=== PATIENT | female | born 1935 | race Caucasian/White ===

== ENCOUNTER 2020-09-04 09:23 | Outpatient (CLI) | payer OTHER, SELFPAY ==
--- NOTE | ~2020-09-04 | XR_ITS ---
XR abdomen/kub 1V DATE: 09/04/2020 09:43 INDICATION: Gross hematuria TECHNIQUE: AP projection, 2 views COMPARISON: 09/04/[address] abdomen pelvis FINDINGS: There are 2 contiguous approximately 1.5 cm calcified right renal pelvic calculi. Approximately 6 mm upper pole left renal obstructing calculus. Approximately 6 mm lower pole left renal nonobstructing calcified calculus. Surgical clips, right upper quadrant, consistent with cholecystectomy. No evidence of bowel obstruction. Ilana overlie the abdomen, consistent with prior abdominal wall mesh repair There is prominent rotatory levoscoliosis and degenerative change of the lumbar spine. Abdominal aort ic calcification without evidence of aneurysm. IMPRESSION: 2 contiguous approximately 1.5 cm right renal pelvic calcified stones Left nephrolithiasis Reviewed, dictated and finalized at [facility]. Reviewed, dictated and finalized at location [facility]. IMPRESSION: 2 contiguous approximately 1.5 cm right renal pelvic calcified ston es Left nephrolithiasis
--- NOTE | ~2020-09-04 | CT_ITS ---
EXAMINATION: CT abdomen pelvis wo/w con DATE: 09/04/2020 10:20 INDICATION: Gross hematuria TECHNIQUE: Computed tomography (CT) of the abdomen and pelvis was performed without and subsequently with 130 cc Omnipaque 350 intravenous contrast. Automated exposure control and iterative reconstructi on technique were employed. Exam dose: 2578.13 mGy-cm total exam DLP. COMPARISON: 09/04/2020 KUB 09/12/[address] abdomen FINDINGS: Cardiomegaly. No pericardial or pleural effusion. A hiatal hernia is noted. Within the hernia sac is the gastric fundus, pancreatic tail and a portion of the body of the pancreas addition to splenic artery. Status post cholecystectomy. No bile duct or pancreatic duct dilatation. No hepatic, splenic, pancreatic, adrenal space-occupying mass lesion. 3.6 cm exophytic upper pole right renal cyst. Additional approximately 5.5 mm right renal cyst. 3.7 cm exophytic mid left renal cyst. Smaller left parapelvic and cortical renal cysts. There are 2 approximately 1.5 cm right renal pelvic calcified calculi with attenuation of approximate ly 1350 Hounsfield units. 5.8 mm upper pole nonobstructing left renal calculus. 5.8 mm lower pole nonobstructing left renal shawnee culus. No ureteral calculi or hydronephrosis is noted on either side. The urinary bladder is evacuated and u nremarkable. There are innumerable diverticula of the sigmoid and descending colon and multiple diverticula of the transverse and ascending colon. No CT evidence of diverticulitis. No bowel obstruction, bowel wall t hickening, pneumatosis or intraperitoneal free air is evident. No appendix is evident. Mesh repair of anterior abdominal wall. There is atherosclerotic calcification of the abdominal aorta, iliac arteries but no evidence of aneu rysm. No intraperitoneal or retroperitoneal or pelvic mass lesion or adenopathy or ascites is detecte d. Bilateral L5 pars inter-articularis defects with grade 2 anterolisthesis and severe degenerative dise ase at L5-S1. There is scoliosis and multilevel degenerative disc disease of the lumbar spine, particularly severe at L2-3, with minimal retrolisthesis at this level. IMPRESSION: There are 2 approximately 1.5 cm right renal pelvic calcified calculi Bilateral renal cysts Extensive diverticulosis of the colon; no CT evidence of diverticulitis Status post cholecystectomy Hiatal hernia containing gastric fundus, pancreatic tail and body Bilateral L5 pars intra-articular is defects with grade 2 anterolisthesis at L5-S1 Multilevel degenerative disc disease, greater laterally severe at L2-3 Reviewed, dictated and finalized at [facility]. Reviewed, dictated and finalized at [facility]. IMPRESSION: There are 2 approximately 1.5 cm right renal pelvic calcified calc leela Bilateral renal cysts Extensive diverticulosis of the colon; no CT evidence of diverticulitis Status post cholecystectomy Hiatal hernia containing gastric fundus, pancreatic tail and body Bilateral L5 pars intra-articular is defects with grade 2 anterolisthesis at L5 -S1 Multilevel degenerative disc disease, greater laterally severe at L2-3
[2020-09-04 09:56] LABS: Estimated Glomerular Filt Rate 60
== END 2020-09-04 09:24 | disposition home or self-care (01) ==
LOC: ANHIMG 09:32
PROVIDERS: Visit Provider Nurse Practitioner Family
DX: R31.0 Gross hematuria (principal); N20.0 Calculus of kidney; N28.1 Cyst of kidney, acquired; K57.90 Diverticulosis of intestine, part unspecified, without perforation or abscess without bleeding; Z90.49 Acquired absence of other specified parts of digestive tract; K44.9 Diaphragmatic hernia without obstruction or gangrene; M43.17 Spondylolisthesis, lumbosacral region; M51.36 Other intervertebral disc degeneration, lumbar region
CPT/HCPCS: 74018; 74178; Q9967

== ENCOUNTER 2020-09-14 11:12 | Outpatient (CLI) | payer OTHER, SELFPAY ==
--- NOTE | 2020-09-14 11:28 | ECG_ITS ---
Measurements Intervals [place] Rate: 58 P: 24 IN: 226 QRS: -24 QRSD: 150 T: -13 QT: 418 QTc: 414 Interpretive Statements SINUS BRADYCARDIA WITH FIRST DEGREE AV BLOCK RIGHT BUNDLE BRANCH BLOCK BASELINE ARTIFACT- I, II, III, AVR, AVL, AVF ABNORMAL ECG Electronically Signed On 09-14-2020 11:43:45 CDT by Hamilton Ramon D.O.
[2020-09-14 11:57] LABS: Prothrombin Time 13.3 Seconds (11.1-14.7)
[2020-09-14 11:58] LABS: Partial Thromboplastin Time 29.7 SECONDS (22.3-36.8)
== END 2020-09-14 11:13 | disposition home or self-care (01) ==
LOC: ANHSURGERY 11:17
PROVIDERS: PCP Specialist; Visit Provider Urology
DX: N20.0 Calculus of kidney (principal); I10 Essential (primary) hypertension; Z01.818 Encounter for other preprocedural examination; I44.0 Atrioventricular block, first degree; I45.10 Unspecified right bundle-branch block
CPT/HCPCS: 36415; 85610; 85730; 87086; 93005

== ENCOUNTER → 2020-09-19 02:50 | Outpatient (CLI) | payer OTHER, SELFPAY ==
[2020-09-19 18:14] LABS: SARS-CoV-2 RNA PCR Negative
== END ==
PROVIDERS: Visit Provider Urology
DX: Z01.812 Encounter for preprocedural laboratory examination (principal); Z20.822 Contact with and (suspected) exposure to COVID-19
CPT/HCPCS: C9803; U0003; U0005

== ENCOUNTER 2020-09-22 00:44 | Day surgery (SDC) | payer OTHER, SELFPAY ==
[2020-09-12 13:23] VITALS: BMI 35.8
[2020-09-22] VITALS (7 sets, daily range): BP systolic 120–144; BP diastolic 59–74; PULSE 54–80; RESP 12–20; TEMP 36.1–36.5; O2SAT 96–100
--- NOTE | ~2020-09-22 | XR_ITS ---
EXAMINATION: XR abdomen/kub 1V DATE: 09/22/2020 06:27 INDICATION: Nephrolithiasis for planned lithotripsy TECHNIQUE: A supine view of the abdomen was obtained. COMPARISON: CT dated 09/04/2020 FINDINGS: Unchanged bilateral nephrolithiasis with 1.3 cm and 1.5 cm densely calcified stones projecting over t he right renal pelvis and 5 mm stone at the lower pole of the left kidney. Surgical clips project ove r both the left and right abdomen corresponding to a prior ventral hernia mesh repair. No dilated loo ps of gas-filled bowel to suggest obstruction. Sigmoid diverticulosis. A few phleboliths in the pelvi s. Lumbar levorotoscoliosis with moderate spondylosis. IMPRESSION: 1. Unchanged bilateral nephrolithiasis including a 1.3 and 1.5 cm stones at the right renal pelvis. Reviewed, dictated and finalized at location [facility].
--- NOTE | 2020-09-22 07:21 | WPDHPUPDATE1 ---
History and Physical Update Update Date/Time: 09/22/20 07:21 History and Physical has been reviewed, including an updated exam of the patient. There are NO changes in the patient's condition. Risks, benefits, and alternatives have been discussed and questions answered. Patient agrees to proceed with procedure.
--- NOTE | 2020-09-22 07:32 | WPDANESEPPF ---
Anes - Initial Pre Proc Eval Procedure: Operation Date: 09/22/20 08:30 Proposed Procedures p Right Extracorporeal Shock Wave Lithotripsy, - Ameya Mccracken MD s Right Ureteral Stent Placement, Possible Right Ureteroscopy - Ameya Mccracken MD Date/Time: 09/22/20 07:32 Surgeon: Ameya Mccracken MD Pre Op Diagnosis: bilat renal stones Patient Data Age: 85 Gender: F Height: 5 ft 5 in Weight: 97.72 kg Allergies Allergy/AdvReac Type Severity Reaction Status Date / Time codeine Allergy Unknown Hives Verified 09/22/20 07:31 atorvastatin AdvReac Muscle Pain Verified 09/22/20 07:31 Home Medications Medication Instructions Recorded Confirmed Type amlodipine 5 mg PO DAILY 03/25/19 09/12/20 History gabapentin 300 mg HS 03/25/19 09/12/20 History metoprolol tartrate 25 mg PO BID 03/25/19 09/12/20 History Patient hx anesthesia problems: none Family hx anesthesia problems: none PMFSH Past Medical History Medical History Bronchitis CAD (coronary artery disease) Cataract, right eye Hiatal hernia Neuropathy Sleep apnea Surgical History Surgical History Stented coronary artery Social History Social History Smoking status: Former smoker Tobacco type: cigarettes Second hand tobacco smoke exposure: No Additional smoking assessment comments: 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 Alcohol intake: never Substance use: never Substance use type: does not use Living arrangements: alone Spiritual care concerns: No Anes - Eval Final PreProcedure Day of Procedure 09/22/20 07:32 Patient weight: obese Heart: regular rate and rhythm Lungs: clear to auscultation Airway: Mallampati scale class II Neurological: alert and oriented Last oral intake: >/= 8 hours ASA classification: III Emergent: no Anesthetic plan: proceed Anesthesia type and monitoring: general LMA and standard monitoring Informed Consent: The patient's anesthetic plan and its attendant risks and benefits were discussed with the patient/family/POA. Questions were solicited and answers provided to the satisfaction of the patient/family/POA.
[2020-09-22] MEDS: LACTATED RINGERS 1,000 ML 30 ML IV CONT (07:39)
[2020-09-22] MEDS: ceFAZolin 2 GM/D5W 50 ML 2 GM/50 ML BAG IVPB (07:45)
--- NOTE | 2020-09-22 08:09 | PM.PROC ---
Procedure Note - Detailed Date of procedure: 09/22/20 Pre-op diagnosis: Right renal stones Post-op diagnosis: same Procedure performed: The patient was brought to the operative suite where she was placed in the frog-legged position on the Dornier lithotripter table. Flexible cystoscopy was undertaken with a 16F flexible cystoscopy. Her urethra and bladder neck were endoscopically normal. The bladder mucosa was normal and there was a single, orthotopic ureteral orifice bilaterally. A 0.035 glidewire was advanced into the right renal pelvis under fluoroscopy. A 4.8F J-J ureteral stent was positioned with the proximal coil in the renal pelvis and the distal coil in the bladder. The patient was then repositioned in the supine position and the focal point of the lithotriptor was placed the inferior-most of two right renal pelvic calculi - each measuring approx. 1cm. A total of 2500 shocks were delivered at a power setting of 4. The patient tolerated the procedure well and was taken to the recovery room in good condition. Anesthesia: GLMA Surgeon: Ameya Mccracken MD Estimated blood loss (mL): 0 Drains: Yes (4.8F right ureteral stent) Packing: No Pathology: none sent Complications: No immediate complications Condition: stable Disposition: PACU
== END 2020-09-22 10:13 | disposition home or self-care (01) ==
PROVIDERS: Visit Provider Urology
PROC: (CPT 50590; principal; 2020-09-22 08:30)
PROC: (CPT 52352; 2020-09-22 08:30)
DX: N20.0 Calculus of kidney (principal); I25.10 Atherosclerotic heart disease of native coronary artery without angina pectoris; K44.9 Diaphragmatic hernia without obstruction or gangrene; G47.30 Sleep apnea, unspecified; G62.9 Polyneuropathy, unspecified; Z87.891 Personal history of nicotine dependence; E66.9 Obesity, unspecified; Z68.36 Body mass index [BMI] 36.0-36.9, adult
CPT/HCPCS: 52332; 50590; 36415; 74018; 85610; 85730; 87086; 93005; A9270; C1769; C2617; C9803; J0690; J1100; J2405; J2704; J3010; J7030; J7120; U0003; U0005

== ENCOUNTER 2020-10-13 11:02 | Outpatient (CLI) | payer OTHER, SELFPAY ==
--- NOTE | ~2020-10-13 | XR_ITS ---
EXAMINATION: XR abdomen/kub 1V INDICATION: Gross hematuria TECHNIQUE: Supine views of the abdomen were obtained on 2 radiographs. COMPARISON: 09/22/2020 FINDINGS: A right internal ureteral stent has been placed in expected position. There is a 2.1 cm sto ne in the right renal pelvis. A 1.8 cm stone is present in the lower pole of the right kidney. There is a 6 mm stone in the left kidney lower pole. The bowel gas pattern is normal. Cholecystectomy clips are present in the right upper quadrant. Lumbar levoscoliosis is noted. There is calcified atheroscl erosis. IMPRESSION: 1. Right internal ureteral stent in expected position with stones in the right renal pelvis and right kidney lower pole. Reviewed, dictated and finalized at location [facility].
== END 2020-10-13 11:03 | disposition home or self-care (01) ==
LOC: ANHIMG 11:07
PROVIDERS: Visit Provider Nurse Practitioner Family
DX: R31.0 Gross hematuria (principal)
CPT/HCPCS: 74018

== ENCOUNTER 2020-10-17 10:51 | Outpatient (CLI) | payer OTHER, SELFPAY ==
[2020-10-17 11:30] LABS: Prothrombin Time 13.8 Seconds (11.1-14.7)
[2020-10-17 11:33] LABS: Partial Thromboplastin Time 28.2 SECONDS (22.3-36.8)
== END 2020-10-17 10:52 | disposition home or self-care (01) ==
LOC: ANHSURGERY 10:55
PROVIDERS: Visit Provider Urology
DX: N20.0 Calculus of kidney (principal); Z01.818 Encounter for other preprocedural examination
CPT/HCPCS: 36415; 85610; 85730; 87086; 87088

== ENCOUNTER 2020-10-20 00:40 | Day surgery (SDC) | payer OTHER, SELFPAY ==
[2020-10-16 13:43] VITALS: BMI 34.7
[2020-10-20] VITALS (7 sets, daily range): BP systolic 145–172; BP diastolic 59–80; PULSE 52–75; RESP 14–18; TEMP 36.3–37.1; O2SAT 97–100
--- NOTE | ~2020-10-20 | XR_ITS ---
EXAMINATION: XR abdomen/kub 1V DATE: 10/20/2020 10:29 INDICATION: Right-sided nephrolithiasis for planned shock wave lithotripsy TECHNIQUE: A supine view of the abdomen on 2 radiographs was obtained. COMPARISON: KUB dated 10/13/[address] and KUB dated 09/04/2020 FINDINGS: Again seen is a right internal ureteral stent which remains in expected position with loops formed ov er the expected location of the right renal pelvis and the bladder. Again seen is a cluster of stones in the region of the right renal pelvis, the 2 largest measuring 1.9 cm and 2.0 cm with at least 4 s maller stones measuring from 6 mm to 10 mm in maximal diameters. 6 mm stones at the upper and lower p oles of the left kidney. No change in a few small phleboliths in the pelvis. Lumbar levorotoscoliosis with severe spondylosis. Cholecystectomy clips in the right upper quadrant. Multiple surgical clips at the margins of a ventral hernia mesh repair. IMPRESSION: 1. Bilateral nephrolithiasis with left internal ureteral stent in expected position. Reviewed, dictated and finalized at location [facility]. IMPRESSION: 1. Bilateral nephrolithiasis with left internal ureteral stent in expected posi tion.
--- NOTE | 2020-10-20 07:00 | WPDHPUPDATE1 ---
History and Physical Update Update Date/Time: 10/20/20 07:00 History and Physical has been reviewed, including an updated exam of the patient. There are NO changes in the patient's condition. Risks, benefits, and alternatives have been discussed and questions answered. Patient agrees to proceed with procedure.
[2020-10-20] MEDS: LACTATED RINGERS 1,000 ML 30 ML IV CONT (10:50)
--- NOTE | 2020-10-20 11:37 | P.PNAN_ITS ---
Anes - Initial Pre Proc Eval Procedure: Operation Date: 10/20/20 12:30 Proposed Procedures p Right Extracorporeal Shock Wave Lithotripsy - Ameya Mccracken MD Date/Time: 10/20/20 11:37 Surgeon: Ameya Mccracken MD Pre Op Diagnosis: right renal bilateral kidney stones Patient Data Age: 85 Gender: F Height: 1.68 m Weight: 98.8 kg Last Vital Signs Temp 37.1 C 10/20/20 10:36 Pulse 52 L 10/20/20 10:36 Resp 18 10/20/20 10:36 BP 145/59 H 10/20/20 10:36 Pulse Ox 99 10/20/20 10:36 Allergies Allergy/AdvReac Type Severity Reaction Status Date / Time codeine Allergy Unknown Hives Verified 10/16/20 13:16 atorvastatin AdvReac Muscle Pain Verified 10/16/20 13:16 Home Medications Medication Instructions Recorded Confirmed Type amlodipine 5 mg PO DAILY 03/25/19 10/20/20 History gabapentin 300 mg PO HS 03/25/19 10/20/20 History metoprolol tartrate 25 mg PO BID 03/25/19 10/20/20 History hydrocodone-acetaminophen 1 - 2 tablet PO Q6H PRN #20 tablet 09/22/20 10/20/20 Rx cephalexin 500 mg PO DAILY 10/20/20 10/20/20 History Patient hx anesthesia problems: none Family hx anesthesia problems: none PMFSH Past Medical History Medical History Bronchitis CAD (coronary artery disease) Cataract, right eye Hiatal hernia Hypertension Neuropathy Sleep apnea Surgical History Surgical History Stented coronary artery Social History Social History 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 Alcohol intake: never Substance use: never Substance use type: does not use Living arrangements: alone Spiritual care concerns: No Anes - Eval Final PreProcedure Day of Procedure 10/20/20 11:37 Patient weight: obese Heart: regular rate and rhythm Lungs: clear to auscultation Airway: Mallampati scale class II Neurological: alert and oriented Last oral intake: >/= 8 hours ASA classification: III Emergent: no Anesthetic plan: proceed Anesthesia type and monitoring: general LMA and standard monitoring Informed Consent: The patient's anesthetic plan and its attendant risks and eliezer efits were discussed with the patient/family/POA. Questions were solicited and answers provided to the satisfaction of the patient/family/POA.
[2020-10-20] MEDS: ceFAZolin 2 GM/D5W 50 ML 2 GM/50 ML BAG IVPB (12:09)
--- NOTE | 2020-10-20 12:24 | W.PM.PROC2 ---
Procedure Note - Detailed Date of Procedure 10/20/20 Pre-op Diagnosis Right renal kidney stones Post-op Diagnosis same Procedure Performed Right ESWL Surgeon Ameya Mccracken MD Communication Center Operator None Anesthesia general Indications Right renal stone Findings 2 stones in right renal pelvis Description of Procedure The patient was brought to the operative suite where she was placed in the supine position on the Dornier lithotripsy table. The focal point of the lithotripter was placed at one of two 11mm right renal pelvic calculi. A total of 2500 shocks were delivered at a power setting of 4. There appeared to be good fragmentation of the stone. The patient tolerated the procedure well and was taken to the recovery room in good condition. Estimated Blood Loss 0 Drains No Packing No Pathology none sent Complications No immediate complications Condition stable Disposition PACU
--- NOTE | 2020-10-20 13:28 | SUR.PHASEI ---
1315- pt right flank without problems. mild redness.
--- NOTE | 2020-10-20 14:07 | SUR.PHASEII ---
WOUND ASSESSMENT OF NOSE CHARTED IN ERROR.PLEASE DISREGARD.
== END 2020-10-20 14:30 | disposition home or self-care (01) ==
PROVIDERS: Visit Provider Urology
PROC: (CPT 50590; principal; 2020-10-20 12:30)
DX: N20.0 Calculus of kidney (principal); N39.41 Urge incontinence; I25.10 Atherosclerotic heart disease of native coronary artery without angina pectoris; K44.9 Diaphragmatic hernia without obstruction or gangrene; G62.9 Polyneuropathy, unspecified; I10 Essential (primary) hypertension; G47.30 Sleep apnea, unspecified; Z95.5 Presence of coronary angioplasty implant and graft; E66.9 Obesity, unspecified; Z68.35 Body mass index [BMI] 35.0-35.9, adult
CPT/HCPCS: 50590; 36415; 74018; 85610; 85730; 87086; 87088; J0690; J1100; J2405; J2704; J3010; J7120

== ENCOUNTER 2020-11-14 13:19 | Outpatient (CLI) | payer OTHER, SELFPAY ==
--- NOTE | ~2020-11-14 | XR_ITS ---
EXAMINATION: XR abdomen/kub 1V INDICATION: Bilateral renal stones two weeks post lithotripsy TECHNIQUE: Supine views of the abdomen were obtained on 2 radiographs. COMPARISON: 10/20/2020 FINDINGS: A right-sided internal ureteral stent remains in expected position. There is interval fragm entation of the previously seen stones in the right renal pelvis. Multiple smaller stones now persist s in the right renal pelvis. No definite stones are identified along the course of the internal urete ral stent. Phleboliths are noted in the right pelvis. Unchanged stones measuring 6 mm and 5 mm are pr esent in the left kidney upper and lower poles, respectively. There is levoscoliosis of the lumbar sp ine. A large volume of right-sided colonic stool is present. Cholecystectomy clips are noted. IMPRESSION: 1. Interval fragmentation of the previously described stones of the right renal pelvis now with multi ple smaller stone fragments in the renal pelvis. Right internal ureteral stent in expected position. 2. Left nephrolithiasis. Reviewed, dictated and finalized at location A. IMPRESSION: 1. Interval fragmentation of the previously described stones of the right renal pelvis now with multiple smaller stone fragments in the renal pelvis. Right in ternal ureteral stent in expected position. 2. Left nephrolithiasis.
== END 2020-11-14 13:20 | disposition home or self-care (01) ==
LOC: ANHIMG 13:23
PROVIDERS: Visit Provider Nurse Practitioner Family
DX: N20.0 Calculus of kidney (principal)
CPT/HCPCS: 74018

== ENCOUNTER 2020-11-28 10:45 | Outpatient (CLI) | payer OTHER, SELFPAY ==
[2020-11-28 11:25] LABS: INR 0.9; Prothrombin Time 12.4 Seconds (11.1-14.7)
[2020-11-28 12:29] LABS: Phenytoin Dilantin < 3 ug/mL (10-20)
== END 2020-11-28 10:46 | disposition home or self-care (01) ==
PROVIDERS: Visit Provider Urology
DX: N20.0 Calculus of kidney (principal); Z01.818 Encounter for other preprocedural examination
CPT/HCPCS: 36415; 80185; 85610; 87077; 87086; 87088; 87186

== ENCOUNTER 2020-12-14 09:10 | Outpatient (CLI) | payer OTHER, SELFPAY ==
[2020-12-14 09:54] LABS: Partial Thromboplastin Time 30.6 SECONDS (22.3-36.8); Prothrombin Time 13.3 Seconds (11.1-14.7)
[2020-12-14 10:04] LABS: Appearance Urine Clear (Clear); Bilirubin Urine Negative (Negative); Blood Urine 3+ (Negative); Color Urine Yellow (Yellow); Glucose Urine UA Negative (Negative); Ketones Urine Negative (Negative); Leukocyte Esterase Ur 3+ LEU/UL (Negative); Nitrate Urine Negative (Negative); Protein Urine 2+ mg/dL (Negative); Specific Grav Ur >= 1.030 (1.001-1.035); Urobilinogen Urine 0.2 mg/dL (<2.0); pH Urine 5.5 (5.0-9.0)
[2020-12-14 12:15] LABS: Add Urine Microscopic? YES
[2020-12-14 12:16] LABS: RBC Urine 0-2 /hpf (0-2); Squamous Epithelial Cell Urine Occasional /hpf (Few)
== END 2020-12-14 09:11 | disposition home or self-care (01) ==
LOC: ANHSURGERY 09:15
PROVIDERS: Visit Provider Urology
DX: N20.0 Calculus of kidney (principal); Z01.818 Encounter for other preprocedural examination
CPT/HCPCS: 36415; 81001; 85610; 85730; 87086

== ENCOUNTER 2020-12-15 01:08 | Day surgery (SDC) | payer OTHER, SELFPAY ==
[2020-11-27 12:26] VITALS: BMI 34.4
--- NOTE | 2020-12-10 10:34 | P.HP_ITS ---
History of Present Illness History of Present Illness Consent: Risks, benefits, and alternatives have been discussed and questions answered. Patient agrees to proceed with procedure. Chief complaint: right renal stones Narrative: Rita Flood is a 85 year old female well known to our practice with recently identified 2 large right renal calculi. She has undergone 1 prior ESWL which showed good, but incomplete, fragmentation. After discussion of options she has elected to proceed with a 2nd ESWL. As previously scheduled once but had to be deferred because of a urinary tract infection. She is aware the risk including, but not limited to, adverse cardiopulmonary events, renal hematoma, incomplete treatment of the stone. Review of Systems Cardiovascular: Cardiovascular: Denies chest pain, Denies lightheadedness, Denies palpitations and Denies dyspnea Respiratory: Respiratory: Denies dyspnea Gastrointestinal: Gastrointestinal: Denies diarrhea, Denies nausea and Denies vomiting Genitourinary: Genitourinary: Denies hematuria and Denies dysuria Endocrine: Endocrine: Denies palpitations PMFSH Past Medical History Medical History Bronchitis CAD (coronary artery disease) Cataract, right eye Hiatal hernia Hypertension Neuropathy Sleep apnea Surgical History Surgical History Stented coronary artery Social History Social History 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 Alcohol intake: never Substance use: never Spiritual care concerns: No Meds Home Medications and Allergies Home Medications Medication Instructions Recorded Confirmed Type amlodipine 5 mg PO DAILY 03/25/19 11/27/20 History gabapentin 300 mg PO HS 03/25/19 11/27/20 History metoprolol tartrate 25 mg PO BID 03/25/19 11/27/20 History hydrocodone-acetaminophen 1 - 2 tablet PO Q6H PRN #20 tablet 10/20/20 11/27/20 Rx Allergies Allergy/AdvReac Type Severity Reaction Status Date / Time codeine Allergy Unknown Hives Verified 11/27/20 12:02 atorvastatin AdvReac Muscle Pain Verified 11/27/20 12:02 Exam Const: General: no acute distress Resp: Effort & Inspection: normal respiratory effort GI: Inspection: non-distended GI Palp: No abdominal tenderness and No Guarding due to palpation present (GI) Auscultation: normal bowel sounds Assessment and Plan Assessment and plan (1) Renal calculus, right: Code(s): N20.0 - Calculus of kidney Status: Acute Assessment and Plan: * Right ESWL
--- NOTE | 2020-12-14 12:11 | WPDANESEPPF ---
Anes - Initial Pre Proc Eval Procedure: Operation Date: 12/15/20 08:30 Proposed Procedures p Right Renal Extracorporeal Shock Wave Lithotripsy - Ameya Mccracken MD Date/Time: 12/14/20 12:11 Surgeon: Ameya Mccracken MD Pre Op Diagnosis: right renal stones Patient Data Age: 85 Gender: F Height: 1.68 m Weight: 96.65 kg Allergies Allergy/AdvReac Type Severity Reaction Status Date / Time codeine Allergy Unknown Hives Verified 12/15/20 07:35 atorvastatin AdvReac Muscle Pain Verified 12/15/20 07:35 Home Medications Medication Instructions Recorded Confirmed Type amlodipine 5 mg PO DAILY 03/25/19 12/15/20 History gabapentin 300 mg PO HS 03/25/19 12/15/20 History metoprolol tartrate 25 mg PO BID 03/25/19 12/15/20 History hydrocodone-acetaminophen 1 - 2 tablet PO Q6H PRN #20 tablet 10/20/20 12/15/20 Rx sulfamethoxazole-trimethoprim 1 tablet PO BID 12/14/20 12/15/20 History Patient hx anesthesia problems: none Family hx anesthesia problems: none [facility] Past Medical History Medical History (Updated 12/14/20 @ 12:12 by Kyler Damian DO) Bronchitis CAD (coronary artery disease) Cataract, right eye Hiatal hernia Hypertension Neuropathy MOE (obstructive sleep apnea) non compliance with CPAP Sleep apnea Surgical History Surgical History (Updated 12/14/20 @ 12:12 by Kyler Damian DO) History of hysterectomy History of tonsillectomy Stented coronary artery x2 Social History Social History 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 Alcohol intake: never Substance use: never Living arrangements: alone Spiritual care concerns: No Anes - Eval Final PreProcedure Day of Procedure 12/14/20 12:11 Patient weight: obese Heart: regular rate and rhythm Lungs: clear to auscultation and normal air movement Airway: Mallampati scale class II Neurological: alert and oriented Last oral intake: >/= 8 hours ASA classification: III Emergent: no Anesthetic plan: proceed Anesthesia type and monitoring: general LMA and standard monitoring Informed Consent: The patient's anesthetic plan and its attendant risks and benefits were discussed with the patient/family/POA. Questions were solicited and answers provided to the satisfaction of the patient/family/POA.
[2020-12-15] VITALS (8 sets, daily range): BP systolic 118–163; BP diastolic 60–70; PULSE 57–64; RESP 12–18; TEMP 36.8–36.9; O2SAT 98–100
--- NOTE | ~2020-12-15 | XR_ITS ---
EXAMINATION: XR abdomen/kub 1V EXAM DATE: 12/15/2020 06:44 INDICATION: Right-sided stone. TECHNIQUE: Frontal projection of the upper abdomen, frontal projection lower abdomen/pelvis for inter pretation. Comparison is made to prior examination from 11/14/2020. FINDINGS: There is a right double-J ureteral stent in position. There are multiple large right calyce al stones. Several small densities projecting over the distal aspect of the ureter, could be ureteral stones. Smaller amount of left nephrolithiasis suspected. Nonobstructive bowel gas pattern. Abdomina l surgical clips. Moderate lumbar levoscoliosis. There is no organomegaly. IMPRESSION: Nephrolithiasis, possible right ureteral stone. Stent in position. Reviewed, dictated and finalized at location A.
--- NOTE | 2020-12-15 06:32 | WPDHPUPDATE1 ---
History and Physical Update Update Date/Time: 12/15/20 06:32 History and Physical has been reviewed, including an updated exam of the patient. There are NO changes in the patient's condition. Risks, benefits, and alternatives have been discussed and questions answered. Patient agrees to proceed with procedure.
[2020-12-15] MEDS: LACTATED RINGERS 1,000 ML 30 ML IV CONT (07:25)
[2020-12-15] MEDS: ceFAZolin 2 GM/D5W 50 ML 2 GM/50 ML BAG IVPB (08:20)
--- NOTE | 2020-12-15 08:36 | W.PM.PROC2 ---
Procedure Note - Detailed Date of Procedure 12/15/20 Pre-op Diagnosis Right renal stones Post-op Diagnosis same Procedure Performed Right ESWL Surgeon Ameya Mccracken MD Anesthesia general Description of Procedure The patient was brought to the operative suite where she was placed in the supine position on the Dornier lithotripsy table. The focal point of the lithotripter was placed at a collection of stone fragments in right renal pelvis calculus. A total of 2500 shocks were delivered at a power setting of 4. There appeared to be good fragmentation of the stone. The patient tolerated the procedure well and was taken to the recovery room in good condition. Estimated Blood Loss 0 Drains No Packing No Pathology none sent Complications No immediate complications Condition stable Disposition PACU
== END 2020-12-15 10:21 | disposition home or self-care (01) ==
PROVIDERS: Visit Provider Urology
PROC: (CPT 50590; principal; 2020-12-15 08:30)
DX: N20.0 Calculus of kidney (principal); I25.10 Atherosclerotic heart disease of native coronary artery without angina pectoris; K44.9 Diaphragmatic hernia without obstruction or gangrene; I10 Essential (primary) hypertension; G47.33 Obstructive sleep apnea (adult) (pediatric); G62.9 Polyneuropathy, unspecified; E66.9 Obesity, unspecified; Z68.34 Body mass index [BMI] 34.0-34.9, adult; Z95.5 Presence of coronary angioplasty implant and graft
CPT/HCPCS: 50590; 36415; 74018; 80185; 81001; 85610; 85730; 87077; 87086; 87088; 87186; J0690; J1100; J2405; J2704; J3010; J7120

== ENCOUNTER 2020-12-26 11:43 | Outpatient (CLI) | payer OTHER, SELFPAY ==
--- NOTE | ~2020-12-26 | XR_ITS ---
EXAMINATION: XR abdomen/kub 1V EXAM DATE: 12/26/2020 12:01 INDICATION: BI renal stones. TECHNIQUE: Frontal projection(s) of the abdomen for interpretation. Comparison is made to prior exami nation from 12/15/2020. FINDINGS: There is a right-sided double-J ureteral stent in position. Suspected to be some small ston e fragments along the course of the right ureter distally. Multiple layering densities overlying righ t calyces and over the renal pelvis, probably stone fragments. Suspect also smaller left nephrolithia sis. There is moderate lumbar levoscoliosis. Nonobstructive bowel gas pattern. IMPRESSION: 1. Bilateral kidney stones. 2. Right distal ureteral stone fragments. Stent in position. Reviewed, dictated and finalized at location A.
== END 2020-12-26 11:44 | disposition home or self-care (01) ==
LOC: ANHIMG 11:50
PROVIDERS: Visit Provider Nurse Practitioner Family
DX: N20.2 Calculus of kidney with calculus of ureter (principal)
CPT/HCPCS: 74018

== ENCOUNTER 2021-01-10 08:27 | Outpatient (CLI) | payer OTHER, SELFPAY ==
--- NOTE | ~2021-01-10 | XR_ITS ---
EXAMINATION: XR abdomen/kub 1V EXAM DATE: 01/10/2021 08:40 INDICATION: Bilateral kidney stones. Stent. TECHNIQUE: Frontal projection of the upper abdomen, frontal projection lower abdomen/pelvis for inter pretation. Comparison is made to prior examination from 12/26/2020. FINDINGS: There is a right-sided double-J ureteral stent overlying expected position. Innumerable rig ht renal pelvic, calyceal stones or stone fragments if there has been recent lithotripsy. There is a single left renal stones suspected. There is moderate lumbar levoscoliosis. Nonobstructive bowel gas pattern. There are cholecystectomy clips. IMPRESSION: 1. Bilateral nephrolithiasis. 2. Right ureteral stent in position. Reviewed, dictated and finalized at location B.
== END 2021-01-10 08:28 | disposition home or self-care (01) ==
LOC: ANHIMG 08:31
PROVIDERS: Visit Provider Urology
DX: N20.0 Calculus of kidney (principal)
CPT/HCPCS: 74018

== ENCOUNTER 2021-02-23 10:27 | Outpatient (CLI) | payer OTHER, SELFPAY ==
--- NOTE | ~2021-02-23 | XR_ITS ---
EXAMINATION: XR abdomen/kub 1V INDICATION: Bilateral renal stones TECHNIQUE: Supine views of the abdomen were obtained on 2 radiographs. COMPARISON: 01/10/2021 FINDINGS: A right internal ureteral stent has been removed. There there are greater than 30 stones ar e clustered stones of the right kidney, the largest of which measures 1.5 cm. There is a 6 mm stone o f the left kidney. No definite stones are identified along the expected courses of the ureters or wit hin the urinary bladder. There is mild osteoarthritis of the hips. Lumbar levoscoliosis is noted. Kian gical clips in the right upper quadrant are likely from prior cholecystectomy. IMPRESSION: 1. Bilateral nephrolithiasis, right greater than left. Reviewed, dictated and finalized at location B.
== END 2021-02-23 10:28 | disposition home or self-care (01) ==
LOC: ANHIMG 10:33
PROVIDERS: Visit Provider Urology
DX: N20.0 Calculus of kidney (principal)
CPT/HCPCS: 74018

== ENCOUNTER 2021-05-24 22:07 | Inpatient (IN) | payer OTHER, SELFPAY ==
--- NOTE | ~2021-05-24 | XR_ITS ---
EXAMINATION: XR abdomen/kub 1V DATE: 05/25/2021 08:54 INDICATION: Adynamic ileus. TECHNIQUE: A supine view of the abdomen on 2 radiographs was obtained. COMPARISON: Abdomen radiograph 05/25/2021 at 3:00 AM FINDINGS: There are dilated loops of small bowel. The colon is decompressed. The stomach is distended and filled with ingested material. The nasogastric tube tip is in the stomach. Surgical clips in the right upper quadrant are likely from cholecystectomy. There is mild right hydronephrosis with retain ed contrast from the recent CT. IMPRESSION: 1. Persistently dilated small bowel, most likely adynamic ileus. 2. Persistently distended stomach filled with ingested material, which could be a bezoar. 3. Mild right hydronephrosis. Reviewed, dictated and finalized at location E. WAINER
--- NOTE | ~2021-05-24 | CT_ITS ---
EXAMINATION: CT abdomen pelvis w con DATE: 05/25/2021 00:43 INDICATION: Abdominal pain. Nausea and vomiting. TECHNIQUE: Computed tomography (CT) of the abdomen and pelvis was performed with 100 mL Omnipaque 350 intravenous contrast. Automated exposure control and iterative reconstruction technique were employe d. The dose-length product was 1193.16 mGy-cm. COMPARISON: CT abdomen and pelvis 09/04/2020 FINDINGS: The visualized portions of the lung bases demonstrate mild atelectasis. No pleural effusion . The heart size is normal. No pericardial effusion. There is a moderate-sized sliding hiatal hernia that contains the tail of the pancreas. The stomach is distended and filled with ingested material. T he proximal small bowel is dilated without focal transition point. There is diverticulosis of the col on without evidence of diverticulitis. The appendix is not visualized. The liver, spleen, and adrenal glands are normal. There are changes of cholecystectomy. There is mild atrophy of the kidneys. There are cysts in the kidneys measuring up to 3.7 cm on the right. There are greater than 10 stones in th e right kidney and right renal pelvis measuring up to 8 mm. There are 2 stones in left kidney with th e larger measuring 8 mm. There are no pathologically enlarged lymph nodes. There is no free intraperi toneal fluid. Pelvic floor relaxation is noted. There are chronic bilateral L5 pars defects. There is 9 mm anterolisthesis of L5 on S1. There is lumbar levoscoliosis and severe spondylosis. IMPRESSION: 1. Dilated proximal small bowel without focal transition point, likely adynamic ileus. 2. Distended stomach filled with ingested material, which could be a bezoar if it persists. 3. Moderate-sized sliding hiatal hernia that contains the tail of the pancreas. 4. Bilateral nonobstructing kidney stones. Reviewed, dictated and finalized at location E. ING ELEMENT BUILDER
--- NOTE | ~2021-05-24 | XR_ITS ---
EXAMINATION: XR abdomen NG/feed tube insert DATE: 05/25/2021 03:05 INDICATION: Nasogastric tube placement. TECHNIQUE: An upright view of the abdomen was obtained. COMPARISON: Abdomen radiographs 02/23/2021, CT abdomen and pelvis 05/25/2021 FINDINGS: The lower abdomen is excluded. There are mildly dilated loops of small bowel. The stomach i s distended and filled with desiccated material. The nasogastric tube tip is in the stomach. There is a moderate-sized hiatal hernia. Surgical clips in the right upper quadrant are likely from cholecyst ectomy. There is mild atelectasis at left lung base. IMPRESSION: 1. Nasogastric tube tip in the stomach. 2. Mildly dilated small bowel without focal transition point on the recent CT, likely adynamic ileus. 3. Distended stomach filled with desiccated material suspicious for a bezoar. 4. Moderate-sized hiatal hernia. Reviewed, dictated and finalized at location E. ER
--- NOTE | ~2021-05-24 | XR_ITS ---
XR abdomen obstructive series 05/26/2021 08:10 Indication: Bowel obstruction Procedure: Supine and upright views of the abdomen Comparison: Comparison to multiple prior studies sequentially, with oldest reviewed study dated 01/10. Findings: Bowel gas pattern is nonobstructive. Moderate colonic fecal loading. There are bilateral re nal stones. There is moderate lumbar spondylosis with levoscoliosis. Lung bases unremarkable. Cardiom egaly. NG tube in the stomach. There are surgical changes in the right upper abdomen. Impression: 1: Nonobstructive bowel gas pattern. 2: Bilateral nephrolithiasis. Reviewed, dictated and finalized at location A. IES AND CRAFTS SALES REPRESENTATIVE Impression: 1: Nonobstructive bowel gas pattern. 2: Bilateral nephrolithiasis.
--- NOTE | ~2021-05-24 | XR_ITS ---
EXAMINATION: XR abdomen obstructive series DATE: 05/27/2021 08:14 INDICATION: Follow-up ileus versus small bowel obstruction. TECHNIQUE: Supine and upright views of the abdomen. FINDINGS: Comparison to multiple prior studies sequentially, with oldest reviewed study dated 2020. The visualized lung parenchyma is normal.. There is a nonobstructive bowel gas pattern. Gas and stool are seen throughout the colon to the level of the rectum. There is no free air. There is an NG tube in the stomach. There are bilateral renal stones. IMPRESSION: 1. No acute abdominal abnormality. 2: Bilateral nephrolithiasis. Reviewed, dictated and finalized at location A. RINTENDENT TRACK
[2021-05-24 22:07] VITALS: BP 97/61; PULSE 67; RESP 18; TEMP 36.8; O2SAT 99
--- NOTE | 2021-05-24 22:13 | ECG_ITS ---
Measurements Intervals [place] Rate: 68 P: 28 [place]: 211 QRS: 249 QRSD: 152 T: -7 QT: 420 QTc: 449 Interpretive Statements SINUS RHYTHM WITH FIRST DEGREE AV BLOCK RIGHT AXIS DEVIATION RIGHT BUNDLE BRANCH BLOCK AND POSSIBLE RIGHT VENTRICULAR HYPERTROPHY INFERIOR INFARCT, AGE INDETERMINATE BASELINE ARTIFACT- I, II, III, AVR, AVL, AVF, V1, V3-V6 ABNORMAL ECG Electronically Signed On 05-25-2021 6:47:03 PRODUCT SUPPORT ANALYST by Hamilton Ramon D.O.
--- NOTE | 2021-05-24 22:13 | ED.GENADULT ---
HPI - General Adult General Chief complaint: Nausea/Vomiting/Diarrhea Stated complaint: n/v Source: patient and EMS Mode of arrival: EMS History of Present Illness HPI narrative: 85-year-old female presenting to the emergency department for evaluation of nausea vomiting and epigastric pain. Patient states that the symptoms started approximately 5 PM today. Patient also does report some midepigastric pain. Patient does have history of pulmonary medicine. 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 Related Data Home Medications Medication Instructions Recorded Confirmed amlodipine 5 mg PO DAILY 03/25/19 12/15/20 gabapentin 300 mg PO HS 03/25/19 12/15/20 metoprolol tartrate 25 mg PO BID 03/25/19 12/15/20 sulfamethoxazole-trimethoprim 1 tablet PO BID 12/14/20 12/15/20 Allergies Allergy/AdvReac Type Severity Reaction Status Date / Time codeine Allergy Unknown Hives Verified 12/15/20 07:35 atorvastatin AdvReac Muscle Pain Verified 12/15/20 07:35 Review of Systems Review of Systems: CONSTITUTIONAL: Denies fever, chills, or sweats. EYES: Denies visual changes, redness, or discharge. ENT: Denies rhinorrhea, congestion, sore throat, or otalgia. CARDIOVASCULAR: Denies chest pain, palpitations, or edema. RESPIRATORY: Denies cough or dyspnea. GASTROINTESTINAL: Nausea vomiting and mid abdominal pain GENITOURINARY: Denies dysuria or hematuria. SKIN: Denies rash or itching. MUSCULOSKELETAL: Denies back pain, joint pain, or myalgia. NEUROLOGIC: Denies headache, numbness, or weakness. [facility] Past Medical History Medical History (Updated 05/25/21 @ 01:17 by Rudy Delgadillo MD) Bronchitis CAD (coronary artery disease) Cataract, right eye Hiatal hernia Hypertension Neuropathy MOE (obstructive sleep apnea) non compliance with CPAP Sleep apnea Surgical History Surgical History (Updated 12/14/20 @ 12:12 by Kyler Damian DO) History of hysterectomy History of tonsillectomy Stented coronary artery x2 Social History Social History 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 Alcohol intake: never Substance use: never Spiritual care concerns: No Exam Narrative: APPEARANCE: Patient uncomfortable from her nausea. HEAD: normocephalic, atraumatic. EYES: PERRLA/EOMI, conjunctivae clear. NOSE: Normal no drainage NECK: Supple. No adenopathy, no masses. RESPIRATORY: Airway patent, respirations nonlabored. Clear to auscultation bilaterally, no rales, rhonchi, wheezing. CARDIOVASCULAR: Regular rate and rhythm without murmurs rubs or gallops. ABDOMINAL: Soft, nontender, nondistended, decreased bowel sounds MUSCULOSKELETAL: Moves all extremities. Strength/ROM intact, No edema, No calf tenderness. NEURO: Alert. Cranial nerves II through XII intact. SKIN: Warm, dry. Normal Color PSYCHIATRIC: Normal affect/mood. Course Reevaluation(s) Reevaluation #1: Patient felt that her nausea was improved but still does have some nausea. Patient denies any abdominal pain at this time. Time: 22:56 Reevaluation #2: Patient was updated on the results of her CT scan showing a small bowel obstruction versus severe ileus. Patient was updated on the plan for placement of NG tube and for observation. Patient was also informed on her urinary tract infection. Case was discussed with surgery and surgery will be consulted. Case was also discussed with the hospitalist and patient will be admitted. Consultations Consultation #1: Surgery was consulted for the small bowel obstruction versus ileus. Time: 01:33 Vital Signs Vital signs: Vital Signs Temperature 98.2 F 05/24/21 22:07 Pulse Rate 67 05/24/21 22:07 Respiratory Rate 18 05/24/21 22:07 Blood Pressure 97/61 L 05/24/21 22:07 Pulse Oximetry 99 0
[2021-05-24] MEDS: ONDANSETRON INJ 4 MG/2 ML VIAL IV PUSH (22:19)
[2021-05-24] MEDS: METOCLOPRAMIDE HCL INJ 10 MG/2 ML VIAL IV PUSH (23:06)
[2021-05-24 23:07] VITALS: BP 113/70; PULSE 68; RESP 14; O2SAT 95
[2021-05-25] VITALS (12 sets, daily range): BP systolic 117–142; BP diastolic 60–83; PULSE 66–77; RESP 16–23; TEMP 36.4–37; O2SAT 95–100; BMI 33.4
[2021-05-25] LABS: Basophils Percent Auto 0.2 % (0.2-1.2); Eosinophils Percent Auto 0.1 % (0-4.4); Hematocrit 51.4 % (37.0-47.0); Hemoglobin 17.1 g/dL (12.0-15.0); Immature Granulocyte Absolute 0.04 K/mm3 (0.00-0.031); Immature Granulocyte Percent A 0.3 % (0-0.5); Lymphocytes Absolute Auto 1.09 K/mm3 (0.9-3.2); Mean Corpuscular HGB Conc 33.3 g/dl (32-36); Mean Corpuscular Hemoglobin 34.1 pg (26-34); Mean Corpuscular Volume 102.6 fl (80-100); Mean Platelet Volume 9.8 fl (7.4-10.4); Monocytes Absolute Auto 0.4 K/mm3 (0.1-0.6); Monocytes Percent Auto 3.4 % (2.6-8.5); Neutrophils Absolute Auto 10.6 K/mm3 (1.3-6.7); Platelet Count Result 173 k/mm3 (150-375); Red Blood Count 5.01 M/mm3 (4.2-5.4); Red Cell Distribution Width 13.3 % (11.5-14.5); White Blood Count 12.1 K/mm3 (4.5-10.0)
[2021-05-25 00:11] LABS: Lipase 234 U/L (23-300)
[2021-05-25 00:13] LABS: Alanine Aminotransferase 16 U/L (4-35); Albumin Level 4.5 g/dL (3.5-5.1); Alkaline Phosphatase 111 U/L (38-126); Anion Gap 8 mmol/L (8-16); Aspartate Amino Transferase 28 U/L (14-36); Bilirubin,Total 0.6 mg/dL (0.2-1.3); Blood Urea Nitrogen 18 mg/dL (7-17); Calcium 9.6 mg/dL (8.4-10.2); Carbon Dioxide 22 mmol/L (22-30); Chloride 106 mmol/L (98-107); Estimated CRCL calculation 37 ml/min; Estimated Glomerular Filt Rate 43; Glucose 183 mg/dL (65-110); Potassium 4.2 mmol/L (3.4-5.0); Sodium 136 mmol/L (137-145)
[2021-05-25 00:15] LABS: Add Urine Microscopic? YES; Appearance Urine Cloudy (Clear); Bacteria Urine 1+ /hpf; Bilirubin Urine Negative (Negative); Blood Urine 1+ (Negative); Color Urine Amber (Yellow); Glucose Urine UA Negative (Negative); Ketones Urine Negative (Negative); Leukocyte Esterase Ur 3+ LEU/UL (Negative); Mucus Urine Few /lpf; Nitrate Urine Negative (Negative); Protein Urine 2+ mg/dL (Negative); RBC Urine >75 /hpf (0-2); Specific Grav Ur 1.016 (1.001-1.035); Squamous Epithelial Cell Urine Few /hpf (Few); Urobilinogen Urine Negative mg/dL (<2.0); WBC Urine >75 /hpf
[2021-05-25 00:28] LABS: Troponin I 0.021 ng/mL (0.000-0.034)
[2021-05-25] MEDS: SODIUM CHLORIDE 0.9% IV 500 ML 999 ML IV CONT (01:00)
[2021-05-25] MEDS: SODIUM CHLORIDE 0.9% IV 1,000 ML 100 ML IV CONT ×2 (01:00→11:06)
--- NOTE | 2021-05-25 01:22 | PM.IMHP ---
H&P: HPI History of Present Illness Date/Time: 05/25/21 01:22 Chief Complaint: Nausea and vomiting Narrative: This is an 85-year-old female with past medical history significant for bronchitis, coronary artery disease, hiatal hernia, hypertension, neuropathy, obstructive sleep apnea. Patient presented to the emergency room due to nausea and vomiting 1 day duration according to patient she has been in her usual state of health prior to today's episode, denies any fevers, any rigors, any chills, any cough, sputum production, shortness of breath, abdominal pain, pain or burning with urination, no diarrhea no constipation. Patient had abdominal distension as well. Preliminary workup was significant for CT of abdomen and pelvis that shows distended stomach. A urinalysis showed numerous wbc's present, creatinine of 1.2, hemoglobin 17 hematocrit 51. Patient is been admitted for further evaluation management and treatment. Review of Systems Review of Systems: Nausea, vomiting, abdominal distension. Constitutional: Constitutional: Denies chills, Denies fatigue, Denies fever(s), Denies malaise, Denies night sweats and Denies weakness Eyes: Eyes: Denies change in vision ENT: Denies dysphagia, Denies nasal congestion, Denies nasal discharge, Denies nasal obstruction and Denies odynophagia Cardiovascular: Cardiovascular: Denies pedal edema, Denies edema, Denies claudication, Denies leg edema, Denies lightheadedness, Denies radiating jaw, neck or arm pain, Denies palpitations, Denies dyspnea on exertion and Denies orthopnea Respiratory: Respiratory: Denies cough and Denies dyspnea Gastrointestinal: Gastrointestinal: Denies melena, Reports bloating, Denies hematochezia, Denies coffee ground emesis, Denies dyspepsia, Denies heartburn, Denies diarrhea, Reports nausea and Reports vomiting Genitourinary: Genitourinary: Denies dysuria and Denies flank pain Musculoskeletal: Musculoskeletal: Denies arthralgias and Denies joint swelling Integumentary/Breasts: Skin/Breast: Denies rash Neurologic: Denies focal weakness and Denies Sensory deficit (Neuro) Psychiatric: Psychiatric: Reports no additional psychiatric complaints and Reports as per HPI Endocrine: Endocrine: Denies cold intolerance, Denies heat intolerance, Denies polyphagia, Denies polydipsia and Denies palpitations Hematologic/Lymphatic: Hematologic/Lymphatic: Reports no additional hematologic/lymphatic complaints and Reports as per HPI Allergic/Immunologic: Allergic/Immunologic: Reports no additional allergic/immunologic complaints and Reports as per HPI [facility] Past Medical History Medical History (Updated 05/25/21 @ 03:39 by Connie Parada MD) Bronchitis CAD (coronary artery disease) Cataract, right eye Hiatal hernia Hypertension Neuropathy MOE (obstructive sleep apnea) non compliance with CPAP Sleep apnea Surgical History Surgical History (Updated 12/14/20 @ 12:12 by Kyler Damian DO) History of hysterectomy History of tonsillectomy Stented coronary artery x2 Social History Social History 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 Alcohol intake: never Substance use: never Spiritual care concerns: No Meds Home Medications and Allergies Home Medications Medication Instructions Recorded Confirmed Type amlodipine 5 mg PO DAILY 03/25/19 12/15/20 History gabapentin 300 mg PO HS 03/25/19 12/15/20 History metoprolol tartrate 25 mg PO BID 03/25/19 12/15/20 History hydrocodone-acetaminophen 1 - 2 tablet PO Q6H PRN #20 tablet 10/20/20 12/15/20 Rx sulfamethoxazole-trimethoprim 1 tablet PO BID 12/14/20 12/15/20 History cephalexin 500 mg PO Q8H #9 cap 12/15/20 Rx hydrocodone-acetaminophen 1 - 2 tablet PO Q6H PRN #20 tablet 12/15/20 Rx Allergies Allergy/AdvReac Type
[2021-05-25 02:37] LABS: SARS-CoV-2 RNA PCR Negative
--- NOTE | 2021-05-25 03:05 | PC.NURSE ---
12 F. NG tube placed on left nare, pt tolerated procedure poorly.
--- NOTE | 2021-05-25 04:26 | PC.NURSE ---
This patient, Rita Flood, was admitted to 3 [facility] Surg Room 300-01. Patient/family oriented to hospital policies and general routines including ID bracelet, bed and alarms, visiting hours, pain management, procedures, bathroom and other care routines, personal items, smoking policy, room service/diet, and visiting hours. Information on how to activate the Rapid Response Team has been discussed. Patient/Family are encouraged to report perceived risks to care and to ask questions if they do not understand what they are told or what they should do.
[2021-05-25 07:27] LABS: Basophils Percent Auto 0.1 % (0.2-1.2); Eosinophils Percent Auto 0.2 % (0-4.4); Hemoglobin 15.6 g/dL (12.0-15.0); Immature Granulocyte Absolute 0.04 K/mm3 (0.00-0.031); Immature Granulocyte Percent A 0.4 % (0-0.5); Lymphocytes Percent Auto 12.7 % (18.3-44.2); Mean Corpuscular HGB Conc 33.2 g/dl (32-36); Mean Corpuscular Hemoglobin 33.1 pg (26-34); Mean Corpuscular Volume 99.6 fl (80-100); Monocytes Absolute Auto 0.5 K/mm3 (0.1-0.6); Neutrophils Absolute Auto 7.7 K/mm3 (1.3-6.7); Neutrophils Percent Auto 81.6 % (45.5-73.1); Platelet Count Result 182 k/mm3 (150-375); Red Blood Count 4.72 M/mm3 (4.2-5.4); Red Cell Distribution Width 13.2 % (11.5-14.5); White Blood Count 9.5 K/mm3 (4.5-10.0)
[2021-05-25 07:36] LABS: Anion Gap 5 mmol/L (8-16); Blood Urea Nitrogen 17 mg/dL (7-17); Calcium 9.1 mg/dL (8.4-10.2); Carbon Dioxide 23 mmol/L (22-30); Chloride 109 mmol/L (98-107); Estimated CRCL calculation 39 ml/min; Estimated Glomerular Filt Rate 47; Glucose 124 mg/dL (65-110); Sodium 137 mmol/L (137-145)
--- NOTE | 2021-05-25 09:40 | PM.CNGS ---
Assessment and Plan Assessment and plan (1) SBO (small bowel obstruction): Code(s): K56.609 - Unspecified intestinal obstruction, unspecified as to partial versus complete obstruction Status: Acute Assessment and Plan: I have reviewed the imaging and discussed the findings with the patient. She has evidence of a possible small-bowel obstruction or ileus and also evidence of a gastric bezoar. Agree with GI consultation for possible EGD. If unable to remove bezoar by endoscopic methods or chemical dissolution, then may eventually need surgical removal. Ruling out gastric outlet obstruction would be beneficial as well with the EGD. Could benefit from Gastrografin small-bowel follow-through to rule out distal obstruction eventually. Will continue to follow along with serial abdominal exams at this time. (2) Gastric bezoar: Qualifiers: Encounter type: initial encounter Qualified Code(s): T18.2XXA - Foreign body in stomach, initial encounter Code(s): T18.2XXA - Foreign body in stomach, initial encounter Status: Acute History of Present Illness Consult details Consult date: 05/25/21 Reason for consult: other (Bowel obstruction) Requesting physician: Rudy Delgadillo MD Narrative: This is an 85-year-old woman who presented to the emergency department overnight with abdominal pain with nausea and vomiting. She states that her pain started yesterday and she began vomiting mostly phlegm. She was having diarrhea about 3 days ago but has not had a bowel movement since. She was passing a little bit of flatus yesterday. She has never had any symptoms like this before. She does state that over the past couple months she has felt full very easily. She states she can only eat a few bites before feeling completely full. She denies prior history of peptic ulcer disease. She denies any history of diabetes. Review of Systems Review of Systems: All systems reviewed & are unremarkable except as noted in HPI and below Constitutional: Constitutional: Denies chills and Denies fever(s) Eyes: Eyes: Denies change in vision ENT: Denies hearing loss, Denies neck pain and Denies sore throat Cardiovascular: Cardiovascular: Denies chest pain and Denies dyspnea Respiratory: Respiratory: Denies cough, Denies dyspnea and Denies wheezing Gastrointestinal: Gastrointestinal: Reports as per HPI Genitourinary: Genitourinary: Denies hematuria and Denies dysuria Musculoskeletal: Musculoskeletal: Denies arthralgias, Denies joint swelling and Denies neck pain Allergic/Immunologic: Allergic/Immunologic: Denies wheezing [facility] Past Medical History Medical History (Updated 05/25/21 @ 09:44 by Margarito Mejias DO) Bronchitis CAD (coronary artery disease) Cataract, right eye Hiatal hernia Hypertension Neuropathy MOE (obstructive sleep apnea) non compliance with CPAP Sleep apnea Surgical History Surgical History (Updated 05/25/21 @ 09:42 by Margarito Mejias DO) History of hysterectomy History of incisional hernia repair History of repair of hiatal hernia History of tonsillectomy Stented coronary artery x2 Social History Social History 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 Alcohol intake: never Substance use: never Spiritual care concerns: No Meds Home Medications and Allergies Home Medications Medication Instructions Recorded Confirmed Type amlodipine 5 mg PO DAILY 03/25/19 05/25/21 History gabapentin 300 mg PO HS 03/25/19 05/25/21 History metoprolol tartrate 25 mg PO BID 03/25/19 05/25/21 History Allergies Allergy/AdvReac Type Severity Reaction Status Date / Time codeine Allergy Unknown Hives Verified 12/15/20 07:35 atorvastatin AdvReac Muscle Pain Verified 12/15/20 07:35 Vital Si
--- NOTE | 2021-05-25 09:42 | WPDGICN ---
Assessment and Plan Assessment and plan (1) N&V (nausea and vomiting): Code(s): R11.2 - Nausea with vomiting, unspecified Status: Acute Assessment and Plan: she began vomiting yesterday but only brought up mucoid material or saliva. She had not been vomiting prior to that (2) Gastric bezoar: Qualifiers: Encounter type: initial encounter Qualified Code(s): T18.2XXA - Foreign body in stomach, initial encounter Code(s): T18.2XXA - Foreign body in stomach, initial encounter Status: Acute Assessment and Plan: CT scan shows what appears to be foreign matter in the stomach, possibly food, possibly a bezoar. She is not diabetic and denies prior problems with gastric emptying, foul burping, or other symptoms that would suggest gastric motility disorder. I will schedule her for EGD to be done today. The procedure was discussed, including the possible complications such as bleeding or perforation or aspiration. I told her that we will likely need to reinsert the nasogastric tube after the procedure. (3) Hiatal hernia: Code(s): K44.9 - Diaphragmatic hernia without obstruction or gangrene Status: Acute Assessment and Plan: She had repair of a complicated hernia in 1998 when living in [place]. She describes it as an 'upside down hernia caught under her liver'. 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 Now CT scan shows a hiatal hernia which also involves, oddly, the tail of her pancreas. She denies dysphagia, or pain after meals that would suggest a paraesophageal hernia (4) Leukocytosis: Code(s): D72.829 - Elevated white blood cell count, unspecified Status: Acute Assessment and Plan: white blood count [id number], but no indication of infection, no fever GI Consult Note Consult date/time: 05/25/21 09:42 HPI: Rita Flood is a 85 year old female was admitted through the emergency room with nausea and vomiting. She states that yesterday she was talking to her [id number] when she developed diaphoresis felt little lightheaded and then began vomiting. Her emesis consisted only of phlegm. This happened a couple of times. She subsequently came to the emergency room. She was a bit uncomfortable in the upper abdomen but had no actual pain. CT scan here shows a distended stomach with contents that appear to be food such as a bezoar also shows some moderate distention of the proximal small bowel suggestive of possible partial small-bowel obstruction versus ileus. On CT she has a hiatal hernia and apparently the tail of the pancreas is involved in that. The patient states that she had surgery in 1998 for large upside down hiatal hernia that was underneath her liver. That was repaired via a long midline incision which subsequently developed hernia. She then had repair that hernia with mesh. She states her appetite has been okay until the last few days. She has not had significant bowel problems her last bowel movement was 2 days ago but a little loose. She had no blood in her emesis or in her stool. She has had no fever. Her weight is stable. An NG tube has been placed and is draining brown liquid Review of Systems Review of Systems: All systems reviewed & are unremarkable except as noted in HPI and below PMFSH Past Medical History Medical History Bronchitis CAD (coronary artery disease) Cataract, right eye Hiatal hernia Hypertension Neuropathy MOE (obstructive sleep apnea) non compliance with CPAP Sleep apnea Surgical History Surgical History History of hysterectomy History of incisional hernia repair History of repair of hiatal hernia History of tonsillectomy Stented coronary artery x2 Social History Social History Smoking status: Never smoker Tobacco type: cigaret
--- NOTE | 2021-05-25 10:51 | PM.IMPN ---
Progress Note: A&P Assessment and Plan (1) SBO (small bowel obstruction): Code(s): K56.609 - Unspecified intestinal obstruction, unspecified as to partial versus complete obstruction Status: Acute Assessment and Plan: Patient came in with nausea, vomiting, abdominal pain since 6:00 p.m. last night. Presented to the emergency room and CT scan showed Dilated proximal small bowel without focal transition point, likely adynamic ileus. Distended stomach filled with ingested material, which could be a bezoar if it persists. Moderate-sized sliding hiatal hernia that contains the tail of the pancreas. Bilateral nonobstructing kidney stones. NG tube was placed patient is feeling better Continue IV fluids, p.r.n. antiemetics and pain meds In general surgery was consulted Continue monitoring. (2) Gastric bezoar: Qualifiers: Encounter type: initial encounter Qualified Code(s): T18.2XXA - Foreign body in stomach, initial encounter Code(s): T18.2XXA - Foreign body in stomach, initial encounter Status: Acute Assessment and Plan: Found on CT scan. Will get GI on board for gastric distension and possible bezoar. Appreciate GIs input (3) Acute UTI: Code(s): N39.0 - Urinary tract infection, site not specified Status: Acute Assessment and Plan: Abnormal urinalysis which could be causing her ileus. Started on Rocephin Await cultures (4) OREN (acute kidney injury): Code(s): N17.9 - Acute kidney failure, unspecified Status: Acute Assessment and Plan: Creatinine was slightly up from her baseline. Likely to be pre renal azotemia IV fluids running since she has NG tube and NPO Creatinine improved today. Daily BMP. Avoid nephrotoxins (5) CAD (coronary artery disease): Code(s): I25.10 - Atherosclerotic heart disease of [place] coronary artery without angina pectoris Status: Inactive Assessment and Plan: Chest pain-free Continue to monitor (6) MOE (obstructive sleep apnea): Code(s): G47.33 - Obstructive sleep apnea (adult) (pediatric) Status: Inactive Assessment and Plan: Does not use CPAP Continue to monitor Time Spent With Patient Time with patient: 25 - 35 minutes Subjective Date/time seen: 05/25/21 10:51 Interval history: Date of service 05/25/2021: Patient still having some abdominal discomfort and distention. Denies any more nausea or vomiting. She reports passing minimal amounts of gas. Denies any fevers, chills, chest pain, shortness of breath, cough, leg swelling, calf pain, lightheadedness, dizziness, or any other symptoms at this time. Review of Systems Review of Systems: All systems reviewed & are unremarkable except as noted in HPI and below Exam Narrative: General: 85-year-old woman laying flat in bed with NG tube in place. Appears comfortable. In no acute distress. Skin: No jaundice or cyanosis. Good skin turgor. Neck: Full range of motion. Supple. Respiratory: Lungs are clear to auscultation bilaterally. No bony chest wall tenderness. Cardiovascular: The heart has a regular rate and rhythm without murmur. Lower extremities: No lower extremity edema. Distal pulses are easily palpated. No calf tenderness to palpation. Gastrointestinal: Distended abdomen, tenderness to palpation diffusely. Psychiatric: Lucid and oriented. Memory intact. Neurologic: No focal deficits. Speech is clear. No facial drooping. Objective Data Vital Signs Vital Signs: Vital Signs - 24 hr 05/24/21 22:07 05/24/21 23:07 05/25/21 02:00 Temperature 98.2 F 97.9 F Pulse Rate 67 68 71 Respiratory Rate 18 14 18 Blood Pre
[2021-05-25] MEDS: LACTATED RINGERS 1,000 ML 150 ML IV CONT (12:16)
--- NOTE | 2021-05-25 12:26 | WPDANESEPPF ---
Anes - Initial Pre Proc Eval Procedure: Operation Date: 05/25/21 13:00 Proposed Procedures p Esophagogastroduodenoscopy - Dennis Muro MD Date/Time: 05/25/21 12:26 Surgeon: Siomara Scott PA-C Pre Op Diagnosis: SBO, UTI Patient Data Age: 85 Gender: F Height: 1.68 m Weight: 94 kg Last Vital Signs Temp 36.4 C L 05/25/21 12:05 Pulse 75 05/25/21 12:05 Resp 16 05/25/21 12:05 BP 128/60 05/25/21 12:05 Pulse Ox 95 05/25/21 12:05 Allergies Allergy/AdvReac Type Severity Reaction Status Date / Time codeine Allergy Unknown Hives Verified 12/15/20 07:35 atorvastatin AdvReac Muscle Pain Verified 12/15/20 07:35 Home Medications Medication Instructions Recorded Confirmed Type amlodipine 5 mg PO DAILY 03/25/19 05/25/21 History gabapentin 300 mg PO HS 03/25/19 05/25/21 History metoprolol tartrate 25 mg PO BID 03/25/19 05/25/21 History Laboratory Tests 05/24/21 05/24/21 05/24/21 23:53 23:53 23:53 WBC 12.1 K/mm3 H K/mm3 (4.5-10.0) RBC 5.01 M/mm3 M/mm3 (4.2-5.4) Hgb 17.1 g/dL H g/dL (12.0-15.0) Hct 51.4 % H % (37.0-47.0) MCV 102.6 fl H fl (80-100) MCH 34.1 pg H pg (26-34) MCHC 33.3 g/dl g/dl (32-36) RDW 13.3 % % (11.5-14.5) Plt Count 173 k/mm3 k/mm3 (150-375) MPV 9.8 fl fl (7.4-10.4) Immature Gran % (Auto) 0.3 % % (0-0.5) Neut % (Auto) 87.0 % H % (45.5-73.1) Lymph % (Auto) 9.0 % L % (18.3-44.2) [place] % (Auto) 3.4 % % (2.6-8.5) Eos % (Auto) 0.1 % % (0-4.4) Baso % (Auto) 0.2 % % (0.2-1.2) Lymph # (Auto) 1.09 K/mm3 K/mm3 (0.9-3.2) [place] # (Auto) 0.4 K/mm3 K/mm3 (0.1-0.6) Eos # (Auto) 0.0 K/mm3 K/mm3 (0-0.3) Baso # (Auto) 0.0 K/mm3 K/mm3 (0.0-0.1) Abs Immat Gran (auto) 0.04 K/mm3 H K/mm3 (0.00-0.031) Absolute Neuts (auto) 10.6 K/mm3 H K/mm3 (1.3-6.7) Absolute Nucleated RBC 0.0 K/mm3 K/mm3 (0.0-0.012) Nucleated RBC % 0.0 % % (0.0-0.2) Sodium 136 mmol/L L mmol/L (137-145) Potassium 4.2 mmol/L mmol/L (3.4-5.0) Chloride 106 mmol/L mmol/L (98-107) Carbon Dioxide 22 mmol/L mmol/L (22-30) Anion Gap 8 mmol/L mmol/L (8-16) BUN 18 mg/dL H mg/dL (7-17) Creatinine 1.20 mg/dL H mg/dL (0.7-1.0) Estim Creat Clear Calc 37 ml/min ml/min Estimated GFR 43 L (59 - ) Glucose 183 mg/dL H mg/dL (65-110) Lactic Acid Calcium 9.6 mg/dL mg/dL (8.4-10.2) Total Bilirubin 0.6 mg/dL mg/dL (0.2-1.3) AST 28 U/L U/L (14-36) ALT 16 U/L U/L (4-35) Alkaline Phosphatase 111 U/L U/L (38-126) Troponin I Total Protein 8.0 g/dL g/dL (6.3-8.2) Albumin 4.5 g/dL g/dL (3.5-5.1) Lipase 234 U/L U/L (23-300) Urine Color Urine Appearance Urine pH Ur Specific [place] Urine Protein Urine Glucose (UA) Urine Ketones Ur Blood (Man) Urine Nitrate Urine Bilirubin Urine Urobilinogen Leukocyte Esterase Rfl Urine RBC Urine WBC Ur Squamous Epith Cells Urine Bacteria Hyaline Casts Urine Mucus SARS-CoV-2 RNA (RT-PCR) 05/24/21 05/24/21 05/25/21 23:53 23:53 00:00 WBC RBC Hgb Hct MCV MCH MCHC RDW Plt Count MPV Immature Gran % (Auto) Neut % (Auto) Lymph % (Auto) [place] % (Auto) Eos % (Auto) Baso % (Auto) Lymph #
--- NOTE | 2021-05-25 13:24 | SUR.PHASEII ---
Pt to post-op with NG tube in place. Per Dr. Muro, NG placement was verified with EGD scope. NG placed on low-intermittent suction.
[2021-05-25] MEDS: METOPROLOL TARTRATE 25 MG TABLET PO (16:07)
[2021-05-25] MEDS: METOCLOPRAMIDE HCL INJ 10 MG/2 ML VIAL IV PUSH ×2 (17:08→23:14)
[2021-05-25] MEDS: GABAPENTIN 300 MG CAPSULE PO (20:38)
--- NOTE | 2021-05-26 05:00 | PCRCNOTE ---
RT asked pt about wearing a hospital CPAP unit. The pt declined to wear one during this stay.
[2021-05-26 05:50] VITALS: BP 135/65; PULSE 73; RESP 18; TEMP 36.4; O2SAT 92
[2021-05-26] MEDS: SODIUM CHLORIDE 0.9% IV 1,000 ML 100 ML IV CONT ×2 (06:23→22:05)
[2021-05-26] MEDS: METOCLOPRAMIDE HCL INJ 10 MG/2 ML VIAL IV PUSH ×4 (06:24→23:27)
[2021-05-26 06:26] LABS: Hematocrit 44.6 % (37.0-47.0); Hemoglobin 14.3 g/dL (12.0-15.0); Mean Corpuscular HGB Conc 32.1 g/dl (32-36); Mean Corpuscular Hemoglobin 33.2 pg (26-34); Mean Corpuscular Volume 103.5 fl (80-100); Mean Platelet Volume 9.8 fl (7.4-10.4); Platelet Count Result 151 k/mm3 (150-375); Red Blood Count 4.31 M/mm3 (4.2-5.4); Red Cell Distribution Width 13.6 % (11.5-14.5); White Blood Count 7.6 K/mm3 (4.5-10.0)
[2021-05-26 06:41] LABS: Anion Gap 4 mmol/L (8-16); Blood Urea Nitrogen 13 mg/dL (7-17); Calcium 8.4 mg/dL (8.4-10.2); Carbon Dioxide 20 mmol/L (22-30); Chloride 114 mmol/L (98-107); Estimated CRCL calculation 53 ml/min; Estimated Glomerular Filt Rate > 60; Glucose 89 mg/dL (65-110); Potassium 4.2 mmol/L (3.4-5.0); Sodium 138 mmol/L (137-145)
--- NOTE | 2021-05-26 07:10 | P.PNAN_ITS ---
Anes - Prog Note Post-Op Date/Time: 05/26/21 07:10 Cardiovascular status: normal Respiratory status: normal Airway patency: baseline Mental status: baseline Post-Op hydration status: normal Vital Signs: Last Vital Signs Temp 97.5 F L 05/26/21 05:50 Pulse 73 05/26/21 05:50 Resp 18 05/26/21 05:50 BP 135/65 05/26/21 05:50 Pulse Ox 92 05/26/21 05:50 Pain Score (VAS): 04/30 I/O: Intake & Output 05/25/21 05/25/21 05/26/21 15:59 23:59 07:59 Intake Total 1050 1000 Output Total 150 Balance 1050 1000 -150 Laboratory Tests 05/26/21 05:28 05/26/21 05:28 05/25/21 05/25/21 05/26/21 06:38 06:38 05:28 WBC 9.5 7.6 RBC 4.72 4.31 Hgb 15.6 H 14.3 Hct 47.0 44.6 MCV 99.6 103.5 H MCH 33.1 33.2 MCHC 33.2 32.1 RDW 13.2 13.6 Plt Count 182 151 MPV 10.0 9.8 Immature Gran % (Auto) 0.4 Neut % (Auto) 81.6 H Lymph % (Auto) 12.7 L [place] % (Auto) 5.0 Eos % (Auto) 0.2 Baso % (Auto) 0.1 L Lymph # (Auto) 1.20 [place] # (Auto) 0.5 Eos # (Auto) 0.0 Baso # (Auto) 0.0 Abs Immat Gran (auto) 0.04 H Absolute Neuts (auto) 7.7 H Absolute Nucleated RBC 0.0 Nucleated RBC % 0.0 Sodium 137 Potassium 4.0 Chloride 109 H Carbon Dioxide 23 Anion Gap 5 L BUN 17 Creatinine 1.10 H Estim Creat Clear Calc 39 Estimated GFR 47 L Glucose 124 H Calcium 9.1 05/26/21 05:28 WBC RBC Hgb Hct MCV MCH MCHC RDW Plt Count MPV Immature Gran % (Auto) Neut % (Auto) Lymph % (Auto) [place] % (Auto) Eos % (Auto) Baso % (Auto) Lymph # (Auto) [place] # (Auto) Eos # (Auto) Baso # (Auto) Abs Immat Gran (auto) Absolute Neuts (auto) Absolute Nucleated RBC Nucleated RBC % Sodium 138 Potassium 4.2 Chloride 114 H Carbon Dioxide 20 L Anion Gap 4 L BUN 13 Creatinine 0.80 Estim Creat Clear Calc 53 Estimated GFR > 60 Glucose 89 Calcium 8.4 Microbiology 05/24/21 23:53 Blood Blood Culture - Preliminary 05/24/21 23:41 Blood Blood Culture - Preliminary Post-procedural complaints: none Patient Feedback: Patient satisfied with anesthetic care.
[2021-05-26 08:04] VITALS: PULSE 68
[2021-05-26] MEDS: METOPROLOL TARTRATE 25 MG TABLET PO ×2 (08:04→17:09)
--- NOTE | 2021-05-26 09:22 | PM.IMPN ---
Progress Note: A&P Assessment and Plan (1) SBO (small bowel obstruction): Onset Date: ~05/2021 Code(s): K56.609 - Unspecified intestinal obstruction, unspecified as to partial versus complete obstruction Status: Acute Assessment and Plan: Patient came in with nausea, vomiting, abdominal pain since 6:00 p.m. last night. Presented to the emergency room and CT scan showed Dilated proximal small bowel without focal transition point, likely adynamic ileus. Distended stomach filled with ingested material, which could be a bezoar if it persists. Moderate-sized sliding hiatal hernia that contains the tail of the pancreas. Bilateral nonobstructing kidney stones. NG tube still in place and suctioning X-ray this morning showed no signs of an obstructive pattern. Could be an ileus related to gastroparesis or gastroenteritis. Surgery will order milk of magnesia down the NG tube and is suppository due to signs of large amount of stool in the colon. Continue IV fluids, p.r.n. antiemetics and pain meds Continue monitoring. Appreciate General surgery input. (2) Gastric bezoar: Onset Date: ~05/2021 Qualifiers: Encounter type: initial encounter Qualified Code(s): T18.2XXA - Foreign body in stomach, initial encounter Code(s): T18.2XXA - Foreign body in stomach, initial encounter Status: Acute Assessment and Plan: Found on CT scan. Dr. Muro did an EGD on the patient yesterday which showed hiatal hernia and gastric retention. There was a large amount of amorphous thick liquid retained food and secretions seen in the body of the stomach. GI started Reglan 10 mg every 6 hours Continue monitoring symptoms. Appreciate GIs input (3) Acute UTI: Code(s): N39.0 - Urinary tract infection, site not specified Status: Acute Assessment and Plan: Abnormal urinalysis which could be causing her ileus. Started on Rocephin Pending urine culture results Continue monitoring (4) OREN (acute kidney injury): Code(s): N17.9 - Acute kidney failure, unspecified Status: Acute Assessment and Plan: Creatinine was slightly up from her baseline. Likely to be pre renal azotemia IV fluids running since she has NG tube and NPO Creatinine normal today Daily BMP. Avoid nephrotoxins (5) CAD (coronary artery disease): Code(s): I25.10 - Atherosclerotic heart disease of [place] coronary artery without angina pectoris Status: Inactive Assessment and Plan: Chest pain-free Continue to monitor (6) MOE (obstructive sleep apnea): Code(s): G47.33 - Obstructive sleep apnea (adult) (pediatric) Status: Inactive Assessment and Plan: Does not use CPAP Continue to monitor Time Spent With Patient Time with patient: 25 - 35 minutes Subjective Date/time seen: 05/26/21 09:22 Interval history: Date of Service 05/26/21: The patient is feeling better today. She reports having a bowel movement last night and passing some gas today. Feels less distended today without any pain or nausea. Denies any fevers, chills, chest pain, shortness of breath, cough, leg swelling, calf pain, lightheadedness, dizziness, or any other symptoms at this time. Review of Systems Review of Systems: All systems reviewed & are unremarkable except as noted in HPI and below Exam Narrative: General: 85-year-old woman laying flat in bed, with NG tube in place. Appears comfortable. In no acute distress. Skin: No jaundice or cyanosis. Good skin turgor. Neck: Full range of motion. Supple. Respiratory: Lungs are clear to auscultation bilaterally. No bony chest wall tenderness. Cardiovascular: The
--- NOTE | 2021-05-26 10:49 | PM.PNGS ---
Progress Note: A&P Assessment and Plan (1) SBO (small bowel obstruction): Onset Date: ~05/2021 Code(s): K56.609 - Unspecified intestinal obstruction, unspecified as to partial versus complete obstruction Status: Acute Assessment and Plan: The plain film today shows no signs of an obstructive pattern. This may have been ileus related to her gastroparesis or a gastroenteritis. (findings of EGD from yesterday by Dr. Muro noted). For now will continue low intermittent suction but will clamp the NG and give her milk of magnesia down the tube today. X-ray suggest stool packed: So will begin trying to clear this with the suppository and if not may results of fleets. because there is no sign of continuing obstruction will hold off on any small-bowel follow-through for today. (2) Gastric bezoar: Onset Date: ~05/2021 Qualifiers: Encounter type: initial encounter Qualified Code(s): T18.2XXA - Foreign body in stomach, initial encounter Code(s): T18.2XXA - Foreign body in stomach, initial encounter Status: Acute Assessment and Plan: Apparently this was rather gastroparesis with lots of food stuffs and liquid in the stomach no true bezoar. (See EGD note). (3) Renal calculus, right: Onset Date: Unknown Code(s): N20.0 - Calculus of kidney Status: Acute Assessment and Plan: Patient has multiple stones in the right renal - ureteral system. Also noted on recent x-ray is mild hydronephrosis on the right. We may need to involve Urology is specially if patient begins complaining of right flank pain. (4) Hiatal hernia: Onset Date: Unknown Code(s): K44.9 - Diaphragmatic hernia without obstruction or gangrene Status: Acute Assessment and Plan: See note on EGD report Also patient has a history of 1990s repair of a hiatal hernia which now parent has recurred. She also has mesh in her upper mid abdominal incision because she developed a hernia after that surgery. Additional Plan I added IV Pepcid until she is able to take something orally in view of her known hiatal hernia and possible gastroparesis leading to the suspicion of a bezoar. Check electrolytes and magnesium in a.m. to be sure these will be normal and therefore patient less likely to continue to have difficulties with ileus. Time Spent With Patient Time with patient: 15 - 25 minutes Subjective Subjective Date/Time Seen: 05/26/21 09:49 patient just getting in back in bed after working with PT when I entered the room. She denies much abdominal pain today. NG has not put much out overnight. Patient denies bowel movement overnight. States she is passing some flatus. Review of Systems Review of Systems: All systems reviewed & are unremarkable except as noted in HPI and below Constitutional: Constitutional: Reports as per HPI, Denies chills and Denies fever(s) Cardiovascular: Cardiovascular: Denies chest pain and Denies dyspnea Respiratory: Respiratory: Reports no additional respiratory complaints and Denies dyspnea Gastrointestinal: Gastrointestinal: Reports as per HPI and Denies bloating Musculoskeletal: Musculoskeletal: Reports no additional musculoskeletal complaints Neurologic: Denies memory loss Psychiatric: Psychiatric: Denies anxiety and Denies memory loss Exam Const: General: cooperative, comfortable, alert and awake Orientation/consciousness: patient oriented x3 HENMT: Head: normal to inspection Mouth: Yes moist mucous membranes Eyes: Sclera: sclerae normal Pupils: Equal, round and reactive pupils present Neck: Neck: normal visual inspection and no JVD Chest: Chest palpation & inspection: normal inspection of the chest Resp: Effort & Inspection: normal respiratory effort Auscultation: clear to auscultation bilaterally GI: Inspection: normal to inspection, scar ( Wide upper midline scar from previous surgery) and other ( no palpable herni
[2021-05-26] MEDS: BISACODYL 10 MG SUPPOSITORY RECTAL (11:15)
[2021-05-26] MEDS: MAGNESIUM HYDROXIDE SUSP 30 ML UDC FEED TUBE (11:15)
[2021-05-26 14:00] VITALS: BP 129/62; PULSE 68; RESP 14; TEMP 36.8; O2SAT 97
[2021-05-26 17:09] VITALS: PULSE 72
[2021-05-26] MEDS: FAMOTIDINE 20 MG/2 ML VIAL IV PUSH (20:11)
[2021-05-26] MEDS: GABAPENTIN 300 MG CAPSULE PO (20:11)
[2021-05-26 21:47] VITALS: BP 150/70; PULSE 68; RESP 18; TEMP 36.3; O2SAT 96
[2021-05-27] VITALS (7 sets, daily range): BP systolic 144–146; BP diastolic 60–73; PULSE 61–79; RESP 18; TEMP 36–36.4; O2SAT 95–97
[2021-05-27] MEDS: METOCLOPRAMIDE HCL INJ 10 MG/2 ML VIAL IV PUSH ×3 (05:38→17:20)
[2021-05-27 06:48] LABS: Basophils Percent Auto 0.4 % (0.2-1.2); Eosinophils Absolute Auto 0.1 K/mm3 (0-0.3); Eosinophils Percent Auto 1.8 % (0-4.4); Hematocrit 47.1 % (37.0-47.0); Hemoglobin 14.7 g/dL (12.0-15.0); Immature Granulocyte Absolute 0.01 K/mm3 (0.00-0.031); Immature Granulocyte Percent A 0.1 % (0-0.5); Lymphocytes Absolute Auto 1.42 K/mm3 (0.9-3.2); Lymphocytes Percent Auto 20.1 % (18.3-44.2); Mean Corpuscular HGB Conc 31.2 g/dl (32-36); Mean Corpuscular Hemoglobin 33.8 pg (26-34); Mean Corpuscular Volume 108.3 fl (80-100); Mean Platelet Volume 10.1 fl (7.4-10.4); Monocytes Absolute Auto 0.4 K/mm3 (0.1-0.6); Neutrophils Absolute Auto 5.1 K/mm3 (1.3-6.7); Neutrophils Percent Auto 72.6 % (45.5-73.1); Platelet Count Result 125 k/mm3 (150-375); Red Blood Count 4.35 M/mm3 (4.2-5.4); Red Cell Distribution Width 13.2 % (11.5-14.5); White Blood Count 7.1 K/mm3 (4.5-10.0)
[2021-05-27 07:24] LABS: Anion Gap 4 mmol/L (8-16); Blood Urea Nitrogen 12 mg/dL (7-17); Calcium 8.7 mg/dL (8.4-10.2); Carbon Dioxide 24 mmol/L (22-30); Chloride 112 mmol/L (98-107); Estimated CRCL calculation 60 ml/min; Estimated Glomerular Filt Rate > 60; Glucose 84 mg/dL (65-110); Magnesium 2.2 mg/dL (1.6-2.3); Potassium 3.9 mmol/L (3.4-5.0); Sodium 140 mmol/L (137-145)
[2021-05-27] MEDS: BENZOCAINE/MENTHOL (*BKC) 18 EA LOZENGE 1 LOZENGE PO (08:08)
[2021-05-27] MEDS: FAMOTIDINE 20 MG/2 ML VIAL IV PUSH ×2 (08:09→21:17)
[2021-05-27] MEDS: ENOXAPARIN 40 MG/0.4 ML SYRINGE SUB-Q (08:09)
[2021-05-27] MEDS: METOPROLOL TARTRATE 25 MG TABLET PO ×2 (08:09→17:20)
--- NOTE | 2021-05-27 09:11 | PC.NURSE ---
This nurse clarified per hospitalist, LOULOU Grace. that Dr. Estrada gave a verbal order to initiate a clear liquid diet. Provider made aware increased amount noted in canister. Provider initiated clears to start today. Hold NG suction. Continue to monitor.
[2021-05-27] MEDS: AMPICILLIN 1 GM/NS 50 ML 1 GM/50 ML BAG IVPB ×3 (09:15→21:17)
--- NOTE | 2021-05-27 09:49 | PM.IMPN ---
Progress Note: A&P Assessment and Plan (1) SBO (small bowel obstruction): Onset Date: ~05/2021 Code(s): K56.609 - Unspecified intestinal obstruction, unspecified as to partial versus complete obstruction Status: Acute Assessment and Plan: Patient came in with nausea, vomiting, abdominal pain since 6:00 p.m. last night. Presented to the emergency room and CT scan showed Dilated proximal small bowel without focal transition point, likely adynamic ileus. Distended stomach filled with ingested material, which could be a bezoar if it persists. Moderate-sized sliding hiatal hernia that contains the tail of the pancreas. Bilateral nonobstructing kidney stones. NG tube still in place but clamped to try Clear Liquid diet. X-ray this morning showed no signs of an obstructive pattern. Could be an ileus related to gastroparesis or gastroenteritis. Patient denies anymore bowel movements yesterday despite milk of magnesia and suppository. Continue IV fluids, p.r.n. antiemetics and pain meds Continue monitoring. Appreciate General surgery input. (2) Gastric bezoar: Onset Date: ~05/2021 Qualifiers: Encounter type: initial encounter Qualified Code(s): T18.2XXA - Foreign body in stomach, initial encounter Code(s): T18.2XXA - Foreign body in stomach, initial encounter Status: Acute Assessment and Plan: Found on CT scan. Dr. Muro did an EGD 05/25/21 which showed hiatal hernia and gastric retention. There was a large amount of amorphous thick liquid retained food and secretions seen in the body of the stomach. GI started Reglan 10 mg every 6 hours Continue monitoring symptoms. Appreciate GIs input (3) Acute UTI: Code(s): N39.0 - Urinary tract infection, site not specified Status: Acute Assessment and Plan: Abnormal urinalysis which could be causing her ileus. Urine growing Enterococcus- Switch Abx to IV Ampicillin which it is sensitive. Continue monitoring (4) OREN (acute kidney injury): Code(s): N17.9 - Acute kidney failure, unspecified Status: Acute Assessment and Plan: Creatinine was slightly up from her baseline. Likely to be pre renal azotemia IV fluids running since she has NG tube and NPO Creatinine normal today Daily BMP. Avoid nephrotoxins (5) CAD (coronary artery disease): Code(s): I25.10 - Atherosclerotic heart disease of [place] coronary artery without angina pectoris Status: Inactive Assessment and Plan: Chest pain-free Continue to monitor (6) MOE (obstructive sleep apnea): Code(s): G47.33 - Obstructive sleep apnea (adult) (pediatric) Status: Inactive Assessment and Plan: Does not use CPAP Continue to monitor Subjective Date/time seen: 05/27/21 09:49 Interval history: Date of Service 05/27/21: The patient is feeling better today. She is passing some gas intermittently. No more bowel movements reported since Friday. She is not very hungry but is willing to try clears. Denies any fevers, chills, chest pain, shortness of breath, cough, leg swelling, calf pain, lightheadedness, dizziness, or any other symptoms at this time. Review of Systems Review of Systems: All systems reviewed & are unremarkable except as noted in HPI and below Exam Narrative: General: 85-year-old woman sitting up in the chair finishing with OT, with NG tube in place, clamped. Appears comfortable. In no acute distress. Skin: No jaundice or cyanosis. Good skin turgor. Neck: Full range of motion. Supple. Respiratory: Lungs are clear to auscultation bilaterally. No bony chest wall tenderness. Cardiovascular: The heart has a regul
[2021-05-27] MEDS: SODIUM CHLORIDE 0.9% IV 1,000 ML 100 ML IV CONT (14:23)
--- NOTE | 2021-05-27 19:58 | PM.PNGS ---
Progress Note: A&P Assessment and Plan (1) SBO (small bowel obstruction): Onset Date: ~05/2021 Code(s): K56.609 - Unspecified intestinal obstruction, unspecified as to partial versus complete obstruction Status: Acute Assessment and Plan: The plain film today shows no signs of an obstructive pattern. This may have been ileus related to her gastroparesis or a gastroenteritis or the UTI.. (findings of EGD from Friday by Dr. Muro noted). X-ray suggest stool packed colon, so will begin trying to clear this with the suppository and if not may good results, try a fleets enema. Because there is no sign of continuing obstruction on last two days of plain films, will hold off on any small-bowel follow-through. (2) Gastric bezoar: Onset Date: ~05/2021 Qualifiers: Encounter type: initial encounter Qualified Code(s): T18.2XXA - Foreign body in stomach, initial encounter Code(s): T18.2XXA - Foreign body in stomach, initial encounter Status: Acute Assessment and Plan: Apparently this was rather gastroparesis with lots of food stuffs and liquid in the stomach no true bezoar. (See EGD note). (3) Renal calculus, right: Onset Date: Unknown Code(s): N20.0 - Calculus of kidney Status: Acute Assessment and Plan: Patient has multiple stones in the right renal - ureteral system. Also noted on recent x-ray is mild hydronephrosis on the right. We may need to involve Urology especially if patient begins complaining of right flank pain. (4) Hiatal hernia: Onset Date: Unknown Code(s): K44.9 - Diaphragmatic hernia without obstruction or gangrene Status: Acute Assessment and Plan: See note on EGD report Also patient has a history of 1990s repair of a hiatal hernia which now apparently has recurred. She also has mesh in her upper mid abdominal incision because she developed a hernia after that surgery. Additional Plan I added IV Pepcid until she is able to take something orally in view of her known hiatal hernia and possible gastroparesis leading to the suspicion of a bezoar. We may be able to change some of these meds to p.o. tomorrow. Consider repeat dose of milk of magnesia as a laxative if no further bowel movements overnight. Check electrolytes and magnesium in a.m. to be sure these will be normal and therefore patient less likely to continue to have difficulties with ileus. Subjective Subjective Date/Time Seen: 05/27/21 15:58 Patient also seen briefly once earlier in the day. States she is feeling gradually better. She has had her NG tube clamped since early this morning and tolerating clear liquids. She had not had a bowel movement. Believes she had passed a small amount of flatus. On the nurse just reported to me that she had a fairly large bowel movement. Therefore, we will have the nurse remove the NG tube and start clear liquids. Review of Systems Review of Systems: All systems reviewed & are unremarkable except as noted in HPI and below Constitutional: Constitutional: Reports as per HPI, Denies chills and Denies fever(s) Eyes: Eyes: Denies change in vision ENT: Denies hearing loss, Denies neck pain and Denies sore throat Cardiovascular: Cardiovascular: Denies chest pain and Denies dyspnea Respiratory: Respiratory: Reports no additional respiratory complaints, Denies cough, Denies dyspnea and Denies wheezing Gastrointestinal: Gastrointestinal: Reports as per HPI and Denies bloating Genitourinary: Genitourinary: Denies hematuria and Denies dysuria Comments: Hospitalist reports to me pt has a pos urine culture therefore, antibiotics were started. (This may contribute to an ileus). Musculoskeletal: Musculoskeletal: Reports no additional musculoskeletal complaints, Denies arthralgias, Denies joint swelling and Denies neck pain Neurologic: Denies memory loss Psychiatric: Psychiatric: Denies anxiety and
[2021-05-27] MEDS: GABAPENTIN 300 MG CAPSULE PO (21:18)
[2021-05-28] MEDS: METOCLOPRAMIDE HCL INJ 10 MG/2 ML VIAL IV PUSH ×2 (01:20→05:59)
[2021-05-28] MEDS: AMPICILLIN 1 GM/NS 50 ML 1 GM/50 ML BAG IVPB ×3 (02:47→12:28)
[2021-05-28 06:00] VITALS: BP 154/65; PULSE 65; RESP 16; TEMP 36.2; O2SAT 98
[2021-05-28 08:12] LABS: Anion Gap 2 mmol/L (8-16); Blood Urea Nitrogen 8 mg/dL (7-17); Calcium 8.7 mg/dL (8.4-10.2); Carbon Dioxide 24 mmol/L (22-30); Chloride 110 mmol/L (98-107); Estimated CRCL calculation 60 ml/min; Estimated Glomerular Filt Rate > 60; Glucose 106 mg/dL (65-110); Potassium 3.5 mmol/L (3.4-5.0); Sodium 136 mmol/L (137-145)
[2021-05-28] MEDS: BENZOCAINE/MENTHOL (*BKC) 18 EA LOZENGE 1 LOZENGE PO (08:38)
[2021-05-28] MEDS: ENOXAPARIN 40 MG/0.4 ML SYRINGE SUB-Q (08:39)
[2021-05-28 08:40] VITALS: PULSE 65
[2021-05-28] MEDS: FAMOTIDINE 20 MG/2 ML VIAL IV PUSH (08:40)
[2021-05-28] MEDS: METOPROLOL TARTRATE 25 MG TABLET PO (08:40)
--- NOTE | 2021-05-28 11:50 | PM.PNGS ---
Progress Note: A&P Assessment and Plan (1) SBO (small bowel obstruction): Onset Date: ~05/2021 Code(s): K56.609 - Unspecified intestinal obstruction, unspecified as to partial versus complete obstruction Status: Acute Assessment and Plan: Tolerating diet. Was most likely ileus or reactive to retained gastric contents. No further surgical needs. Will sign off. (2) Gastric bezoar: Onset Date: ~05/2021 Qualifiers: Encounter type: initial encounter Qualified Code(s): T18.2XXA - Foreign body in stomach, initial encounter Code(s): T18.2XXA - Foreign body in stomach, initial encounter Status: Acute Subjective Subjective Date/Time Seen: 05/28/21 11:50 Interval history: Tolerating diet, moving bowels. No abdominal pain. Exam GI: Inspection: non-distended GI Palp: Yes Soft to palpation and No Tenderness to palpation present (GI) Auscultation: normal bowel sounds Objective Data Vital Signs Vital Signs: Vital Signs - 24 hr 05/27/21 14:00 05/27/21 17:20 05/27/21 19:51 Temperature 36.3 C L Pulse Rate 79 78 78 Respiratory Rate 18 18 Blood Pressure 146/62 H Pulse Oximetry 96 96 05/27/21 20:20 05/27/21 22:00 05/28/21 06:00 Temperature 36.0 C L 36.2 C L Pulse Rate 61 61 65 Respiratory Rate 18 16 Blood Pressure 144/73 H 154/65 H Pulse Oximetry 95 97 98 05/28/21 08:40 Temperature Pulse Rate 65 Respiratory Rate Blood Pressure Pulse Oximetry Intake/Output Intake/Output: Intake & Output 05/25/21 05/26/21 05/27/21 05/28/21 23:59 23:59 23:59 23:59 Intake Total 2600 1000 2360 786 Output Total 150 600 Balance 2600 850 2360 186 Meds/Results Medications: Active Medications Generic Name Dose Route Start Last Admin Trade Name Freq PRN Reason Stop Dose Admin Ampicillin 500 mg 05/28/21 18:00 Ampicillin Trihydrate 500 Mg Capsule PO Q6HR LORETO Benzocaine 1 lozenge 05/26/21 10:44 05/28/21 08:38 Benzocaine/Menthol (*Bkc) 18 Ea Lozenge PO 1 lozenge PRN PRN Administration Sore Throat Enoxaparin Sodium 40 mg 05/27/21 09:00 05/28/21 08:39 Enoxaparin 40 Mg/0.4 Ml Syringe SUB-Q 40 mg DAILY LORETO Administration Famotidine 20 mg 05/26/21 21:00 05/28/21 08:40 Famotidine 20 Mg/2 Ml Vial IV PUSH 20 mg Q12HR LORETO Administration Gabapentin 300 mg 05/25/21 21:00 05/27/21 21:18 Gabapentin 300 Mg Capsule PO 300 mg HS LORETO Administration Ampicillin Sodium 1 gm in 50 mls @ 100 mls/hr 05/28/21 12:00 Ampicillin 1 Gm/Ns 50 Ml IVPB 05/28/21 12:29 ONCE ONE Metoprolol Tartrate 25 mg 05/25/21 09:00 05/28/21 08:40 Metoprolol Tartrate 25 Mg Tablet PO 25 mg BID LORETO Administration Ondansetron HCl 4 mg 05/25/21 01:26 Ondansetron Inj 4 Mg/2 Ml Vial IV PUSH Q4H PRN Nausea Radiology Results: ITS Impressions Abdomen/Pelvis CT 05/25/21 06:37 IMPRESSION: 1. Dilated proximal small bowel without focal transition point, likely adynamic ileus. 2. Distended stomach filled with ingested material, which could be a bezoar if it persists. 3. Moderate-sized sliding hiatal hernia that contains the tail of the pancreas. 4. Bilateral nonobstructing kidney stones. Abdomen X-Ray 05/27/21 08:27 IMPRESSION: 1. No acute abdominal abnormality. 2: Bilateral nephrolithiasis. Labs Labs: Laboratory Results - last 24 hr 05/28/21 07:56 Sodium 136 L Potassium 3.5 Chloride 110 H Carbon Dioxide 24 Anion Gap 2 L BUN 8 Creatinine 0.70 Estim Creat Clear Calc 60 Estimated GFR > 60 Glucose 106 Calcium 8.7 Quality VTE Prophylaxis VTE prophylaxis: mechanical ordered
--- NOTE | 2021-05-28 12:09 | WPDGIPROGNO ---
Progress Note: A&P Assessment and Plan (1) N&V (nausea and vomiting): Code(s): R11.2 - Nausea with vomiting, unspecified Status: Resolved Assessment and Plan: she began vomiting yesterday but only brought up mucoid material or saliva. She had not been vomiting prior to that (2) Gastric bezoar: Onset Date: ~05/2021 Qualifiers: Encounter type: initial encounter Qualified Code(s): T18.2XXA - Foreign body in stomach, initial encounter Code(s): T18.2XXA - Foreign body in stomach, initial encounter Status: Acute Assessment and Plan: 05/25 CT scan shows what appears to be foreign matter in the stomach, possibly food, possibly a bezoar. She is not diabetic and denies prior problems with gastric emptying, foul burping, or other symptoms that would suggest gastric motility disorder. I will schedule her for EGD to be done today. The procedure was discussed, including the possible complications such as bleeding or perforation or aspiration. I told her that we will likely need to reinsert the nasogastric tube after the procedure. 05/28 Her NG tube was removed she tolerated clear and full liquid diet. She is about to try regular food. I told her that we do not know why she had what appears to be an ileus with temporary gastroparesis. She does not have symptoms that would suggest chronic motility problem. I told her that I will have her follow-up with me in the office in a month and if she is having any symptoms to suggest persistent issues, then we would consider a gastric emptying scan (3) Hiatal hernia: Onset Date: Unknown Code(s): K44.9 - Diaphragmatic hernia without obstruction or gangrene Status: Acute Assessment and Plan: She had repair of a complicated hernia in 1998 when living in [place]. She describes it as an 'upside down hernia caught under her liver'. 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 Now CT scan shows a hiatal hernia which also involves, oddly, the tail of her pancreas. She denies dysphagia, or pain after meals that would suggest a paraesophageal hernia 05/28 only a small sliding hiatal hernia was seen on her EGD, no paraesophageal hernia or other process that would suggest obstruction (4) Leukocytosis: Code(s): D72.829 - Elevated white blood cell count, unspecified Status: Acute Assessment and Plan: white blood count [id number] on admission, now 7000. but no indication of infection, no fever Antibiotics had bed started and are discontinued Subjective Date/time seen: 05/28/21 12:09 she is feeling good today. She has tolerated full liquids and has her 1st meal of regular food in front of her, turkey with potatoes and green beans. She has not yet started to eat but denies nausea or abdominal pain. She denies excessive burping. She did finally have a bowel movement, large bowel movement after the Dulcolax suppository. Review of Systems Review of Systems: All systems reviewed & are unremarkable except as noted in HPI and below Exam Const: General: comfortable and alert Nutritional Appearance: overweight Orientation/consciousness: patient oriented x3 Resp: Auscultation: clear to auscultation bilaterally Cardio: Rhythm: regular rhythm GI: Inspection: incision ( long vertical midline incision) and no visible herniation GI Palp: Yes No hepatosplenomegaly present Auscultation: normal bowel sounds Neuro: General: patient oriented x3 Objective Data Vital Signs Vital Signs: Vital Signs - 24 hr 05/27/21 14:00 05/27/21 17:20 05/27/21 19:51 Temperature 36.3 C L Pulse Rate 79 78 78 Respiratory Rate 18 18 Blood Pressure 146/62 H Pulse Oximetry 96 96 05/27/21 20:20 05/27/21 22:00 05/28/21 06:00 Temperature 36.0 C L 36.2 C L Pulse Rate 61 61 65 Respiratory Rate 18 16 Blood Pressure 144/73 H 154/65 H Pulse Oximetry 95 97 98 05/28/21 08:40 Temperature Pulse Rate 65 Respiratory Rate B
[2021-05-28 13:12] VITALS: O2SAT 95
--- NOTE | 2021-05-28 13:40 | PM.DS ---
DS: Admitting Diagnosis Discharge Date 05/28/21 Admitting Diagnosis Abd pain DS: Discharge Diagnosis Discharge Diagnosis (1) SBO (small bowel obstruction): Onset Date: ~05/2021 Code(s): K56.609 - Unspecified intestinal obstruction, unspecified as to partial versus complete obstruction Status: Acute Assessment and Plan: The patient is an 85 year old woman with history of CAD, HTN, MOE, who presented to the ER with symptoms of nausea, vomiting, abdominal pain since 6:00 p.m. [employer]. Initial vitals showed low normal blood pressure 97/61, normal heart rate, afebrile, normal oxygenation on room air. Initial labs showed leukocytosis at 12,000, elevated neutrophil count 87%, elevated H&H consistent with dehydration hemoglobin 17, hematocrit 51%. Elevated creatinine 1.1, BUN 17. Urinalysis was cloudy, 3+ leukocyte esterase, greater than 75 WBCs and 1+ bacteria which is consistent with a urinary tract infection. Negative COVID PCR. CT abdomen pelvis scan showed Dilated proximal small bowel without focal transition point, likely adynamic ileus. Distended stomach filled with ingested material, which could be a bezoar if it persists. Moderate-sized sliding hiatal hernia that contains the tail of the pancreas. Bilateral nonobstructing kidney stones. She was admitted to the hospital for a partial small-bowel obstruction versus ileus and urinary tract infection. NG tube was placed on IV fluids were given. Consult to General surgery and GI specialist given CT scan findings. Patient was started on IV Rocephin for possible UTI. Urine cultures came back growing Enterococcus so antibiotics needed to be changed to IV ampicillin. She will continue on oral ampicillin for a few more days for total of 7 days of treatment for UTI. FREDDY evaluated the patient and Dr. Muro did an EGD 05/25/21 which showed hiatal hernia and gastric retention. There was a large amount of amorphous thick liquid retained food and secretions seen in the body of the stomach. GI started Reglan 10 mg every 6 hours. Patient is doing better at this time and Dr. Muro recommends to stop Reglan. He recommends to follow-up in the office in 3 to 4 weeks for further evaluation monitoring after discharge. She has no chronic medical conditions that would predispose her to have issues with gastroparesis. Hopefully this was just associated with possible urinary tract infection she does not have recurrence. If she has symptoms that are concerning for current issue after discharge she can call Dr. Muro for further evaluation monitoring. General surgery was consulted and treated conservatively. She was given medications to help to have bowel movements. She is having normal bowel movements at this time. NG tube was removed. She is tolerating a low-fiber diet at this time. She is stable to be discharged to continue low-fiber diet for 2 weeks and slowly advance from there. Patient is instructed to follow-up PCP in [address] Muro in 3 weeks. Return to ER warnings given. The patient understands agrees the plan all questions answered. (2) Gastric bezoar: Onset Date: ~05/2021 Qualifiers: Encounter type: initial encounter Qualified Code(s): T18.2XXA - Foreign body in stomach, initial encounter Code(s): T18.2XXA - Foreign body in stomach, initial encounter Status: Acute Assessment and Plan: (3) Acute UTI: Code(s): N39.0 - Urinary tract infection, site not specified Status: Acute Assessment and Plan: (4) OREN (acute kidney injury): Code(s): N17.9 - Acute kidney failure, unspecified Status: Acute Assessment and Plan: (5) CAD (coronary artery disease): Code(s): I25.10 - Atherosclerotic heart disease of [place]
[2021-05-28 14:00] VITALS: BP 132/83; PULSE 66; RESP 16; TEMP 36.6; O2SAT 100
== END 2021-05-28 16:50 | disposition home or self-care (01) | DRG 389 ==
LOC: ANHED 05-25 01:17 → ANH3MEDSUR 05-25 04:10
PROVIDERS: Internal Medicine Gastroenterology; Physician Assistant; Surgery; Admitting Provider Internal Medicine; Emergency Provider Emergency Medicine; Visit Provider Family Medicine
PROC: 0DJ08ZZ Inspection of Upper Intestinal Tract, Via Natural or Artificial Opening Endoscopic (ICD-10-PCS; CPT 43235; principal; 2021-05-25 13:00)
DX: K56.0 Paralytic ileus (principal); N17.9 Acute kidney failure, unspecified; N39.0 Urinary tract infection, site not specified; N13.2 Hydronephrosis with renal and ureteral calculous obstruction; K56.600 Partial intestinal obstruction, unspecified as to cause; K31.84 Gastroparesis; T18.2XXA Foreign body in stomach, initial encounter; Z20.822 Contact with and (suspected) exposure to COVID-19; D72.829 Elevated white blood cell count, unspecified; B95.2 Enterococcus as the cause of diseases classified elsewhere; K44.9 Diaphragmatic hernia without obstruction or gangrene; I25.10 Atherosclerotic heart disease of native coronary artery without angina pectoris; G47.33 Obstructive sleep apnea (adult) (pediatric); G62.9 Polyneuropathy, unspecified; E66.9 Obesity, unspecified; Z68.33 Body mass index [BMI] 33.0-33.9, adult; Z90.710 Acquired absence of both cervix and uterus; Z95.5 Presence of coronary angioplasty implant and graft; Z91.19 Patient's noncompliance with other medical treatment and regimen
CPT/HCPCS: 36415; 74018; 74019; 74177; 80048; 80053; 81001; 83605; 83690; 83735; 84484; 85025; 85027; 87040; 87077; 87086; 87088; 87186; 93005; 96361; 96365; 96375; 97110; 97116; 97161; 97165; 97530; 99285; A9270; C9803; G0378; J0290; J0696; J1650; J2405; J2704; J2765; J7030; J7040; J7120; Q9967; U0003; U0005

== ENCOUNTER 2021-07-02 10:01 | Outpatient (CLI) | payer OTHER, SELFPAY ==
--- NOTE | ~2021-07-02 | XR_ITS ---
XR abdomen/kub 1V DATE: 07/02/2021 10:19 INDICATION: Bilateral renal stones TECHNIQUE: AP projection, 2 views COMPARISON: May 27, 2021 KUB May 25, 2021 CT abdomen pelvis FINDINGS: There is an approximately 6 x 5 mm calcified upper pole left renal calculus and approximate ly 4.7 mm lower pole left renal calcified calculus. There are innumerable calcified calculi of the upper, mid and lower right kidney and right renal pelv is. There is abdominal aortic and iliac arterial calcification. Status post cholecystectomy. There is no evidence of bowel obstruction. There is rotatory levoscoliosis and degenerative change of the lumbar spine. There is osteopenia. IMPRESSION: Bilateral nephrolithiasis, right greater than left Reviewed, dictated and finalized at [facility] Reviewed, dictated and finalized at [facility].
== END 2021-07-02 10:02 | disposition home or self-care (01) ==
LOC: ANHIMG 10:08
PROVIDERS: Visit Provider Urology
DX: N20.0 Calculus of kidney (principal)
CPT/HCPCS: 74018

== ENCOUNTER 2021-12-19 01:03 | Inpatient (IN) | payer OTHER, SELFPAY ==
[2021-12-19] VITALS (11 sets, daily range): BP systolic 102–144; BP diastolic 41–87; PULSE 60–90; RESP 14–26; TEMP 36.1–37.6; O2SAT 91–100; BMI 33.7
--- NOTE | ~2021-12-19 | XR_ITS ---
EXAMINATION: XR chest 1V portable DATE: 12/20/2021 14:09 INDICATION: Bacteremia TECHNIQUE: frontal view of the chest was obtained. COMPARISON: Chest radiograph dated 01/17/[address] abdomen and pelvis dated 12/19/2021 FINDINGS: Cardiomegaly. Tortuous thoracic aorta. Moderate-sized hiatal hernia. Mild left basilar opacities and favor persistent lingular atelectasis over pneumonia. No pleural effusion or pneumothorax. Mild lower thoracic dextrocurvature, compensatory for a nonvisualized moderate lumbar levoscoliosis seen on CT dated 12/19/2021. Suture anchors at the right humeral head consistent with prior rotator cuff repair w ith persistent narrowing of the subacromial space suggesting likely recurrent tear. IMPRESSION: 1. Mild lingular atelectasis. 2. Cardiomegaly. 3. Moderate-sized hiatal hernia. Reviewed, dictated and finalized at location A.
--- NOTE | ~2021-12-19 | XR_ITS ---
EXAMINATION: XR retrograde pyelo w/stent LT DATE: 12/19/2021 10:18 INDICATION: Left ureteral stent placement TECHNIQUE: 6 fluoroscopic images of the abdomen and pelvis were obtained during procedure performed jethro Mccracken. Radiologist was not present for the imaging or procedure. The amount of fluoroscopy rebel e used during this procedure was 0.5 minutes. COMPARISON: CT dated 12/19/2021 FINDINGS: Email Production Specialist images demonstrate residual excreted contrast in the bladder and in the left renal collecting s ystem and ureter with mild left hydronephrosis and . The previously noted obstructing stone at the di stal left ureter is unable to be visualized which may be due to the presence of surrounding excreted contrast. Subsequently images demonstrate cannulation of the left ureter and placement of a left inte rnal ureteral stent with loops formed in the left renal pelvis and in the bladder. IMPRESSION: 1. Mild left hydroureteronephrosis with placement of a left internal ureteral stent in expected posit ion. See procedure note for further detail. Reviewed, dictated and finalized at location A. IMPRESSION: 1. Mild left hydroureteronephrosis with placement of a left internal ureteral s tent in expected position. See procedure note for further detail.
--- NOTE | ~2021-12-19 | CT_ITS ---
EXAMINATION: CT abdomen pelvis w con DATE: 12/19/2021 02:56 INDICATION: Left lower quadrant abdominal pain. TECHNIQUE: Computed tomography (CT) of the abdomen and pelvis was performed with 100 mL Omnipaque 350 intravenous contrast. Automated exposure control and iterative reconstruction technique were employe d. The dose-length product was 867.99 mGy-cm. COMPARISON: CT abdomen and pelvis 05/25/2021 FINDINGS: The visualized portions of the lung bases demonstrate mild atelectasis. No pleural effusion . Cardiomegaly is noted. No pericardial effusion. There is a moderate-sized sliding hiatal hernia con taining the tail the pancreas and the splenic artery and vein. The liver is normal. There are changes of cholecystectomy. The spleen and adrenal glands are normal. There are cysts in the kidneys measuri ng up to 4.0 cm on the left. There is cortical thinning of the kidneys. There are greater than 10 sto yanelis in right kidney and right renal pelvis measuring up to 8 mm. There are 2 stones in left kidney wi th the larger measuring 7 mm. There is mild left hydronephrosis and hydroureter. There is a 4 mm ston e in distal left ureter. There is diverticulosis of the colon without evidence of diverticulitis. The re are no dilated loops of bowel. The appendix is not visualized. There are no pathologically enlarge d lymph nodes. There is no free intraperitoneal fluid. There is lumbar levoscoliosis and severe spond ylosis. There are chronic bilateral L5 pars defects. There is 10 mm anterolisthesis of L5 on S1. Ther e are bridging endplate osteophytes at L5-S1. IMPRESSION: 1. 4 mm stone in distal left ureter with mild left hydronephrosis and hydroureter. 2. Bilateral nonobstructing kidney stones. 3. Moderate-sized sliding hiatal hernia. Reviewed, dictated and finalized at location A. IMPRESSION: 1. 4 mm stone in distal left ureter with mild left hydronephrosis and hydrouret er. 2. Bilateral nonobstructing kidney stones. 3. Moderate-sized sliding hiatal hernia.
--- NOTE | 2021-12-19 01:40 | ECG_ITS ---
Measurements Intervals [place] Rate: 66 P: 21 SD: 227 QRS: -73 QRSD: 150 T: -1 QT: 428 QTc: 449 Interpretive Statements SINUS RHYTHM WITH FIRST DEGREE AV BLOCK INDETERMINATE AXIS RIGHT BUNDLE BRANCH BLOCK [120+ ms QRS DURATION, UPRIGHT V1, 40+ ms S IN I/aVL/V4/V5/V6] COMPARED TO ECG 05/24/2021 23:06:17 NO SIGNIFICANT CHANGES Electronically Signed On 12-19-2021 19:54:29 CDT by Maddy Blanchard M.D.
--- NOTE | 2021-12-19 01:45 | ED.ABDPAIN ---
HPI - Abdominal Pain General Chief Complaint: Abdominal Pain Stated Complaint: FLANK PAIN Time Seen by Provider: 12/19/21 01:12 Source: patient Mode of arrival: EMS Limitations: no limitations History of Present Illness HPI narrative: Patient is an 86-year-old female who presents the ED via EMS with report of left flank pain/left sided abdominal pain. Patient reports she was woken up from her sleep around 10 PM tonight with the pain. Has persisted since and patient developed N/V, so she called EMS. Has not taken anything for pain prior to arrival. Patient reports a history of kidney stones, but states she did not have pain with them. Did not even know she had kidney stones. She does report she had a urinary tract infection a few weeks ago. No report of dysuria or hematuria prior to pain. No issues with diarrhea or constipation. No fever. No chest pain or shortness of breath. Related Data Home Medications Medication Instructions Recorded Confirmed amlodipine 5 mg tablet 5 mg PO DAILY 03/25/19 07/03/21 gabapentin 300 mg capsule 300 mg PO HS 03/25/19 07/03/21 metoprolol tartrate 25 mg tablet 25 mg PO BID 03/25/19 07/03/21 Allergies Allergy/AdvReac Type Severity Reaction Status Date / Time codeine Allergy Unknown Hives Verified 12/19/21 01:12 atorvastatin AdvReac Muscle Pain Verified 12/19/21 01:12 Review of Systems Review of Systems: CONSTITUTIONAL: Denies fever, chills, or sweats. CARDIOVASCULAR: Denies chest pain. RESPIRATORY: Denies dyspnea. GASTROINTESTINAL: Reports LLQ pain, N/V. Denies constipation or diarrhea. GENITOURINARY: Denies dysuria or hematuria. MUSCULOSKELETAL: Reports L flank pain. All systems reviewed & are unremarkable except as noted in HPI and below PMFSH Past Medical History Medical History Bronchitis CAD (coronary artery disease) Cataract, right eye Hiatal hernia Hypertension Neuropathy MOE (obstructive sleep apnea) non compliance with CPAP Sleep apnea Surgical History Surgical History History of hysterectomy History of incisional hernia repair History of repair of hiatal hernia History of tonsillectomy Stented coronary artery x2 Social History Social History 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 HEAD: Normocephalic, atraumatic. NECK: Supple. No adenopathy, no masses. RESPIRATORY: Airway patent, respirations nonlabored. Clear to auscultation bilaterally, no rales, rhonchi, wheezing. CARDIOVASCULAR: Regular rate and rhythm without murmurs, rubs, or gallops. Peripheral pulses 2+ and equal bilaterally. ABDOMINAL: Soft, tenderness to palpation in LLQ, suprapubic region, L lateral abdomen, nondistended, no hepatosplenomegaly. Normoactive BS. No CVA tenderness to percussion. MUSCULOSKELETAL: Moves all extremities. Strength/ROM intact without gross deformities. TTP in L lower lumbar region, no midline spinal tenderness. SKIN: Warm, dry, normal color. No rashes. NEURO: A&O X3. Speech clear. Cranial nerves II-XII grossly intact. Steady gait. No ataxic movements. PSYCHIATRIC: Appropriate mood and affect. Normal interaction. Course Consultations Consultation #1: Discussed case with Dr. Parada, hospitalist, accepted patient for admission. Date: 12/19/21 Time: 04:10 Consultation #2: Discussed case with Dr. Liu, urology, accepted consult. NPO. Will likely need stent. Date: 12/19/21 Time: 04:10 Vital Signs Vital signs: Vital Signs Temperature 97.6 F 12/19/21 01:03 Pulse Rate 65 12/19/21 01:0
[2021-12-19 01:58] LABS: Basophils Absolute Auto 0.1 K/mm3 (0.0-0.1); Basophils Percent Auto 0.5 % (0.2-1.2); Eosinophils Absolute Auto 0.1 K/mm3 (0-0.3); Eosinophils Percent Auto 0.8 % (0-4.4); Hematocrit 43.7 % (37.0-47.0); Hemoglobin 15.2 g/dL (12.0-15.0); Immature Granulocyte Absolute 0.02 K/mm3 (0.00-0.031); Immature Granulocyte Percent A 0.2 % (0-0.5); Lymphocytes Absolute Auto 1.36 K/mm3 (0.9-3.2); Lymphocytes Percent Auto 13.7 % (18.3-44.2); Mean Corpuscular HGB Conc 34.8 g/dl (32-36); Mean Corpuscular Hemoglobin 33.8 pg (26-34); Mean Corpuscular Volume 97.1 fl (80-100); Mean Platelet Volume 9.5 fl (7.4-10.4); Monocytes Absolute Auto 0.5 K/mm3 (0.1-0.6); Monocytes Percent Auto 5.2 % (2.6-8.5); Neutrophils Absolute Auto 7.9 K/mm3 (1.3-6.7); Neutrophils Percent Auto 79.6 % (45.5-73.1); Platelet Count Result 184 k/mm3 (150-375); Red Cell Distribution Width 13.2 % (11.5-14.5); White Blood Count 9.9 K/mm3 (4.5-10.0)
[2021-12-19 02:22] LABS: Alanine Aminotransferase 15 U/L (6-35); Alkaline Phosphatase 93 U/L (38-126); Anion Gap 11 mmol/L (8-16); Aspartate Amino Transferase 24 U/L (14-36); Bilirubin,Total 0.6 mg/dL (0.2-1.3); Blood Urea Nitrogen 23 mg/dL (7-17); Calcium 9.6 mg/dL (8.4-10.2); Carbon Dioxide 21 mmol/L (22-30); Chloride 107 mmol/L (98-107); Estimated CRCL calculation 36 ml/min; Estimated Glomerular Filt Rate 47; Glucose 119 mg/dL (65-110); Lipase 71 U/L (23-300); Potassium 4.2 mmol/L (3.4-5.0); Sodium 139 mmol/L (137-145)
[2021-12-19 02:33] LABS: Troponin I < 0.012 ng/mL (0.000-0.034)
[2021-12-19] MEDS: ONDANSETRON INJ 4 MG/2 ML VIAL IV PUSH ×3 (03:02→18:38)
[2021-12-19] MEDS: SODIUM CHLORIDE 0.9% IV 1,000 ML 999 ML IV CONT (03:03)
[2021-12-19 03:13] LABS: Appearance Urine Cloudy (Clear); Bilirubin Urine Negative (Negative); Blood Urine 2+ (Negative); Color Urine Yellow (Yellow); Glucose Urine UA Negative (Negative); Ketones Urine Negative (Negative); Leukocyte Esterase Ur 2+ LEU/UL (Negative); Nitrate Urine Negative (Negative); Protein Urine Negative (Negative); Specific Grav Ur 1.015 (1.001-1.035); Urobilinogen Urine 0.2 mg/dL (<2.0); pH Urine 5.5 (5.0-9.0)
[2021-12-19 03:23] LABS: Mucus Urine Rare /lpf; RBC Urine 21-50 /hpf (0-2); Squamous Epithelial Cell Urine Rare /hpf (Few); WBC Urine >75 /hpf
[2021-12-19 03:24] LABS: Add Urine Microscopic? YES
[2021-12-19 04:52] LABS: Lactic Acid Reflex 1.4 mmol/L (0.7-2.0)
--- NOTE | 2021-12-19 05:31 | ADMGEN ---
This patient, Rita Flood, was admitted to 3 Med Surg Room 303-01. Patient/family oriented to hospital policies and general routines including ID bracelet, bed and alarms, visiting hours, pain management, procedures, bathroom and other care routines, personal items, smoking policy, room service/diet, and visiting hours. Information on how to activate the Rapid Response Team has been discussed. Patient/Family are encouraged to report perceived risks to care and to ask questions if they do not understand what they are told or what they should do.
--- NOTE | 2021-12-19 08:52 | WPDANESEPPF ---
Anes - Initial Pre Proc Eval Procedure: Operation Date: 12/19/21 10:00 Proposed Procedures p Cystoscopy, Left Stent Placement, Possible Stone Extraction - Ameya Mccracken MD Date/Time: 12/19/21 08:52 Surgeon: Connie Parada MD Pre Op Diagnosis: L Ureteral Stone, UTI Patient Data Age: 86 Gender: F Height: 1.65 m Weight: 91.9 kg Last Vital Signs Temp 36.1 C L 12/19/21 06:00 Pulse 60 12/19/21 06:00 Resp 14 12/19/21 06:00 BP 121/54 L 12/19/21 06:00 Pulse Ox 97 12/19/21 06:00 O2 Del Method Room Air 12/19/21 01:03 Allergies Allergy/AdvReac Type Severity Reaction Status Date / Time codeine Allergy Unknown Hives Verified 12/19/21 01:12 atorvastatin AdvReac Muscle Pain Verified 12/19/21 01:12 Home Medications Medication Instructions Recorded Confirmed Type amlodipine 5 mg tablet 5 mg PO DAILY 03/25/19 12/19/21 History gabapentin 300 mg capsule 300 mg PO HS 03/25/19 12/19/21 History metoprolol tartrate 25 mg tablet 25 mg PO BID 03/25/19 12/19/21 History Laboratory Tests 12/19/21 12/19/21 12/19/21 01:46 01:47 01:47 WBC 9.9 K/mm3 K/mm3 (4.5-10.0) RBC 4.50 M/mm3 M/mm3 (4.2-5.4) Hgb 15.2 g/dL H g/dL (12.0-15.0) Hct 43.7 % % (37.0-47.0) MCV 97.1 fl fl (80-100) MCH 33.8 pg pg (26-34) MCHC 34.8 g/dl g/dl (32-36) RDW 13.2 % % (11.5-14.5) Plt Count 184 k/mm3 k/mm3 (150-375) MPV 9.5 fl fl (7.4-10.4) Immature Gran % (Auto) 0.2 % % (0-0.5) Neut % (Auto) 79.6 % H % (45.5-73.1) Lymph % (Auto) 13.7 % L % (18.3-44.2) [place] % (Auto) 5.2 % % (2.6-8.5) Eos % (Auto) 0.8 % % (0-4.4) Baso % (Auto) 0.5 % % (0.2-1.2) Lymph # (Auto) 1.36 K/mm3 K/mm3 (0.9-3.2) [place] # (Auto) 0.5 K/mm3 K/mm3 (0.1-0.6) Eos # (Auto) 0.1 K/mm3 K/mm3 (0-0.3) Baso # (Auto) 0.1 K/mm3 K/mm3 (0.0-0.1) Abs Immat Gran (auto) 0.02 K/mm3 K/mm3 (0.00-0.031) Absolute Neuts (auto) 7.9 K/mm3 H K/mm3 (1.3-6.7) Absolute Nucleated RBC 0.0 K/mm3 K/mm3 (0.0-0.012) Nucleated RBC % 0.0 % % (0.0-0.2) Sodium 139 mmol/L mmol/L (137-145) Potassium 4.2 mmol/L mmol/L (3.4-5.0) Chloride 107 mmol/L mmol/L (98-107) Carbon Dioxide 21 mmol/L L mmol/L (22-30) Anion Gap 11 mmol/L mmol/L (8-16) BUN 23 mg/dL H D mg/dL (7-17) Creatinine 1.10 mg/dL H mg/dL (0.7-1.0) Estim Creat Clear Calc 36 ml/min ml/min Estimated GFR 47 L (59 - ) Glucose 119 mg/dL H mg/dL (65-110) Lactic Acid Calcium 9.6 mg/dL mg/dL (8.4-10.2) Total Bilirubin 0.6 mg/dL mg/dL (0.2-1.3) AST 24 U/L U/L (14-36) ALT 15 U/L U/L (6-35) Alkaline Phosphatase 93 U/L U/L (38-126) Troponin I < 0.012 ng/mL ng/mL (0.000-0.034) Total Protein 7.0 g/dL g/dL (6.3-8.2) Albumin 4.0 g/dL g/dL (3.5-5.1) Lipase 71 U/L U/L (23-300) Urine Color Urine Appearance Urine pH Ur Specific [place] Urine Protein Urine Glucose (UA) Urine Ketones Ur Blood (Man) Urine Nitrate Urine Bilirubin Urine Urobilinogen Leukocyte Esterase Rfl Urine RBC Urine WBC Ur Squamous Epith Cells Hyaline Casts Urine Mucus 12/19/21 12/19/21 03:07 04:36 WBC RBC Hgb Hct MCV MCH MCHC RDW Plt Count MPV Immature Gran % (Auto) Neut % (Auto) Lymph % (Auto) [place] % (Auto) Eos % (Auto)
--- NOTE | 2021-12-19 09:18 | WPDURCON ---
Assessment and Plan Assessment and plan (1) Calculus of distal left ureter: Code(s): N20.1 - Calculus of ureter Status: Acute Assessment and Plan: Obtain Consent: Cystoscopy, left ureteroscopy with stone extraction, left stent placement, left retrograde pyelogram, possible holmium laser. Keep NPO Plan to go to the OR today with Dr. Mccracken. (2) Urinary tract infection: Qualifiers: Hematuria presence: with hematuria Urinary tract infection type: acute cystitis Qualified Code(s): N30.01 - Acute cystitis with hematuria Code(s): N39.0 - Urinary tract infection, site not specified Status: Acute Assessment and Plan: Cultures are pending, continue IV antibiotics, tailor to culture results. Urology Consult Note HPI Date Seen: 12/19/21 Time Seen: 09:19 Requesting Physician: Connie Parada MD Primary Care Provider: Tru Flood Consult Narrative Reason for consult: Left Ureteral Stone Narrative: Rita Flood is a 86 year old female who presented to the ER via EMS early this morning for acute onset of left flank pain, nausea and vomiting. She has a history of kidney stones. Her WBC is 9.9, creatinine is 1.10, UA is suspicious of UTI, she has received a dose of Ceftriaxone in the ER, but is afebrile. She has urine and blood cultures pending. Her CT scan this morning shows a 4mm distal left ureteral stone with bilateral non obstructive stones measuring up to 8mm in the right and 7mm in the left. She has 10 stones in the right kidney and 2 stones in the left kidney. She is currently vomiting at the bedside and is unable to answer any medical questions in depth and can just answer yes and no questions. All information was obtained from her chart. Review of Systems Cardiovascular: Cardiovascular: Denies chest pain Respiratory: Respiratory: Reports no additional respiratory complaints Gastrointestinal: Gastrointestinal: Reports abdominal pain, Reports nausea and Reports vomiting Genitourinary: Genitourinary: Denies hematuria, Denies dysuria and Reports flank pain PMFSH Past Medical History Medical History Bronchitis CAD (coronary artery disease) Cataract, right eye Hiatal hernia Hypertension Neuropathy MOE (obstructive sleep apnea) non compliance with CPAP Sleep apnea Surgical History Surgical History History of hysterectomy History of incisional hernia repair History of repair of hiatal hernia History of tonsillectomy Stented coronary artery x2 Social History Social History 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 Alcohol intake: never Substance use: never Spiritual care concerns: No Meds Home Medications and Allergies Home Medications Medication Instructions Recorded Confirmed Type amlodipine 5 mg tablet 5 mg PO DAILY 03/25/19 12/19/21 History gabapentin 300 mg capsule 300 mg PO HS 03/25/19 12/19/21 History metoprolol tartrate 25 mg tablet 25 mg PO BID 03/25/19 12/19/21 History Allergies Allergy/AdvReac Type Severity Reaction Status Date / Time codeine Allergy Unknown Hives Verified 12/19/21 01:12 atorvastatin AdvReac Muscle Pain Verified 12/19/21 01:12 Vital Signs Vital Signs - 24 hr 12/19/21 01:03 12/19/21 06:00 Temperature 97.6 F 96.9 F L Pulse Rate 65 60 Respiratory Rate 18 14 Blood Pressure 138/87 121/54 L Pulse Oximetry 98 97 Oxygen Delivery Room Air Exam Const: General: uncomfortable Resp: Effort & Inspection: normal respiratory effort Cardio: Rate: regular rate GI: GI Palp: Yes Soft to palpation and Yes Tenderness to palpation present (GI) (LLQ) : Other: Left flank pain Extrem: General: no e
[2021-12-19] MEDS: LACTATED RINGERS 1,000 ML 30 ML IV CONT (09:30)
--- NOTE | 2021-12-19 09:31 | WPDHPUPDATE1 ---
History and Physical Update Update Date/Time: 12/19/21 09:31 History and Physical has been reviewed, including an updated exam of the patient. There are NO changes in the patient's condition. Risks, benefits, and alternatives have been discussed and questions answered. Patient agrees to proceed with procedure.
--- NOTE | 2021-12-19 09:34 | P.PNAN_ITS ---
Anes - Initial Pre Proc Eval Procedure: Operation Date: 12/19/21 10:00 Proposed Procedures p Cystoscopy, Left Stent Placement, Possible Stone Extraction - Ameya Mccracken MD Date/Time: 12/19/21 09:34 Surgeon: Connie Paraad MD Pre Op Diagnosis: L Ureteral Stone, UTI Patient Data Age: 86 Gender: F Height: 1.65 m Weight: 91.9 kg Last Vital Signs Temp 36.1 C L 12/19/21 06:00 Pulse 60 12/19/21 06:00 Resp 14 12/19/21 06:00 BP 121/54 L 12/19/21 06:00 Pulse Ox 97 12/19/21 06:00 O2 Del Method Room Air 12/19/21 01:03 Allergies Allergy/AdvReac Type Severity Reaction Status Date / Time codeine Allergy Unknown Hives Verified 12/19/21 01:12 atorvastatin AdvReac Muscle Pain Verified 12/19/21 01:12 Home Medications Medication Instructions Recorded Confirmed Type amlodipine 5 mg tablet 5 mg PO DAILY 03/25/19 12/19/21 History gabapentin 300 mg capsule 300 mg PO HS 03/25/19 12/19/21 History metoprolol tartrate 25 mg tablet 25 mg PO BID 03/25/19 12/19/21 History Laboratory Tests 12/19/21 12/19/21 12/19/21 01:46 01:47 01:47 WBC 9.9 K/mm3 K/mm3 (4.5-10.0) RBC 4.50 M/mm3 M/mm3 (4.2-5.4) Hgb 15.2 g/dL H g/dL (12.0-15.0) Hct 43.7 % % (37.0-47.0) MCV 97.1 fl fl (80-100) MCH 33.8 pg pg (26-34) MCHC 34.8 g/dl g/dl (32-36) RDW 13.2 % % (11.5-14.5) Plt Count 184 k/mm3 k/mm3 (150-375) MPV 9.5 fl fl (7.4-10.4) Immature Gran % (Auto) 0.2 % % (0-0.5) Neut % (Auto) 79.6 % H % (45.5-73.1) Lymph % (Auto) 13.7 % L % (18.3-44.2) [place] % (Auto) 5.2 % % (2.6-8.5) Eos % (Auto) 0.8 % % (0-4.4) Baso % (Auto) 0.5 % % (0.2-1.2) Lymph # (Auto) 1.36 K/mm3 K/mm3 (0.9-3.2) [place] # (Auto) 0.5 K/mm3 K/mm3 (0.1-0.6) Eos # (Auto) 0.1 K/mm3 K/mm3 (0-0.3) Baso # (Auto) 0.1 K/mm3 K/mm3 (0.0-0.1) Abs Immat Gran (auto) 0.02 K/mm3 K/mm3 (0.00-0.031) Absolute Neuts (auto) 7.9 K/mm3 H K/mm3 (1.3-6.7) Absolute Nucleated RBC 0.0 K/mm3 K/mm3 (0.0-0.012) Nucleated RBC % 0.0 % % (0.0-0.2) Sodium 139 mmol/L mmol/L (137-145) Potassium 4.2 mmol/L mmol/L (3.4-5.0) Chloride 107 mmol/L mmol/L (98-107) Carbon Dioxide 21 mmol/L L mmol/L (22-30) Anion Gap 11 mmol/L mmol/L (8-16) BUN 23 mg/dL H D mg/dL (7-17) Creatinine 1.10 mg/dL H mg/dL (0.7-1.0) Estim Creat Clear Calc 36 ml/min ml/min Estimated GFR 47 L (59 - ) Glucose 119 mg/dL H mg/dL (65-110) Lactic Acid
[2021-12-19] MEDS: LIDOCAINE HCL 2% GEL UROJET 10 ML PKG 20 ML MUCOUS MEM (09:59)
--- NOTE | 2021-12-19 10:16 | P.OP_ITS ---
Procedure Note - Detailed Date of Procedure 12/19/21 Pre-op Diagnosis L Ureteral Stone, UTI Post-op Diagnosis Same Procedure Performed Cystoscopy, left ureteroscopy with stone extraction, left retrograde pyelogram and left ureteral stent placement Surgeon Ameya Mccrackne MD Description of Procedure The patient was brought to the operative suite where she is prepped and draped in a routine sterile fashion while in the dorsal lithotomy position after the uneventful administration of systemic sedation by the Anesthesia Department. A 19F rigid cystoscope was placed in the bladder. The patient had no evidence of urethral stricture or bladder neck contracture. The bladder mucosa was endoscopically normal without hyperemia or neoplasm. There was a single, orthotopic ureteral orifice bilaterally. A 0.035 glidewire was advanced into the left renal pelvis under fluoroscopy. The distal ureter was dilated with an 8F/10F ureteral dilator. Ureteroscopy was undertaken with a short tapered semi- rigid ureteroscope. A small left distal ureteral calculus is identified and removed with a 1.9F disposable escape basket. There was moderate edema of the ureteral mucosa at that site and, given that and the presence of a probable urinary tract infection, I opted to place a left ureteral stent. A 4.9 F variable length ureteral stents disposition with the proximal coil in renal pelvis and distal coil the bladder. The scope was removed and a 16 F Hough catheter was placed to drainage. The patient's bladder was emptied and she was taken to the recovery room having tolerated this procedure well. Drains Yes Packing No Pathology Yes Complications No immediate complications Condition Stable Disposition PACU
--- NOTE | 2021-12-19 13:00 | PM.IMHP ---
H&P: HPI History of Present Illness Date/Time: 12/19/21 13:00 Chief Complaint: Flank pain Narrative: Patient is an 86-year-old female with a prior past medical history of hypertension, neuropathy, stable angina, kidney stones who presented to them ED with flank pain. Patient stated that she went to lay in bed at 6:00 p.m. to watch TV. She stated that she was asleep by 7 and then woke up with severe back pain. Patient thought that she might be needed of have a bowel movement however when she was sat in the bathroom and just got worse. She states the pain would go away and called EMS a little before midnight to bring her in. Patient stated that it was mainly on the left side and spread around. She was also experiencing some nausea, vomiting, dry heaves and is slight abdominal pain. She denies any shortness of breath or chest pain, diarrhea, constipation, visual changes, sweats, fevers, chills, hearing changes, syncope, headache, weakness or fatigue. Patient stated that she has had kidney stones extracted in the past however she does not know how come the keep recurring. Patient stated that she does have a little bit of swelling in her bilateral lower extremities when she is standing or moving around all day. CT showed a 5 mm urinary stone with left-sided hydronephrosis and nephrolithiasis bilaterally. Urology was consulted patient went for stone extraction and ureteral stent placement. Patient stated that she is doing well right now and she has no pain currently. She stated that she is just very sleepy. Patient is being admitted to the hospitalist service as an observation Review of Systems Review of Systems: All systems reviewed & are unremarkable except as noted in HPI and below [facility] Past Medical History Medical History Bronchitis CAD (coronary artery disease) Cataract, right eye Gastric bezoar (~05/2021) Hiatal hernia (Unknown) Hypertension Nephrolithiasis Neuropathy MOE (obstructive sleep apnea) non compliance with CPAP SBO (small bowel obstruction) (~05/2021) Sleep apnea Urinary tract infection Surgical History Surgical History History of extraction of renal calculus History of hysterectomy History of incisional hernia repair History of repair of hiatal hernia History of tonsillectomy Stented coronary artery x2 Family History Family History Mother Heart disease Hypertension Social History Social History Social History: She lives by herself and is independent. She does not have any pets, and she wants her son Balta to be her surrogate. She wishes to be a full code. 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 Alcohol intake: never Substance use: never Living arrangements: alone Occupation/Education: retired Gender identity (if verbalized by the patient): Female Sexual Orientation (if Verbalized by the Patient): Straight or Heterosexual Spiritual care concerns: No Agree to blood products: Yes Meds Home Medications and Allergies Home Medications Medication Instructions Recorded Confirmed Type amlodipine 5 mg tablet 5 mg PO DAILY 03/25/19 12/19/21 History gabapentin 300 mg capsule 300 mg PO HS 03/25/19 12/19/21 History metoprolol tartrate 25 mg tablet 25 mg PO BID 03/25/19 12/19/21 History Allergies Allergy/AdvReac Type Severity Reaction Status Date / Time codeine Allergy Unknown Hives Verified 12/19/21 09:40 atorvastatin AdvReac Muscle Pain Verified 12/19/21 09:40 Vital Signs Vital Signs - 24 hr 12/19/21 01:03 12/19/21 06:00 Temperature 97.6 F 96.9 F L Pulse Rate 65 60 Respiratory Rate 18 14 Blood Pressure 138/87 12
[2021-12-19] MEDS: SODIUM CHLORIDE 0.9% IV 1,000 ML 100 ML IV CONT ×2 (13:55→23:25)
[2021-12-19] MEDS: GABAPENTIN 300 MG CAPSULE PO (20:13)
--- NOTE | 2021-12-20 01:53 | PC.NURSE ---
lab called and reported bc preliminary resulted, but unable to see results at this time.
--- NOTE | 2021-12-20 02:37 | PC.NURSE ---
reported fax from [facility] to MD Cook, anaerobic bottle only, gram + cocci in chains.
--- NOTE | 2021-12-20 05:01 | PC.NURSE ---
call from lab report to MD Cook, aerobic bottle too, gram + cocci in chains.
[2021-12-20 05:44] VITALS: BP 108/54; PULSE 72; RESP 20; TEMP 36.9; O2SAT 94
[2021-12-20 05:45] LABS: Basophils Percent Auto 0.3 % (0.2-1.2); Hematocrit 41.2 % (37.0-47.0); Hemoglobin 13.7 g/dL (12.0-15.0); Immature Granulocyte Absolute 0.05 K/mm3 (0.00-0.031); Immature Granulocyte Percent A 0.5 % (0-0.5); Lymphocytes Absolute Auto 0.35 K/mm3 (0.9-3.2); Lymphocytes Percent Auto 3.5 % (18.3-44.2); Mean Corpuscular HGB Conc 33.3 g/dl (32-36); Mean Corpuscular Hemoglobin 33.3 pg (26-34); Mean Corpuscular Volume 100.2 fl (80-100); Mean Platelet Volume 9.4 fl (7.4-10.4); Monocytes Absolute Auto 0.4 K/mm3 (0.1-0.6); Monocytes Percent Auto 4.1 % (2.6-8.5); Neutrophils Percent Auto 91.6 % (45.5-73.1); Platelet Count Result 109 k/mm3 (150-375); Red Blood Count 4.11 M/mm3 (4.2-5.4); Red Cell Distribution Width 13.4 % (11.5-14.5); White Blood Count 9.9 K/mm3 (4.5-10.0)
[2021-12-20 06:03] LABS: Alanine Aminotransferase 25 U/L (6-35); Albumin Level 2.7 g/dL (3.5-5.1); Alkaline Phosphatase 68 U/L (38-126); Anion Gap 7 mmol/L (8-16); Aspartate Amino Transferase 35 U/L (14-36); Bilirubin,Total 0.6 mg/dL (0.2-1.3); Blood Urea Nitrogen 17 mg/dL (7-17); Calcium 8.1 mg/dL (8.4-10.2); Carbon Dioxide 24 mmol/L (22-30); Chloride 107 mmol/L (98-107); Estimated CRCL calculation 41 ml/min; Estimated Glomerular Filt Rate 53; Glucose 101 mg/dL (65-110); Magnesium 1.8 mg/dL (1.6-2.3); Potassium 3.9 mmol/L (3.4-5.0); Sodium 138 mmol/L (137-145)
--- NOTE | 2021-12-20 07:08 | WPDUROPN2 ---
Progress Note: A&P Assessment and Plan (1) Calculus of distal left ureter: Code(s): N20.1 - Calculus of ureter Status: Acute Plan Patient feeling well following stone extraction and stent placement yesterday Comfortable with discharge once her urine culture is completed. She should follow-up in 1-2 weeks for stent removal and consideration for treatment for additional upper tract stones Subjective Subjective Date/Time Seen: 12/20/21 07:08 patient feeling much better today, no complaints of abdominal pain or nausea/ vomiting. She slept well last Exam Const: General: no acute distress Resp: Effort & Inspection: normal respiratory effort GI: Inspection: non-distended GI Palp: No abdominal tenderness and No Guarding due to palpation present (GI) Auscultation: normal bowel sounds Objective Data Vital Signs Vital Signs: Vital Signs - 24 hr 12/19/21 09:32 12/19/21 10:30 12/19/21 10:45 Temperature 97.3 F L 99.7 F H Pulse Rate 77 75 71 Respiratory Rate 14 22 H 20 Blood Pressure 144/67 H 118/55 L 112/48 L Pulse Oximetry 100 98 100 Oxygen Delivery Room Air Simple Face Mask Simple Face Mask Oxygen Flow Rate 8 8 12/19/21 11:00 12/19/21 11:15 12/19/21 11:30 Temperature Pulse Rate 80 79 77 Respiratory Rate 20 16 15 Blood Pressure 116/49 L 104/41 L 105/47 L Pulse Oximetry 97 95 95 Oxygen Delivery Simple Face Mask Room Air Room Air Oxygen Flow Rate 8 12/19/21 14:00 12/19/21 22:00 12/19/21 20:00 Temperature 97.6 F 98.8 F Pulse Rate 90 85 85 Respiratory Rate 18 26 H 26 H Blood Pressure 102/68 108/56 L Pulse Oximetry 93 91 91 Oxygen Delivery Room Air Oxygen Flow Rate 12/20/21 05:44 Temperature 98.5 F Pulse Rate 72 Respiratory Rate 20 Blood Pressure 108/54 L Pulse Oximetry 94 Oxygen Delivery Oxygen Flow Rate Intake/Output Intake/Output: Intake & Output 12/17/21 12/18/21 12/19/21 12/20/21 23:59 23:59 23:59 23:59 Intake Total 4537 200 Output Total 80 800 Balance 4457 -600 Meds/Results Medications: Active Medications Generic Name Dose Route Start Last Admin Trade Name Freq PRN Reason Stop Dose Admin Amlodipine Besylate 5 mg 12/19/21 09:00 12/19/21 13:55 Amlodipine Besylate 5 Mg Tablet PO Not Given DAILY [facility] Enoxaparin Sodium 40 mg 12/20/21 09:00 Enoxaparin 40 Mg/0.4 Ml Syringe SUB-Q DAILY LORETO Gabapentin 300 mg 12/19/21 21:00 12/19/21 20:13 Gabapentin 300 Mg Capsule PO 300 mg HS LORETO Administration Ceftriaxone Sodium/Dextrose 1 gm in 50 mls @ 100 mls/hr 12/19/21 22:00 12/19/21 21:38 Rocephin 1 Gm/D5w 50 Ml IVPB Infused Q24H LORETO Infusion Sodium Chloride 1,000 mls @ 100 mls/hr 12/19/21 07:25 12/19/21 23:25 Normal Saline Iv IV CONT 100 mls/hr .Q10H LORETO Administration Metoprolol Tartrate 25 mg 12/19/21 09:00 12/19/21 17:14 Metoprolol Tartrate 25 Mg Tablet PO Not Given BID [facility] Ondansetron HCl 4 mg 12/19/21 04:11 12/19/21 18:38 Ondansetron Inj 4 Mg/2 Ml Vial IV PUSH 4 mg Q4H PRN Administration Nausea Radiology Results: ITS Impressions Abdomen/Pelvis CT 12/19/21 07:21 IMPRESSION: 1. 4 mm stone in distal left ureter with mild left hydronephrosis and hydroureter. 2. Bilateral nonobstructing kidney stones. 3. Moderate-sized sliding hiatal hernia. Retrograde Pyelogram 12/19/21 11:50 IMPRESSION: 1. Mild left hydroureteronephrosis with placement of a left internal ureteral stent in expected position. See procedure note for further detail. Labs Labs: Laboratory Results - last 24 hr 12/20/21 12/20/21 05:34 05:34 WBC 9.9 RBC 4.11 L Hgb 13.7 Hct 41.2 MCV 100.2 H MCH 33.3 MCHC 33.3 RDW 13.4 Plt Count 109 L MPV 9.4 Immature Gran % (Auto) 0.5 Neut % (Auto) 91.6 H Lymph % (Auto) 3.5 L [place] % (Auto) 4.1 Eos % (Auto) 0.0 Baso % (Auto) 0.3 Lymph # (Auto) 0.35 L [place] # (Auto) 0.4 Eos # (Auto) 0.0
--- NOTE | 2021-12-20 08:11 | P.PNAN_ITS ---
Anes - Prog Note Post-Op Date/Time: 12/20/21 08:11 Cardiovascular status: normal Respiratory status: normal Airway patency: baseline Mental status: baseline Post-Op hydration status: normal Vital Signs: Last Vital Signs Temp 36.9 C 12/20/21 05:44 Pulse 72 12/20/21 05:44 Resp 20 12/20/21 05:44 BP 108/54 L 12/20/21 05:44 Pulse Ox 94 12/20/21 05:44 O2 Del Method Room Air 12/19/21 20:00 O2 Flow Rate 8 12/19/21 11:00 Pain Score (VAS): 2, occasional pain, but well controlled with medication. I/O: Intake & Output 12/19/21 12/20/21 12/20/21 23:59 07:59 15:59 Intake Total 2287 200 Output Total 800 Balance 2287 -600 Laboratory Tests 12/20/21 05:34 12/20/21 05:34 12/20/21 12/20/21 05:34 05:34 WBC 9.9 RBC 4.11 L Hgb 13.7 Hct 41.2 MCV 100.2 H MCH 33.3 MCHC 33.3 RDW 13.4 Plt Count 109 L MPV 9.4 Immature Gran % (Auto) 0.5 Neut % (Auto) 91.6 H Lymph % (Auto) 3.5 L [place] % (Auto) 4.1 Eos % (Auto) 0.0 Baso % (Auto) 0.3 Lymph # (Auto) 0.35 L [place] # (Auto) 0.4 Eos # (Auto) 0.0 Baso # (Auto) 0.0 Abs Immat Gran (auto) 0.05 H Absolute Neuts (auto) 9.0 H Absolute Nucleated RBC 0.0 Nucleated RBC % 0.0 Sodium 138 Potassium 3.9 Chloride 107 Carbon Dioxide 24 Anion Gap 7 L BUN 17 Creatinine 1.00 Estim Creat Clear Calc 41 Estimated GFR 53 L Glucose 101 Calcium 8.1 L Magnesium 1.8 Total Bilirubin 0.6 AST 35 ALT 25 Alkaline Phosphatase 68 Total Protein 5.0 L Albumin 2.7 L Microbiology 12/19/21 04:36 Blood Blood Culture - Preliminary 12/19/21 04:36 Blood Blood Culture - Preliminary Post-procedural complaints: none Patient Feedback: Patient satisfied with anesthetic care.
[2021-12-20] MEDS: ENOXAPARIN 40 MG/0.4 ML SYRINGE SUB-Q (08:42)
[2021-12-20] MEDS: traMADol HCL (*CRX) 50 MG TABLET PO (13:30)
--- NOTE | 2021-12-20 13:39 | PM.IMPN ---
Progress Note: A&P Assessment and Plan (1) Calculus of distal left ureter: Code(s): N20.1 - Calculus of ureter Status: Acute Assessment and Plan: - POD#1 s/p stent placement,. - Leave pederson for now. - Tramadol for pain as patient has codeine allergy - Trend urine output. - Pt. now bacteremic. (2) OREN (acute kidney injury): Code(s): N17.9 - Acute kidney failure, unspecified Status: Resolved Assessment and Plan: - Resolved with Creatinine 1.0 and BUN of 17. (3) Hydronephrosis: Code(s): N13.30 - Unspecified hydronephrosis Status: Acute Assessment and Plan: - Continue to follow with Urology after discharge. (4) Nephrolithiasis: Code(s): N20.0 - Calculus of kidney Status: Inactive Assessment and Plan: - See plan #1 (5) MOE (obstructive sleep apnea): Code(s): G47.33 - Obstructive sleep apnea (adult) (pediatric) Status: Chronic Assessment and Plan: - CPAP with home settings. (6) Hypertension: Code(s): I10 - Essential (primary) hypertension Status: Chronic Assessment and Plan: - BP is stable - Continue Home meds of Amlodipine and Metoprolol. (7) Abnormal urinalysis: Code(s): R82.90 - Unspecified abnormal findings in urine Status: Acute Assessment and Plan: - Urine culture demonstrated mixed genital nancie, but pt has 3/4 blood cultures positive for gram positive cocci in chains. - Will continue Rocephin for now. (8) Bacteremia: Code(s): R78.81 - Bacteremia Status: Acute Assessment and Plan: - Continue Rocephin pending ID and sensitivity of the blood cultures. - 3 of 4 bottles growing gram positive cocci in chains. - Urine culture negative as normal genital nancie grew. - CXR ordered, results pending. Time Spent With Patient Time with patient: 15 - 25 minutes Subjective Date/time seen: 12/20/21 1040 This pt. was examined at the bedside today in interval assessment. She reports that she feels very weak. In the one day interim time since her last assessment, she has had preliminary blood cultures become positive with G+ Cocci in chains in 3 of 4 bottles. Her urine culture is still pending and she remains on Rocephin at this time pending ID and sensitivity. PT and OT are ordered for the patient as she does appear weak in transferring from the bed to the chair. She denies any CP, dyspnea, N/V/D/headache, lightheadedness, vertigo, or any urinary complaints at this time. Review of Systems Review of Systems: All systems reviewed & are unremarkable except as noted in HPI and below Exam Const: General: comfortable and no acute distress HENMT: Ears: TM's normal bilaterally General nose exam: Normal nares present Mouth: Yes moist mucous membranes Eyes: General: appearance normal, both eyes and all related structures Sclera: sclerae normal Pupils: Equal, round and reactive pupils present EOM: EOMs intact bilaterally Neck: Neck: supple and no JVD Resp: Effort & Inspection: normal respiratory effort Auscultation: clear to auscultation bilaterally Cardio: Rate: regular rate Rhythm: regular rhythm Heart sounds: no gallops, no murmurs and no rubs GI: Inspection: non-distended GI Palp: Yes Soft to palpation and No Tenderness to palpation present (GI) Auscultation: normal bowel sounds Urinary Catheter: Urinary Catheter: patent and draining and urine clear Neuro: General: gait normal (Slow due to weakness) Speech: normal speech Motor exam (neuro): 5/5 motor strength present throughout and Normal motor muscle tone present throughout Other: Generalized weakness displayed. No focal deficits. Extrem: General: normal to inspection, no edema and no pedal edema Psych: Mental Status: mental status grossly normal Affect: normal affect Objective Data Vital Signs Vital Signs: Vital Signs - 24 hr 12/19/21 14:00 12/19/21 22:00 12/19/21 20:00 Temperature
[2021-12-20 14:00] VITALS: BP 135/70; PULSE 78; RESP 18; TEMP 38; O2SAT 94
[2021-12-20] MEDS: SODIUM CHLORIDE 0.9% IV 1,000 ML 100 ML IV CONT (16:09)
[2021-12-20 17:16] VITALS: PULSE 70
[2021-12-20] MEDS: METOPROLOL TARTRATE 25 MG TABLET PO (17:16)
[2021-12-20 19:27] VITALS: PULSE 70; RESP 18; O2SAT 94
[2021-12-20 20:30] VITALS: BP 121/51; PULSE 63; RESP 16; TEMP 36.4; O2SAT 96
[2021-12-20] MEDS: GABAPENTIN 300 MG CAPSULE PO (20:30)
--- NOTE | 2021-12-21 03:28 | PC.NURSE ---
No bm this shift, stool sample still needs to be collected
[2021-12-21] MEDS: SODIUM CHLORIDE 0.9% IV 1,000 ML 100 ML IV CONT ×2 (03:36→13:44)
[2021-12-21 04:34] VITALS: BP 121/69; PULSE 65; RESP 14; TEMP 37; O2SAT 95
[2021-12-21 06:56] LABS: Basophils Percent Auto 0.3 % (0.2-1.2); Eosinophils Percent Auto 0.7 % (0-4.4); Hematocrit 41.4 % (37.0-47.0); Hemoglobin 13.9 g/dL (12.0-15.0); Immature Granulocyte Absolute 0.02 K/mm3 (0.00-0.031); Immature Granulocyte Percent A 0.3 % (0-0.5); Immature Platelet Fraction Pct 2.5 % (0.9-11.2); Lymphocytes Absolute Auto 0.98 K/mm3 (0.9-3.2); Lymphocytes Percent Auto 16.8 % (18.3-44.2); Mean Corpuscular HGB Conc 33.6 g/dl (32-36); Mean Corpuscular Hemoglobin 33.1 pg (26-34); Mean Corpuscular Volume 98.6 fl (80-100); Mean Platelet Volume 9.5 fl (7.4-10.4); Monocytes Absolute Auto 0.3 K/mm3 (0.1-0.6); Monocytes Percent Auto 5.3 % (2.6-8.5); Neutrophils Absolute Auto 4.5 K/mm3 (1.3-6.7); Neutrophils Percent Auto 76.6 % (45.5-73.1); Platelet Count Result 115 k/mm3 (150-375); Red Cell Distribution Width 13.3 % (11.5-14.5); White Blood Count 5.9 K/mm3 (4.5-10.0)
[2021-12-21 07:08] LABS: Lactic Acid Reflex 0.9 mmol/L (0.7-2.0)
[2021-12-21 07:11] LABS: Alanine Aminotransferase 24 U/L (6-35); Albumin Level 2.8 g/dL (3.5-5.1); Alkaline Phosphatase 81 U/L (38-126); Anion Gap 4 mmol/L (8-16); Aspartate Amino Transferase 33 U/L (14-36); Bilirubin,Total 0.5 mg/dL (0.2-1.3); Blood Urea Nitrogen 17 mg/dL (7-17); Calcium 8.1 mg/dL (8.4-10.2); Carbon Dioxide 23 mmol/L (22-30); Chloride 107 mmol/L (98-107); Estimated CRCL calculation 41 ml/min; Estimated Glomerular Filt Rate 53; Glucose 93 mg/dL (65-110); Magnesium 1.9 mg/dL (1.6-2.3); Sodium 134 mmol/L (137-145)
[2021-12-21] MEDS: ENOXAPARIN 40 MG/0.4 ML SYRINGE SUB-Q (08:59)
[2021-12-21 09:00] VITALS: PULSE 76
[2021-12-21] MEDS: amLODIPine BESYLATE 5 MG TABLET PO (09:00)
[2021-12-21] MEDS: METOPROLOL TARTRATE 25 MG TABLET PO ×2 (09:00→16:50)
--- NOTE | 2021-12-21 09:58 | P.CDI_ITS ---
CDI Query Clarification Request Risk Factors: Calculus of ureter, hydronephrosis, nephrolithiasis, OREN Clinical Indicators: 3 of 4 bottles blood growing gram positive cocci in chains, UA indicates infection, urine culture negative - grew normal nancie Treatment: Rocephin Bacteremia has been documented, using the CDC definitions below, please clarify the appropriate diagnosis for your patients clinical presentation and severity of illness. * Bacteremia: Nonspecific laboratory finding of bacteria in the blood. * Septicemia: Systemic disease (sepsis) associated with positive blood cultures. * Sepsis: An infection-induced syndrome without organ dysfunction. * Severe Sepsis: Sepsis with associated acute organ dysfunction. * Septic Shock: Severe sepsis in which the cardiovascular system begins to fail, blood pressure drops, and vital organs are deprived of adequate blood supply. <LINDA Zamudio - Last Filed: 12/21/21 10:03> Provider Comments Bacteremia. No evidence of sepsis <Hawa Qureshi APRN - Last Filed: 12/22/21 07:50> Bacteremia. No evidence of sepsis Final dx: Bacteremia, there was no evidence of Septicemia. <DOMINIC Candelaria - Last Filed: 12/29/21 06:20>
[2021-12-21 15:43] VITALS: BP 115/71; PULSE 69; RESP 14; TEMP 36.4; O2SAT 100
--- NOTE | 2021-12-21 16:27 | PM.IMPN ---
Progress Note: A&P Assessment and Plan (1) Calculus of distal left ureter: Code(s): N20.1 - Calculus of ureter Status: Acute Assessment and Plan: - POD#2 s/p stent placement L ureter. continue pederson for now. - Tramadol for pain PRN. - Monitor I/O. (2) OREN (acute kidney injury): Code(s): N17.9 - Acute kidney failure, unspecified Status: Resolved Assessment and Plan: - Resolved with Creatinine 1.0 and BUN of 17. - Off IV fluids (3) Hydronephrosis: Code(s): N13.30 - Unspecified hydronephrosis Status: Acute Assessment and Plan: - Noted on CT on admission. s/p ureteral stent placement on left. - Continue to follow with Urology after discharge. (4) MOE (obstructive sleep apnea): Code(s): G47.33 - Obstructive sleep apnea (adult) (pediatric) Status: Chronic Assessment and Plan: - CPAP with home settings. (5) Hypertension: Qualifiers: Hypertension type: primary hypertension Qualified Code(s): I10 - Essential (primary) hypertension Code(s): I10 - Essential (primary) hypertension Status: Chronic Assessment and Plan: - BP is stable - Continue Amlodipine and Metoprolol at home doses. (6) Abnormal urinalysis: Code(s): R82.90 - Unspecified abnormal findings in urine Status: Acute Assessment and Plan: - Urine culture demonstrated mixed genital nancie, but pt has 3/4 blood cultures positive for enterococcus that is likely from urinary source. - Will stop Rocephin given equivocal enterococcus coverage. - Start Vancomcyin 1500 mg IVPB x1, pharmacy to dose based on renal function (7) Bacteremia: Code(s): R78.81 - Bacteremia Status: Acute Assessment and Plan: - 3 of 4 bottles growing enteroccocus as above. - Continue IV Vancomycin (day 1 of 14). Adjust medications per culture results. - Repeat blood cultures in 48 hours for antimicrobial clearing. - Adjust antibiotics per culture senaitivities. - She may need 14 days IV antibiotic. Plan CODE STATUS: FULL CODE Disposition: home with possible home health Time Spent With Patient Time with patient: 15 - 25 minutes Subjective Date/time seen: 12/21/21 16:27 Patient is an 86 yo female with medcial history of CAD, HTN, MOE, neuropathy and previous kidney stones. She presented to the ED for evaluation of left flank pain. She was found to have nonobstructing 4-5 mm left ureteral stone with hydronephrosis and UA concerning for infection. She underwent left stone extraction and ureteral stent placement on 12/19/21. Patient is sitting up in the chair. She reports feeling better today than yesterday. She slept better last night, but in general sleeps poorly, she reports. She denies chills, rigors, malaise or body aches. Blood cultures are noted to be positive for enterococcus in both sets. Her max temp was 100.4F on 12/20/21 at 1400. No chest pain, SOB, dizziness, anorexia, abd pain, N/V/D, or flank pain. Pederson catheter is patent. Review of Systems Review of Systems: All systems reviewed & are unremarkable except as noted in HPI and below Exam Narrative: General:?No acute distress. Non-toxic appearing adult female. Sitting up in the chair. Neuro: awake, alert and oriented x4, speech clear and appropriate, no focal deficits HEENT:? Pupils equal and round, sclerae anicteric, moist oral mucosa. Hearing grossly normal. Respiratory: clear to auscultation bilaterally, nonlabored breathing, no wheezing, rhonchi or rales. Cardio: Normal S1 and S2 reguarl rate and rhythm. No murmur, gallop or rub. Abdomen:?soft, obese, nondistended, normoactive bowel sounds. Normoactive bowel sounds in all 4 quadrants. No guarding, suprapubic or CVA tenderness. Pederson: clear, yellow urine. Extremities:? Grossly normal ROM in all 4 extremities, No edema, erythema or tenderness to palpation, radial and dorsalis pedis pulses palpable and eq
[2021-12-21 16:50] VITALS: PULSE 78
[2021-12-21 19:04] VITALS: PULSE 78; RESP 14; O2SAT 100
[2021-12-21] MEDS: GABAPENTIN 300 MG CAPSULE PO (20:06)
[2021-12-21 20:36] VITALS: BP 129/59; PULSE 62; RESP 14; TEMP 36.6; O2SAT 100
[2021-12-22] MEDS: SODIUM CHLORIDE 0.9% IV 1,000 ML 100 ML IV CONT (00:28)
[2021-12-22 05:03] VITALS: BP 142/68; PULSE 67; RESP 14; TEMP 36.4; O2SAT 95
[2021-12-22 06:09] LABS: Basophils Percent Auto 0.4 % (0.2-1.2); Eosinophils Absolute Auto 0.1 K/mm3 (0-0.3); Eosinophils Percent Auto 1.5 % (0-4.4); Hematocrit 38.5 % (37.0-47.0); Immature Granulocyte Absolute 0.03 K/mm3 (0.00-0.031); Immature Granulocyte Percent A 0.6 % (0-0.5); Immature Platelet Fraction Pct 3.1 % (0.9-11.2); Lymphocytes Absolute Auto 1.11 K/mm3 (0.9-3.2); Lymphocytes Percent Auto 20.8 % (18.3-44.2); Mean Corpuscular HGB Conc 33.8 g/dl (32-36); Mean Corpuscular Hemoglobin 32.6 pg (26-34); Mean Corpuscular Volume 96.5 fl (80-100); Monocytes Absolute Auto 0.4 K/mm3 (0.1-0.6); Monocytes Percent Auto 7.1 % (2.6-8.5); Neutrophils Absolute Auto 3.7 K/mm3 (1.3-6.7); Neutrophils Percent Auto 69.6 % (45.5-73.1); Platelet Count Result 109 k/mm3 (150-375); Red Blood Count 3.99 M/mm3 (4.2-5.4); Red Cell Distribution Width 13.2 % (11.5-14.5); White Blood Count 5.3 K/mm3 (4.5-10.0)
[2021-12-22 06:18] LABS: Anion Gap 8 mmol/L (8-16); Blood Urea Nitrogen 13 mg/dL (7-17); Calcium 7.8 mg/dL (8.4-10.2); Carbon Dioxide 24 mmol/L (22-30); Chloride 107 mmol/L (98-107); Estimated CRCL calculation 57 ml/min; Estimated Glomerular Filt Rate > 60; Glucose 97 mg/dL (65-110); Potassium 3.8 mmol/L (3.4-5.0); Sodium 139 mmol/L (137-145)
[2021-12-22 08:08] VITALS: PULSE 65
[2021-12-22] MEDS: METOPROLOL TARTRATE 25 MG TABLET PO (08:08)
[2021-12-22] MEDS: amLODIPine BESYLATE 5 MG TABLET PO (08:08)
[2021-12-22] MEDS: ENOXAPARIN 40 MG/0.4 ML SYRINGE SUB-Q (08:08)
--- NOTE | 2021-12-22 12:48 | PM.DS ---
DS: Admitting Diagnosis Discharge Date 12/22/21 1307 Admitting Diagnosis Left ureterolithiasis Bilateral nephrolithiasis Left hydronephrosis Acute kidney injury Acute UTI DS: Discharge Diagnosis Discharge Diagnosis (1) Calculus of distal left ureter: Code(s): N20.1 - Calculus of ureter Status: Acute Assessment and Plan: - 12/19/21 s/p stent placement L ureter. - pederson placed. - Tramadol for pain PRN. - Monitor I/O. (2) OREN (acute kidney injury): Code(s): N17.9 - Acute kidney failure, unspecified Status: Resolved Assessment and Plan: - Mild, likely prerenal - Resolved with IV hydration - Creatinine 1.0 and BUN of 17. Off IV fluids (3) Hydronephrosis: Code(s): N13.30 - Unspecified hydronephrosis Status: Acute Assessment and Plan: - Noted on CT on admission. 2/2 to ureteral stone - s/p ureteral stent placement on left. - Continue to follow with Urology after discharge. (4) Bacteremia: Code(s): R78.81 - Bacteremia Status: Acute Assessment and Plan: - 3 of 4 bottles growing enteroccocus as above. Presumed 2/2 UTI - Rocephin 1 gram IV Q24 hours 12/19-12/21/21. - 12/21/21 Vancomycin IV started, pharmacy to dose (day 1 of 14). - Blood cultures show sensitive to ampicillin. - 12/22/21 Repeat blood cultures x2 for antimicrobial clearing. - Patient afebrile now. No leukocytosis. - Start amoxicillin 875 mg PO BID x 14 days. (5) Abnormal urinalysis: Code(s): R82.90 - Unspecified abnormal findings in urine Status: Acute Assessment and Plan: - Urine culture demonstrated mixed genital nancie, but pt has 3/4 blood cultures positive for enterococcus that is likely from urinary source. - antimicrobials as above. . - presumed enterococcus as cause d/t blood cultures. (6) MOE (obstructive sleep apnea): Code(s): G47.33 - Obstructive sleep apnea (adult) (pediatric) Status: Chronic Assessment and Plan: - CPAP with home settings. (7) Hypertension: Qualifiers: Hypertension type: primary hypertension Qualified Code(s): I10 - Essential (primary) hypertension Code(s): I10 - Essential (primary) hypertension Status: Chronic Assessment and Plan: - BP is stable - Continue Amlodipine and Metoprolol at home doses. DS: Summary Hospital Course Reason for hospitalization: Left flank pain Hospital Course: Rita Guardado is an 86-year-old female with a prior past medical history of hypertension, neuropathy, stable angina, and kidney stones. She presented to them ED with c/o left flank pain.? Patient stated that she went to lay in bed at 6:00 p.m. to watch TV on the night of admission and woke up with severe back pain.? Patient thought that she might be needed of have a bowel movement, however when she was sat in the bathroom the pain worsened.? She called EMS a little before midnight as the pain persisted. She had associated nausea, vomiting, dry heaves and slight generalized abdominal pain.? She denied shortness of breath, chest pain, diarrhea, constipation, visual changes, sweats, fevers, chills, hearing changes, syncope, headache, weakness or fatigue.? Patient has had kidney stones extracted in the past however she does not know why they keep recurring.? Patient also endorses a little bit of swelling in her bilateral lower extremities when she is standing or moving around all day.? CT abd/pelvis showed a 5 mm urinary stone with left-sided hydronephrosis and nephrolithiasis bilaterally.? Urology was consulted in the ED. The patient went for stone extraction and ureteral stent placement on 12/19/21.?She was transferred to the medical floor for further management. She was continued on IV Rocephin 1 gram Q24 hours. Urine culture returned with mixed nancie, howoever, blood cultures from 12/19 were positive with Enterococcus growth. The patient had low grade temperature on
== END 2021-12-22 14:05 | disposition home or self-care (01) | DRG 660 ==
LOC: ANHED 04:11 → ANH3MEDSUR 05:02
PROVIDERS: Nurse Practitioner; Nurse Practitioner Adult Health; Physician Assistant; Urology; Admitting Provider Internal Medicine; Emergency Provider Emergency Medicine; Visit Provider Nurse Practitioner Family
PROC: 0T778DZ Dilation of Left Ureter with Intraluminal Device, Via Natural or Artificial Opening Endoscopic (ICD-10-PCS; CPT 52352; principal; 2021-12-19 10:00)
DX: N13.6 Pyonephrosis (principal); R78.81 Bacteremia; B95.2 Enterococcus as the cause of diseases classified elsewhere; N17.9 Acute kidney failure, unspecified; G47.33 Obstructive sleep apnea (adult) (pediatric); I10 Essential (primary) hypertension; G62.9 Polyneuropathy, unspecified; I25.10 Atherosclerotic heart disease of native coronary artery without angina pectoris; E66.9 Obesity, unspecified; Z68.33 Body mass index [BMI] 33.0-33.9, adult; Z91.14 Patient's other noncompliance with medication regimen; Z95.5 Presence of coronary angioplasty implant and graft; Z90.710 Acquired absence of both cervix and uterus
CPT/HCPCS: 36415; 71045; 74177; 74420; 80048; 80053; 81001; 82365; 83605; 83690; 83735; 84484; 85025; 85055; 87040; 87077; 87086; 87088; 87186; 88300; 93005; 96361; 96365; 96367; 96375; 96376; 97110; 97161; 97165; 99285; A9270; C1758; C1769; C2617; G0378; J0131; J0696; J1650; J2405; J2704; J3010; J3370; J7030; J7120; Q9967

== ENCOUNTER 2022-01-05 08:09 | Outpatient (CLI) | payer OTHER, SELFPAY ==
--- NOTE | ~2022-01-05 | XR_ITS ---
EXAM: XR abdomen/kub 1V DATE: 01/05/2022 08:30 HISTORY: BI RENAL STONES . COMPARISON: 07/02/2021. CT abdomen pelvis 12/19/2021. FINDINGS: Clear lung bases. Left ureteral stent, in good position. Cholecystectomy clips. Stable inc reased scattered about the abdomen. Normal bowel gas pattern. No organomegaly. The left upper pole ca lcification has shifted into a lower pole calyx since the prior radiograph but stable since the prior CT. Stable left lower pole calcification. Numerous right renal and renal pelvis stones. Lumbar scoli osis and degenerative change. Osteitis pubis. IMPRESSION: Left ureteral stent, in good position. Stable bilateral nephrolithiasis. Reviewed, dictated and finalized at location K. IMPRESSION: Left ureteral stent, in good position. Stable bilateral nephrolithi asis.
== END 2022-01-05 08:10 | disposition home or self-care (01) ==
LOC: ANHIMG 08:10
PROVIDERS: Visit Provider Urology
DX: N20.0 Calculus of kidney (principal)
CPT/HCPCS: 74018

== ENCOUNTER 2023-06-09 10:16 | Outpatient (CLI) | payer OTHER, SELFPAY ==
--- NOTE | ~2023-06-09 | CT_ITS ---
EXAMINATION: CT abdomen pelvis wo/w con DATE: 06/09/2023 11:09 INDICATION: Gross hematuria TECHNIQUE: Computed tomography (CT) of the abdomen and pelvis was performed without intravenous contr ast. CT of the abdomen and pelvis was then performed with a total of 130 mL Omnipaque 350 intravenous contrast using a double-bolus technique for simultaneous opacification of the renal parenchyma and r enal collecting system. The dose-length product (DLP) was 2125.35 mGy-cm. Automated exposure control and iterative reconstruction technique were employed. COMPARISON: 12/19/2021 FINDINGS: Minimal dependent atelectasis is present in the lung bases. There is a moderate size slidin g hiatal hernia. Cardiomegaly is noted. Changes of cholecystectomy are noted. The liver, spleen, panc reas, and adrenal glands are normal. There are chronic stones in the right renal pelvis and proximal right ureter with mild right hydronephrosis. There is a 12 mm stone in the left renal pelvis with mil d hydronephrosis. There are at least five nonobstructing stones of the right kidney which measure up to 8 mm. There is a 4 mm nonobstructing stone of the left kidney lower pole. Cysts of the kidneys vania sure up to 4.1 cm on the right. No suspicious renal or urothelial lesion identified. No stones are id entified in the urinary bladder. No pathologically enlarged abdominal or pelvic lymph nodes are ident ified. No free intraperitoneal gas or evidence of bowel obstruction. Colonic diverticulosis is presen t without evidence of diverticulitis. Changes of mesh ventral hernia repair are noted. There is sever e lumbar spondylosis. IMPRESSION: 1. Stones in the bilateral renal pelves with mild bilateral hydronephrosis. 2. Bilateral nonobstructing nephrolithiasis. Reviewed, dictated and finalized at location B. RANCE SALESPERSON
[2023-06-09 10:52] LABS: Estimated Glomerular Filt Rate > 60
== END 2023-06-09 10:17 | disposition home or self-care (01) ==
LOC: ANHIMG 10:19
PROVIDERS: Visit Provider Physician Assistant
DX: R31.0 Gross hematuria (principal); N20.0 Calculus of kidney
CPT/HCPCS: 74178; Q9967

== ENCOUNTER 2023-06-24 08:14 | Outpatient (CLI) | payer OTHER, SELFPAY ==
[2023-06-24 09:02] LABS: Prothrombin Time 13.9 Seconds (11.1-14.7)
[2023-06-24 09:03] LABS: Partial Thromboplastin Time 30.8 SECONDS (22.3-36.8)
== END 2023-06-24 08:15 | disposition home or self-care (01) ==
LOC: ANHSURGERY 08:21
PROVIDERS: Visit Provider Urology
DX: N20.0 Calculus of kidney (principal); Z01.818 Encounter for other preprocedural examination
CPT/HCPCS: 36415; 85610; 85730; 87086

== ENCOUNTER 2023-06-27 00:38 | Day surgery (SDC) | payer OTHER, SELFPAY ==
[2023-06-23 08:37] VITALS: BMI 29.9
--- NOTE | 2023-06-23 09:21 | PC.NURSE ---
Report to the Outpatient Waiting Room, entrance under the green pavilion located off [facility], at time __12:00PM on date __06/27/23 . Planned Procedure Time: __2:00PM . Time changes happen often and if your time is changed the preop area will call you the afternoon before. - You and your visitor will be asked to self-screen and do not enter if you have any COVID symptoms. - A mask is optional within the hospital at this time. Patients may have clear liquids (water, carbonated beverages, clear teas, apple juice) until 3 hours prior to surgery with a maximum of 20 ounces. - No food from midnight until time of surgery. Take the following medications with a SIP of water the morning of surgery: ____NONE DO NOT STOP ANY OF YOUR OTHER PRESCRIPTION MEDICATIONS PRIOR TO SURGERY ?EXCEPT THE FOLLOWING Medications to discontinue per physician NONE Date to take last dose Please no make-up, nail burmese, hairspray, perfume, deodorant, or body powder the day of surgery. No jewelry (including any body piercings) or valuables the day of surgery, leave them at home. Please take a shower or bath the night before, or the morning of, surgery with an antibacterial soap. Wear comfortable, loose fitting clothing. - Jewelry must be removed prior to entering the operating room. Rings and piercings that are not removed may be cut off. - The hospital will not accept responsibility for valuables. - Please leave all valuables, including medications, at home the day of surgery. If you are going home after surgery, a licensed dedicated local truck driver must drive you home. - NO public transportation without another adult if you receive anesthesia. - We recommend that an adult stay with you for 24 hours following discharge. - We also recommend that you do not drive, make important decision, drink alcoholic beverages, or take any drugs that were not prescribed by your health care provider for at least 24 hours after your discharge time. Follow any additional instructions given to you from your surgeon. If you or anyone in your household have experienced Covid symptoms in the past week, please notify your surgeon or the nurse liaison at the phone number below for possible testing. Telephone instructions given to __PATIENT and asked if any additional questions and then verbalized understanding. Patient advised to call surgeon office or pre surgery nurse liaison [phone] if any additional questions.
--- NOTE | 2023-06-25 06:45 | PM.HPGS ---
History of Present Illness History of Present Illness Consent: Risks, benefits, and alternatives have been discussed and questions answered. Patient agrees to proceed with procedure. Chief complaint: Left Renal Stone Narrative: Rita Flood is a 87 year old female who had recently undergone evaluation for hematuria. Imaging demonstrated chronic stones in her right kidney with 2 new stones in her left kidney, the largest measuring 10-12 mm. After discussion of options she is elected for left ESWL. She is aware of the potential need for additional procedures in addition to complications including, but not limited to, hematuria perinephric hematoma Review of Systems Cardiovascular: Cardiovascular: Denies chest pain, Denies lightheadedness, Denies palpitations and Denies dyspnea Respiratory: Respiratory: Denies dyspnea Gastrointestinal: Gastrointestinal: Denies diarrhea, Denies nausea and Denies vomiting Genitourinary: Genitourinary: Denies hematuria and Denies dysuria Endocrine: Endocrine: Denies palpitations PMF Past Medical History Medical History Bronchitis CAD (coronary artery disease) Cataract, right eye Gastric bezoar (~05/2021) Hiatal hernia (Unknown) Hypertension Nephrolithiasis Neuropathy MOE (obstructive sleep apnea) non compliance with CPAP SBO (small bowel obstruction) (~05/2021) Sleep apnea Urinary tract infection Surgical History Surgical History History of extraction of renal calculus History of hysterectomy History of incisional hernia repair History of repair of hiatal hernia History of tonsillectomy Stented coronary artery x2 Family History Family History Mother Heart disease Hypertension Social History Social History Social History: She lives by herself and is independent. She does not have any pets, and she wants her son Balta to be her surrogate. She wishes to be a full code. 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 Alcohol intake: never Substance use: never Living arrangements: alone Occupation/Education: retired Gender identity (if verbalized by the patient): Female Sexual Orientation (if Verbalized by the Patient): Straight or Heterosexual Spiritual care concerns: No Agree to blood products: Yes Meds Home Medications and Allergies Home Medications Medication Instructions Recorded Confirmed Type gabapentin 300 mg capsule 300 mg PO HS 03/25/19 06/23/23 History Allergies Allergy/AdvReac Type Severity Reaction Status Date / Time codeine Allergy Unknown Hives Verified 06/23/23 08:32 atorvastatin AdvReac Muscle Pain Verified 06/23/23 08:32 Exam Const: General: no acute distress Resp: Effort & Inspection: normal respiratory effort GI: Inspection: non-distended GI Palp: No abdominal tenderness and No Guarding due to palpation present (GI) Auscultation: normal bowel sounds Assessment and Plan Assessment and plan (1) Bilateral kidney stones: Code(s): N20.0 - Calculus of kidney Status: Acute Assessment and Plan: left ESWL
--- NOTE | 2023-06-26 13:49 | WPDANESEPPF ---
Anes - Initial Pre Proc Eval Procedure: Operation Date: 06/27/23 14:00 Proposed Procedures p Left Extracorporeal Shock Wave Lithotripsy - Ameya Mccracken MD s Cystoscopy with Left Stent Placement - Ameya Mccracken MD Date/Time: 06/26/23 13:49 Surgeon: Ameya Mccracken MD Pre Op Diagnosis: Left Renal Stone Patient Data Age: 87 Gender: F Height: 1.68 m Weight: 84 kg Allergies Allergy/AdvReac Type Severity Reaction Status Date / Time codeine Allergy Unknown Hives Verified 06/27/23 11:48 atorvastatin AdvReac Muscle Pain Verified 06/27/23 11:48 Home Medications Medication Instructions Recorded Confirmed Type gabapentin 300 mg capsule 300 mg PO HS 03/25/19 06/27/23 History Patient hx anesthesia problems: none Family hx anesthesia problems: none Results Review: All pre-operative results and documents have been reviewed as part of the pre-operative evaluation. [facility] Past Medical History Medical History (Updated 06/26/23 @ 13:50 by Kyler Damian DO) Bronchitis CAD (coronary artery disease) Cataract, right eye Gastric bezoar (~05/2021) Hiatal hernia (Unknown) Hypertension Nephrolithiasis Neuropathy MOE (obstructive sleep apnea) non compliance with CPAP Pacemaker SBO (small bowel obstruction) (~05/2021) Sleep apnea Urinary tract infection Surgical History Surgical History History of extraction of renal calculus History of hysterectomy History of incisional hernia repair History of repair of hiatal hernia History of tonsillectomy Stented coronary artery x2 Family History Family History Mother Heart disease Hypertension Social History Social History Social History: She lives by herself and is independent. She does not have any pets, and she wants her son Balta to be her surrogate. She wishes to be a full code. 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 Alcohol intake: never Substance use: never Living arrangements: alone Occupation/Education: retired Gender identity (if verbalized by the patient): Female Sexual Orientation (if Verbalized by the Patient): Straight or Heterosexual Spiritual care concerns: No Agree to blood products: Yes Anes - Eval Final PreProcedure Day of Procedure 06/26/23 13:49 Patient weight: overweight Heart: regular rate and rhythm Lungs: clear to auscultation Airway: Mallampati scale class II Neurological: alert and oriented Last oral intake: >/= 8 hours ASA classification: III Emergent: no Anesthetic plan: proceed Anesthesia type and monitoring: general LMA and standard monitoring Results Review: All pre-operative results and documents have been reviewed as part of the pre-operative evaluation. Informed Consent: The patient's anesthetic plan and its attendant risks and benefits were discussed with the patient/family/POA. Questions were solicited and answers provided to the satisfaction of the patient/family/POA.
[2023-06-27] VITALS (8 sets, daily range): BP systolic 130–149; BP diastolic 58–79; PULSE 60–65; RESP 12–20; TEMP 36.6–36.7; O2SAT 96–100
--- NOTE | ~2023-06-27 | XR_ITS ---
EXAMINATION: XR abdomen/kub 1V INDICATION: Urolithiasis TECHNIQUE: Supine views of the abdomen were obtained on 2 radiographs. COMPARISON: 01/05/2022; CT, 06/09/2023 FINDINGS: There are greater than 10 stones in the proximal right ureter which measure up to 9 mm. The re are greater than 10 stones of the right kidney, the largest of which measures 13 mm in the mid kid zaki. A 14 mm stone projects in the expected location of the left renal pelvis. A 4 mm stone is seen i n the left kidney lower pole. The bowel gas pattern is normal. There is lumbar levoscoliosis and ramona re spondylosis. IMPRESSION: 1. Stones in the left renal pelvis and proximal right ureter. 2. Bilateral nephrolithiasis. Reviewed, dictated and finalized at location B. [employer]GER
--- NOTE | 2023-06-27 06:25 | WPDHPUPDATE1 ---
History and Physical Update Update Date/Time: 06/27/23 06:25 History and Physical has been reviewed, including an updated exam of the patient. There are NO changes in the patient's condition. Risks, benefits, and alternatives have been discussed and questions answered. Patient agrees to proceed with procedure.
[2023-06-27] MEDS: LACTATED RINGERS 1,000 ML 30 ML IV CONT (12:00)
[2023-06-27] MEDS: ceFAZolin 2 GM/D5W 50 ML 2 GM/50 ML BAG IVPB (12:42)
--- NOTE | 2023-06-27 12:59 | P.OP_ITS ---
Procedure Note - Detailed Date of Procedure 06/27/23 Pre-op Diagnosis Left Renal Stone Post-op Diagnosis Same Procedure Performed Cystoscopy, left ureteral stent placement, left ESWL Surgeon Ameya Mccracken MD Anesthesia General Description of Procedure The patient was brought to the operative suite where she was placed in the frog- legged position on the Dornier lithotripter table. Flexible cystoscopy was undertaken with a 16F flexible cystoscopy. Her urethra and bladder neck were endoscopically normal. The bladder mucosa was normal and there was a single, orthotopic ureteral orifice bilaterally. A 0.035 glidewire was advanced into the left renal pelvis under fluoroscopy. A 4.8F J-J ureteral stent was positioned with the proximal coil in the renal pelvis and the distal coil in the bladder. The patient was then repositioned in the supine position and the focal point of the lithotriptor was placed at a 12mm left renal pelvic calculus. A total of 2500 shocks were delivered at a power setting of 4. There appeared to be good fragmentation of the stone. The patient tolerated the procedure well and was taken to the recovery room in good condition. Drains Yes Packing No Pathology None sent Complications No immediate complications
== END 2023-06-27 15:15 | disposition home or self-care (01) ==
PROVIDERS: Visit Provider Urology
PROC: (CPT 50590; principal; 2023-06-27 14:00)
PROC: (CPT 52352; 2023-06-27 14:00)
DX: N20.0 Calculus of kidney (principal); I25.10 Atherosclerotic heart disease of native coronary artery without angina pectoris; Z95.5 Presence of coronary angioplasty implant and graft; I10 Essential (primary) hypertension; Z95.0 Presence of cardiac pacemaker; G62.9 Polyneuropathy, unspecified; G47.33 Obstructive sleep apnea (adult) (pediatric); Z82.49 Family history of ischemic heart disease and other diseases of the circulatory system
CPT/HCPCS: 50590; 52332; 36415; 74018; 85610; 85730; 87086; C1769; C2617; J0690; J2405; J2704; J7030; J7120

== ENCOUNTER 2023-07-11 07:54 | Outpatient (CLI) | payer OTHER, SELFPAY ==
--- NOTE | ~2023-07-11 | XR_ITS ---
XR abdomen/kub 1V DATE: 07/11/2023 08:09 INDICATION: Left kidney stone follow-up TECHNIQUE: 2 AP views COMPARISON: 06/27/2023 KUB June 09, 2023 CT abdomen pelvis FINDINGS: Left internal urinary stent is present in expected position. There are multiple calcified renal calculi overlying the left renal pelvis, measuring up to approxima tely 6 mm, in addition to multiple smaller calcified calculi overlying the lower pole left kidney. There are numerous calcified stones of the right kidney, right renal pelvis. Status post cholecystectomy. Right atrial and right ventricular pacemaker leads. Thoracic and abdominal aortic calcification. No bowel obstruction is evident. No visceromegaly is detected. Scoliosis and degenerative changes of the thoracic and lumbar spine. IMPRESSION: Left internal urinary stent in expected position Numerous calcified calculi of the renal pelves and kidneys bilaterally Reviewed, dictated and finalized at Location A. Reviewed, dictated and finalized at location B.
== END 2023-07-11 07:55 | disposition home or self-care (01) ==
PROVIDERS: Visit Provider Physician Assistant
DX: N20.0 Calculus of kidney (principal)
CPT/HCPCS: 74018

== ENCOUNTER 2023-07-21 12:03 | Outpatient (CLI) | payer OTHER, SELFPAY ==
[2023-07-21 13:11] LABS: Prothrombin Time 13.6 Seconds (11.1-14.7)
== END 2023-07-21 12:04 | disposition home or self-care (01) ==
PROVIDERS: Visit Provider Urology
DX: N20.0 Calculus of kidney (principal); Z01.818 Encounter for other preprocedural examination
CPT/HCPCS: 36415; 85610; 85730; 87086; 87088

== ENCOUNTER 2023-07-25 02:13 | Day surgery (SDC) | payer OTHER, SELFPAY ==
[2023-07-18 14:06] VITALS: BMI 30.2
--- NOTE | 2023-07-18 14:26 | PC.NURSE ---
Report to the Outpatient Waiting Room, entrance under the green pavilion located off [facility], at time __6:00AM on date __07/25/23 . Planned Procedure Time: ___7:30AM . Time changes happen often and if your time is changed the preop area will call you the afternoon before. - You and your visitor will be asked to self-screen and do not enter if you have any COVID symptoms. - A mask is optional within the hospital at this time. Patients may have clear liquids (water, carbonated beverages, clear teas, apple juice) until 3 hours prior to surgery with a maximum of 20 ounces. - No food from midnight until time of surgery. Take the following medications with a SIP of water the morning of surgery: ____NONE DO NOT STOP ANY OF YOUR OTHER PRESCRIPTION MEDICATIONS PRIOR TO SURGERY ?EXCEPT THE FOLLOWING Medications to discontinue per physician NONE Date to take last dose Please no make-up, nail yoruba, hairspray, perfume, deodorant, or body powder the day of surgery. No jewelry (including any body piercings) or valuables the day of surgery, leave them at home. Please take a shower or bath the night before, or the morning of, surgery with an antibacterial soap. Wear comfortable, loose fitting clothing. - Jewelry must be removed prior to entering the operating room. Rings and piercings that are not removed may be cut off. - The hospital will not accept responsibility for valuables. - Please leave all valuables, including medications, at home the day of surgery. If you are going home after surgery, a licensed bulk delivery driver must drive you home. - NO public transportation without another adult if you receive anesthesia. - We recommend that an adult stay with you for 24 hours following discharge. - We also recommend that you do not drive, make important decision, drink alcoholic beverages, or take any drugs that were not prescribed by your health care provider for at least 24 hours after your discharge time. Follow any additional instructions given to you from your surgeon. If you or anyone in your household have experienced Covid symptoms in the past week, please notify your surgeon or the nurse liaison at the phone number below for possible testing. Telephone instructions given to PATIENT and asked if any additional questions and then verbalized understanding. Patient advised to call surgeon office or pre surgery nurse liaison [phone] if any additional questions.
[2023-07-25] VITALS (7 sets, daily range): BP systolic 123–159; BP diastolic 63–97; PULSE 59–71; RESP 15–20; TEMP 36.6–36.7; O2SAT 98–100
--- NOTE | ~2023-07-25 | XR_ITS ---
EXAMINATION: XR abdomen/kub 1V DATE: 07/25/2023 06:11 INDICATION: Kidney stones. TECHNIQUE: A supine view of the abdomen on 2 radiographs was obtained. COMPARISON: Abdomen radiographs 07/11/2023, CT abdomen and pelvis 06/09/2023 FINDINGS: There are no dilated loops of bowel. There is a left internal ureteral stent in expected po sition. There are numerous stones in right kidney and proximal right ureter. The largest measures giana roximately 15 mm in right renal pelvis. There are multiple stones in left kidney and left renal pelvi s measuring up to 9 mm. Surgical clips overlie the abdomen. There are phleboliths in the pelvis. IMPRESSION: 1. Stones in the kidneys and proximal right ureter. 2. Left internal ureteral stent in expected position. Reviewed, dictated and finalized at location A.
--- NOTE | 2023-07-25 06:08 | WPDHPUPDATE1 ---
History and Physical Update Update Date/Time: 07/25/23 06:08 History and Physical has been reviewed, including an updated exam of the patient. There are NO changes in the patient's condition. Risks, benefits, and alternatives have been discussed and questions answered. Patient agrees to proceed with procedure.
[2023-07-25] MEDS: LACTATED RINGERS 1,000 ML 30 ML IV CONT (06:25)
--- NOTE | 2023-07-25 06:54 | WPDANESEPPF ---
Anes - Initial Pre Proc Eval Procedure: Operation Date: 07/25/23 07:30 Proposed Procedures p Repeat Left Extracorporeal Shock Wave Lithotripsy - Ameya Mccracken MD Date/Time: 07/25/23 06:54 Surgeon: Ameya Mccracken MD Pre Op Diagnosis: left renal kidney stones Patient Data Age: 87 Gender: F Height: 1.68 m Weight: 85.4 kg Last Vital Signs Temp 97.9 F 07/25/23 06:15 Pulse 59 L 07/25/23 06:15 Resp 18 07/25/23 06:15 BP 123/63 07/25/23 06:15 Pulse Ox 98 07/25/23 06:15 O2 Del Method Room Air 07/25/23 06:15 Allergies Allergy/AdvReac Type Severity Reaction Status Date / Time codeine Allergy Unknown Hives Verified 07/25/23 06:36 atorvastatin AdvReac Muscle Pain Verified 07/25/23 06:36 Home Medications Medication Instructions Recorded Confirmed Type gabapentin 300 mg capsule 300 mg PO HS 03/25/19 07/25/23 History Patient hx anesthesia problems: none Family hx anesthesia problems: none Results Review: All pre-operative results and documents have been reviewed as part of the pre-operative evaluation. [facility] Past Medical History Medical History (Updated 06/26/23 @ 13:50 by Kyler Damian DO) Bronchitis CAD (coronary artery disease) Cataract, right eye Gastric bezoar (~05/2021) Hiatal hernia (Unknown) Hypertension Nephrolithiasis Neuropathy MOE (obstructive sleep apnea) non compliance with CPAP Pacemaker SBO (small bowel obstruction) (~05/2021) Sleep apnea Urinary tract infection Surgical History Surgical History History of extraction of renal calculus History of hysterectomy History of incisional hernia repair History of repair of hiatal hernia History of tonsillectomy Stented coronary artery x2 Family History Family History Mother Heart disease Hypertension Social History Social History Social History: She lives by herself and is independent. She does not have any pets, and she wants her son Balta to be her surrogate. She wishes to be a full code. 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 Alcohol intake: never Substance use: never Living arrangements: alone Occupation/Education: retired Gender identity (if verbalized by the patient): Female Sexual Orientation (if Verbalized by the Patient): Straight or Heterosexual Spiritual care concerns: No Agree to blood products: Yes Anes - Eval Final PreProcedure Day of Procedure 07/25/23 06:54 Patient weight: overweight Heart: regular rate and rhythm Lungs: clear to auscultation Airway: Mallampati scale and special considerations (upper and lower dentures.) Neurological: alert and oriented Last oral intake: >/= 8 hours ASA classification: III Emergent: no Anesthetic plan: proceed Anesthesia type and monitoring: general and standard monitoring Other findings: Pacemaker 04/2023, hx of PTCA. Results Review: All pre-operative results and documents have been reviewed as part of the pre-operative evaluation. Informed Consent: The patient's anesthetic plan and its attendant risks and benefits were discussed with the patient/family/POA. Questions were solicited and answers provided to the satisfaction of the patient/family/POA.
[2023-07-25] MEDS: ceFAZolin 2 GM/D5W 50 ML 2 GM/50 ML BAG IVPB (07:21)
--- NOTE | 2023-07-25 07:34 | W.PM.PROC2 ---
Procedure Note - Detailed Date of Procedure 07/25/23 Pre-op Diagnosis Left renal stones Post-op Diagnosis Same Procedure Performed Left ESWL Surgeon Ameya Mccracken MD Anesthesia General Description of Procedure The patient was brought to the operative suite where she was placed in the supine position on the Dornier lithotripsy table. The focal point of the lithotripter was placed at at a collection of stones left renal pelvis. A total of 2500 shocks were delivered at a power setting of 4. There appeared to be good fragmentation of the stone. The patient tolerated the procedure well and was taken to the recovery room in good condition. Drains No Packing No Pathology None sent Complications No immediate complications Condition Stable
== END 2023-07-25 09:50 | disposition home or self-care (01) ==
PROVIDERS: Visit Provider Urology
PROC: (CPT 50590; principal; 2023-07-25 07:30)
DX: N20.0 Calculus of kidney (principal); I25.10 Atherosclerotic heart disease of native coronary artery without angina pectoris; I10 Essential (primary) hypertension; G47.33 Obstructive sleep apnea (adult) (pediatric); G62.9 Polyneuropathy, unspecified; Z95.0 Presence of cardiac pacemaker; Z95.5 Presence of coronary angioplasty implant and graft
CPT/HCPCS: 50590; 36415; 74018; 85610; 85730; 87086; 87088; J0690; J1100; J2704; J7120

== ENCOUNTER 2023-08-04 07:04 | Outpatient (CLI) | payer OTHER, SELFPAY ==
--- NOTE | ~2023-08-04 | XR_ITS ---
Supine and upright views of the abdomen Clinical history: Renal stone COMPARISON: 07/25/2023 Findings: Bowel gas pattern is nonspecific. No evidence for obstruction or free air. Left ureteral st ent remains in place. Numerous bilateral renal stones are present, including additional multiple ston es probably in the right renal pelvis.. Stable levoscoliosis and degenerative change of the lumbar sp ine. Impression: Left ureteral stent with multiple bilateral renal stones and multiple right renal pelvis stones. Reviewed, dictated and finalized at location . Impression: Left ureteral stent with multiple bilateral renal stones and multiple right fritz al pelvis stones.
== END 2023-08-04 07:05 | disposition home or self-care (01) ==
PROVIDERS: Visit Provider Urology
DX: N20.0 Calculus of kidney (principal)
CPT/HCPCS: 74018

== ENCOUNTER 2023-08-14 07:05 | Outpatient (CLI) | payer OTHER, SELFPAY ==
--- NOTE | ~2023-08-14 | XR_ITS ---
Supine and upright views of the abdomen Clinical history: Renal stone COMPARISON: 08/04/2023 Findings: Bowel gas pattern is nonspecific. No evidence for obstruction or free air. Left ureteral st ent remains in place. Numerous bilateral renal stones as well as numerous stones filling the proximal right ureter are similar to prior exam. Stable scoliosis and degenerative change of the lumbar spine . Impression: Numerous bilateral renal stones and numerous stones in the proximal right ureter or right renal pelvi s are stable from prior exam. Stable left ureteral stent. Reviewed, dictated and finalized at location M. Impression: Numerous bilateral renal stones and numerous stones in the proximal right urete r or right renal pelvis are stable from prior exam. Stable left ureteral stent.
== END 2023-08-14 07:06 | disposition home or self-care (01) ==
PROVIDERS: Visit Provider Urology
DX: N20.0 Calculus of kidney (principal)
CPT/HCPCS: 74018

== ENCOUNTER 2023-08-21 10:14 | Outpatient (CLI) | payer OTHER, SELFPAY ==
[2023-08-21 11:05] LABS: Prothrombin Time 13.7 Seconds (11.1-14.7)
[2023-08-21 11:08] LABS: Partial Thromboplastin Time 29.4 Seconds (22.3-36.8)
== END 2023-08-21 10:15 | disposition home or self-care (01) ==
LOC: ANHSURGERY 10:16
PROVIDERS: Visit Provider Urology
DX: N20.0 Calculus of kidney (principal); Z01.818 Encounter for other preprocedural examination
CPT/HCPCS: 36415; 85610; 85730; 87077; 87086; 87088; 87181

== ENCOUNTER 2023-08-28 00:34 | Day surgery (SDC) | payer OTHER, SELFPAY ==
[2023-08-18 10:19] VITALS: BMI 29.2
--- NOTE | 2023-08-18 10:41 | PC.NURSE ---
Report to the Outpatient Waiting Room, entrance under the green pavilion located off [facility], at time __10:00AM on date __08/28/23 . Planned Procedure Time: __12:00PM . Time changes happen often and if your time is changed the preop area will call you the afternoon before. - You and your visitor will be asked to self-screen and do not enter if you have any COVID symptoms. - A mask is optional within the hospital at this time. Patients may have clear liquids (water, carbonated beverages, clear teas, apple juice) until 3 hours prior to surgery with a maximum of 20 ounces. - No food from midnight until time of surgery. Take the following medications with a SIP of water the morning of surgery: ____NONE DO NOT STOP ANY OF YOUR OTHER PRESCRIPTION MEDICATIONS PRIOR TO SURGERY ?EXCEPT THE FOLLOWING Medications to discontinue per physician NONE Date to take last dose Please no make-up, nail hebrew, hairspray, perfume, deodorant, or body powder the day of surgery. No jewelry (including any body piercings) or valuables the day of surgery, leave them at home. Please take a shower or bath the night before, or the morning of, surgery with an antibacterial soap. Wear comfortable, loose fitting clothing. - Jewelry must be removed prior to entering the operating room. Rings and piercings that are not removed may be cut off. - The hospital will not accept responsibility for valuables. - Please leave all valuables, including medications, at home the day of surgery. If you are going home after surgery, a licensed charter driver must drive you home. - NO public transportation without another adult if you receive anesthesia. - We recommend that an adult stay with you for 24 hours following discharge. - We also recommend that you do not drive, make important decision, drink alcoholic beverages, or take any drugs that were not prescribed by your health care provider for at least 24 hours after your discharge time. Follow any additional instructions given to you from your surgeon. If you or anyone in your household have experienced Covid symptoms in the past week, please notify your surgeon or the nurse liaison at the phone number below for possible testing. Telephone instructions given to ___PATIENT and asked if any additional questions and then verbalized understanding. Patient advised to call surgeon office or pre surgery nurse liaison [phone] if any additional questions.
--- NOTE | ~2023-08-28 | XR_ITS ---
EXAMINATION: XR abdomen/kub 1V DATE: 08/28/2023 10:13 INDICATION: Kidney stone. TECHNIQUE: A supine view of the abdomen on 2 radiographs was obtained. COMPARISON: Abdomen radiographs 08/14/2023, CT abdomen and pelvis 06/09/2023 FINDINGS: There are no dilated loops of bowel. There are greater than 20 stones in the right kidney a nd right renal pelvis measuring up to 13 mm. There are at least 10 stones in left kidney and left fritz al pelvis measuring up to 8 mm. There is a left internal ureteral stent in expected position. There a re phleboliths in the pelvis. There are surgical clips in the abdomen. IMPRESSION: 1. Stones in the kidneys and renal pelvises with left internal ureteral stent in expected position. Reviewed, dictated and finalized at location A. IMPRESSION: 1. Stones in the kidneys and renal pelvises with left internal ureteral stent i n expected position.
--- NOTE | 2023-08-28 06:18 | WPDHPUPDATE1 ---
History and Physical Update Update Date/Time: 08/28/23 06:18 History and Physical has been reviewed, including an updated exam of the patient. There are NO changes in the patient's condition. Risks, benefits, and alternatives have been discussed and questions answered. Patient agrees to proceed with procedure.
--- NOTE | 2023-08-28 10:56 | P.PNAN_ITS ---
Anes - Initial Pre Proc Eval Procedure: Operation Date: 08/28/23 13:00 Proposed Procedures p Left Extracorporeal Shock Wave Lithotripsy - Ameya Mccracken MD Date/Time: 08/28/23 10:56 Surgeon: Ameya Mccracken MD Pre Op Diagnosis: left renal stones Patient Data Age: 87 Gender: F Height: 1.68 m Weight: 82 kg Allergies Allergy/AdvReac Type Severity Reaction Status Date / Time codeine Allergy Unknown Hives Verified 08/18/23 10:14 atorvastatin AdvReac Muscle Pain Verified 08/18/23 10:14 Home Medications Medication Instructions Recorded Confirmed Type gabapentin 300 mg capsule 300 mg PO HS 03/25/19 08/18/23 History Patient hx anesthesia problems: none Family hx anesthesia problems: none Results Review: All pre-operative results and documents have been reviewed as part of the pre- operative evaluation. [facility] Past Medical History Medical History Bronchitis CAD (coronary artery disease) Cataract, right eye Gastric bezoar (~05/2021) Hiatal hernia (Unknown) Hypertension Nephrolithiasis Neuropathy MOE (obstructive sleep apnea) non compliance with CPAP Pacemaker SBO (small bowel obstruction) (~05/2021) Sleep apnea Urinary tract infection Surgical History Surgical History History of extraction of renal calculus History of hysterectomy History of incisional hernia repair History of repair of hiatal hernia History of tonsillectomy Stented coronary artery x2 Family History Family History Mother Heart disease Hypertension Social History Social History Social History: She lives by herself and is independent. She does not have any pets, and she wants her son Balta to be her surrogate. She wishes to be a full code. 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 Alcohol intake: never Substance use: never Living arrangements: alone Occupation/Education: retired Gender identity (if verbalized by the patient): Female Sexual Orientation (if Verbalized by the Patient): Straight or Heterosexual Spiritual care concerns: No Agree to blood products: Yes Alda Rivas Final PreProcedure Day of Procedure 08/28/23 10:56 Patient weight: overweight Heart: regular rate and rhythm (paced) Lungs: clear to auscultation Airway: Mallampati scale class II Neurological: alert and oriented Last oral intake: >/= 8 hours ASA classification: III Emergent: no Anesthetic plan: proceed Anesthesia type and monitoring: general LMA and standard monitoring Results Review: All pre-operative results and documents have been reviewed as part of the pre- operative evaluation. Informed Consent: The patient's anesthetic plan and its attendant risks and benefits were discussed with the patient/family/POA. Questions were solicited and answers provided to the satisfaction of the patient/family/POA.
[2023-08-28 11:04] VITALS: BP 140/72; PULSE 65; RESP 14; TEMP 37.2; O2SAT 100
--- NOTE | 2023-08-28 11:26 | SUR.PREOP ---
pt was discharged home with family and antibiotics for uti. [facility] office will reach out to reschedual
== END 2023-08-28 11:27 | disposition home or self-care (01) ==
PROVIDERS: Visit Provider Urology
PROC: (CPT 50590; principal; 2023-08-28 13:00)
DX: N20.0 Calculus of kidney (principal); Z53.9 Procedure and treatment not carried out, unspecified reason
CPT/HCPCS: 36415; 74018; 85610; 85730; 87077; 87086; 87088; 87181; 99211; G0463

== ENCOUNTER 2023-09-05 08:13 | Outpatient (CLI) | payer OTHER, SELFPAY ==
[2023-09-05 09:07] LABS: Prothrombin Time 14.2 Seconds (11.1-14.7)
[2023-09-05 09:08] LABS: Anion Gap 7 mmol/L (4-12); Blood Urea Nitrogen 14 mg/dL (7-17); Calcium 8.8 mg/dL (8.4-10.2); Carbon Dioxide 25 mmol/L (22-30); Chloride 106 mmol/L (98-107); Estimated Glomerular Filt Rate 59; Glucose 102 mg/dL (65-110); Partial Thromboplastin Time 27.6 Seconds (22.3-36.8); Potassium 3.9 mmol/L (3.4-5.0); Sodium 138 mmol/L (137-145)
== END 2023-09-05 08:14 | disposition home or self-care (01) ==
LOC: ANHSURGERY 08:19
PROVIDERS: Anesthesiology; Visit Provider Urology
DX: Z01.818 Encounter for other preprocedural examination (principal); I10 Essential (primary) hypertension; N20.0 Calculus of kidney
CPT/HCPCS: 36415; 80048; 85610; 85730; 87086; 87088

== ENCOUNTER 2023-09-11 02:37 | Day surgery (SDC) | payer OTHER, SELFPAY ==
--- NOTE | 2023-09-01 07:29 | P.HP_ITS ---
History of Present Illness History of Present Illness Consent: Risks, benefits, and alternatives have been discussed and questions answered. Patient agrees to proceed with procedure. Chief complaint: Lt Renal Stone Narrative: Rita Flood is a 87 year old female who is status post ESWL 2 large stones in her left kidney. She had size of a marble residual fragments and presents for 2nd left ESWL. She is aware of the risks including, but not limited to, nee d for additional procedures, hematuria, perinephric hematoma. We had this previously scheduled had to cancel because she had a concurrent urinary tract infection Review of Systems Review of Systems: All systems reviewed & are unremarkable except as noted in HPI and below PMFSH Past Medical History Medical History Bronchitis CAD (coronary artery disease) Cataract, right eye Gastric bezoar (~05/2021) Hiatal hernia (Unknown) Hypertension Nephrolithiasis Neuropathy MOE (obstructive sleep apnea) non compliance with CPAP Pacemaker SBO (small bowel obstruction) (~05/2021) Sleep apnea Urinary tract infection Surgical History Surgical History History of extraction of renal calculus History of hysterectomy History of incisional hernia repair History of repair of hiatal hernia History of tonsillectomy Stented coronary artery x2 Family History Family History Mother Heart disease Hypertension Social History Social History Social History: She lives by herself and is independent. She does not have any pets, and she wants her son Balta to be her surrogate. She wishes to be a full code. 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 Alcohol intake: never Substance use: never Living arrangements: alone Occupation/Education: retired Gender identity (if verbalized by the patient): Female Sexual Orientation (if Verbalized by the Patient): Straight or Heterosexual Spiritual care concerns: No Agree to blood products: Yes Meds Home Medications and Allergies Home Medications Medication Instructions Recorded Confirmed Type gabapentin 300 mg capsule 300 mg PO HS 03/25/19 08/18/23 History nitrofurantoin 100 mg PO Q12H 10 days #20 caps 08/28/23 Rx monohydrate/macrocrystals 100 mg capsule (Macrobid) nitrofurantoin 100 mg PO Q12H 10 days #20 caps 08/28/23 Rx monohydrate/macrocrystals 100 mg capsule (Macrobid) Allergies Allergy/AdvReac Type Severity Reaction Status Date / Time codeine Allergy Unknown Hives Verified 08/28/23 11:06 atorvastatin AdvReac Muscle Pain Verified 08/28/23 11:06 Assessment and Plan Assessment and plan (1) Bilateral kidney stones: Code(s): N20.0 - Calculus of kidney Status: Acute Assessment and Plan: * Left ESWL
--- NOTE | 2023-09-01 11:29 | PC.NURSE ---
Report to the Outpatient Waiting Room, entrance under the green pavilion located off [facility], at time _1100 on date ___09/11/23____. Planned Procedure Time: _1:00 pm . Time changes happen often and if your time is changed the preop area will call you the afternoon before. - You and your visitor will be asked to self-screen and do not enter if you have any COVID symptoms. - A mask is optional within the hospital at this time. Patients may have clear liquids (water, carbonated beverages, clear teas, apple juice) until 3 hours prior to surgery( 10 am) with a maximum of 20 ounces. - No food from midnight until time of surgery - Infants may have breast milk until 4 hours before surgery, infant formula 6 hours prior to surgery. - Children will be allowed to drink immediately following surgery. If applicable, please bring a bottle or sippy cup to assist with drinking. Juice, water, soda, and popsicles are readily available. For infants on formula, please bring formula the day of surgery. Pacifiers are allowed. Take the following medications with a SIP of water the morning of surgery: ___none DO NOT STOP ANY OF YOUR OTHER PRESCRIPTION MEDICATIONS PRIOR TO SURGERY ?EXCEPT THE FOLLOWING Medications to discontinue per physician none Please no make-up, nail estonian, hairspray, perfume, deodorant, or body powder the day of surgery. No jewelry (including any body piercings) or valuables the day of surgery, leave them at home. Please take a shower or bath the night before, or the morning of, surgery with an antibacterial soap. Wear comfortable, loose fitting clothing. Children are encouraged to wear pajamas. - Jewelry must be removed prior to entering the operating room. Rings and piercings that are not removed may be cut off. - The hospital will not accept responsibility for valuables. - Please leave all valuables, including medications, at home the day of surgery. If you are going home after surgery, a licensed scoop driver must drive you home. - NO public transportation without another adult if you receive anesthesia. - We recommend that an adult stay with you for 24 hours following discharge. - We also recommend that you do not drive, make important decision, drink alcoholic beverages, or take any drugs that were not prescribed by your health care provider for at least 24 hours after your discharge time. Follow any additional instructions given to you from your surgeon. If you or anyone in your household have experienced Covid symptoms in the past week, please notify your surgeon or the nurse liaison at the phone number below for possible testing. Telephone instructions given to ___patient and asked if any additional questions and then verbalized understanding. Patient advised to call surgeon office or pre surgery nurse liaison [phone] if any additional questions.
[2023-09-01 11:39] VITALS: BMI 29.0
[2023-09-11] VITALS (8 sets, daily range): BP systolic 128–155; BP diastolic 57–112; PULSE 64–78; RESP 12–24; TEMP 37.6; O2SAT 99–100; BMI 29.0
--- NOTE | ~2023-09-11 | XR_ITS ---
EXAMINATION: XR abdomen/kub 1V DATE: 09/11/2023 08:59 INDICATION: Kidney stone. TECHNIQUE: A supine view of the abdomen on 2 radiographs was obtained. COMPARISON: CT abdomen and pelvis 06/09/2023 FINDINGS: There is a left internal ureteral stent in expected position. There are greater than 20 sto yanelis in right kidney and right renal pelvis measuring up to approximately 10 mm. Left kidney is obscur ed by bowel. There are at least 6 stones in left kidney measuring up to 6 mm. There are surgical clip s from ventral hernia repair. There are vascular calcifications in the pelvis. IMPRESSION: 1. Stones in the right kidney and right renal pelvis. 2. Left kidney stones. 3. Left internal ureteral stent in expected position. Reviewed, dictated and finalized at location A.
--- NOTE | 2023-09-11 06:39 | WPDHPUPDATE1 ---
History and Physical Update Update Date/Time: 09/11/23 06:39 History and Physical has been reviewed, including an updated exam of the patient. There are NO changes in the patient's condition. Risks, benefits, and alternatives have been discussed and questions answered. Patient agrees to proceed with procedure.
[2023-09-11] MEDS: LACTATED RINGERS 1,000 ML 30 ML IV CONT (09:50)
--- NOTE | 2023-09-11 10:17 | WPDANESEPPF ---
Anes - Initial Pre Proc Eval Procedure: Operation Date: 09/11/23 11:00 Proposed Procedures p Left Extracorporeal Shock Wave Lithotripsy - Ameya Mccracken MD Date/Time: 09/11/23 10:17 Surgeon: Ameya Mccracken MD Pre Op Diagnosis: Lt Renal Stone Patient Data Age: 87 Gender: F Height: 1.68 m Weight: 81.7 kg Last Vital Signs Temp 99.6 F 09/11/23 09:44 Pulse 68 09/11/23 09:44 Resp 14 09/11/23 09:44 BP 132/78 09/11/23 09:44 Pulse Ox 99 09/11/23 09:44 O2 Del Method Room Air 09/11/23 09:44 Allergies Allergy/AdvReac Type Severity Reaction Status Date / Time codeine Allergy Unknown Hives Verified 09/11/23 09:43 atorvastatin AdvReac Muscle Pain Verified 09/11/23 09:43 Home Medications Medication Instructions Recorded Confirmed Type gabapentin 300 mg capsule 300 mg PO HS 03/25/19 09/11/23 History Patient hx anesthesia problems: none Family hx anesthesia problems: none Results Review: All pre-operative results and documents have been reviewed as part of the pre-operative evaluation. [facility] Past Medical History Medical History Bronchitis CAD (coronary artery disease) Cataract, right eye Gastric bezoar (~05/2021) Hiatal hernia (Unknown) Hypertension Nephrolithiasis Neuropathy MOE (obstructive sleep apnea) non compliance with CPAP Pacemaker SBO (small bowel obstruction) (~05/2021) Sleep apnea Urinary tract infection Surgical History Surgical History History of extraction of renal calculus History of hysterectomy History of incisional hernia repair History of repair of hiatal hernia History of tonsillectomy Stented coronary artery x2 Family History Family History Mother Heart disease Hypertension Social History Social History Social History: She lives by herself and is independent. She does not have any pets, and she wants her son Balta to be her surrogate. She wishes to be a full code. 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 Alcohol intake: never Substance use: never Living arrangements: alone Occupation/Education: retired Gender identity (if verbalized by the patient): Female Sexual Orientation (if Verbalized by the Patient): Straight or Heterosexual Spiritual care concerns: No Agree to blood products: Yes Anes - Eval Final PreProcedure Day of Procedure 09/11/23 10:17 Patient weight: obese Heart: regular rate and rhythm Lungs: clear to auscultation Airway: Mallampati scale class II Neurological: alert and oriented Last oral intake: >/= 8 hours ASA classification: III Emergent: no Anesthetic plan: proceed Anesthesia type and monitoring: general LMA and standard monitoring Results Review: All pre-operative results and documents have been reviewed as part of the pre-operative evaluation. Informed Consent: The patient's anesthetic plan and its attendant risks and benefits were discussed with the patient/family/POA. Questions were solicited and answers provided to the satisfaction of the patient/family/POA.
--- NOTE | 2023-09-11 13:46 | W.PM.PROC2 ---
Procedure Note - Detailed Date of Procedure 09/11/23 Pre-op Diagnosis Lt Renal Stones Post-op Diagnosis Same Procedure Performed Left ESWL Surgeon Ameya Mccracken MD Anesthesia General Description of Procedure The patient was brought to the operative suite where she was placed in the supine position on the Dornier lithotripsy table. The focal point of the lithotripter was placed at a small collection of left residual renal stones . A total of 2500 shocks were delivered at a power setting of 4. There appeared to be good fragmentation of the stone. The patient tolerated the procedure well and was taken to the recovery room in good condition.
== END 2023-09-11 14:40 | disposition home or self-care (01) ==
PROVIDERS: Visit Provider Urology
PROC: (CPT 50590; principal; 2023-09-11 11:00)
DX: N20.0 Calculus of kidney (principal); I25.10 Atherosclerotic heart disease of native coronary artery without angina pectoris; I10 Essential (primary) hypertension; G47.33 Obstructive sleep apnea (adult) (pediatric); G62.9 Polyneuropathy, unspecified; G47.30 Sleep apnea, unspecified; Z95.0 Presence of cardiac pacemaker; Z95.5 Presence of coronary angioplasty implant and graft
CPT/HCPCS: 50590; 36415; 74018; 80048; 85610; 85730; 87086; J1100; J2405; J2704; J3010; J7120

== ENCOUNTER 2023-09-29 07:59 | Outpatient (CLI) | payer OTHER, SELFPAY ==
--- NOTE | ~2023-09-29 | XR_ITS ---
EXAM: XR abdomen/kub 1V DATE: 09/29/2023 08:17 HISTORY: N20.0 - Calculus of kidney, LEFT . COMPARISON: 09/11/2023. FINDINGS: Multiple bilateral renal calcifications, grossly stable in size and number, although sever al have changed position or appear to, due to interval change in patient positioning. Scattered surgi shawnee yazmin over the abdomen. Left ureteral stent, in stable and good position. Lung bases clear. Cho lecystectomy clips. Lumbar scoliosis and degenerative disc disease. Decreased bone mineralization. IMPRESSION: Left ureteral stent in good position. Bilateral nephrolithiasis. Reviewed, dictated and finalized at location K.
== END 2023-09-29 08:00 | disposition home or self-care (01) ==
LOC: ANHIMG 08:02
PROVIDERS: Visit Provider Urology
DX: N20.0 Calculus of kidney (principal)
CPT/HCPCS: 74018

== ENCOUNTER 2024-05-07 09:13 | Outpatient (CLI) | payer OTHER, SELFPAY ==
--- NOTE | 2024-05-07 09:30 | ECG_ITS ---
Test Date: 2024-05-07 09:46:09 Measurements Intervals Cross Rate: 75 P: 72 WV: 218 QRS: -3 QRSD: 142 T: -41 QT: 385 QTc: 431 Interpretive Statements SINUS RHYTHM WITH FIRST DEGREE AV BLOCK RIGHT BUNDLE BRANCH BLOCK [120+ ms QRS DURATION, UPRIGHT V1, 40+ ms S IN I/aVL/V4/V5/V6] POSSIBLE ANTERIOR MYOCARDIAL INFARCTION [30 ms Q WAVE IN V3/V4, OR R < 0.2 mV IN V4], OF INDETERMINATE AGE MODERATE T-WAVE ABNORMALITY, CONSIDER LATERAL ISCHEMIA [-0.1+ mV T WAVE IN I/aVL/V5/V6] MODERATE T-WAVE ABNORMALITY, CONSIDER INFERIOR ISCHEMIA [-0.1+ mV T WAVE IN II/aVF] No previous ECG available for comparison Electronically Signed On 05-07-2024 14:48:48 ROLLING MACHINE OPERATOR AUTOMATIC by Jacek Leos M.D.
[2024-05-07 10:03] LABS: Hematocrit 41.8 % (37.0-47.0); Hemoglobin 13.1 g/dL (12.0-15.0)
--- OUTSIDE RECORDS SUMMARY | 2024-05-13 05:57 | XMS_ITS | Patient Health Summary ---
Author Organization [facility] Address [address] [place] [address] Care Team Providers Care Building Energy Consultant Name Role Phone Tru Flood MD Primary Care Provider [phone] Note from [facility],non-owned Affiliates and Associated Physician Practices is amultiple site organization consisting of ambulatory clinics and hospital sitesin [place], [place], [place] and [place]. This disclosure is being madepursuant to the Care Everywhere program and may not contain all information available regarding this patient. Last updated 18.[facility] Allergies * Codeine(Urticaria) Medications * Be aware that medications may not be up to date on this document. Alwaysverify current medications with the patient. * atorvastatin (LIPITOR) 80 MG tablet Take 80 mg by mouth at bedtime. * metoprolol tartrate IR (LOPRESSOR) 25 MG tablet Take 25 mg by mouth 2 times daily. * oxyCODONE-acetaminophen (PERCOCET) 10-325 MG tablet(Started 04/27/2014) Take 1 Tab by mouth every 6 hours as needed for Pain. Active Problems Problem Noted Date Diagnosed Date Kidney stone 02/06/2014 Social History Tobacco Use Types Packs/Day Years Used Date Smoking Tobacco: Never Smokeless Tobacco: Never Alcohol Use Standard Drinks/Week Comments No 0 (1 standard drink = 0.6 oz pur e alcohol) Sex and Gender Information Value Date Recorded Sex Assigned at Not on file Gender Identity Not on file Sexual Orientation Not on file Last Filed Vital Signs Vital Sign Reading Time Taken Comments Blood Pressure 151/77 04/27/2014 5:32 PM VISUAL LEAD Pulse 73 04/27/2014 5:32 PM VISUAL LEAD Temperature 36.3 ??C (97.3 ??F) 04/27/2014 5:32 PM CS T Respiratory Rate 16 04/27/2014 5:32 PM VISUAL LEAD Oxygen Saturation 96% 04/27/2014 5:15 PM VISUAL LEAD Inhaled Oxygen Concentration - - Weight 106.6 kg (235 lb) 04/25/2014 3:11 PM VISUAL LEAD Height 167.6 cm (5' 6 ) 04/25/2014 3:11 PM VISUAL LEAD Body Mass Index 37.93 04/25/2014 3:11 PM VISUAL LEAD Medical Devices Implanted Type Area Vibrating Screed Operator Device Identifier Shelf Expiration Date Model / Serial / Lot Stent Uret Polaris Ultra 6.0fr X 26mm Implanted:Qty: 1 on 02/07/2014 by Alexandre Gallardo MD at [facility] Right: Ureter [employer] 12/08/2016 [id number] / / [id number] Stent Urete Percflex Plus 7.0fr X 26cm Implanted:Qty: 1 on 03/16/2014 by Alexandre Gallardo MD at [facility] Right: Ureter [employer] 11/19/2015 [id number] / / [id number] Percuflex Ureteral Stent 7fr X 26cm Implanted:Qty: 1 on 04/11/2014 by Alexandre Gallardo MD at [facility] Right: Ureter 01/18/2017 175-273 / / [id number] Percuflex 7fr X 26cm Implanted:Qty: 1 on 04/27/2014 by Alexandre Gallardo MD at [facility] Right: Ureter 12/20/2016 173-273 / / [id number] Procedures * FL UROGRAM RETROGRADE(Performed 04/27/2014) Performed for Kidney stone * GROSS EXAM PATHOLOGY (STL)(Performed 04/27/2014) * STONE ANALYSIS QUANT(Performed 04/27/2014) Performed for Kidney stone * CYSTOSCOPY URETEROSCOPY WITH LASER/HOLMIUM LITHOTRIPSY(Performed 04/27/2014) Performed for Calculus of kidney * IMAGING/RADIOLOGY/XRAY RESULTS ORDER(Performed 04/12/2014) * CYSTOSCOPY TREATMENT CALCULI WITH STENT INSERTION(Performed 04/11/2014) Performed for Kidney stone * CYSTOSCOPY URETEROSCOPY WITH LASER/HOLMIUM LITHOTRIPSY(Performed 04/11/2014) Performed for Kidney stone * STONE ANALYSIS QUANT(Performed 04/11/2014) Performed for Kidney stone * FL UROGRAM RETROGRADE(Performed 04/11/2014) Performed for Kidney stone * GROSS EXAM PATHOLOGY (STL)(Performed 04/11/2014) * XR ABDOMEN KUB(Performed 04/11/2014) Performed for Kidney stone * CYSTOSCOPY URETEROSCOPY TREATMENT OF STRICTURE(Performed 03/16/2014) Performed for Kidney stone * FL UROGRAM RETROGRADE(Performed 03/16/2014) Performed for Kidney stone * STONE ANALYSIS QUANT(Performed 03/16/2014) Performed for Kidney stone * GROSS EXAM PATHOLOGY (STL)(Performed 03/16/2014) * XR ABDOMEN KUB(Performed 03/16/2014) Performed for Kidney stone * IMAGING/RADIOLOGY/XRAY RESULTS ORDER(Performed 03/02/2014) * EXTRACORPOREAL SHOCK WAVE LITHOTRIPSY (ESWL)(Performed 02/28/2014) * XR ABDOMEN KUB(Performed 02/28/2014) Performed for Kidney stone * CYSTOSCOPY WITH INSERTION URETERAL STENT(Performed 02/07/2014) Performed for Kidney stone * EXTRACORPOREAL SHOCK WAVE LITHOTRIPSY (ESWL)(Performed 02/07/2014) Performed for Kidney stone * XR ABDOMEN KUB(Performed 02/07/2014) Performed for Kidney stone * BASIC METABOLIC PANEL (CALCIUM TOTAL)(Performed 02/07/2014) Performed for Pre-op testing * URINE MICROSCOPIC ONLY REFLEX TO CULTURE(Performed 01/26/2014) Performed for Pre-op testing * URINALYSIS REFLEX MICROSCOPIC REFLEX CULTURE(Performed 01/26/2014) Performed for Pre-op testing * CULTURE URINE(Performed 01/26/2014) Performed for Pre-op testing * EKG 12-LEAD(Performed 01/26/2014) Performed for Pre-op testing * LAB MICROBIOLOGY - HPF HISTORICAL(Performed 05/06/2009) Results * FL FLUORO RETROGRADE PYELOGRAM W/WO KUB (04/27/2014 6:26 PM VISUAL LEAD) Only the most recent of3 resultswithin the time period is included. Anatomical Region Laterality Modality Abdomen Radiographic Katelin ging 04/27/2014 6:35 PM VISUAL LEAD Narrative 04/27/2014 6:36 PM VISUAL LEAD Fluoroscopy retrograde pyelogram Indication: Abdominal pain Fluoroscopy 2.3 minutes was provided. No radiologist was present. Examination shows cannulation of the right ureter on the spot fluoroscopic images. Procedure Note Isabela Longoria MD - 04/27/2014 Fluoroscopy retrograde pyelogram Indication: Abdominal pain Fluoroscopy 2.3 minutes was provided. No radiologist was present. Examination shows cannulation of the right ureter on the spot fluoroscopic images. Alexandre Gallardo MD FLUOROSCOPY ORDERA BLES * GROSS EXAM PATHOLOGY (STL) (04/27/2014 3:26 PM VISUAL LEAD) Only the most recent of3 resultswithin the time period is included. Case Report Surgical Pathology Report ? Case: [id number] ? Authorizing Provider: ??Alexandre Gallardo MD ? Collected: ? 04/27/2014 03:26 PM ? Ordering Location: ? [facility] ? Received: ?04/28/2014 08:05 AM ? Pathologist: ? Prashant Resendez MD ? Specimen: ?Calculus Kidney ? 04/29/2014 2:[address] [facility] Final Diagnosis 1. ??Right kidney stone, extraction: -- ??Calculus (gross examination, chemical analysis pending). AB/arm 04/29/2014 2:[address] [facility] Gross Description Received fresh in a container labeled Rita Flood, right calculus kidney. ??The container holds multiple merida stones measuring from 0.2 cm up to 0.6 cm in greatest dimension. ??The stones have an aggregate measurement of 2.5 x 1.5 x 0.4 cm. ??No sections are submitted. ??The stones are submitted for chemical analysis. ?? DYT/scs 04/29/2014 2:[address] [facility] Pathology/Cytolo gy KIDNEY STONE / Unknown 04/27/2014 3:26 PM VISUAL LEAD 04/28/2014 8:05 AM [facility] Comment:592 Alexandre Gallardo MD LAB - PATHOLOGY/CY TOLOGY ORDERABLES [facility] [address] [place] [address] * STONE ANALYSIS QUANT (04/27/2014 3:26 PM VISUAL LEAD) Only the most recent of3 resultswithin the time period is included. Calculi Mass 183 mg 04/30/2014 9:56 PM [facility] [employer] ([facility]) Calculi Number Numerous 04/30/2014 9:56 PM [facility] Calculi Size Various mm 04/30/2014 9:56 PM [facility] ([facility]) Calculi Description See Note 04/30/2014 9:56 PM [facility] ([facility]) Comment: Specimen consists of numerous, various sized (1 mm to 9 mm), dark brown, irregular calculi fragments. Calculi Composition See Note 04/30/2014 9:56 PM [facility] ([facility]) Comment: Calculi composed primarily of: 90% calcium oxalate monohydrate, and 10% calcium oxalate dihydrate. INTERPRETIVE INFORMATION: Calculi (Stone) analysis Calculi are the products of physiological processes that yield crystalline compounds in a matrix of biological compounds and blood. ??Matrix components are not reported. ??The clinically significant crystalline components identified in calculi specimens are reported. ??Gross description may not be consistent with composition determined by FTIR analysis. Other (qualifier value) CALCULUS SPECIMEN / Unknown 04/27/2014 3:26 PM VISUAL LEAD 04/28/2014 2:14 PM VISUAL LEAD Alexandre Gallardo MD LAB - URINE CHEMIS TRY ORDERABLES [employer] ([facility]) [address] * IMAGING/RADIOLOGY/XRAY RESULTS ORDER (04/12/2014 10:14 PM VISUAL LEAD) Only the most recent of2 resultswithin the time period is included. Anatomical Region Laterality Modality Other Narrative 04/12/2014 10:14 PM VISUAL LEAD Ordered by an unspecified provider. Scanned Document IMAGING * XR ABDOMEN 1 VW (aka KUB) (04/11/2014 7:24 AM VISUAL LEAD) Only the most recent of4 resultswithin the time period is included. Anatomical Region Laterality Modality Abdomen Radiographic Katelin ging 04/11/2014 7:46 AM VISUAL LEAD Impressions 04/11/2014 8:02 AM VISUAL LEAD Dominant right renal calculus of 1.4 cm with a cluster of neighboring small stones, similar to prior. Calcification left renal region 5 mm. Narrative 04/11/2014 8:02 AM VISUAL LEAD Abdomen AP Indication: Calculus of kidney. Findings: ??A comparison is available March 16, 2014. The right ureteral stent stable position. Cluster of stones overlying the lower pole of the right kidney appears similar. The largest stone measures 14 mm diameter. A calcification neighboring the distal right stent unchanged, likely phlebolith. A calcification projecting left renal region, may be within the fecal stream, measures 5 mm. Procedure Note Fransico Morris MD - 04/11/2014 Abdomen AP Indication: Calculus of kidney. Findings: A comparison is available March 16, 2014. The right ureteral stent stable position. Cluster of stones overlying the lower pole of the right kidney appears similar. The largest stone measures 14 mm diameter. A calcification neighboring the distal right stent unchanged, likely phlebolith. A calcification projecting left renal region, may be within the fecal stream, measures 5 mm. IMPRESSION Dominant right renal calculus of 1.4 cm with a cluster of neighboring small stones, similar to prior. Calcification left renal region 5 mm. Alexandre Gallardo MD DIAGNOSTIC IMAGING ORDERABLES * (ABNORMAL) BASIC METABOLIC PANEL (CALCIUM TOTAL) (02/07/2014 6:28 AM CDT) Glucose 110(H) 74 - 106 mg/dL 02/07/2014 6:51 AM CDT [facility] Sodium 140 136 - 145 mmol/L 02/07/2014 6:51 AM CDT [facility] Potassium 3.9 3.5 - 5.1 mmol/L 02/07/2014 6:51 AM CDT [facility] Chloride 107 98 - 107 mmol/L 02/07/2014 6:51 AM CDT [facility] CO2 25 22 - 31 mmol/L 02/07/2014 6:51 AM CDT [facility] Calcium 9.3 8.5 - 10.1 mg/dL 02/07/2014 6:51 AM CDT [facility] Anion Gap 8 5 - 15 mmol/L 02/07/2014 6:51 AM CDT [facility] BUN 17 7 - 21 mg/dL 02/07/2014 6:51 AM CDT [facility] Creatinine 0.73 0.50 - 1.30 mg/dL 02/07/2014 6:51 AM CDT [facility] eGFR by MDRD >60 mL/min/1.7 3m2 02/07/2014 6:51 AM CDT [facility] eGFR by MDRD >60 mL/min/1.7 3m2 02/07/2014 6:51 AM CDT [facility] Blood BLOOD SPECIMEN / Unknown 02/07/2014 6:28 AM CDT 02/07/2014 6:36 AM CDT Alexandre Gallardo MD LAB - CHEMISTRY OR DERABLES Performing Organization Address [facility] Co de Phone Number [facility] [address] [place] [address] * (ABNORMAL) URINALYSIS MICROSCOPIC ONLY W/REFLEX CULTURE (01/26/2014 10:21 AM CDT) RBC UA 20-50(A) 0-2, 2-5 # /hpf 01/26/2014 11:31 AM CDT [facility] WBC UA 20-50(A) 0-2, 2-5 # /hpf 01/26/2014 11:31 AM CDT [facility] Bacteria UA 1+(A) None Seen 01/26/2014 11:31 AM CDT [facility] Epithelial Cell UA 10-20(A) 0-2, 2-5 01/26/2014 11:31 AM CDT [facility] Mucus UA 2+ 01/26/2014 11:31 AM CDT [facility] Reflex Status Culture to follow 01/26/2014 11:31 AM CDT [facility] Urine URINE SPECIMEN OBTAINED BY CLEAN CATCH PROCEDURE / Unknown 01/26/2014 10:21 AM CDT 01/26/2014 10:42 AM CDT Edmund Fisher MD LAB - URINALYSIS ORD ERABLES Performing Organization Address [facility] Co de Phone Number [facility] [address] [place] [address] * (ABNORMAL) URINALYSIS ROUTINE W/REFLEX TO CULTURE (01/26/2014 10:21 AM CDT) Color UA Yellow Straw, Yellow, Dark Yellow 01/26/2014 11:00 AM CDT [facility] Clarity UA Cloudy 01/26/2014 11:00 AM CDT [facility] Specific Hubbard UA 1.012 1.005 - 1.030 01/26/2014 11:00 AM CDT [facility] pH UA 5.5 5.0 - 8.0 pH 01/26/2014 11:00 AM CDT [facility] Protein UA 2+(A) Negative 01/26/2014 11:00 AM CDT [facility] Blood UA 3+(A) Negative 01/26/2014 11:00 AM CDT [facility] Leukocyte UA 2+(A) Negative 01/26/2014 11:00 AM CDT [facility] Nitrite UA Negative Negative 01/26/2014 11:00 AM CDT [facility] Glucose UA Negative Negative 01/26/2014 11:00 AM CDT [facility] Ketone UA Negative Negative 01/26/2014 11:00 AM CDT [facility] Bilirubin UA Negative Negative 01/26/2014 11:00 AM CDT [facility] Urobilinogen UA 0.2 0.1 - 1.0 EU/dL 01/26/2014 11:00 AM CDT [facility] Urine Microscopy Urine microscopy to follow 01/26/2014 11:00 AM CDT [facility] Reflex Status Culture to follow 01/26/2014 11:00 AM CDT [facility] Urine URINE SPECIMEN OBTAINED BY CLEAN CATCH PROCEDURE / Unknown 01/26/2014 10:21 AM CDT 01/26/2014 10:42 AM CDT Edmund Fisher MD LAB - URINALYSIS ORD ERABLES Performing Organization Address [facility] Co de Phone Number [facility] [address] [place] [address] * CULTURE URINE (01/26/2014 10:21 AM CDT) Pathologist [facility] Culture >10,000 CFU/mL multiple bacterial morphotypes present. Suggest recollection. DANG 01/28/2014 11:34 AM CDT [facility] Urine URINE SPECIMEN OBTAINED BY CLEAN CATCH PROCEDURE / Unknown 01/26/2014 10:21 AM CDT 01/26/2014 10:42 AM CDT Edmund Fisher MD LAB - MICROBIOLOGY O RDERABLES Performing Organization Address City/[facility]/ZIP Co de Phone Number [facility] [address] [place] [address], [facility] * EKG 12-LEAD (01/26/2014 9:07 AM CDT) Ventricular Rate 57 BPM [facility] Atrial Rate 57 BPM [facility] P-R Interval 174 ms [facility] QRS Duration ms 138 ms [facility] Q-T Interval ms 438 ms [facility] QTC Calculation (Bezet) 426 ms [facility] Calculated P Wilson 41 degrees [facility] Calculated R Wilson -25 degrees [facility] Calculated T Wilson -5 degrees [facility] Interpretation EKG Sinus bradycardia with Possible Premature atrial complexes with Aberrant conduction Right bundle branch block Abnormal ECG No previous ECGs available Confirmed by [facility] ([id number]) on 01/27/2014 2:48:35 PM [facility] 01/26/2014 9:07 AM CDT 01/27/2014 2:48 PM CDT Edmund Fisher MD ECG ORDERABLES [facility] * LAB MICROBIOLOGY - HPF HISTORICAL (05/06/2009 5:01 AM VISUAL LEAD) 05/06/2009 5:01 [address] VIS[address] LE[address] [facility] - 05/06/2009 5:01 AM VISUAL LEAD Sierra Chavira MD LAB - MICROBIOLOGY O RDERABLES [facility] Care Teams Building Energy Consultant Relationship Specialty Start Date End Date Tru Flood MD [address] [place] [address] PCP - General 12/21/21
--- OUTSIDE RECORDS SUMMARY | 2024-05-13 05:57 | XMS_ITS | Referral Summary ---
Author Organization [facility] Address [address] [place] [address] Care Team Providers Care Facilities Maintenance Assistant Name Role Phone Tru Flood MD Primary Care Provider [phone] Source Comments [facility],non-owned Affiliates and Associated Physician Practices is amultiple site organization consisting of ambulatory clinics and hospital sitesin [place], [place], [place] and [place]. This disclosure is being madepursuant to the Care Everywhere program and may not contain all information available regarding this patient. Last updated 18.[facility] [employer] Allergies Active Allergy Reactions Criticality Noted Date Comments Codeine Urticaria 01/26/2014 Medications * Be aware that medications may not be up to date on this document. Alwaysverify current medications with the patient. Medication Sig Dispensed Refills Start Date End Date Status atorvastatin (LIPITOR) 80 MG tablet Take 80 mg by mouth at bedtime. Active metoprolol tartrate IR (LOPRESSOR) 25 MG tablet Take 25 mg by mouth 2 times daily. Active oxyCODONE-acetaminophe n (PERCOCET) 10-325 MG tablet Take 1 Tab by mouth every 6 hours as needed for Pain. 30 Tab 0 04/27/2014 Active Active Problems Problem Noted Date Diagnosed Date [...] Comments Blood Pressure 151/77 04/27/2014 5:32 PM LAYER OFF Pulse 73 04/27/2014 5:32 PM LAYER OFF Temperature 36.3 ??C (97.3 ??F) 04/27/2014 5:32 PM CS T Respiratory Rate 16 04/27/2014 5:32 PM LAYER OFF Oxygen Saturation 96% 04/27/2014 5:15 PM LAYER OFF Inhaled Oxygen Concentration - - Weight 106.6 kg (235 lb) 04/25/2014 3:11 PM LAYER OFF Height 167.6 cm (5' 6 ) 04/25/2014 3:11 PM LAYER OFF Body Mass Index 37.93 04/25/2014 3:11 PM LAYER OFF Functional Status Functional Status Response Date of Assess ment Is person deaf or have serious hearing difficult y? No 04/27/2014 Is person blind or have serious difficulty seein g? No 04/27/2014 Does person have serious dif ficulty walking/climbing stairs? No 04/27/2014 Does person have difficulty dressing/bathing? No 04/27/2014 Does person have difficulty doing errands alone? No 04/27/2014 Cognitive Status Response Date of Assessm ent Does person have difficulty concentrating/remembering/making decisions? No 04/27/2014 Plan of Treatment Not on file Medical Devices Implanted Type Area Mold Mover Device Identifier Shelf Expiration Date Model / Serial / Lot Stent Uret Polaris Ultra 6.0fr X 26mm Implanted:Qty: 1 on 02/07/2014 by Alexandre Gallardo MD at [facility] Right: Ureter [employer] 12/08/2016 [id number] 0 / / [id number] Stent Urete Percflex Plus 7.0fr X 26cm Implanted:Qty: 1 on 03/16/2014 by Alexandre Gallardo MD at [facility] Right: Ureter [employer] 11/19/2015 [id number] 0 / / [id number] Percuflex Ureteral Stent 7fr X 26cm Implanted:Qty: 1 on 04/11/2014 by Alexandre Gallardo MD at [facility] Right: Ureter 01/18/2017 175-273 / / [id number] Percuflex 7fr X 26cm Implanted:Qty: 1 on 04/27/2014 by Alexandre Gallardo MD at [facility] Right: Ureter 12/20/2016 173-273 / / [id number] Care Teams Facilities Maintenance Assistant Relationship Specialty Start Date End Date Tru Flood MD [address] [place] [address] PCP - General 12/21/21
--- OUTSIDE RECORDS SUMMARY | 2024-05-13 05:57 | XMS_ITS | Clinical Summary ---
Author Organization [facility] Address [address] [place] [address] Care Team Providers Care Stereoplotter Operator Name Role Phone Tru Flood MD Primary Care Provider [phone] Source Comments [facility],non-owned Affiliates and Associated Physician Practices is amultiple site organization consisting of ambulatory clinics and hospital sitesin [place], [place], [place] and [place]. This disclosure is being madepursuant to the Care Everywhere program and may not contain all information available regarding this patient. Last updated 18.[facility] [employer] Payment Allergies Active Allergy Reactions Criticality Noted Date [...] Comments Blood Pressure 151/77 04/27/2014 5:32 PM BEAM MACHINE OPERATOR Pulse 73 04/27/2014 5:32 PM BEAM MACHINE OPERATOR Temperature 36.3 ??C (97.3 ??F) 04/27/2014 5:32 PM CS T Respiratory Rate 16 04/27/2014 5:32 PM BEAM MACHINE OPERATOR Oxygen Saturation 96% 04/27/2014 5:15 PM BEAM MACHINE OPERATOR Inhaled Oxygen Concentration - - Weight 106.6 kg (235 lb) 04/25/2014 3:11 PM BEAM MACHINE OPERATOR Height 167.6 cm (5' 6 ) 04/25/2014 3:11 PM BEAM MACHINE OPERATOR Body Mass Index 37.93 04/25/2014 3:11 PM BEAM MACHINE OPERATOR Plan of Treatment Health Maintenance Due Date Last Done Comments BONE DENSITY TESTING 1936 DTAP/TDAP/TD VACCINES (1 - Tdap) 09/21/1955 PNEUMOCOCCAL VACCINE 50+ (1 of 1 - PCV) 1986 ZOSTER VACCINE (1 of 2) 1986 Respiratory Syncytial Virus (RSV) Vaccine Pt: or over 60 yrs (1 - 1-dose 75+ series) 09/21/2011 COVID-19 VACCINE (2023-2 5 season) 2023 INFLUENZA VACCINE (#1) 2023 DEPRESSION SCREENING 04/21/2024 MEDICARE AWV ? CALENDAR YEAR 2024 HEPATITIS B VACCINE Aged Out No longe r eligible based on patient's age to complete this topic HIB VACCINE Aged Out No longer eligi ble based on patient's age to complete this topic HPV VACCINE Aged Out No longer eligi ble based on patient's age to complete this topic MENINGOCOCCAL (Group B) VACCINE Aged Out No longer eligible based on patient's age to complete this topic MENINGOCOCCAL VACCINE Aged Out No tiffany christina eligible based on patient's age to complete this topic Medical Devices Implanted Type Area Pre Sales Network Engineer Device Identifier Shelf Expiration Date Model / Serial / Lot Stent Uret Polaris Ultra 6.0fr X 26mm Implanted:Qty: 1 on 02/07/2014 by Alexandre Gallardo MD at [facility] Right: Ureter [employer] 12/08/2016 [id number] 0 / / [id number] Stent Urete Percflex Plus 7.0fr X 26cm Implanted:Qty: 1 on 03/16/2014 by Alexandre Gallardo MD at [facility] Right: Ureter [employer] 11/19/2015 [id number] / / [id number] Percuflex Ureteral Stent 7fr X 26cm Implanted:Qty: 1 on 04/11/2014 by Alexandre Gallardo MD at [facility] Right: Ureter 01/18/2017 175-273 / / [id number] Percuflex 7fr X 26cm Implanted:Qty: 1 on 04/27/2014 by Alexandre Gallardo MD at [facility] Right: Ureter 12/20/2016 173-273 / / [id number] Care Teams Stereoplotter Operator Relationship Specialty Start Date End Date Tru Flood MD [address] [place] [address] PCP - General 12/21/21
--- OUTSIDE RECORDS SUMMARY | 2024-05-13 05:58 | XMS_ITS | Referral Summary ---
Author Organization [facility] Medical Office Building B Address [address] [place] [address] Care Team Providers Care Associate Scientist Name Role Phone Tru Flood MD Primary Care Provider Karina Jenkins PTA Unavailable Unavailable Encounters Date Type Department Care Team Description 05/12/2024 2:45 PM FLIGHT ATTENDANT [employer] SERVICES Ancillary Procedure [employer] [address] [place] [phone] Cardiac pacemaker in situ; Heart block AV second degree; Sick sinus syndrome (CMS/HCC) (HCC) 05/11/2024 3:00 PM FLIGHT ATTENDANT [employer]IGHT SERVICES Office Visit [facility] Gastroenterology at [address] [place] [address] Palak Ghotra PA Diverticulitis (Primary Dx); Anemia, unspecified type; B12 deficiency; Hiatal hernia 04/23/2024 Telephone [facility] Gastroenterology at [address] [place] [address] Lucila Hoyt MA 04/19/2024 [facility] Post Discharge Follow up phone call [facility] [address] [place] [address] Sonia Carballo 04/16/2024 Telephone [facility] Gastroenterology at [address] [place] [address] Wendy Dockery 04/16/2024 Orders Only [facility] Gastroenterology at [place] [address] [facility] [address] [place] [phone] Palak Ghotra PA Anemia, unspecified type (Primary Dx) 04/14/2024 1:14 PM [employer] [employer] - 04/16/2024 1:38 PM [employer] Emergency [facility] [address] [place] [address] Tarik Isbell MD Willey, Charles J., MD Gastrointestinal hemorrhage associated with anorectal source (Primary Dx); Right renal stone; UTI (urinary tract infection) with pyuria; Diverticulitis large intestine w/o perforation or abscess w/bleeding; Acute lower GI bleeding; Hematochezia; Diverticulitis; Gastrointestinal hemorrhage associated with intestinal diverticulitis Discharge Disposition: Discharge to home or self care 04/15/2024 3:24 PM [employer] Anesthesia Event [facility] Operating Room [address] [place] [address] Alisson Duran MD Reynolds, Ethan Emerson, MD 04/15/2024 3:30 PM [employer] - 04/15/2024 5:00 PM [employer] Surgery [facility] Operating Room [address] [place] [address] Alisson Duran MD CYSTOSCOPY WITH BILATERAL RETROGRADE PYELOGRAMS AND BILATERAL URETERAL STENT PLACEMENT 02/11/2024 9:45 AM CDT Ancillary Procedure [employer] [address] [place] [phone] Heart block AV second degree; Cardiac pacemaker in situ from Last 3 Months Allergies Active Allergy Reactions Criticality Noted Date Comments Codeine Urticaria Medium 01/26/2014 Medications gabapentin (NEURONTIN) 300 mg capsule Take 1 capsule (300 mg total) by mouth nightly 07/24/19 18 Active acetaminophen ER (TYLENOL) 650 mg 8 hr tablet Take 2 tablets (1,300 mg total) by mouth every 8 (eight) hours as needed for pain 04/16/20 24 Active apixaban (ELIQUIS) 5 mg tablet Take 1 tablet (5 mg total) by mouth 2 (two) times a day 60 tablet 11 02/26/20 24 024 Discontinued(St op Taking at Discharge) metroNIDAZOLE (FLAGYL) 500 mg tabletIndicati ons:Abdominal/ Pelvic Infection Take 1 tablet (500 mg total) by mouth 2 (two) times a day 12 tablet 04/16/20 24 025 Discontinued ciprofloxacin (CIPRO) 500 mg tablet Take 1 tablet (500 mg total) by mouth 2 (two) times a day 12 tablet 04/16/20 24 025 Discontinued Active Problems Problem Noted Date Diagnosed Date GI bleed 04/16/2024 Hematochezia 04/16/2024 Diverticulitis 04/16/2024 LLQ pain 04/16/2024 Anemia 04/16/2024 Kidney stone 04/14/2024 Hypertension 05/18/2023 Obstructive sleep apnea (adult) (pediatric) 04/22 Occlusion and stenosis of both vertebral arterie s 05/18/2023 Pulmonary hypertension 05/18/2023 Atherosclerosis of aorta 05/18/2023 Coronary artery disease 05/18/2023 Atrial fibrillation ([facility]) 05/18/2023 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 Status post RA lead repositioning on 19 May 2023. Assessment & Plan (05/26/2023 12:21 PM FLIGHT ATTENDANT INFLIGHT SERVICES): Patient is feeling fine. We discussed good numbers noted on today's remote device check --stable sensing and threshold numbers with 24% RA pacing and 27% RV pacing.. Usual pacemaker precautions given. She may drive a car now. Since she is having some hematuria, I asked her to stop the Eliquis and call her urologist for advice. SSS (sick sinus syndrome) (CMS/HCC) 04/30/2023 Coronary artery disease 01/04/2023 Overview (01/04/2023): LAD stent 2013 Elevated cholesterol 01/04/2023 Hypertension 01/04/2023 Morbid obesity 01/04/2023 Atherosclerosis of aorta 01/04/2023 Pulmonary hypertension 01/04/2023 Overview (01/04/2023): RVSP 40 Echo [facility] 03/2021 Obstructive sleep apnea (adult) (pediatric) 12/20 Overview (01/04/2023): by home sleep study 2014 with 14% of sleep with O2 Sat < 90% Bradycardia 01/04/2023 Second degree heart block 01/03/2023 Aftercare following left knee joint replacement surgery 11/21/2017 Primary osteoarthritis of left knee 09/18/2017 Overview (09/18/2017): Added automatically from request for surgery [id number] Peripheral neuropathy Immunizations Name Administration Dates Next Due Influenza, Unspecified 01/19/2023 Social History Tobacco Use Types Packs/Day Years Used Date Smoking Tobacco: Never Smokeless Tobacco: Never Tobacco Cessation:Counseling Given: Not Answered Alcohol Use Standard Drinks/Week Comments No 0 (1 standard drink = 0.6 oz pur e alcohol) [facility] Utilities Answer Date Recorded In the past 12 months has e electric, gas, oil, or water Relevant e-solution threatened to shut off services in your home? No 05/19/2023 Social Connection and Isolat ion Panel [NHANES] Answer Date Recorded In a typical week, how many times do you talk on the phone with family, friends, or neighbors? More than three times a week 05/19/2023 How often do you get togethe r with friends or relatives? More than three times a week 05/19/2023 How often do you attend chur ch or jewish services? More than 4 times per year 05/19/2023 Do you belong to any clubs o r organizations such as rastafari groups, unions, fraternal or athletic groups, or school groups? No 05/19/2023 How often do you attend meet ings of the clubs or organizations you belong to? Never 05/19/2023 Are you , , di vorced, , never , or living with a partner? 05/19/2023 AUDIT-C Answer Date Recorded Q1: How often do you have a drink containing alcohol? Never 04/15/2024 Q2: How many drinks containi ng alcohol do you have on a typical day when you are drinking? Patient does not drink Q3: How often do you have si x or more drinks on one occasion? Never 04/15/2024 Overall Financial Resource Strain (CARDIA) Answe r Date Recorded How hard is it for you to pa y for the very basics like food, housing, medical care, and heating? Not hard at all 05/19/2023 Hunger Vital Sign Answer Date Recorded Within the past 12 months, y ou worried that your food would run out before you got the money to buy more. Never true 05/19/19 24 Within the past 12 months, t he food you bought just didn't last and you didn't have money to get more. Never true 05/19/2023 PRAPARE - Transportation Answer Date Re corded In the past 12 months, has l ack of transportation kept you from medical appointments or from getting medications? Yes 04/22 In the past 12 months, has l ack of transportation kept you from meetings, work, or from getting things needed for daily living? Yes 05/19/2023 Housing Stability Vital Sign Answer Tenzin e Recorded In the last 12 months, was t here a time when you were not able to pay the mortgage or rent on time? No 05/19/2023 In the last 12 months, how many places have you lived? 1 05/19/2023 In the last 12 months, was t here a time when you did not have a steady place to sleep or slept in a skilled nursing (including now)? No 05/19/2023 Personal Safety Answer Date Recorded Have you ever been in or are you currently in a harmful physical or emotional relationship or is someone making you feel afraid or unsafe? Denies 04/15/2024 Education Answer Date Recorded What is the highest level of school you have completed or the highest degree you have received? Associate degree: occupational, technical, or vocational program 05/19/2023 Comments No Sex and Gender Information Value Date Recorded Sex Assigned at Not on file Legal Sex Female 2:50 AM FL[employer] Gender Identity Not on file Sexual Orientation Not on file Last Filed Vital Signs Vital Sign Reading Time Taken Comments Blood Pressure 162/84 05/11/2024 2:54 PM [employer] Pulse 80 05/11/2024 2:54 PM [employer] Temperature 36.1 ??C (97 ??F) 04/16/2024 11:29 AM [employer] Respiratory Rate 18 04/16/2024 11:29 AM [employer] Oxygen Saturation 99% 05/11/2024 2:54 PM [employer] Inhaled Oxygen Concentration - - Weight 84.9 kg (187 lb 3.2 oz) 05/11/2024 2:54 P M [employer] Height 167.6 cm (5' 6 ) 04/15/2024 1:36 AM [employer] Body Mass Index 30.21 04/15/2024 1:36 AM [employer] Plan of Treatment Upcoming Encounters Date Type Department Care Team (Late st Contact Info) Description 05/31/2024 1:00 PM [employer] Hospital Encounter [address] [address] Francisco Brooks MD [address] [place] [address] DR DORAN [address] [place] [id number] 05/31/2024 1:00 PM [employer] - 05/31/2024 1:30 PM [employer] Surgery [address] [address] Francisco Brooks MD [address] [place] [address] DR DORAN [address] [place] [id number] COLONOSCOPY Scheduled Procedures Name Priority Associated Diagnoses Date/Ti ca COLONOSCOPY Diverticulitis Hematochezia LLQ pain Anemia, unspecified type 05/31/2024 1:00 PM [employer] Medical Devices Implanted Type Area Warehouse Coordinator Device Identifier Shelf Expiration Date Model / Serial / Lot Biotronik Inc Endocardial Pacing Lead Promri Solia T [id number] - [id number] - [id number] Implanted:Qty: 1 on 05/14/2023 by Fransico Alberto MD at [facility] Lead Bi[employer]ik Inc 03/20/2024 [id number] / [id number] / Biotronik Inc Endocardial Pacing Lead Promri Solia Jt 45 [id number] - [id number] - [id number] Implanted:Qty: 1 on 05/14/2023 by Fransico Alberto MD at [facility] Lead [employer] Inc [id number] / [id number] / Biotronik Inc Solia S 45cm Bipolar Active Fixation Lead Pacing Steroid Eluting [id number] - [id number] - [id number] Implanted:Qty: 1 on 05/19/2023 by Fransico Alberto MD at [facility] Lead Bi[employer]ronik Inc 05/21/2025 [id number] / [id number] / Medtronic Inc Tyrx Absorbable Antibacterial Envelope-Large 3.3x2.9in [id number] - Sna - [id number] Implanted:Qty: 1 on 05/19/2023 by Fransico Alberto MD at [facility] Mesh Medtronic Inc 02/08/2024 [id number] / [id number] Biotronik Inc Edora Promri 95d51i9.5mm Dual Chamber Rate Adaptive Unipolar Bipolar [id number] - [id number] - [id number] Implanted:Qty: 1 on 05/14/2023 by Fransico Alberto MD at [facility] Pacemaker Biotronik Inc 09/18/2024 [id number] / [id number] / Depuy Orthopaedics Inc [id number] Smartset High Viscosity Cement 40gm Bone Gentamicin - [id number] Implanted:Qty: 1 on 10/06/2017 by Neptali Negrete MD at [facility] Left: Knee [employer]ed[employer] Inc 01/18/2019 [id number] / / [id number] Depuy Orthopaedics Inc [id number] Smartset High Viscosity Cement 40gm Bone Gentamicin - [id number] Implanted:Qty: 1 on 10/06/2017 by Neptali Negrete MD at [facility] Left: Knee [employer]uy Orthopaed[employer] Inc 01/18/2019 [id number] / / [id number] Depuy Orthopaedics Inc [id number] Attune 38mm Cemented Medialize Knee Dome Patellar Aox Sterile - [id number] Implanted:Qty: 1 on 10/06/2017 by Neptali Negrete MD at [facility] Left: Knee [employer]ed[employer] Inc 05/21/2022 [id number] / / [id number] Depuy Orthopaedics Inc [id number] Attune S+ Cement Fix Bearing Knee 5 Baseplate Tibial - [id number] Implanted:Qty: 1 on 10/06/2017 by Neptali Negrete MD at [facility] Left: Knee [employer]ed[employer] Inc 04/20/2027 [id number] / / [id number] Depuy Orthopaedics Inc [id number] Attune Cemented Posterior Stabilize Knee Left 6 Narrow Component - [id number] Implanted:Qty: 1 on 10/06/2017 by Neptali Negrete MD at [facility] Left: Knee [employer]uy Orthopaed[employer] Inc 08/19/2027 [id number] / / [id number] Depuy Orthopaedics Inc [id number] Attune 8mm Posterior Stabilize Fix Bearing Knee 6 Insert Tibial - [id number] Implanted:Qty: 1 on 10/06/2017 by Neptali Negrete MD at [facility] Left: Knee [employer]uy Orthopaedics Inc 06/18/2022 [id number] / / [id number] Medtronic Inc Tyrx Absorbable Antibacterial Envelope-Large 3.3x2.9in [id number] - [id number] Implanted:Qty: 1 on 05/14/2023 by Fransico Alberto MD at [facility] Medtronic Inc 12/25/2023 [id number] / / [id number] [employer] Solitario Contour 6fr 26cm Large Inner Lumen Low Profile Bladder Lauri Taper Latex Free 180-223 - [id number] Implanted:Qty: 1 on 04/15/2024 by Alisson Duran MD at [facility] Right: Ureter [employer] Solitario 12/31/2026 [id number] / / [id number] [employer] Solitario Contour 6fr 26cm Large Inner Lumen Low Profile Bladder Lauri Taper Latex Free 180-223 - [id number] Implanted:Qty: 1 on 04/15/2024 by Alisson Duran MD at [facility] Left: Ureter [employer] Solitario 11/26/2026 [id number] / / [id number] Procedures Procedure Name Priority Date/Time Associated Diagnosis Comments EGFR Routine 04/16/2024 4:49 AM [employer] DIFFERENTIAL AUTO Routine 04/16/2024 4:4 9 AM [employer] RENAL FUNCTION PANEL Routine 04/16/2024 4:49 AM [employer] CBC WITH AUTO DIFFERENTIAL Routine 04/16/2024 4:49 AM [employer] DIFFERENTIAL AUTO Routine 04/15/2024 8:3 9 PM [employer] CBC WITH AUTO DIFFERENTIAL Routine 04/15/2024 8:39 PM FL[employer] EGFR STAT 04/15/2024 7:57 PM [employer] DIFFERENTIAL AUTO STAT 04/15/2024 7:5 7 PM [employer] BASIC METABOLIC PANEL STAT 04/15/2024 7:57 PM [employer] CBC WITH AUTO DIFFERENTIAL STAT 04/15/2024 7:57 PM [employer] FL RETRO PYELO (IN OR) IP Routine 04/15/2024 4:06 PM [employer] URINE CULTURE STAT 04/15/2024 3:41 PM [employer] ME AN ELECTIVE SUPRAGLOTTIC AIRWAY Routine 04/15/2024 3:34 PM [employer] CYSTOSCOPY PLACEMENT URETERAL STENT 04/15/2024 3:24 PM [employer] RIGHT URETERAL STONE FOLATE Add-On 04/15/2024 11:43 AM [employer] VITAMIN B12 Add-On 04/15/2024 11:43 AM [employer] EGFR Routine 04/15/2024 6:33 AM [employer] DIFFERENTIAL AUTO Routine 04/15/2024 6:3 3 AM [employer] RENAL FUNCTION PANEL Routine 04/15/2024 6:33 AM [employer] CBC WITH AUTO DIFFERENTIAL Routine 04/15/2024 6:33 AM [employer] COVID-19 CORONAVIRUS RNA Routine 04/14/2024 11:19 PM [employer] HEMOGLOBIN AND HEMATOCRIT STAT 04/14/2024 9:41 PM [employer] TROPONIN T HIGH-SENSITIVITY 6-HOUR Timed 04/14/2024 7:39 PM [employer] TROPONIN T HIGH-SENSITIVITY 4-HR Timed 04/14/2024 6:24 PM [employer] CT ABDOMEN PELVIS W CONTRAST ED 04/14/2024 5:28 PM [employer] URINALYSIS, MICROSCOPIC ONLY Routine 04/14/2024 4:41 PM [employer] URINE CULTURE Routine 04/14/2024 4:41 PM [employer] URINALYSIS AND REFLEX TO MICROSCOPIC AND CULTURE Routine 04/14/2024 4:41 PM [employer] B ABO / RH CONFIRMATION TESTING STAT 04/14/2024 3:16 PM FL[employer] TROPONIN T HIGH-SENSITIVITY 2-HOUR Timed 04/14/2024 3:16 PM [employer] XR CHEST PA LATERAL 2 VIEWS ED 04/14/2024 2:18 PM [employer] ECG 12-LEAD Routine 04/14/2024 1:55 PM FL[employer] SERVICES EGFR STAT 04/14/2024 1:35 PM [employer] CREATINE KINASE (CK), TOTAL STAT 04/14/2024 1:35 PM FL[employer] SERVICES TROPONIN T HIGH-SENSITIVITY SERIES (BASELINE, 2HR, 4HR, 6HR) STAT 04/14/2024 1:35 PM [employer] PRO B-TYPE NATRIURETIC PEPTIDE STAT 04/14/2024 1:35 PM [employer] DIFFERENTIAL AUTO STAT 04/14/2024 1:3 5 PM [employer] ANTIBODY SCREEN STAT 04/14/2024 1:35 PM [employer] ABO/RH STAT 04/14/2024 1:35 PM [employer] TYPE AND SCREEN STAT 04/14/2024 1:35 PM [employer] COMPREHENSIVE METABOLIC PANEL STAT 04/14/2024 1:35 PM [employer] CBC WITH AUTO DIFFERENTIAL STAT 04/14/2024 1:35 PM [employer] from Last 3 Months Results * eGFR (04/16/2024 4:49 AM FLIGHT ATTEND[employer] SERVICES) eGFR 75 >=60 mL/min/1. 73 m2 Comment: Interpretive Data Reference Interval Normal ?>/= 90 mL/min/1.73m2 Mildly decreased* ? 60 - 89 mL/min/1.73m2 Mildly to moderately decreased ?45 - 59 mL/min/1.73m2 Moderately to severely decreased ??30 - 44 mL/min/1.73m2 Severely decreased ?15 - 29 mL/min/1.73m2 Kidney Failure ?< 15 ??mL/min/1.73m2 *Relative to young adult level Estimated glomerular filtration rate is determined by the 2020 CKD-EPI equation recommended by the National Kidney Foundation (A Unifying Approach to GFR Estimation: Recommendations of the NKF-ASK Task Force on Reassessing the Inclusion of Race in Diagnosing Kidney Disease, JASN 2020). The CKD-EPI equation should not be used for patients with unstable renal function and has not been validated in children and those over 70. Current interpretive data was last reviewed 2021. Blood 04/16/2024 4:49 AM [employer] 04/16/2024 5:12 AM [employer] us Tarik Isbell MD LAB BLOOD ORDERABLES Final Result [facility] Department [place] [address] * Differential, auto (04/16/2024 4:49 AM FL[employer]) Neutrophil abs 5.5 1.5 - 6.5 K/cumm Imm gran abs 0.0 0.0 - 0.1 K/cumm [facility] ([place]) Lymphocyte abs 1.1 0.8 - 3.3 K/cumm [facility] ([place]) Monocyte abs 0.4 0.2 - 0.8 K/cumm [facility] ([place]) Eosinophil abs 0.0 0.0 - 0.5 K/cumm [facility] ([place]) Basophil abs 0.0 0.0 - 0.1 K/cumm [facility] ([place]) Neutrophil pct 79.2 % [facility] ([place]) Comment: Interpretive Data Percent cell count reference ranges are not reported, since discordance with absolute values may lead to misinterpretation of CBC data. Current Interpretive Data was last revised on 2017. Imm gran pct 0.3 % [facility] ([place]) Comment: Interpretive Data Percent cell count reference ranges are not reported, since discordance with absolute values may lead to misinterpretation of CBC data. Current Interpretive Data was last revised on 2017. Lymphocyte pct 15.1 % [facility] ([place]) Comment: Interpretive Data Percent cell count reference ranges are not reported, since discordance with absolute values may lead to misinterpretation of CBC data. Current Interpretive Data was last revised on 2017. Monocyte pct 5.0 % [facility] ([place]) Comment: Interpretive Data Percent cell count reference ranges are not reported, since discordance with absolute values may lead to misinterpretation of CBC data. Current Interpretive Data was last revised on 2017. Eosinophil pct 0.1 % [facility] ([place]) Comment: Interpretive Data Percent cell count reference ranges are not reported, since discordance with absolute values may lead to misinterpretation of CBC data. Current Interpretive Data was last revised on 2017. Basophil pct 0.3 % [facility] ([place]) Comment: Interpretive Data Percent cell count reference ranges are not reported, since discordance with absolute values may lead to misinterpretation of CBC data. Current Interpretive Data was last revised on 2017. Blood 04/16/2024 4:49 AM [employer] 04/16/2024 5:12 AM [employer] Tarik Isbell MD LAB BLOOD ORDERABLES Final Result [facility] ([place]) [facility] Department [place] [address] * (ABNORMAL) CBC with auto differential (04/16/2024 4:49 AM [employer]) WBC 6.9 3.8 - 9.9 K/cumm Hgb 11.6(L) 11.9 - 15.5 g/dL [facility] ([place]) Hct 34.9(L) 35.6 - 45.5 % [facility] ([place]) Plt 148(L) 150 - 400 K/cumm [facility] ([place]) MPV 9.6 9.1 - 12.3 fL [facility] ([place]) RBC 3.39(L) 3.90 - 5.20 M/cumm [facility] ([place]) MCV 102.9(H) 81.3 - 96.4 fL [facility] ([place]) MCH 34.2(H) 27.1 - 33.3 pg [facility] ([place]) MCHC 33.2 32.3 - 35.7 g/dL [facility] ([place]) RDW CV 13.4 11.1 - 14.9 % [facility]) RDW SD 51.0(H) 35.7 - 48.1 fL [facility] ([place]) NRBC abs 0.00 0.00 - 0.01 K/cumm [facility] ([place]) Blood 04/16/2024 4:49 AM [employer] 04/16/2024 5:12 AM [employer] us Tarik Isbell MD LAB BLOOD ORDERABLES Final Result [facility]) 1 [facility] Department [place] [address] * (ABNORMAL) Renal function panel (04/16/2024 4:49 AM [employer]) Sodium 141 135 - 145 mmol/L Potassium, pl 4.6 3.3 - 4.9 mmol/L [facility]) Chloride 111(H) 97 - 110 mmol/L [facility]) CO2 21(L) 22 - 32 mmol/L [facility]) Anion gap 9 2 - 15 mmol/L [facility]) BUN 15 6 - 25 mg/dL [facility]) Creatinine 0.77 0.60 - 1.10 mg/dL [facility]) Glucose 138 70 - 199 mg/dL [facility] ([place]) Comment: Interpretive Data Fasting glucose >/= 126 mg/dl is diagnostic for diabetes. ?? Fasting is defined as no caloric intake for at least 8 hours. Fasting glucose between 100 mg/dl to 125 mg/dl is diagnostic of prediabetes. In a patient with classic symptoms of hyperglycemia or hyperglycemic crisis, a random glucose >/= 200 mg/dl is diagnostic for diabetes. In the absence of unequivocal hyperglycemia, results should be confirmed by repeat testing. The classification and Diagnosis of Diabetes Diabetes Care 2021; 46: S19-S40. Current interpretive data was last revised 2022. Calcium 8.6 8.5 - 10.3 mg/dL [facility] ([place]) Phosphorus, pl 3.0 2.3 - 4.5 mg/dL [facility]) Albumin 3.1(L) 3.5 - 5.0 g/dL [facility] ([place]) Blood 04/16/2024 4:49 AM [employer] 04/16/2024 5:12 AM [employer] us Tarik Isbell MD LAB BLOOD ORDERABLES Final Result [facility] ([place]) [facility] Department [place] [address] * (ABNORMAL) Differential, auto (04/15/2024 8:39 PM [employer]) Neutrophil abs 6.1 1.5 - 6.5 K/cumm Imm gran abs 0.1 0.0 - 0.1 K/cumm [facility] ([place]) Lymphocyte abs 0.8 0.8 - 3.3 K/cumm [facility] ([place]) Monocyte abs 0.1(L) 0.2 - 0.8 K/cumm [facility] ([place]) Eosinophil abs 0.0 0.0 - 0.5 K/cumm [facility] ([place]) Basophil abs 0.0 0.0 - 0.1 K/cumm [facility] ([place]) Neutrophil pct 86.4 % [facility] ([place]) Comment: Interpretive Data Percent cell count reference ranges are not reported, since discordance with absolute values may lead to misinterpretation of CBC data. Current Interpretive Data was last revised on 2017. Imm gran pct 0.7 % [facility] ([place]) Comment: Interpretive Data Percent cell count reference ranges are not reported, since discordance with absolute values may lead to misinterpretation of CBC data. Current Interpretive Data was last revised on 2017. Lymphocyte pct 11.3 % [facility] ([place]) Comment: Interpretive Data Percent cell count reference ranges are not reported, since discordance with absolute values may lead to misinterpretation of CBC data. Current Interpretive Data was last revised on 2017. Monocyte pct 1.1 % [facility] ([place]) Comment: Interpretive Data Percent cell count reference ranges are not reported, since discordance with absolute values may lead to misinterpretation of CBC data. Current Interpretive Data was last revised on 2017. Eosinophil pct 0.1 % [facility] ([place]) Comment: Interpretive Data Percent cell count reference ranges are not reported, since discordance with absolute values may lead to misinterpretation of CBC data. Current Interpretive Data was last revised on 2017. Basophil pct 0.4 % [facility] ([place]) Comment: Interpretive Data Percent cell count reference ranges are not reported, since discordance with absolute values may lead to misinterpretation of CBC data. Current Interpretive Data was last revised on 2017. Blood 04/15/2024 8:39 PM [employer] 04/15/2024 8:49 PM [employer] us Tru Flood MD LAB BLOOD ORDERABLES Final Result [facility] ([place]) 1 [facility] [place] [address] * (ABNORMAL) CBC with auto differential (04/15/2024 8:39 PM [employer] [employer]) WBC 7.1 3.8 - 9.9 K/cumm Hgb 12.4 11.9 - 15.5 g/dL [facility] ([place]) Hct 37.2 35.6 - 45.5 % [facility] ([place]) Plt 159 150 - 400 K/cumm [facility] ([place]) MPV 9.2 9.1 - 12.3 fL [facility] ([place]) RBC 3.64(L) 3.90 - 5.20 M/cumm [facility] ([place]) MCV 102.2(H) 81.3 - 96.4 fL [facility] ([place]) MCH 34.1(H) 27.1 - 33.3 pg [facility] ([place]) MCHC 33.3 32.3 - 35.7 g/dL [facility] ([place]) RDW CV 13.5 11.1 - 14.9 % [facility] ([place]) RDW SD 51.6(H) 35.7 - 48.1 fL [facility] ([place]) NRBC abs 0.00 0.00 - 0.01 K/cumm [facility] ([place]) Blood 04/15/2024 8:39 PM [employer] 04/15/2024 8:49 PM [employer] us Tru Flood MD LAB BLOOD ORDERABLES Final Result [facility] ([place]) 1 [facility] Department [place] [address] * eGFR (04/15/2024 7:57 PM [employer]) eGFR 69 >=60 mL/min/1. 73 m2 Comment: Interpretive Data Reference Interval Normal ?>/= 90 mL/min/1.73m2 Mildly decreased* ? 60 - 89 mL/min/1.73m2 Mildly to moderately decreased ?45 - 59 mL/min/1.73m2 Moderately to severely decreased ??30 - 44 mL/min/1.73m2 Severely decreased ?15 - 29 mL/min/1.73m2 Kidney Failure ?< 15 ??mL/min/1.73m2 *Relative to young adult level Estimated glomerular filtration rate is determined by the 2020 CKD-EPI equation recommended by the National Kidney Foundation (A Unifying Approach to GFR Estimation: Recommendations of the NKF-ASK Task Force on Reassessing the Inclusion of Race in Diagnosing Kidney Disease, JASN 2020). The CKD-EPI equation should not be used for patients with unstable renal function and has not been validated in children and those over 70. Current interpretive data was last reviewed 2021. Blood 04/15/2024 7:57 PM [employer] 04/15/2024 8:01 PM [employer] us Tru Flood MD LAB BLOOD ORDERABLES Final Result [facility] ([place]) 1 [facility] Department [place] [address] * (ABNORMAL) Differential, auto (04/15/2024 7:57 PM [employer]) Neutrophil abs 6.8(H) 1.5 - 6.5 K/cumm Imm gran abs 0.0 0.0 - 0.1 K/cumm [facility] ([place]) Lymphocyte abs 0.9 0.8 - 3.3 K/cumm [facility] ([place]) Monocyte abs 0.1(L) 0.2 - 0.8 K/cumm [facility] ([place]) Eosinophil abs 0.0 0.0 - 0.5 K/cumm [facility] ([place]) Basophil abs 0.0 0.0 - 0.1 K/cumm [facility] ([place]) Neutrophil pct 87.5 % [facility] ([place]) Comment: Interpretive Data Percent cell count reference ranges are not reported, since discordance with absolute values may lead to misinterpretation of CBC data. Current Interpretive Data was last revised on 2017. Imm gran pct 0.3 % [facility] ([place]) Comment: Interpretive Data Percent cell count reference ranges are not reported, since discordance with absolute values may lead to misinterpretation of CBC data. Current Interpretive Data was last revised on 2017. Lymphocyte pct 11.1 % [facility] ([place]) Comment: Interpretive Data Percent cell count reference ranges are not reported, since discordance with absolute values may lead to misinterpretation of CBC data. Current Interpretive Data was last revised on 2017. Monocyte pct 0.6 % [facility] ([place]) Comment: Interpretive Data Percent cell count reference ranges are not reported, since discordance with absolute values may lead to misinterpretation of CBC data. Current Interpretive Data was last revised on 2017. Eosinophil pct 0.1 % [facility] ([place]) Comment: Interpretive Data Percent cell count reference ranges are not reported, since discordance with absolute values may lead to misinterpretation of CBC data. Current Interpretive Data was last revised on 2017. Basophil pct 0.4 % [facility] ([place]) Comment: Interpretive Data Percent cell count reference ranges are not reported, since discordance with absolute values may lead to misinterpretation of CBC data. Current Interpretive Data was last revised on 2017. Blood 04/15/2024 7:57 PM [employer] 04/15/2024 8:01 PM [employer] Tru Flood MD LAB BLOOD ORDERABLES Final Result [facility] ([place]) 1 [facility] [place] [address] * (ABNORMAL) CBC with auto differential (04/15/2024 7:57 PM [employer]) WBC 7.8 3.8 - 9.9 K/cumm Hgb 13.0 11.9 - 15.5 g/dL [facility] ([place]) Hct 38.6 35.6 - 45.5 % [facility] ([place]) Plt 173 150 - 400 K/cumm [facility] ([place]) MPV 9.3 9.1 - 12.3 fL [facility] ([place]) RBC 3.85(L) 3.90 - 5.20 M/cumm [facility] ([place]) MCV 100.3(H) 81.3 - 96.4 fL [facility] ([place]) MCH 33.8(H) 27.1 - 33.3 pg [facility] ([place]) MCHC 33.7 32.3 - 35.7 g/dL [facility] ([place]) RDW CV 13.7 11.1 - 14.9 % [facility] ([place]) RDW SD 50.6(H) 35.7 - 48.1 fL [facility] ([place]) NRBC abs 0.00 0.00 - 0.01 K/cumm [facility] ([place]) Blood 04/15/2024 7:57 PM [employer] 04/15/2024 8:01 PM [employer] Tru Flood MD LAB BLOOD ORDERABLES Final Result [facility] ([place]) 1 [facility] [place] [address] * (ABNORMAL) Basic metabolic panel (04/15/2024 7:57 PM [employer]) Pathologist [facility] Sodium 139 135 - 145 mmol/L Potassium, pl 4.5 3.3 - 4.9 mmol/L [facility] ([place]) Chloride 108 97 - 110 mmol/L [facility] ([place]) CO2 20(L) 22 - 32 mmol/L [facility] ([place]) Anion gap 11 2 - 15 mmol/L [facility] ([place]) BUN 17 6 - 25 mg/dL [facility] ([place]) Creatinine 0.82 0.60 - 1.10 mg/dL [facility] ([place]) Glucose 174 70 - 199 mg/dL [facility] ([place]) Comment: Interpretive Data Fasting glucose >/= 126 mg/dl is diagnostic for diabetes. ?? Fasting is defined as no caloric intake for at least 8 hours. Fasting glucose between 100 mg/dl to 125 mg/dl is diagnostic of prediabetes. In a patient with classic symptoms of hyperglycemia or hyperglycemic crisis, a random glucose >/= 200 mg/dl is diagnostic for diabetes. In the absence of unequivocal hyperglycemia, results should be confirmed by repeat testing. The classification and Diagnosis of Diabetes Diabetes Care 2021; 46: S19-S40. Current interpretive data was last revised 2022. Calcium 9.0 8.5 - 10.3 mg/dL [facility] ([place]) Blood 04/15/2024 7:57 PM [employer] 04/15/2024 8:01 PM [employer] Tru Flood MD LAB BLOOD ORDERABLES Final Result [facility] ([place]) 1 [facility] Department [place] [address] * FL Retro Pyelo (In Or) (04/15/2024 4:06 PM [employer]) Anatomical Region Laterality Modality Body N/A Radio Fluoroscop y 04/15/2024 7:51 PM [employer] Narrative 04/15/2024 7:53 PM [employer] EXAM DESCRIPTION: ?? FL RETRO PYELO (IN OR) HISTORY: ?? pain ?? COMPARISON: ?? None RADIATION DOSE: Dose: ??Reference air kerma. ??1.10 mGy FINDINGS: ??A radiologist was not present for the examination. ??Fluoroscopic guidance was performed for a retrograde pyelogram and stent placement. ??There is cannulation of the ureters bilaterally with placement of bilateral ureteral stents. IMPRESSION: Placement of a double-J ureteral stent overlying the ??bilateral ??ureters. Please see operative summary for full report. THIS IS AN ELECTRONICALLY VERIFIED FINAL REPORT 04/15/2024 7:53 PM - Electronically signed by ??Chris Muro M.D. AG: AG D: ??04/15/2024 7:53 PM T: ??04/15/2024 7:53 PM Report ID: [id number] Reading Location: ??[id number] Procedure Note Chris Muro MD - 04/15/2024 EXAM DESCRIPTION: FL RETRO PYELO (IN OR) HISTORY: pain COMPARISON: None RADIATION DOSE: Dose: Reference air kerma. 1.10 mGy FINDINGS: A radiologist was not present for the examination. Fluoroscopicguidance was performed for a retrograde pyelogram and stent placement. There is cannulation of the ureters bilaterally with placement of bilateralureteral stents. IMPRESSION: Placement of a double-J ureteral stent overlying the bilateral ureters. Please see operative summary for full report. THIS IS AN ELECTRONICALLY VERIFIED FINAL REPORT 04/15/2024 7:53 PM - Electronically signed by Chris Muro M.D. AG: CHAI Report ID: [id number] Reading Location: [id number] [facility] Josué Duran MD IMG FLUOROSCOPY PROCEDURES Fin al Result * Urine culture Urine, bladder (04/15/2024 3:41 PM [employer]) Report Final Report: No growth Comment:Testing performed by : [facility], [address] [facility], [place]., [address] Urine, bladder 04/15/2024 3: 41 PM [employer] 04/15/2024 6:55 PM [employer] Narrative [facility] ([place]) - 04/16/2024 8:38 PM [employer] Indications for Culture:->Urology patient Testing performed by [facility] Microbiology Laboratory ([phone]) Alisson Jensen MD LAB MICROBIOLOGY - GENERAL ORD ERABLES Final Result [facility] ([place]) 1 [facility] Department [place] [address] * ME AN ELECTIVE SUPRAGLOTTIC AIRWAY (04/15/2024 3:34 PM [employer]) Narrative Beau Varner CRNA - 04/15/2024 3:34 PM [employer] Beau Varner CRNA ? 04/15/2024 ??3:34 PM Airway Patient location: OR Urgency: elective Indications for airway management: anesthesia Difficult airway: no Staff: Placed by: RESPIRATORY THERAPIST ASSISTANT: Beau Varner CRNA Emergent airway documentation: Risks and benefits discussed: yes Consent obtained: yes Consent given by: patient Airway prep: Preoxygenated: yes Patient position: sniffing MILS maintained throughout: yes Mask difficulty assessment: 0 - not attempted Sedation level during airway: GA Final airway details: Final airway type: supraglottic airway Final supraglottic airway: [place] SGA size: 3 Number of attempts: 1 Alisson Jensen MD ANESTHESIA ORDERABLES Final Re sult * Folate (04/15/2024 11:43 AM [employer]) Folic acid 6.2 >=5.0 ng/mL Comment:Slightly Hemolyzed S pecimen. Results may be affected. Blood 04/15/2024 11:4 3 AM [employer] 04/15/2024 12:15 PM [employer] Tru Flood MD LAB BLOOD ORDERABLES Final Result [facility] ([place]) 1 [facility] Department [place] [address] * (ABNORMAL) Vitamin B12 (04/15/2024 11:43 AM [employer]) Vitamin B12 <150(L) 230 - 1,250 pg/mL Blood 04/15/2024 11:4 3 AM [employer] 04/15/2024 12:15 PM [employer] us Tru Flood MD LAB BLOOD ORDERABLES Final Result Performing Organization Address City/[facility]/ZIP Co de Phone Number [facility] ([place]) 1 [facility] Department [place] [address] * (ABNORMAL) eGFR (04/15/2024 6:33 AM [employer]) eGFR 57(L) >=60 mL/min/1. 73 m2 Comment: Interpretive Data Reference Interval Normal ?>/= 90 mL/min/1.73m2 Mildly decreased* ? 60 - 89 mL/min/1.73m2 Mildly to moderately decreased ?45 - 59 mL/min/1.73m2 Moderately to severely decreased ??30 - 44 mL/min/1.73m2 Severely decreased ?15 - 29 mL/min/1.73m2 Kidney Failure ?< 15 ??mL/min/1.73m2 *Relative to young adult level Estimated glomerular filtration rate is determined by the 2020 CKD-EPI equation recommended by the National Kidney Foundation (A Unifying Approach to GFR Estimation: Recommendations of the NKF-ASK Task Force on Reassessing the Inclusion of Race in Diagnosing Kidney Disease, JASN 2020). The CKD-EPI equation should not be used for patients with unstable renal function and has not been validated in children and those over 70. Current interpretive data was last reviewed 2021. Blood 04/15/2024 6:33 AM [employer] 04/15/2024 7:28 AM [employer] us Tarik Isbell MD LAB BLOOD ORDERABLES Final Result Performing Organization Address City/[facility]/ZIP Co de Phone Number [facility] ([place]) 1 [facility] Department [place] [address] * Differential, auto (04/15/2024 6:33 AM [employer]) Neutrophil abs 3.8 1.5 - 6.5 K/cumm Imm gran abs 0.0 0.0 - 0.1 K/cumm [facility] ([place]) Lymphocyte abs 1.8 0.8 - 3.3 K/cumm [facility] ([place]) Monocyte abs 0.3 0.2 - 0.8 K/cumm [facility] ([place]) Eosinophil abs 0.1 0.0 - 0.5 K/cumm [facility] ([place]) Basophil abs 0.0 0.0 - 0.1 K/cumm [facility] ([place]) Neutrophil pct 62.4 % [facility] ([place]) Comment: Interpretive Data Percent cell count reference ranges are not reported, since discordance with absolute values may lead to misinterpretation of CBC data. Current Interpretive Data was last revised on 2017. Imm gran pct 0.3 % [facility] ([place]) Comment: Interpretive Data Percent cell count reference ranges are not reported, since discordance with absolute values may lead to misinterpretation of CBC data. Current Interpretive Data was last revised on 2017. Lymphocyte pct 29.3 % [facility] ([place]) Comment: Interpretive Data Percent cell count reference ranges are not reported, since discordance with absolute values may lead to misinterpretation of CBC data. Current Interpretive Data was last revised on 2017. Monocyte pct 5.3 % [facility] ([place]) Comment: Interpretive Data Percent cell count reference ranges are not reported, since discordance with absolute values may lead to misinterpretation of CBC data. Current Interpretive Data was last revised on 2017. Eosinophil pct 2.0 % [facility] ([place]) Comment: Interpretive Data Percent cell count reference ranges are not reported, since discordance with absolute values may lead to misinterpretation of CBC data. Current Interpretive Data was last revised on 2017. Basophil pct 0.7 % [facility] ([place]) Comment: Interpretive Data Percent cell count reference ranges are not reported, since discordance with absolute values may lead to misinterpretation of CBC data. Current Interpretive Data was last revised on 2017. Blood 04/15/2024 6:33 AM [employer] 04/15/2024 7:28 AM [employer] Tarik Isbell MD LAB BLOOD ORDERABLES Final Result [facility] ([place]) 1 [facility] [place] [address] * (ABNORMAL) CBC with auto differential (04/15/2024 6:33 AM [employer]) WBC 6.1 3.8 - 9.9 K/cumm Hgb 12.0 11.9 - 15.5 g/dL [facility] ([place]) Hct 38.9 35.6 - 45.5 % [facility] ([place]) Plt 171 150 - 400 K/cumm [facility] ([place]) MPV 9.4 9.1 - 12.3 fL [facility] ([place]) RBC 3.55(L) 3.90 - 5.20 M/cumm [facility] ([place]) MCV 109.6(H) 81.3 - 96.4 fL [facility] ([place]) MCH 33.8(H) 27.1 - 33.3 pg [facility] ([place]) MCHC 30.8(L) 32.3 - 35.7 g/dL [facility] ([place]) RDW CV 13.8 11.1 - 14.9 % [facility] ([place]) RDW SD 56.0(H) 35.7 - 48.1 fL [facility] ([place]) NRBC abs 0.00 0.00 - 0.01 K/cumm [facility] ([place]) Blood 04/15/2024 6:33 AM [employer] 04/15/2024 7:28 AM [employer] Tarik Isbell MD LAB BLOOD ORDERABLES Final Result Performing Organization Address City/[facility]/ZIP Co de Phone Number [facility] ([place]) 1 [facility] Department [place] [address] * (ABNORMAL) Renal function panel (04/15/2024 6:33 AM [employer]) Pathologist [facility] Sodium 138 135 - 145 mmol/L Potassium, pl 4.4 3.3 - 4.9 mmol/L [facility] ([place]) Chloride 110 97 - 110 mmol/L [facility] ([place]) CO2 19(L) 22 - 32 mmol/L [facility] ([place]) Anion gap 10 2 - 15 mmol/L [facility] ([place]) BUN 24 6 - 25 mg/dL [facility] ([place]) Creatinine 0.96 0.60 - 1.10 mg/dL [facility] ([place]) Glucose 100 70 - 199 mg/dL [facility] ([place]) Comment: Interpretive Data Fasting glucose >/= 126 mg/dl is diagnostic for diabetes. ?? Fasting is defined as no caloric intake for at least 8 hours. Fasting glucose between 100 mg/dl to 125 mg/dl is diagnostic of prediabetes. In a patient with classic symptoms of hyperglycemia or hyperglycemic crisis, a random glucose >/= 200 mg/dl is diagnostic for diabetes. In the absence of unequivocal hyperglycemia, results should be confirmed by repeat testing. The classification and Diagnosis of Diabetes Diabetes Care 2021; 46: S19-S40. Current interpretive data was last revised 2022. Calcium 8.6 8.5 - 10.3 mg/dL [facility] ([place]) Phosphorus, pl 3.1 2.3 - 4.5 mg/dL [facility] ([place]) Albumin 3.3(L) 3.5 - 5.0 g/dL [facility] ([place]) Blood 04/15/2024 6:33 AM [employer] 04/15/2024 7:28 AM [employer] Tarik Isbell MD LAB BLOOD ORDERABLES Final Result [facility] ([place]) 1 [facility] Department [place] [address] * COVID-19 Coronavirus RNA Nasopharyngeal (04/14/2024 11:19 PM [employer]) COVID-19 RNA Negative Negative Nasopharyngeal 04/14/2024 11 :19 PM [employer] 04/14/2024 11:22 PM [employer] Narrative [facility] ([place]) - 04/14/2024 11:54 PM [employer] Is the patient experiencing any symptoms consistent with COVID (eg. Fever, cough, shortness of breath)?->No What is the reason for testing?->Screening for semi-private room placement ??Interpretive data: Testing performed by [facility]. ??This test is performed using the [employer] Xpert Xpress CoV-2 plus assay. This is a real-time RT-PCR test intended for the qualitative detection of nucleic acid from the SARS-CoV-2. This assay has been cleared by the [place] Food and Drug administration. The performance characteristics have been verified by [facility]. ??Results must be considered in the clinical context, and a negative result does not rule out infection. Interpretive data last revised 2023. ??Interpretive data: Testing performed by [facility]. ??This test is performed using the [employer] Xpert Xpress CoV-2 plus assay. This is a real-time RT-PCR test intended for the qualitative detection of nucleic acid from the SARS-CoV-2. This assay has been cleared by the [place] Food and Drug administration. The performance characteristics have been verified by [facility]. ??Results must be considered in the clinical context, and a negative result does not rule out infection. Interpretive data last revised 2023. Marine Jeffrey MD LAB MICROBIOLOGY - GENERAL ORDERABLES Final Result [facility] ([place]) 1 [facility] Department of Laboratories [place], [place] [id number] * Hemoglobin and hematocrit (04/14/2024 9:41 PM [employer]) Hgb 12.2 11.9 - 15.5 g/dL Hct 36.8 35.6 - 45.5 % [facility] ([place]) Blood 04/14/2024 9:41 PM [employer] 04/14/2024 9:48 PM [employer] Tarik Isbell MD LAB BLOOD ORDERABLES Final Result Performing Organization Address City/[facility]/ZIP Co de Phone Number [facility] ([place]) 1 [facility] [place] [address] * Troponin T high-sensitivity 6-hour (04/14/2024 7:39 PM [employer]) Trop T hs 9 <=14 ng/L Comment: Interpretive Data For further hscTnT resources including the diagnostic algorithm and an aid in interpretation, copy and paste this link: https://nrl.testCPM Braxis.org/show/hsTrop Current Interpretive Data last revised 2020. Trop T hs delta 0 ng/L [facility] ([place]) Trop T hs interp Insignificant [facility] ([place]) Blood 04/14/2024 7:39 PM [employer] 04/14/2024 7:42 PM [employer] Tarik Isbell MD LAB BLOOD ORDERABLES Final Result Performing Organization Address [facility] Co de Phone Number [facility] ([place]) 1 [facility] [place] [address] * Troponin T high-sensitivity 4-hour (04/14/2024 6:24 PM [employer]) Trop T hs 9 <=14 ng/L Comment: Interpretive Data For further hscTnT resources including the diagnostic algorithm and an aid in interpretation, copy and paste this link: https://nrl.testCPM Braxis.org/show/hsTrop Current Interpretive Data last revised 2020. Trop T hs delta 0 ng/L [facility] ([place]) Trop T hs interp Insignificant [facility] ([place]) Blood 04/14/2024 6:24 PM [employer] 04/14/2024 6:37 PM [employer] Tarik Isbell MD LAB BLOOD ORDERABLES Final Result [facility] ([place]) 1 [facility] Department [place] [address] * CT Abdomen Pelvis W Contrast (04/14/2024 5:28 PM [employer]) Anatomical Region Laterality Modality Body N/A Computed Tomogra phy 04/14/2024 5:35 PM [employer] Narrative 04/14/2024 5:42 PM [employer] EXAM DESCRIPTION: ?? CT ABDOMEN PELVIS W CONTRAST REASON FOR STUDY: ?? Abdominal infection suspected ?Pt to ED for c/o blood in her stool x 3 days. Pt reports today a blood clot just came out . ? TECHNIQUE: CT scan of the abdomen and pelvis performed with intravenous and ?? without ??oral contrast using helical scanning technique with dynamic intravenous contrast injection. Reconstructed coronal and sagittal MPR images reviewed. All images stored on PACS. Automated exposure control was used as a dose optimization technique for this examination. CONTRAST TYPE/DOSE: ?? 75mL of IOVERSOL 350 MG IODINE/ML INTRAVENOUS SYRINGE ?? injected via ?? intravenous COMPARISON: ?? 01/08/2022 FINDINGS: LOWER CHEST: ?? There is mild cardiomegaly. ??There is no definite evidence of pericardial effusion. ??There are atherosclerotic changes of the aorta with tortuosity and ectasia. ??There is mild bibasilar subsegmental atelectasis and scarring. ??There is a large hiatal hernia containing portions of the stomach, pancreas, and splenic vasculature. LIVER: ?? The liver is grossly stable in size and contour without definite evidence of focal hepatic lesion. ??The hepatic and portal veins are grossly patent. GALLBLADDER: ?? Surgically absent. BILE DUCTS: ?? No intrahepatic or extrahepatic ductal dilatation. SPLEEN: ?? The spleen is grossly stable in size and unremarkable. PANCREAS: ?? The pancreas appears grossly unremarkable without definite evidence of pancreatic ductal dilatation, peripancreatic inflammatory changes, or peripancreatic fluid collection. ?? ADRENALS: ?? The bilateral adrenal glands are grossly stable and unremarkable. KIDNEYS/URINARY TRACT: ?? The bilateral kidneys enhance symmetrically. ??There are a couple of cysts noted in the bilateral kidneys measuring 4.0 cm on the right and 3.6 cm on the left, which do not require follow-up imaging. ??There are few additional too small to characterize hypoattenuating lesions in the bilateral kidneys, which do not require follow-up imaging. ??There are multiple nonobstructing calculi in the bilateral kidneys with largest measuring 1.3 cm on the right and 0.9 cm on the left. ?There is mild right hydronephrosis and hydroureter with a couple of obstructing calculi in the distal right ureter measuring 0.7 cm (axial image 117) and 0.8 cm (axial image 124). ??There is subtle mild urothelial thickening/enhancement of the bilateral renal collecting systems. ??There is mild circumferential mucosal thickening of the urinary bladder. GI: ?? There is no definite evidence of a bowel obstruction. ??The appendix is not visualized. ??There is colonic diverticulosis with mild mucosal thickening of the sigmoid colon with subtle pericolonic inflammatory changes with fat stranding and trace fluid. ??Postsurgical changes of ventral abdominal wall hernia repair noted. ??There is mild fullness of the pelvic soft tissues with mild inferior descent of the urinary bladder, vagina, and rectum, which is concerning for pelvic floor laxity/dysfunction. ??There is no definite evidence of free air or fluid in the abdomen and pelvis. ??There is no definite evidence of lymphadenopathy in the abdomen and pelvis. REPRODUCTIVE: ?? The uterus is surgically absent. MUSCULOSKELETAL: ?? There is mild osteopenia. ??There is a levoscoliotic curvature of the spine with degenerative changes. OTHER: ?? No other abnormality. IMPRESSION: No definite evidence of bowel obstruction. Colonic diverticulosis with mild mucosal thickening of the sigmoid colon with subtle pericolonic inflammatory changes with fat stranding and trace fluid, which is concerning for mild acute uncomplicated diverticulitis. No definite evidence of perforation or pericolonic abscess. Mild right-sided obstructive uropathy with a couple of obstructing calculi in the distal right ureter measuring up to 0.8 cm. Mild urothelial thickening/enhancement of the bilateral renal collecting systems along with mild circumferential mucosal thickening of the urinary bladder, which raises the concern for cystitis with ascending urinary tract infection. Clinical correlation with urinary analysis is recommended as clinically indicated. Multiple bilateral nonobstructing renal calculi. Large hiatal hernia containing portions of the stomach, pancreas, and splenic vasculature. Mild fullness of the pelvic soft tissues with mild inferior descent of the urinary bladder, vagina, and rectum, which is concerning for pelvic floor laxity/dysfunction. THIS IS AN ELECTRONICALLY VERIFIED FINAL REPORT 04/14/2024 5:42 PM - Electronically signed by ??Rene Galvan D.O. PS: PS D: ??04/14/2024 5:42 PM T: ??04/14/2024 5:42 PM Report ID: [id number] Reading Location: ??[id number] Procedure Note Rene Galvan, DO - 04/14/2024 EXAM DESCRIPTION: CT ABDOMEN PELVIS W CONTRAST REASON FOR STUDY: Abdominal infection suspected Pt to ED for c/o blood in her stool x 3 days. Pt reports today a bloodclot just came out . TECHNIQUE: CT scan of the abdomen and pelvis performed with intravenousand without oral contrast using helical scanning technique with dynamic intravenous contrast injection. Reconstructed coronal and sagittal MPRimages reviewed. All images stored on PACS. Automated exposure control was usedas a dose optimization technique for this examination. CONTRAST TYPE/DOSE: 75mL of IOVERSOL 350 MG IODINE/ML INTRAVENOUSSYRINGE injected via intravenous COMPARISON: 01/08/2022 FINDINGS: LOWER CHEST: There is mild cardiomegaly. There is no definite evidenceof pericardial effusion. There are atherosclerotic changes of the aorta with tortuosity and ectasia. There is mild bibasilar subsegmental atelectasisand scarring. There is a large hiatal hernia containing portions of thestomach, pancreas, and splenic vasculature. LIVER: The liver is grossly stable in size and contour without definite evidence of focal hepatic lesion. The hepatic and portal veins aregrossly patent. GALLBLADDER: Surgically absent. BILE DUCTS: No intrahepatic or extrahepatic ductal dilatation. SPLEEN: The spleen is grossly stable in size and unremarkable. PANCREAS: The pancreas appears grossly unremarkable without definite evidence of pancreatic ductal dilatation, peripancreatic inflammatorychanges, or peripancreatic fluid collection. ADRENALS: The bilateral adrenal glands are grossly stable andunremarkable. KIDNEYS/URINARY TRACT: The bilateral kidneys enhance symmetrically.There are a couple of cysts noted in the bilateral kidneys measuring 4.0 cm onthe right and 3.6 cm on the left, which do not require follow-up imaging.There are few additional too small to characterize hypoattenuating lesions inthe bilateral kidneys, which do not require follow-up imaging. There aremultiple nonobstructing calculi in the bilateral kidneys with largest measuring 1.3cm on the right and 0.9 cm on the left. There is mild right hydronephrosisand hydroureter with a couple of obstructing calculi in the distal rightureter measuring 0.7 cm (axial image 117) and 0.8 cm (axial image 124). There is subtle mild urothelial thickening/enhancement of the bilateral renal collecting systems. There is mild circumferential mucosal thickening ofthe urinary bladder. GI: There is no definite evidence of a bowel obstruction. The appendixis not visualized. There is colonic diverticulosis with mild mucosalthickening of the sigmoid colon with subtle pericolonic inflammatory changes with fat stranding and trace fluid. Postsurgical changes of ventral abdominal wall hernia repair noted. There is mild fullness of the pelvic soft tissueswith mild inferior descent of the urinary bladder, vagina, and rectum, which is concerning for pelvic floor laxity/dysfunction. There is no definiteevidence of free air or fluid in the abdomen and pelvis. There is no definiteevidence of lymphadenopathy in the abdomen and pelvis. REPRODUCTIVE: The uterus is surgically absent. MUSCULOSKELETAL: There is mild osteopenia. There is a levoscoliotic curvature of the spine with degenerative changes. OTHER: No other abnormality. IMPRESSION: No definite evidence of bowel obstruction. Colonic diverticulosis with mild mucosal thickening of the sigmoid colonwith subtle pericolonic inflammatory changes with fat stranding and tracefluid, which is concerning for mild acute uncomplicated diverticulitis. Nodefinite evidence of perforation or pericolonic abscess. Mild right-sided obstructive uropathy with a couple of obstructingcalculi in the distal right ureter measuring up to 0.8 cm. Mild urothelial thickening/enhancement of the bilateral renal collecting systems along with mild circumferential mucosal thickening of the urinary bladder, which raises the concern for cystitis with ascending urinarytract infection. Clinical correlation with urinary analysis is recommended as clinically indicated. Multiple bilateral nonobstructing renal calculi. Large hiatal hernia containing portions of the stomach, pancreas, andsplenic vasculature. Mild fullness of the pelvic soft tissues with mild inferior descent ofthe urinary bladder, vagina, and rectum, which is concerning for pelvic floor laxity/dysfunction. THIS IS AN ELECTRONICALLY VERIFIED FINAL REPORT 04/14/2024 5:42 PM - Electronically signed by Rene Galvan D.O. PS: PS Report ID: [id number] Reading Location: [id number] us Tarik Isbell MD IMG CT PROCEDURES Final Res ult * (ABNORMAL) Urinalysis reflex to microscopic and culture Urine, clean voided (04/14/2024 4:41 PM [employer]) Color, ur Yellow Yellow Clarity, ur Turbid(A) Clear [facility] ([place]) Specific gravity, ur 1.024 1.003 - 1.030 [facility] ([place]) pH, urine 5.0 [facility] ([place]) Comment: Interpretive Data ? Urine pH is affected by diet, medications, systemic acid-base disturbances, and renal tubular function. ??pH may affect urinary stone formation. ??For example, urine pH below 6.0 may help reduce the tendency for calcium phosphate stones and pH greater than 6.0 may reduce the tendency for uric acid stone formation. Source: [employer] Current Interpretive Data was last revised on 2017 Protein, ur ql 1+(A) Negative [facility] ([place]) Glucose, ur ql Negative Negative [facility] ([place]) Ketones, ur Negative Negative [facility] ([place]) Bilirubin, ur Negative Negative [facility] ([place]) Blood, ur 3+(A) Negative [facility] ([place]) Urobilinogen, ur <2.0 <2.0 mg/dL [facility] ([place]) Nitrite, ur Negative Negative [facility] ([place]) Leukocyte esterase, ur 4+(A) Negative [facility] ([place]) UA reflex comment Reflex to microscopic UA will be performed. [facility] ([place]) Urine, clean voided 04/14/2024 4:41 PM [employer] 04/14/2024 4:43 PM [employer] us Tarik Isbell MD LAB MICROBIOLOGY - GENERAL ORDERABLES Final Result [facility] ([place]) 1 [facility] [place] [address] * (ABNORMAL) Urinalysis, microscopic only (04/14/2024 4:41 PM [employer]) WBC, ur >50(A) 0 - 5 /HPF RBC, ur >50(A) 0 - 2 /HPF [facility] ([place]) Epithelial cells, squamous, ur 1-5 0 - 5 /HPF [facility] ([place]) Mucous, ur Present(A) [facility] ([place]) Hyaline casts, ur 11-20(A) 0 - 10 /LPF [facility] ([place]) Culture Reflex Comment Reflex to urine culture will be performed. [facility] ([place]) Urine, clean voided 04/14/2024 4:41 PM [employer] 04/14/2024 4:43 PM [employer] us Tarik Isbell MD LAB URINE ORDERABLES Final Result Performing Organization Address [facility] Co de Phone Number [facility] ([place]) 1 [facility] [place] [address] * Urine culture Urine, clean voided (04/14/2024 4:41 PM [employer]) Report Final Report: Less than 100,000 colonies/mL (clinically insignificant growth based on current clinical standards) Comment:Testing performed by : [facility], [address] [facility] [place]., [address] Organism (CLINICALLY INSIGNIFICANT GROWTH [facility] ([place]) Urine, clean voided 04/14/2024 4:41 PM [employer] 04/14/2024 8:07 PM [employer] Narrative [facility] ([place]) - 04/15/2024 9:31 PM [employer] Urine culture reflexed based upon urinalysis results. Testing performed by [facility] Micro[facility] ([phone]) Tarik Isbell MD LAB MICROBIOLOGY - GENERAL ORDERABLES Final Result Performing Organization Address [facility] de Phone Number [facility] ([place]) 1 [facility] [place] [address] * Troponin T high-sensitivity 2-hour (04/14/2024 3:16 PM [employer]) Trop T hs 10 <=14 ng/L Comment: Interpretive Data For further hscTnT resources including the diagnostic algorithm and an aid in interpretation, copy and paste this link: https://nrl.testcatalog.org/show/hsTrop Current Interpretive Data last revised 2020. Trop T hs delta 1 ng/L [facility] ([place]) Trop T hs interp Insignificant [facility] ([place]) Blood 04/14/2024 3:16 PM [employer] 04/14/2024 3:19 PM [employer] Tarik Isbell MD LAB BLOOD ORDERABLES Final Result Performing Organization Address [facility] de Phone Number [facility] ([place]) 1 [facility] [place] [address] * ABO / Rh Confirmation Testing (04/14/2024 3:16 PM [employer]) ABO/Rh Confirmation A Positive [facility] Blood 04/14/2024 3:16 PM [employer] 04/14/2024 3:19 PM [employer] Tarik Isbell MD LAB BLOOD ORDERABLES Final Result Performing Organization Address [facility] de Phone Number [facility] ([place]) 1 [facility] [place] [address] [facility] * XR Chest PA Lateral 2 Views (04/14/2024 2:18 PM [employer]) Anatomical Region Laterality Modality Body, Chest N/A Computed Radiogr aphy 04/14/2024 2:21 PM [employer] Narrative 04/14/2024 2:23 PM [employer] EXAM DESCRIPTION: XR CHEST PA LATERAL 2 VIEWS REASON FOR STUDY: GI Bleed ?Pt to ED for c/o blood in her stool x 3 days. Pt reports today a blood clot just came out . ? TECHNIQUE: Frontal and lateral ??radiographic view(s) of the chest. COMPARISON: 05/20/2023 FINDINGS: There is cardiomegaly. ??There is large hiatal hernia. ??Left-sided cardiac device is noted. ??The pulmonary vasculature and mediastinum are grossly stable. ??There is no definite evidence of a pneumothorax. ??There is no definite evidence of a focal consolidation or pleural effusion. The osseous structures are acutely grossly stable. IMPRESSION: Cardiomegaly without definite evidence of acute cardiopulmonary process. Large hiatal hernia. THIS IS AN ELECTRONICALLY VERIFIED FINAL REPORT 04/14/2024 2:23 PM - Electronically signed by ??Rene Galvan D.O. PS: PS D: ??04/14/2024 2:23 PM T: ??04/14/2024 2:23 PM Report ID: [id number] Reading Location: ??[id number] Procedure Note Rene Galvan, DO - 04/14/2024 EXAM DESCRIPTION: XR CHEST PA LATERAL 2 VIEWS REASON FOR STUDY: GI Bleed Pt to ED for c/o blood in her stool x 3 days. Pt reports today a bloodclot just came out . TECHNIQUE: Frontal and lateral radiographic view(s) of the chest. COMPARISON: 05/20/2023 FINDINGS: There is cardiomegaly. There is large hiatal hernia. Left-sided cardiac device is noted. The pulmonary vasculature and mediastinum are grossly stable. There is no definite evidence of a pneumothorax. There is no definite evidence of a focal consolidation or pleural effusion. The osseous structures are acutely grossly stable. IMPRESSION: Cardiomegaly without definite evidence of acute cardiopulmonaryprocess. Large hiatal hernia. THIS IS AN ELECTRONICALLY VERIFIED FINAL REPORT 04/14/2024 2:23 PM - Electronically signed by Rene Galvan D.O. PS: PS Report ID: [id number] Reading Location: [id number] Tarik Isbell MD IMG XR PROCEDURES Final Res ult * ECG 12 lead (04/14/2024 1:55 PM [employer]) 04/14/2024 1:55 PM [employer] Narrative [facility] - 04/15/2024 7:12 AM [employer] Vent Rate: 74 bpm RR Interval: 802 msec ME Interval: 210 msec QRS Duration: 150 msec QT Interval: 406 msec QTC Interval: 434 msec P-R-T [place]: 22 - -39 - -23 degrees IMPRESSION: SINUS RHYTHM WITH FIRST DEGREE AV BLOCK INDETERMINATE AXIS RIGHT BUNDLE BRANCH BLOCK ??[120+ ms QRS DURATION, UPRIGHT V1, 40+ ms S IN I/aVL/V4/V5/V6] MODERATE T-WAVE ABNORMALITY, CONSIDER LATERAL ISCHEMIA ??[-0.1+ mV T-WAVE IN I/aVL/V5/V6] Compared to prior EKG, lateral T-wave changes are new. Electronically Signed By: Dr Fransico Alberto Tarik Isbell MD ECG ORDERABLES Final Resul t [facility] * Troponin T high-sensitivity series (baseline, 2hr, 4hr, 6hr) (04/14/2024 1:35 PM [employer]) Pathologist [facility] Trop T hs 9 <=14 ng/L Comment: Interpretive Data For further hscTnT resources including the diagnostic algorithm and an aid in interpretation, copy and paste this link: https://nrl.testcatalog.org/show/hsTrop Current Interpretive Data last revised 2020. Blood 04/14/2024 1:35 PM [employer] 04/14/2024 1:52 PM [employer] Tarik Isbell MD LAB BLOOD ORDERABLES Final Result [facility] ([place]) 1 [facility] [place] [address] * (ABNORMAL) eGFR (04/14/2024 1:35 PM [employer]) Pathologist [facility] eGFR 57(L) >=60 mL/min/1. 73 m2 Comment: Interpretive Data Reference Interval Normal ?>/= 90 mL/min/1.73m2 Mildly decreased* ? 60 - 89 mL/min/1.73m2 Mildly to moderately decreased ?45 - 59 mL/min/1.73m2 Moderately to severely decreased ??30 - 44 mL/min/1.73m2 Severely decreased ?15 - 29 mL/min/1.73m2 Kidney Failure ?< 15 ??mL/min/1.73m2 *Relative to young adult level Estimated glomerular filtration rate is determined by the 2020 CKD-EPI equation recommended by the National Kidney Foundation (A Unifying Approach to GFR Estimation: Recommendations of the NKF-ASK Task Force on Reassessing the Inclusion of Race in Diagnosing Kidney Disease, JASN 2020). The CKD-EPI equation should not be used for patients with unstable renal function and has not been validated in children and those over 70. Current interpretive data was last reviewed 2021. Blood 04/14/2024 1:35 PM [employer] 04/14/2024 1:38 PM [employer] Tarik Isbell MD LAB BLOOD ORDERABLES Final Result [facility] ([place]) 1 [facility] Department [place] [address] * Differential, auto (04/14/2024 1:35 PM [employer]) [facility] Neutrophil abs 5.4 1.5 - 6.5 K/cumm Imm gran abs 0.0 0.0 - 0.1 K/cumm [facility] ([place]) Lymphocyte abs 2.2 0.8 - 3.3 K/cumm [facility] ([place]) Monocyte abs 0.5 0.2 - 0.8 K/cumm [facility] ([place]) Eosinophil abs 0.1 0.0 - 0.5 K/cumm [facility] ([place]) Basophil abs 0.0 0.0 - 0.1 K/cumm [facility] ([place]) Neutrophil pct 64.8 % [facility] ([place]) Comment: Interpretive Data Percent cell count reference ranges are not reported, since discordance with absolute values may lead to misinterpretation of CBC data. Current Interpretive Data was last revised on 2017. Imm gran pct 0.4 % [facility] ([place]) Comment: Interpretive Data Percent cell count reference ranges are not reported, since discordance with absolute values may lead to misinterpretation of CBC data. Current Interpretive Data was last revised on 2017. Lymphocyte pct 26.9 % [facility] ([place]) Comment: Interpretive Data Percent cell count reference ranges are not reported, since discordance with absolute values may lead to misinterpretation of CBC data. Current Interpretive Data was last revised on 2017. Monocyte pct 6.1 % [facility] ([place]) Comment: Interpretive Data Percent cell count reference ranges are not reported, since discordance with absolute values may lead to misinterpretation of CBC data. Current Interpretive Data was last revised on 2017. Eosinophil pct 1.4 % [facility] ([place]) Comment: Interpretive Data Percent cell count reference ranges are not reported, since discordance with absolute values may lead to misinterpretation of CBC data. Current Interpretive Data was last revised on 2017. Basophil pct 0.4 % [facility] ([place]) Comment: Interpretive Data Percent cell count reference ranges are not reported, since discordance with absolute values may lead to misinterpretation of CBC data. Current Interpretive Data was last revised on 2017. Blood 04/14/2024 1:35 PM [employer] 04/14/2024 1:38 PM [employer] us Tarik Isbell MD LAB BLOOD ORDERABLES Final Result [facility] ([place]) 1 [facility] Department [place] [address] * Pro B-type natriuretic peptide (04/14/2024 1:35 PM [employer]) NT-proBNP 255 <=450 pg/mL Comment: Interpretive Comments: A. Dyspnea in Acute Care Setting All Ages: ?< 300 pg/ml, acute heart failure unlikely. < 50 yrs: ?300 - 450 pg/ml, further investigation warranted. ? > 450 pg/ml, acute heart failure likely. 50 - 74 yrs: ? 300 - 900 pg/ml, further investigation warranted. ? > 900 pg/ml, acute heart failure likely . > or = 75 yrs: ? 450 - 1800 pg/ml, further investigation warranted. ? > 1800 pg/ml, acute heart failure likely. B. Non-acute Setting < 75 yrs ? < 125 pg/ml, rules out heart failure. ? > or = 125 pg/ml, further investigation warranted. > or = 75 yrs ?< 450 pg/ml, rules out heart failure. ? > or = 450 pg/ml, further investigation warranted. - Knowledge of each individual patient's NT-proBNP range may be more useful than using similar cut-points for every patient. Please note that marked elevations in NT-proBNP levels may be observed in state other than Left Ventricular Congestive Failure, including: acute coronary syndromes, right heart strain/failure (including pulmonary embolism and cor pulmonale), critical illness, renal failure, as well as advanced age. - References: 1. Phil QUIROZ et.al. Eur Heart J. 2006:27:330-337. 2. Rose Marie OSWALD, Albna YANEZ. J. AM Julissa Cardiol: Cardiovasc Imag. 2009;2: 216- 225. Interpretive Data Last Revised Date: 2017. Blood 04/14/2024 1:35 PM [employer] 04/14/2024 1:52 PM [employer] us Tarik Isbell MD LAB BLOOD ORDERABLES Final Result [facility] ([place]) 1 [facility] Department [place] [address] * (ABNORMAL) CBC with auto differential (04/14/2024 1:35 PM [employer]) Pathologist [facility] WBC 8.3 3.8 - 9.9 K/cumm Hgb 14.5 11.9 - 15.5 g/dL [facility] ([place]) Hct 43.9 35.6 - 45.5 % [facility] ([place]) Plt 179 150 - 400 K/cumm [facility] ([place]) MPV 9.4 9.1 - 12.3 fL [facility] ([place]) RBC 4.31 3.90 - 5.20 M/cumm [facility] ([place]) MCV 101.9(H) 81.3 - 96.4 fL [facility] ([place]) MCH 33.6(H) 27.1 - 33.3 pg [facility] ([place]) MCHC 33.0 32.3 - 35.7 g/dL [facility] ([place]) RDW CV 13.7 11.1 - 14.9 % [facility] ([place]) RDW SD 52.2(H) 35.7 - 48.1 fL [facility] ([place]) NRBC abs 0.00 0.00 - 0.01 K/cumm [facility] ([place]) Blood 04/14/2024 1:35 PM [employer] 04/14/2024 1:38 PM [employer] us Tarik Isbell MD LAB BLOOD ORDERABLES Final Result [facility] ([place]) 1 [facility] Department [place] [address] * ABO/Rh (04/14/2024 1:35 PM [employer]) ABO/Rh A Positive Blood 04/14/2024 1:35 PM [employer] 04/14/2024 1:38 PM [employer] Narrative [facility] ([place]) - 04/14/2024 2:31 PM [employer] Has the patient had Daratumumab or Isatuximab in the past 6 months?->Unknown Tarik Isbell MD LAB BLOOD BANK TEST ORDERAB LES Final Result [facility] ([place]) 1 [facility] [place] [address] * Antibody screen (04/14/2024 1:35 PM [employer]) Pathologist [facility] Imer, indirect, Gel Interpretation Negative ABSC Blood 04/14/2024 1:35 PM [employer] 04/14/2024 1:38 PM [employer] Narrative [facility] ([place]) - 04/14/2024 2:32 PM [employer] Has the patient had Daratumumab or Isatuximab in the past 6 months?->Unknown Tarik Isbell MD LAB BLOOD BANK TEST ORDERAB LES Final Result Performing Organization Address [facility] Co de Phone Number [facility] ([place]) [address] [place] [address] [place] [address] * Creatine kinase (CK), total (04/14/2024 1:35 PM [employer]) CK 58 30 - 200 Units/L Blood 04/14/2024 1:35 PM [employer] 04/14/2024 1:52 PM [employer] Tarik Isbell MD LAB BLOOD ORDERABLES Final Result [facility] ([place] [facility] [place] [address] * Comprehensive metabolic panel (04/14/2024 1:35 PM [employer]) Sodium 141 135 - 145 mmol/L Potassium, pl 4.2 3.3 - 4.9 mmol/L [facility] ([place]) Chloride 109 97 - 110 mmol/L [facility]) CO2 22 22 - 32 mmol/L [facility] ([place]) Anion gap 11 2 - 15 mmol/L [facility] ([place]) BUN 21 6 - 25 mg/dL [facility]) Creatinine 0.97 0.60 - 1.10 mg/dL [facility] ([place]) Glucose 114 70 - 199 mg/dL [facility] ([place]) Comment: Interpretive Data Fasting glucose >/= 126 mg/dl is diagnostic for diabetes. ?? Fasting is defined as no caloric intake for at least 8 hours. Fasting glucose between 100 mg/dl to 125 mg/dl is diagnostic of prediabetes. In a patient with classic symptoms of hyperglycemia or hyperglycemic crisis, a random glucose >/= 200 mg/dl is diagnostic for diabetes. In the absence of unequivocal hyperglycemia, results should be confirmed by repeat testing. The classification and Diagnosis of Diabetes Diabetes Care 2021; 46: S19-S40. Current interpretive data was last revised 2022. Calcium 9.3 8.5 - 10.3 mg/dL [facility] ([place]) Bilirubin, total 0.4 0.1 - 1.2 mg/dL [facility] ([place]) Protein, pl 6.9 6.5 - 8.5 g/dL [facility] ([place]) Albumin 3.9 3.5 - 5.0 g/dL [facility] ([place]) Alk phos 92 40 - 130 Units/L [facility]) ALT 12 7 - 45 Units/L [facility]) AST 16 10 - 45 Units/L [facility] ([place]) Comment:Slightly Hemolyzed S pecimen Blood 04/14/2024 1:35 PM [employer] 04/14/2024 1:38 PM [employer] us Tarik Isbell MD LAB BLOOD ORDERABLES Final Result [facility]) [facility] Department [place] [address] from Last 3 Months Insurance [id number] [facility] [place] [address] [facility] Advance Directives For more information, please contact: [phone] * LIMITED - No CPR (Latest Code Status on File) Date Activated Date Inactivated Comments 04/15/2024 1:38 AM 04/16/2024 5:38 PM Question Answer Comments Provide aggressive medical m anagement before a full cardiopulmonary arrest occurs. Use antibiotics, IV Fluids, and medical treatment unless specifically selected below: No intubation * LIMITED - No CPR Date Activated Date Inactivated Comments 05/18/2023 3:24 PM 05/20/2023 4:03 PM * Full Code Date Activated Date Inactivated Comments 05/17/2023 1:17 PM 05/18/2023 3:24 PM * Full Code Date Activated Date Inactivated Comments 01/03/2023 3:48 PM 01/04/2023 8:54 PM * Full Code Date Activated Date Inactivated Comments 10/06/2017 3:58 PM 10/08/2017 1:14 PM Care Teams Associate Scientist Relationship Specialty Start Date End Date Tru Flood MD PCP - General 12/26/16 Karina Jenkins, [facility] Inbound Customer Service Representative Physical Therapy 09/26/17
--- OUTSIDE RECORDS SUMMARY | 2024-05-13 05:58 | XMS_ITS | Clinical Summary ---
Author Organization [facility] Building B Address [address] [place] [address] Care Team Providers Care Application Engineer Name Role Phone Tru Flood MD Primary Care Provider Karina Jenkins PTA Unavailable Unavailable Allergies Active Allergy Reactions Criticality Noted Date [...] 05/18/2023 Coronary artery disease 05/18/2023 Atrial fibrillation ([facility]/HCC) 05/18/2023 Pacemaker failure 05/18/2023 Pacemaker 05/18/2023 UTI (urinary tract infection) 05/18/2023 Dizziness 05/17/2023 Assessment & Plan (05/18/2023 3:36 PM CLAIMS REPRESENTATIVE): SOUNDS LIKE VERTIGO. 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 Status post RA lead repositioning on 19 May 2023. Assessment & Plan (05/26/2023 12:21 PM CLAIMS REPRESENTATIVE): Patient is feeling fine. We discussed good numbers noted on today's remote device check --stable sensing and threshold numbers with 24% RA pacing and 27% RV pacing.. Usual pacemaker precautions given. She may drive a car now. Since she is having some hematuria, I asked her to stop the Eliquis and call her urologist for advice. SSS (sick sinus syndrome) ([facility]) 04/30/2023 Coronary artery disease 01/04/2023 Overview (01/04/2023): LAD stent 2012 Elevated cholesterol 01/04/2023 Hypertension 01/04/2023 Morbid obesity [...] (09/18/2017): Added automatically from request for surgery [id number] Peripheral neuropathy Encounters Date Type Department Care Team Description 05/12/2024 2:45 PM CLAIMS REPRESENTATIVE Ancillary Procedure Gillette Fisher Mussel [address] [place] [phone] Cardiac pacemaker in situ; Heart block AV second degree; Sick sinus syndrome (CMS/HCC) (HCC) 05/11/2024 3:00 PM CLAIMS REPRESENTATIVE Office Visit [facility] Gastroenterology at [address] [place] [address] Palak Ghotra PA Diverticulitis (Primary Dx); Anemia, unspecified type; B12 deficiency; Hiatal hernia 04/23/2024 Telephone [facility] Gastroenterology at [address] [place] [address] Lucila Hoyt MA 04/19/2024 [facility] Post Discharge Follow up phone call [facility] Surgery Care [address] [place] [address] Sonia Carballo 04/16/2024 Telephone [facility] Gastroenterology at [address] [place] [address] Wendy Dockery 04/16/2024 Orders Only [facility] Gastroenterology at [address] [place] [address] Palak Ghotra PA Anemia, unspecified type (Primary Dx) 04/15/2024 3:30 PM CLAIMS REPRESENTATIVE - 04/15/2024 5:00 PM CLAIMS REPRESENTATIVE Surgery [facility] Operating Room [address] [place] [address] Alisson Duran MD CYSTOSCOPY WITH BILATERAL RETROGRADE PYELOGRAMS AND BILATERAL URETERAL STENT PLACEMENT 04/15/2024 3:24 PM CLAIMS REPRESENTATIVE Anesthesia Event [facility] Operating Room [address] [place] [address] Alisson Duran MD Reynolds, Ethan Emerson, MD 04/14/2024 1:14 PM CLAIMS REPRESENTATIVE - 04/16/2024 1:38 PM CLAIMS REPRESENTATIVE Emergency [facility] Surgery Care [address] [place] [address] Tarik Isbell MD Willey, Charles J., MD Gastrointestinal hemorrhage associated with anorectal source (Primary Dx); Right renal stone; UTI (urinary tract infection) with pyuria; Diverticulitis large intestine w/o perforation or abscess w/bleeding; Acute lower GI bleeding; Hematochezia; Diverticulitis; Gastrointestinal hemorrhage associated with intestinal diverticulitis Discharge Disposition: Discharge to home or self care 02/11/2024 9:45 AM CDT Ancillary Procedure Gillette Fisher Mussel [address] [place] [phone] Heart block AV second degree; Cardiac pacemaker in situ from Last 3 Months Immunizations Name Administration Dates Next Due Influenza, Unspecified 01/19/2023 Surgical History Surgery Date Site/Laterality Comments HERNIA REPAIR HIATAL HERNIA REPAIR EXPLORATORY LAPAROTOMY CHOLECYSTECTOMY APPENDECTOMY HYSTEROTOMY CARDIAC STENT PLACEMENT HYSTERECTOMY 04/21/1979 - 04/20/1980 Medical History Medical History Date Comments Hiatal hernia Hypertension Peripheral neuropathy Kidney stone Coronary artery disease LAD sten t 2012 Arthritis Elevated cholesterol Obstructive sleep apnea (adult) (pediatric) by home sleep study 2014 with 14% of sleep with O2 Sat < 90% Morbid obesity (HCC) History, Sh e lost weight Pulmonary hypertension (HCC) RVS P 40 Echo [facility] 03/2021 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 05/18/2023 Pacemaker During sleeping, heart rate will go down to 20s in what appeared to be 2:1 AV block. a dual-chamber pacemaker Family History Medical History Relation Name Comments Arthritis Other Diabetes Other Gout Other Heart disease Other Hypertension Other Stroke Other Breast cancer Neg Hx Ovarian cancer Neg Hx Thyroid cancer Neg Hx Relation Name Status Comments Other Social History Tobacco Use Types Packs/Day Years Used Date Smoking Tobacco: Never Smokeless Tobacco: Never Tobacco Cessation:Counseling Given: Not Answered Alcohol Use Standard Drinks/Week Comments No 0 (1 standard drink = 0.6 oz pur e alcohol) [facility] Utilities Answer Date Recorded In the past 12 months has th e electric, gas, oil, or water company threatened to shut off services in your [...] often do you attend chur ch or yarsani services? More than 4 times per year 05/19/2023 Do you belong to any clubs o r organizations such as taoism groups, unions, fraternal or athletic groups, or [...] place to sleep or slept in a fdc (including now)? No 05/19/2023 Personal Safety Answer [...] on file Legal Sex Female 2:50 AM CLAIMS REPRESENTATIVE Gender Identity Not on file Sexual Orientation Not on file Obstetrics History Para Term AB IAB SAB Ectopic Multiple Livin g Live Births 8 6 6 Date Outcome GA Total Labor Labor/2nd/3rd Weight Sex Type Anes PTL Zeina A1 A5 Name Clin Term Term Term Term Term Term Last Filed Vital Signs Vital Sign Reading Time Taken Comments Blood Pressure 162/84 05/11/2024 2:54 PM CLAIMS REPRESENTATIVE Pulse 80 05/11/2024 2:54 PM CLAIMS REPRESENTATIVE Temperature 36.1 ??C (97 ??F) 04/16/2024 11:29 AM CLAIMS REPRESENTATIVE Respiratory Rate 18 04/16/2024 11:29 AM CLAIMS REPRESENTATIVE Oxygen Saturation 99% 05/11/2024 2:54 PM CLAIMS REPRESENTATIVE Inhaled Oxygen Concentration - - Weight 84.9 kg (187 lb 3.2 oz) 05/11/2024 2:54 P M CLAIMS REPRESENTATIVE Height 167.6 cm (5' 6 ) 04/15/2024 1:36 AM CLAIMS REPRESENTATIVE Body Mass Index 30.21 04/15/2024 1:36 AM CLAIMS REPRESENTATIVE Plan of Treatment Upcoming Encounters Date Type Department Care Team (Late st Contact Info) Description 05/31/2024 1:00 PM CLAIMS REPRESENTATIVE Hospital Encounter [facility] [address] [place] [address] Francisco Brooks MD [address] [facility] [address] [place] [address] 05/31/2024 1:00 PM CLAIMS REPRESENTATIVE - 05/31/2024 1:30 PM CLAIMS REPRESENTATIVE Surgery [facility] Digestive [address] [address] Francisco Brooks MD [address] [facility] [address] [place] [address] COLONOSCOPY Scheduled Procedures Name Priority Associated Diagnoses Date/Ti me COLONOSCOPY Diverticulitis Hematochezia LLQ pain Anemia, unspecified type 05/31/2024 1:00 PM CLAIMS REPRESENTATIVE Health Maintenance Due Date Last Done Comments Depression Screening 1936 DTaP/Tdap/Td Vaccine (1 - Tdap) 09/21/1947 Hepatitis B Screening 1954 Zoster Vaccine (1 of 2) 1986 Pneumococcal vaccine 65+ (1 of 1 - PCV) 2001 Well Visit 65+ 2001 Influenza Vaccine (#1) 2023 01/19/2023, 2010 Fall Risk Assessment 04/16/2025 04/16/2024, 04/14/20 24 Medical Devices Implanted Type Area Web Marketing Intern Device Identifier Shelf Expiration Date Model / Serial / Lot Biotronik Inc Endocardial Pacing Lead Promri Solia T [id number] - [id number] - [id number] Implanted:Qty: 1 on 05/14/2023 by Fransico Alberto MD at [facility] Lead Biotronik Inc 03/20/2024 [id number] / [id number] / Biotronik Inc Endocardial Pacing Lead Promri Solia Jt [id number] - [id number] - [id number] Implanted:Qty: 1 on 05/14/2023 by Fransico Alberto MD at [facility] Lead Biotronik Inc [id number] / [id number] / Biotronik Inc Solia S 45cm Bipolar Active Fixation Lead Pacing Steroid Eluting [id number] - [id number] - [id number] Implanted:Qty: 1 on 05/19/2023 by Fransico Alberto MD at [facility] Lead Biotronik Inc 05/21/2025 [id number] / [id number] / Medtronic Inc Tyrx Absorbable Antibacterial Envelope-Large 3.3x2.9in [id number] - Sna - [id number] Implanted:Qty: 1 on 05/19/2023 by Fransico Alberto MD at [facility] Mesh Medtronic Inc 02/08/2024 [id number] / [id number] / [id number] Biotronik Inc Edora Promri 66o69i4.5mm Dual Chamber Rate Adaptive Unipolar Bipolar [id number] - [id number] - [id number] Implanted:Qty: 1 on 05/14/2023 by Fransico Alberto MD at [facility] Pacemaker Biotronik Inc 09/18/2024 [id number] / [id number] / Depuy Orthopaedics Inc [id number] Smartset High Viscosity Cement 40gm Bone Gentamicin - [id number] Implanted:Qty: 1 on 10/06/2017 by Neptali Negrete MD at [facility] Left: Knee Depuy Orthopaedics Inc 01/18/2019 [id number] / / [id number] Depuy Orthopaedics Inc [id number] Smartset High Viscosity Cement 40gm Bone Gentamicin - [id number] Implanted:Qty: 1 on 10/06/2017 by Neptali Negrete MD at [facility] Left: Knee Depuy Orthopaedics Inc 01/18/2019 [id number] / / [id number] Depuy Orthopaedics Inc [id number] Attune 38mm Cemented Medialize Knee Dome Patellar Aox Sterile - [id number] Implanted:Qty: 1 on 10/06/2017 by Neptali Negrete MD at [facility] Left: Knee Depuy Orthopaedics Inc 05/21/2022 [id number] / / [id number] Depuy Orthopaedics Inc [id number] Attune S+ Cement Fix Bearing Knee 5 Baseplate Tibial - [id number] Implanted:Qty: 1 on 10/06/2017 by Neptali Negrete MD at [facility] Left: Knee Depuy Orthopaedics Inc 04/20/2027 [id number] / / [id number] Depuy Orthopaedics Inc [id number] Attune Cemented Posterior Stabilize Knee Left 6 Narrow Component - [id number] Implanted:Qty: 1 on 10/06/2017 by Neptali Negrete MD at [facility] Left: Knee Depuy Orthopaedics Inc 08/19/2027 [id number] / / [id number] Depuy Orthopaedics Inc [id number] Attune 8mm Posterior Stabilize Fix Bearing Knee 6 Insert Tibial - [id number] Implanted:Qty: 1 on 10/06/2017 by Neptali Negrete MD at [facility] Left: Knee Depuy Orthopaedics Inc 06/18/2022 [id number] / / [id number] Medtronic Inc Tyrx Absorbable Antibacterial Envelope-Large 3.3x2.9in [id number] - [id number] Implanted:Qty: 1 on 05/14/2023 by Fransico Alberto MD at [facility] Medtronic Inc 12/25/2023 [id number] / / [id number] [employer] Solitario Contour 6fr 26cm Large Inner Lumen Low Profile Bladder Lauri Taper Latex Free 180-223 - [id number] Implanted:Qty: 1 on 04/15/2024 by Alisson Duran MD at [facility] Right: Ureter [employer] Solitario 12/31/2026 [id number] / / [id number] [employer] Solitario Contour 6fr 26cm Large Inner Lumen Low Profile Bladder Lauri Taper Latex Free 180-223 - [id number] Implanted:Qty: 1 on 04/15/2024 by Alisson Duran MD at [facility] Left: Ureter [employer] Solitario 11/26/2026 [id number] / / [id number] Procedures Procedure Name Priority Date/Time Associated Diagnosis Comments EGFR Routine 04/16/2024 4:49 AM CLAIMS REPRESENTATIVE DIFFERENTIAL AUTO Routine 04/16/2024 4:4 9 AM CLAIMS REPRESENTATIVE RENAL FUNCTION PANEL Routine 04/16/2024 4:49 AM CLAIMS REPRESENTATIVE CBC WITH AUTO DIFFERENTIAL Routine 04/16/2024 4:49 AM CLAIMS REPRESENTATIVE DIFFERENTIAL AUTO Routine 04/15/2024 8:3 9 PM CLAIMS REPRESENTATIVE CBC WITH AUTO DIFFERENTIAL Routine 04/15/2024 8:39 PM CLAIMS REPRESENTATIVE EGFR STAT 04/15/2024 7:57 PM CLAIMS REPRESENTATIVE DIFFERENTIAL AUTO STAT 04/15/2024 7:5 7 PM CLAIMS REPRESENTATIVE BASIC METABOLIC PANEL STAT 04/15/2024 7:57 PM CLAIMS REPRESENTATIVE CBC WITH AUTO DIFFERENTIAL STAT 04/15/2024 7:57 PM CLAIMS REPRESENTATIVE FL RETRO PYELO (IN OR) IP Routine 04/15/2024 4:06 PM CLAIMS REPRESENTATIVE URINE CULTURE STAT 04/15/2024 3:41 PM CLAIMS REPRESENTATIVE [place] AN ELECTIVE SUPRAGLOTTIC AIRWAY Routine 04/15/2024 3:34 PM CLAIMS REPRESENTATIVE CYSTOSCOPY PLACEMENT URETERAL STENT 04/15/2024 3:24 PM CLAIMS REPRESENTATIVE RIGHT URETERAL STONE FOLATE Add-On 04/15/2024 11:43 AM CLAIMS REPRESENTATIVE VITAMIN B12 Add-On 04/15/2024 11:43 AM CLAIMS REPRESENTATIVE EGFR Routine 04/15/2024 6:33 AM CLAIMS REPRESENTATIVE DIFFERENTIAL AUTO Routine 04/15/2024 6:3 3 AM CLAIMS REPRESENTATIVE RENAL FUNCTION PANEL Routine 04/15/2024 6:33 AM CLAIMS REPRESENTATIVE CBC WITH AUTO DIFFERENTIAL Routine 04/15/2024 6:33 AM CLAIMS REPRESENTATIVE COVID-19 CORONAVIRUS RNA Routine 04/14/2024 11:19 PM CLAIMS REPRESENTATIVE HEMOGLOBIN AND HEMATOCRIT STAT 04/14/2024 9:41 PM CLAIMS REPRESENTATIVE TROPONIN T HIGH-SENSITIVITY 6-HOUR Timed 04/14/2024 7:39 PM CLAIMS REPRESENTATIVE TROPONIN T HIGH-SENSITIVITY 4-HR Timed 04/14/2024 6:[address] ABDOMEN PELVIS W CONTRAST ED 04/14/2024 5:28 PM CLAIMS REPRESENTATIVE URINALYSIS, MICROSCOPIC ONLY Routine 04/14/2024 4:41 PM CLAIMS REPRESENTATIVE URINE CULTURE Routine 04/14/2024 4:41 PM CLAIMS REPRESENTATIVE URINALYSIS AND REFLEX TO MICROSCOPIC AND CULTURE Routine 04/14/2024 4:41 PM CLAIMS REPRESENTATIVE B ABO / RH CONFIRMATION TESTING STAT 04/14/2024 3:16 PM CLAIMS REPRESENTATIVE TROPONIN T HIGH-SENSITIVITY 2-HOUR Timed 04/14/2024 3:16 PM CLAIMS REPRESENTATIVE XR CHEST PA LATERAL 2 VIEWS ED 04/14/2024 2:18 PM CLAIMS REPRESENTATIVE ECG 12-LEAD Routine 04/14/2024 1:55 PM CLAIMS REPRESENTATIVE EGFR STAT 04/14/2024 1:35 PM CLAIMS REPRESENTATIVE CREATINE KINASE (CK), TOTAL STAT 04/14/2024 1:35 PM CLAIMS REPRESENTATIVE TROPONIN T HIGH-SENSITIVITY SERIES (BASELINE, 2HR, 4HR, 6HR) STAT 04/14/2024 1:35 PM CLAIMS REPRESENTATIVE PRO B-TYPE NATRIURETIC PEPTIDE STAT 04/14/2024 1:35 PM CLAIMS REPRESENTATIVE DIFFERENTIAL AUTO STAT 04/14/2024 1:3 5 PM CLAIMS REPRESENTATIVE ANTIBODY SCREEN STAT 04/14/2024 1:35 PM CLAIMS REPRESENTATIVE ABO/RH STAT 04/14/2024 1:35 PM CLAIMS REPRESENTATIVE TYPE AND SCREEN STAT 04/14/2024 1:35 PM CLAIMS REPRESENTATIVE COMPREHENSIVE METABOLIC PANEL STAT 04/14/2024 1:35 PM CLAIMS REPRESENTATIVE CBC WITH AUTO DIFFERENTIAL STAT 04/14/2024 1:35 PM CLAIMS REPRESENTATIVE from Last 3 Months Results * eGFR (04/16/2024 4:49 AM CLAIMS REPRESENTATIVE) eGFR 75 >=60 mL/min/1. 73 m2 Comment: [...] last reviewed 2021. Blood 04/16/2024 4:49 AM CLAIMS REPRESENTATIVE 04/16/2024 5:12 AM CLAIMS REPRESENTATIVE us Tarik Isbell MD LAB BLOOD ORDERABLES Final Result [facility] [place] [facility] Department of Laboratories [place], [place] [id number] * Differential, auto (04/16/2024 4:49 AM CLAIMS REPRESENTATIVE) Neutrophil abs 5.5 1.5 - 6.5 K/cumm Imm gran abs 0.0 0.0 - 0.1 K/cumm [facility] ([place]) Lymphocyte abs 1.1 0.8 - 3.3 K/cumm [facility] [place] Monocyte abs 0.4 0.2 - 0.8 K/cumm [facility] ([place] [...] revised on 2017. Blood 04/16/2024 4:49 AM CLAIMS REPRESENTATIVE 04/16/2024 5:12 AM CLAIMS REPRESENTATIVE us Tarik Isbell MD LAB BLOOD ORDERABLES Final Result [facility] ([place] 1 [facility] [place] [address] * (ABNORMAL) CBC with auto differential (04/16/2024 4:49 AM CLAIMS REPRESENTATIVE) Pathologist [facility] WBC 6.9 3.8 - 9.9 K/cumm Hgb [...] [facility] ([place]) Blood 04/16/2024 4:49 AM CLAIMS REPRESENTATIVE 04/16/2024 5:12 AM CLAIMS REPRESENTATIVE us Tarik Isbell MD LAB BLOOD ORDERABLES Final Result Performing Organization Address City/[facility]/ZIP Co de Phone Number [facility] ([place]) 1 [facility] [place] [address] * (ABNORMAL) Renal function panel (04/16/2024 4:49 AM CLAIMS REPRESENTATIVE) Sodium 141 135 - 145 mmol/L Potassium, [...] Phosphorus, pl 3.0 2.3 - 4.5 mg/dL [facility] Albumin 3.1(L) 3.5 - 5.0 g/dL [facility] Blood 04/16/2024 4:49 AM CLAIMS REPRESENTATIVE 04/16/2024 5:12 AM CLAIMS REPRESENTATIVE us Tarik Isbell MD LAB BLOOD ORDERABLES Final Result [facility] ([place] 1 [facility] [place] [address] * (ABNORMAL) Differential, auto (04/15/2024 8:39 PM CLAIMS REPRESENTATIVE) Neutrophil abs 6.1 1.5 - 6.5 K/cumm [...] Neutrophil pct 86.4 % [facility] ([place]) Comment: Interpretive Data Percent cell count reference ranges are not reported, since discordance with absolute values may lead to misinterpretation of CBC data. Current Interpretive Data was last revised on 2017. Imm gran pct 0.7 % [facility] ([place]) Comment: [...] 2017. Monocyte pct 1.1 % [facility] ([place]) Comment: Interpretive Data [...] revised on 2017. Blood 04/15/2024 8:39 PM CLAIMS REPRESENTATIVE 04/15/2024 8:49 PM CLAIMS REPRESENTATIVE us Tru Flood MD LAB BLOOD ORDERABLES Final Result [facility] ([place] 1 [facility] [place] [address] * (ABNORMAL) CBC with auto differential (04/15/2024 8:39 PM CLAIMS REPRESENTATIVE) WBC 7.1 3.8 - 9.9 K/cumm Hgb [...] [facility] ([place]) Blood 04/15/2024 8:39 PM CLAIMS REPRESENTATIVE 04/15/2024 8:49 PM CLAIMS REPRESENTATIVE Tru Flood MD LAB BLOOD ORDERABLES Final Result [facility] ([place] 1 [facility] [place] [address] * eGFR (04/15/2024 7:57 PM CLAIMS REPRESENTATIVE) eGFR 69 >=60 mL/min/1. 73 m2 Comment: [...] last reviewed 2021. Blood 04/15/2024 7:57 PM CLAIMS REPRESENTATIVE 04/15/2024 8:01 PM CLAIMS REPRESENTATIVE us Tru Flood MD LAB BLOOD ORDERABLES Final Result [facility] 1 [facility] [place] [address] * (ABNORMAL) Differential, auto (04/15/2024 7:57 PM CLAIMS REPRESENTATIVE) Neutrophil abs 6.8(H) 1.5 - 6.5 K/cumm [...] revised on 2017. Blood 04/15/2024 7:57 PM CLAIMS REPRESENTATIVE 04/15/2024 8:01 PM CLAIMS REPRESENTATIVE us Tru Flood MD LAB BLOOD ORDERABLES Final Result [facility] ([place] 1 [facility] [place] [address] * (ABNORMAL) CBC with auto differential (04/15/2024 7:57 PM CLAIMS REPRESENTATIVE) WBC 7.8 3.8 - 9.9 K/cumm Hgb [...] 13.7 11.1 - 14.9 % [facility] ([place]) RDW SD 50.6(H) 35.7 - 48.1 fL [facility] ([place]) NRBC abs 0.00 0.00 - 0.01 K/cumm [facility] ([place]) Blood 04/15/2024 7:57 PM CLAIMS REPRESENTATIVE 04/15/2024 8:01 PM CLAIMS REPRESENTATIVE Tru Flood MD LAB BLOOD ORDERABLES Final Result [facility] ([place] 1 [facility] [place] [address] * (ABNORMAL) Basic metabolic panel (04/15/2024 7:57 PM CLAIMS REPRESENTATIVE) Pathologist [facility] Sodium 139 135 - 145 mmol/L Potassium, pl 4.5 3.3 - 4.9 mmol/L [facility] [place] Chloride 108 97 - 110 mmol/L [facility] [place] CO2 20(L) 22 - 32 mmol/L [facility] [place] Anion gap 11 2 - 15 mmol/L [facility] BUN 17 6 - 25 mg/dL [facility] Creatinine 0.82 0.60 - 1.10 mg/dL [facility] ([place]) Glucose 174 70 - 199 mg/dL [facility] Comment: Interpretive Data Fasting glucose >/= 126 [...] 2022. Calcium 9.0 8.5 - 10.3 mg/dL [facility] Blood 04/15/2024 7:57 PM CLAIMS REPRESENTATIVE 04/15/2024 8:01 PM CLAIMS REPRESENTATIVE Tru Flood MD LAB BLOOD ORDERABLES Final Result [facility] 1 [facility] [place] [address] * FL Retro Pyelo (In Or) (04/15/2024 4:06 PM CLAIMS REPRESENTATIVE) Anatomical Region Laterality Modality Body N/A Radio Fluoroscop y 04/15/2024 7:51 PM CLAIMS REPRESENTATIVE Narrative 04/15/2024 7:53 PM CLAIMS REPRESENTATIVE EXAM DESCRIPTION: ?? FL RETRO PYELO (IN [...] PM T: ??04/15/2024 7:53 PM Report ID: [id number] Reading Location: ??[id number] Procedure Note Chris Muro MD - 04/15/2024 [...] Chris Muro M.D. AG: CHAI Report ID: [id number] Reading Location: [id number] Alisson Jensen MD IMG FLUOROSCOPY PROCEDURES Fin al Result * Urine culture Urine, bladder (04/15/2024 3:41 PM CLAIMS REPRESENTATIVE) Report Final Report: No growth Comment:Testing performed by : [facility], [address] [facility] [place] [address] Urine, bladder 04/15/2024 3: 41 PM CLAIMS REPRESENTATIVE 04/15/2024 6:55 PM CLAIMS REPRESENTATIVE Narrative [facility] ([place]) - 04/16/2024 8:38 PM CLAIMS REPRESENTATIVE Indications for Culture:->Urology patient Testing performed by [facility] ([phone]) us Alisson Jensen MD LAB MICROBIOLOGY - GENERAL ORD ERABLES Final Result [facility] ([place]) [address] [place] [address] * [place] AN ELECTIVE SUPRAGLOTTIC AIRWAY (04/15/2024 3:34 PM CLAIMS REPRESENTATIVE) Narrative Beau Varner CRNA - 04/15/2024 3:34 PM CLAIMS REPRESENTATIVE Beau Varner CRNA ? 04/15/2024 ??3:34 PM Airway Patient location: OR Urgency: elective Indications for airway management: anesthesia Difficult airway: no Staff: Placed by: FASHION DIRECTOR [employer] SALES: Beau Varner CRNA Emergent airway documentation: Risks and benefits discussed: yes Consent obtained: yes Consent given by: patient Airway prep: Preoxygenated: yes Patient position: sniffing MILS maintained throughout: yes Mask difficulty assessment: 0 - not attempted Sedation level during airway: GA Final airway details: Final airway type: supraglottic airway Final supraglottic airway: [place] SGA size: 3 Number of attempts: 1 Alisson Jensen MD ANESTHESIA ORDERABLES Final Re sult * Folate (04/15/2024 11:43 AM CLAIMS REPRESENTATIVE) Folic acid 6.2 >=5.0 ng/mL Comment:Slightly Hemolyzed S pecimen. Results may be affected. Blood 04/15/2024 11:4 3 AM CLAIMS REPRESENTATIVE 04/15/2024 12:15 PM CLAIMS REPRESENTATIVE Tru Flood MD LAB BLOOD ORDERABLES Final Result Performing Organization Address City/[facility]/ZIP Co de Phone Number [facility] ([place]) 1 [facility] [place] [address] * (ABNORMAL) Vitamin B12 (04/15/2024 11:43 AM CLAIMS REPRESENTATIVE) Vitamin B12 <150(L) 230 - 1,250 pg/mL Blood 04/15/2024 11:4 3 AM CLAIMS REPRESENTATIVE 04/15/2024 12:15 PM CLAIMS REPRESENTATIVE Tru Flood MD LAB BLOOD ORDERABLES Final Result [facility] [address] [place] [address] * (ABNORMAL) eGFR (04/15/2024 6:33 AM CLAIMS REPRESENTATIVE) [facility] eGFR 57(L) >=60 mL/min/1. 73 m2 Comment: [...] last reviewed 2021. Blood 04/15/2024 6:33 AM CLAIMS REPRESENTATIVE 04/15/2024 7:28 AM CLAIMS REPRESENTATIVE us Tarik Isbell MD LAB BLOOD ORDERABLES Final Result [facility] 1 [facility] [place] [address] * Differential, auto (04/15/2024 6:33 AM CLAIMS REPRESENTATIVE) [facility] Neutrophil abs 3.8 1.5 - 6.5 K/cumm [...] Neutrophil pct 62.4 % [facility] ([place]) Comment: Interpretive [...] revised on 2017. Blood 04/15/2024 6:33 AM CLAIMS REPRESENTATIVE 04/15/2024 7:28 AM CLAIMS REPRESENTATIVE Tarik Isbell MD LAB BLOOD ORDERABLES Final Result [facility] ([place] 1 [facility] [employer] [place] [address] * (ABNORMAL) CBC with auto differential (04/15/2024 6:33 AM CLAIMS REPRESENTATIVE) WBC 6.1 3.8 - 9.9 K/cumm Hgb [...] [facility] ([place]) Blood 04/15/2024 6:33 AM CLAIMS REPRESENTATIVE 04/15/2024 7:28 AM CLAIMS REPRESENTATIVE Tarik Isbell MD LAB BLOOD ORDERABLES Final Result [facility] ([place]) 1 [facility] [place] [address] * (ABNORMAL) Renal function panel (04/15/2024 6:33 AM CLAIMS REPRESENTATIVE) Sodium 138 135 - 145 mmol/L Potassium, [...] ([place]) Glucose 100 70 - 199 mg/dL [facility] ([place] Comment: Interpretive Data Fasting glucose [...] [facility] ([place]) Blood 04/15/2024 6:33 AM CLAIMS REPRESENTATIVE 04/15/2024 7:28 AM CLAIMS REPRESENTATIVE Tarik Isbell MD LAB BLOOD ORDERABLES Final Result [facility] ([place]) 1 [facility] [place] [address] * COVID-19 Coronavirus RNA Nasopharyngeal (04/14/2024 11:19 PM CLAIMS REPRESENTATIVE) COVID-19 RNA Negative Negative Nasopharyngeal 04/14/2024 11 :19 PM CLAIMS REPRESENTATIVE 04/14/2024 11:22 PM CLAIMS REPRESENTATIVE Narrative [facility] ([place]) - 04/14/2024 11:54 PM CLAIMS REPRESENTATIVE Is the patient experiencing any symptoms consistent with COVID (eg. Fever, cough, shortness of breath)?->No What is the reason for testing?->Screening for semi-private room placement ??Interpretive data: Testing performed by [facility]. ??This test is performed using the [employer] Xpert Xpress CoV-2 plus assay. This is a real-time RT-PCR test intended for the qualitative detection of nucleic acid from the SARS-CoV-2. This assay has been cleared by the [place] Food and Drug administration. The performance characteristics have been verified by [facility]. ??Results must be considered in the clinical context, and a negative result does not rule out infection. Interpretive data last revised 2023. ??Interpretive data: Testing performed by [facility]. ??This test is performed using the [employer] Xpert Xpress CoV-2 plus assay. This is a real-time RT-PCR test intended for the qualitative detection of nucleic acid from the SARS-CoV-2. This assay has been cleared by the [facility] Food and Drug administration. The performance characteristics have been verified by [facility]. ??Results must be considered in the clinical context, and a negative result does not rule out infection. Interpretive data last revised 2023. us Marine Jeffrey MD LAB MICROBIOLOGY - GENERAL ORDERABLES Final Result [facility] ([place]) 1 [facility] [place] [address] * Hemoglobin and hematocrit (04/14/2024 9:41 PM CLAIMS REPRESENTATIVE) [facility] Hgb 12.2 11.9 - 15.5 g/dL Hct 36.8 35.6 - 45.5 % [facility] ([place]) Blood 04/14/2024 9:41 PM CLAIMS REPRESENTATIVE 04/14/2024 9:48 PM CLAIMS REPRESENTATIVE us Tarik Isbell MD LAB BLOOD ORDERABLES Final Result [facility] ([place] 1 [facility] [place] [address] * Troponin T high-sensitivity 6-hour (04/14/2024 7:39 PM CLAIMS REPRESENTATIVE) Trop T hs 9 <=14 ng/L Comment: Interpretive Data For further hscTnT resources including the diagnostic algorithm and an aid in interpretation, copy and paste this link: https://nrl.[employer].org/show/hsTrop Current Interpretive Data last revised 2020. Trop T hs delta 0 ng/L [facility] ([place]) Trop T hs interp Insignificant [facility] ([place]) Blood 04/14/2024 7:39 PM CLAIMS REPRESENTATIVE 04/14/2024 7:42 PM CLAIMS REPRESENTATIVE us Tarik Isbell MD LAB BLOOD ORDERABLES Final Result Performing Organization Address City/[facility]/ZIP Co de Phone Number [facility]ON [facility] ([place]) 1 [facility] [place] [address] * Troponin T high-sensitivity 4-hour (04/14/2024 6:24 PM CLAIMS REPRESENTATIVE) Trop T hs 9 <=14 ng/L Comment: Interpretive Data For further hscTnT resources including the diagnostic algorithm and an aid in interpretation, copy and paste this link: https://[employer].org/show/hsTrop Current Interpretive Data last revised 2020. Trop T hs delta 0 ng/L [facility] ([place]) Trop T hs interp Insignificant [facility] ([place]) Blood 04/14/2024 6:24 PM CLAIMS REPRESENTATIVE 04/14/2024 6:37 PM CLAIMS REPRESENTATIVE us Tarik Isbell MD LAB BLOOD ORDERABLES Final Result [facility] ([place]) 1 [facility] [place] [address] * CT Abdomen Pelvis W Contrast (04/14/2024 5:28 PM CLAIMS REPRESENTATIVE) Anatomical Region Laterality Modality Body N/A Computed Tomogra phy 04/14/2024 5:35 PM CLAIMS REPRESENTATIVE Narrative 04/14/2024 5:42 PM CLAIMS REPRESENTATIVE EXAM DESCRIPTION: ?? CT ABDOMEN PELVIS W [...] PM T: ??04/14/2024 5:42 PM Report ID: [id number] Reading Location: ??[id number] Procedure Note Rene Galvan, DO - 04/14/2024 [...] Rene Galvan D.O. PS: PS Report ID: [id number] Reading Location: [id number] us Tarik Isbell MD IMG CT PROCEDURES Final Res ult * (ABNORMAL) Urinalysis reflex to microscopic and culture Urine, clean voided (04/14/2024 4:41 PM CLAIMS REPRESENTATIVE) Color, ur Yellow Yellow Clarity, ur Turbid(A) [...] tendency for uric acid stone formation. Source: [facility] [place] Current Interpretive Data was last revised on [...] ([place]) Urine, clean voided 04/14/2024 4:41 PM CLAIMS REPRESENTATIVE 04/14/2024 4:43 PM CLAIMS REPRESENTATIVE us Tarik Isbell MD LAB MICROBIOLOGY - GENERAL ORDERABLES Final Result [facility] ([place] 1 [facility] [place] [address] * (ABNORMAL) Urinalysis, microscopic only (04/14/2024 4:41 PM CLAIMS REPRESENTATIVE) WBC, ur >50(A) 0 - 5 /HPF RBC, ur >50(A) 0 - 2 /HPF [facility] ([place]) Epithelial cells, squamous, ur 1-5 0 - 5 /HPF [facility] ([place]) Mucous, ur Present(A) RON Rudd ([place]) Hyaline casts, ur 11-20(A) 0 - 10 /LPF [facility] ([place]) Culture Reflex Comment Reflex to urine culture will be performed. [facility] ([place]) Urine, clean voided 04/14/2024 4:41 PM CLAIMS REPRESENTATIVE 04/14/2024 4:43 PM CLAIMS REPRESENTATIVE us Tarik Isbell MD LAB URINE ORDERABLES Final Result Performing Organization Address City/[facility]/ZIP Co de Phone Number [facility] ([place]) 1 [facility] [place] [address] * Urine culture Urine, clean voided (04/14/2024 4:41 PM CLAIMS REPRESENTATIVE) Report Final Report: Less than 100,000 colonies/mL (clinically insignificant growth based on current clinical standards) Comment:Testing performed by : [facility], 1 [facility] [place]., [address] Organism (CLINICALLY INSIGNIFICANT GROWTH [facility] ([place]) Urine, clean voided 04/14/2024 4:41 PM CLAIMS REPRESENTATIVE 04/14/2024 8:07 PM CLAIMS REPRESENTATIVE Narrative [facility] ([place]) - 04/15/2024 9:31 PM CLAIMS REPRESENTATIVE Urine culture reflexed based upon urinalysis results. Testing performed by [facility] ([phone]) us Tarik Isbell MD LAB MICROBIOLOGY - GENERAL ORDERABLES Final Result [facility] ([place]) 1 [facility] [place] [address] * Troponin T high-sensitivity 2-hour (04/14/2024 3:16 PM CLAIMS REPRESENTATIVE) Trop T hs 10 <=14 ng/L Comment: Interpretive Data For further hscTnT resources including the diagnostic algorithm and an aid in interpretation, copy and paste this link: https://nrl.testcatalog.org/show/hsTrop Current Interpretive Data last revised 2020. Trop T hs delta 1 ng/L [facility] ([place]) Trop T hs interp Insignificant [facility] ([place]) Blood 04/14/2024 3:16 PM CLAIMS REPRESENTATIVE 04/14/2024 3:19 PM CLAIMS REPRESENTATIVE Tarik Isbell MD LAB BLOOD ORDERABLES Final Result Performing Organization Address City/[facility]/ZIP Co de Phone Number [facility] ([place]) 1 [facility] [place] [address] * ABO / Rh Confirmation Testing (04/14/2024 3:16 PM CLAIMS REPRESENTATIVE) ABO/Rh Confirmation A Positive [facility] Blood 04/14/2024 3:16 PM CLAIMS REPRESENTATIVE 04/14/2024 3:19 PM CLAIMS REPRESENTATIVE Tarik Isbell MD LAB BLOOD ORDERABLES Final Result Performing Organization Address [facility] Co de Phone Number [facility] ([place]) 1 [facility] [place] [address] [facility] * XR Chest PA Lateral 2 Views (04/14/2024 2:18 PM CLAIMS REPRESENTATIVE) Anatomical Region Laterality Modality Body, Chest N/A Computed Radiogr aphy 04/14/2024 2:21 PM CLAIMS REPRESENTATIVE Narrative 04/14/2024 2:23 PM CLAIMS REPRESENTATIVE EXAM DESCRIPTION: XR CHEST PA LATERAL 2 [...] PM T: ??04/14/2024 2:23 PM Report ID: [id number] Reading Location: ??[id number] Procedure Note Rene Galvan, DO - 04/14/2024 [...] Rene Galvan D.O. PS: PS Report ID: [id number] Reading Location: [id number] us Tarik Isbell MD IMG XR PROCEDURES Final Res ult * ECG 12 lead (04/14/2024 1:55 PM CLAIMS REPRESENTATIVE) 04/14/2024 1:55 PM CLAIMS REPRESENTATIVE Narrative [facility] - 04/15/2024 7:12 AM CLAIMS REPRESENTATIVE Vent Rate: 74 bpm RR Interval: 802 msec [place] Interval: 210 msec QRS Duration: 150 msec QT Interval: 406 msec QTC Interval: 434 msec P-R-T [place]: 22 - -39 - -23 degrees IMPRESSION: SINUS RHYTHM WITH FIRST DEGREE AV BLOCK INDETERMINATE AXIS RIGHT BUNDLE BRANCH BLOCK ??[120+ ms QRS DURATION, UPRIGHT V1, 40+ ms S IN I/aVL/V4/V5/V6] MODERATE T-WAVE ABNORMALITY, CONSIDER LATERAL ISCHEMIA ??[-0.1+ mV T-WAVE IN I/aVL/V5/V6] Compared to prior EKG, lateral T-wave changes are new. Electronically Signed By: Dr Fransico Alberto us Tarik Isbell MD ECG ORDERABLES Final Resul t [facility] * Troponin T high-sensitivity series (baseline, 2hr, 4hr, 6hr) (04/14/2024 1:35 PM CLAIMS REPRESENTATIVE) Pathologist [facility] Trop T hs 9 <=14 ng/L Comment: Interpretive Data For further hscTnT resources including the diagnostic algorithm and an aid in interpretation, copy and paste this link: https://nrl.testcatalog.org/show/hsTrop Current Interpretive Data last revised 2020. Blood 04/14/2024 1:35 PM CLAIMS REPRESENTATIVE 04/14/2024 1:52 PM CLAIMS REPRESENTATIVE us Tarik Isbell MD LAB BLOOD ORDERABLES Final Result [facility] ([place]) 1 [facility] [place] [address] * (ABNORMAL) eGFR (04/14/2024 1:35 PM CLAIMS REPRESENTATIVE) Pathologist [facility] eGFR 57(L) >=60 mL/min/1. 73 m2 Comment: [...] last reviewed 2021. Blood 04/14/2024 1:35 PM CLAIMS REPRESENTATIVE 04/14/2024 1:38 PM CLAIMS REPRESENTATIVE us Tarik Isbell MD LAB BLOOD ORDERABLES Final Result [facility] ([place]) 1 [facility] [place] [address] * Differential, auto (04/14/2024 1:35 PM CLAIMS REPRESENTATIVE) Neutrophil abs 5.4 1.5 - 6.5 K/cumm Imm gran abs 0.0 0.0 - 0.1 K/cumm [facility] ([place]) Lymphocyte abs 2.2 0.8 - 3.3 K/cumm [facility] ([place]) Monocyte abs 0.5 0.2 - 0.8 K/cumm [facility] ([place]) Eosinophil abs 0.1 0.0 - 0.5 K/cumm [facility] ([place]) Basophil abs 0.0 0.0 - 0.1 K/cumm [facility] ([place]) Neutrophil pct 64.8 % [facility] [...] revised on 2017. Blood 04/14/2024 1:35 PM CLAIMS REPRESENTATIVE 04/14/2024 1:38 PM CLAIMS REPRESENTATIVE Tarik Isbell MD LAB BLOOD ORDERABLES Final Result [facility] ([place]) 1 [facility] Department of Laboratories [place], [place] [id number] * Pro B-type natriuretic peptide (04/14/2024 1:35 PM CLAIMS REPRESENTATIVE) NT-proBNP 255 <=450 pg/mL Comment: Interpretive Comments: [...] Eur Heart J. 2006:27:330-337. 2. Rose Marie RW, Alban YANEZ. J. AM Julissa Cardiol: Cardiovasc Imag. 2009;2: 216- 225. Interpretive Data Last Revised Date: 2017. Blood 04/14/2024 1:35 PM CLAIMS REPRESENTATIVE 04/14/2024 1:52 PM CLAIMS REPRESENTATIVE us Tarik Isbell MD LAB BLOOD ORDERABLES Final Result [facility] [place] 1 [facility] [place] [address] * (ABNORMAL) CBC with auto differential (04/14/2024 1:35 PM CLAIMS REPRESENTATIVE) Pathologist [facility] WBC 8.3 3.8 - 9.9 K/cumm Hgb [...] [facility] ([place]) Blood 04/14/2024 1:35 PM CLAIMS REPRESENTATIVE 04/14/2024 1:38 PM CLAIMS REPRESENTATIVE Tarik Isbell MD LAB BLOOD ORDERABLES Final Result [facility] ([place]) 1 [facility] [place] [address] * ABO/Rh (04/14/2024 1:35 PM CLAIMS REPRESENTATIVE) [facility] ABO/Rh A Positive Blood 04/14/2024 1:35 PM CLAIMS REPRESENTATIVE 04/14/2024 1:38 PM CLAIMS REPRESENTATIVE Narrative [facility] ([place] - 04/14/2024 2:31 PM CLAIMS REPRESENTATIVE Has the patient had Daratumumab or Isatuximab in the past 6 months?->Unknown Tarik Isbell MD LAB BLOOD BANK TEST ORDERAB LES Final Result Performing Organization Address City/[facility]/ZIP Co de Phone Number [facility] ([place]) 1 [place] [address] * Antibody screen (04/14/2024 1:35 PM CLAIMS REPRESENTATIVE) Pathologist [facility] Imer, indirect, Gel Interpretation Negative ABSC Blood 04/14/2024 1:35 PM CLAIMS REPRESENTATIVE 04/14/2024 1:38 PM CLAIMS REPRESENTATIVE Narrative [facility] ([place]) - 04/14/2024 2:32 PM CLAIMS REPRESENTATIVE Has the patient had Daratumumab or Isatuximab in the past 6 months?->Unknown Tarik Isbell MD LAB BLOOD BANK TEST ORDERAB LES Final Result Performing Organization Address [facility] Co de Phone Number RON [facility] ([place]) 1 [place] [address] * Creatine kinase (CK), total (04/14/2024 1:35 PM CLAIMS REPRESENTATIVE) [facility] CK 58 30 - 200 Units/L Blood 04/14/2024 1:35 PM CLAIMS REPRESENTATIVE 04/14/2024 1:52 PM CLAIMS REPRESENTATIVE Tarik Isbell MD LAB BLOOD ORDERABLES Final Result Performing Organization Address [facility] Co de Phone Number RON [facility] ([place]) 1 [place] [address] * Comprehensive metabolic panel (04/14/2024 1:35 PM CLAIMS REPRESENTATIVE) [facility] Sodium 141 135 - 145 mmol/L Potassium, pl 4.2 3.3 - 4.9 mmol/L [facility] ([place]) Chloride 109 97 - 110 mmol/L [facility] ([place]) CO2 22 22 - 32 mmol/L [facility] ([place]) Anion gap 11 2 - 15 mmol/L [facility] ([place]) BUN 21 6 - 25 mg/dL [...] classification and Diagnosis of Diabetes Diabetes Care 202; 46: S19-S40. Current interpretive data was last [...] Hemolyzed S pecimen Blood 04/14/2024 1:35 PM CLAIMS REPRESENTATIVE 04/14/2024 1:38 PM CLAIMS REPRESENTATIVE us Tarik Isbell MD LAB BLOOD ORDERABLES Final Result [facility] ([place]) 1 [facility] [place] [address] from Last 3 Months Insurance [facility] Advance Directives For more information, please contact: [phone] * LIMITED - No CPR (Latest Code [...] 3:58 PM 10/08/2017 1:14 PM Care Teams Application Engineer Relationship Specialty Start Date End Date Tru Flood MD PCP - General 12/26/16 Karina Jenkins, PAINTER TUMBLING BARREL Kitchen And Bath Designer Physical Therapy 09/26/17
== END 2024-05-07 09:14 | disposition home or self-care (01) ==
LOC: ANHSURGERY 09:18
PROVIDERS: Anesthesiology; Visit Provider Urology
DX: I10 Essential (primary) hypertension (principal); I25.10 Atherosclerotic heart disease of native coronary artery without angina pectoris; I49.5 Sick sinus syndrome; D64.9 Anemia, unspecified; K62.5 Hemorrhage of anus and rectum; K44.9 Diaphragmatic hernia without obstruction or gangrene; R94.31 Abnormal electrocardiogram [ECG] [EKG]
CPT/HCPCS: 36415; 85014; 85018; 93005

== ENCOUNTER 2024-05-07 09:59 | Emergency (ER) | payer OTHER, SELFPAY ==
--- NOTE | ~2024-05-07 | XR_ITS ---
EXAMINATION: XR chest 2V DATE: 05/07/2024 14:18 INDICATION: Dizziness TECHNIQUE: frontal and lateral views of the chest were obtained. COMPARISON: None FINDINGS: Elevation the left hemidiaphragm. Minimal bibasilar atelectasis. No other airspace opacities, pulmona ry edema, pleural effusion or pneumothorax. Cardiomegaly. Dual lead pacemaker seen with leads project ing over the expected locations of the right atrium and right ventricle. Moderate sized hiatal her heraclio. Suture anchors consistent with prior right rotator cuff repair with narrowing of the subacromial space suggesting recurrent tear. IMPRESSION: 1. Minimal bibasilar atelectasis. 2. Cardia mainly. 2. Moderate-sized hiatal hernia. Reviewed, dictated and finalized at location B. YNAECOLOGIST
[2024-05-07 10:03] VITALS: BP 122/56; PULSE 82; RESP 16; TEMP 36.4; O2SAT 100
--- NOTE | 2024-05-07 13:42 | ECG_ITS ---
Test Date: 2024-05-07 14:39:45 Measurements Intervals [place] Rate: 62 P: 19 OH: 265 QRS: -65 QRSD: 188 T: 89 QT: 473 QTc: 482 Interpretive Statements ELECTRONIC VENTRICULAR PACEMAKER ABNORMAL RHYTHM ECG Compared to ECG 05/07/2024 09:46:09 PACED RHYTHM NOW PRESENT Electronically Signed On 05-07-2024 14:58:08 AGING BOX HAND by Jacek Leos M.D.
[2024-05-07 13:53] VITALS: BP 127/66; PULSE 62
[2024-05-07 13:54] VITALS: BP 132/67; PULSE 64
[2024-05-07 13:56] VITALS: BP 121/83; PULSE 78
[2024-05-07 14:25] LABS: Basophils Percent Auto 0.5 % (0.2-1.2); Eosinophils Absolute Auto 0.1 K/mm3 (0-0.3); Eosinophils Percent Auto 1.6 % (0-4.4); Hematocrit 43.2 % (37.0-47.0); Hemoglobin 13.9 g/dL (12.0-15.0); Immature Granulocyte Absolute 0.02 K/mm3 (0.00-0.031); Immature Granulocyte Percent A 0.3 % (0-0.5); Lymphocytes Absolute Auto 2.53 K/mm3 (0.9-3.2); Lymphocytes Percent Auto 33.8 % (18.3-44.2); Mean Corpuscular HGB Conc 32.2 g/dl (32-36); Mean Corpuscular Hemoglobin 33.8 pg (26-34); Mean Corpuscular Volume 105.1 fl (80-100); Mean Platelet Volume 9.6 fl (7.4-10.4); Monocytes Absolute Auto 0.5 K/mm3 (0.1-0.6); Monocytes Percent Auto 6.9 % (2.6-8.5); Neutrophils Absolute Auto 4.3 K/mm3 (1.3-6.7); Neutrophils Percent Auto 56.9 % (45.5-73.1); Platelet Count Result 214 k/mm3 (150-375); Red Blood Count 4.11 M/mm3 (4.2-5.4); Red Cell Distribution Width 13.9 % (11.5-14.5); White Blood Count 7.5 K/mm3 (4.5-10.0)
[2024-05-07 14:38] LABS: Alanine Aminotransferase 11 U/L (6-35); Alkaline Phosphatase 80 U/L (38-126); Anion Gap 6 mmol/L (4-12); Aspartate Amino Transferase 23 U/L (14-36); Bilirubin,Total 0.6 mg/dL (0.2-1.3); Blood Urea Nitrogen 19 mg/dL (7-17); Calcium 9.2 mg/dL (8.4-10.2); Carbon Dioxide 27 mmol/L (22-30); Chloride 106 mmol/L (98-107); Estimated Glomerular Filt Rate 54; Glucose 81 mg/dL (65-110); Potassium 4.1 mmol/L (3.4-5.0); Sodium 139 mmol/L (137-145)
[2024-05-07 14:40] LABS: Add Urine Microscopic? YES; Appearance Urine Turbid (Clear); Bacteria Urine Rare /hpf; Bilirubin Urine Negative (Negative); Blood Urine 3+ (Negative); Color Urine Dark Yellow (Yellow); Glucose Urine UA Trace mg/dL (Negative); Ketones Urine Negative (Negative); Leukocyte Esterase Ur 2+ LEU/UL (Negative); Need Manual Microscopic Reviewed; Nitrate Urine Negative (Negative); Protein Urine 3+ mg/dL (Negative); RBC Urine >100 /hpf (0-2); Specific Grav Ur 1.015 (1.001-1.035); Squamous Epithelial Cell Urine Moderate /hpf (Few); Urobilinogen Urine 0.2 mg/dL (<2.0); WBC Urine >100 /hpf (0-3); pH Urine 5.5 (5.0-9.0)
[2024-05-07 14:45] VITALS: BP 116/66; PULSE 64; RESP 16; O2SAT 100
--- NOTE | 2024-05-07 15:45 | ED.GENADULT ---
HPI - General Adult General Chief complaint: Weakness Stated complaint: I feel weird weakness, near syncope this morning Time Seen by Provider: 05/07/24 13:39 History of Present Illness HPI narrative: Patient is an 88-year-old female who presents ER from outpatient lab because she reported to them that she felt lightheaded this morning when she use the restroom at 4:00 a.m.. She then felt lightheaded when she walked back from the restroom. No fall or LOC. Patient has felt normal since eating breakfast. No additional complaints. Related Data Home Medications ?Medication ?Instructions ?Recorded ?Confirmed ?Last Taken ?Type gabapentin 300 mg capsule 300 mg PO HS 03/25/19 05/06/24 12/18/21 History Allergies Allergy/AdvReac Type Severity Reaction Status Date / Time codeine Allergy Unknown Hives Verified 05/07/24 10:07 atorvastatin AdvReac Muscle Pain Verified 05/07/24 10:07 Review of Systems Review of Systems: All systems reviewed & are unremarkable except as noted in HPI and below Constitutional: Constitutional: Reports no additional constitutional complaints Cardiovascular: Cardiovascular: Reports no additional cardiovascular complaints Respiratory: Respiratory: Reports no additional respiratory complaints Gastrointestinal: Gastrointestinal: Reports no additional gastrointestinal complaints Genitourinary: Genitourinary: Reports no additional female genitourinary complaints [facility] Past Medical History Medical History Bronchitis CAD (coronary artery disease) Cataract, right eye Gastric bezoar (~05/2021) Hiatal hernia (Unknown) Hypertension Nephrolithiasis Neuropathy MOE (obstructive sleep apnea) non compliance with CPAP Pacemaker SBO (small bowel obstruction) (~05/2021) Sleep apnea Urinary tract infection Surgical History Surgical History History of extraction of renal calculus History of hysterectomy History of incisional hernia repair History of repair of hiatal hernia History of tonsillectomy Stented coronary artery x2 Family History Family History Mother Heart disease Hypertension Social History Social History Social History: She lives by herself and is independent. She does not have any pets, and she wants her son Balta to be her surrogate. She wishes to be a full code. Smoking packs per day: 0.5 Smoking cigarettes per day: 10.0 Years smoked: 3 Smoking pack-years: 1.50 Smoking status: Former smoker Tobacco type: cigarettes Second hand tobacco smoke exposure: No Smoking end date: 04/21/1953 Additional smoking assessment comments: Smoked in high school only Alcohol intake: never Substance use: never Living arrangements: alone Occupation/Education: retired Gender identity (if verbalized by the patient): Female Sexual Orientation (if Verbalized by the Patient): Straight or Heterosexual Spiritual care concerns: No Agree to blood products: Yes Exam Narrative: GENERAL: Well-appearing, well-nourished, and in no acute distress. HEAD: Normocephalic, atraumatic. ENT: Mucous membranes moist. CHEST: Clear to auscultation. No respiratory distress. HEART: Regular rate and rhythm. Normal peripheral pulses. ABDOMEN: Soft, nontender, nondistended. EXTREMITIES: Normal range of motion. No edema. SKIN: Warm, dry, no rash. NEURO: Alert and oriented x3. PSYCH: Normal mood and affect. Course Course Emergency Course: Patient with UTI. Cefuroxime here. Patient up and ambulatory bathroom without issue. Appropriate for discharge home. Vital Signs Vital signs: Vital Signs Temperature 97.6 F 05/07/24 10:03 Pulse Rate 82 05/07/24 10:03 Respiratory Rate 16 05/07/24 10:03 Blood Pressure 122/56 L 05/07/24 10:03 Pulse Oximetry 100 05/07/24 10:03 Oxygen Delivery Room Air 05/07/24 10:03 Temperature 97.6 F 05/07/24 10:03 Pulse Rate 64 05/07/24 14:45 Respiratory Rate 16 05/07/24 14:45 Blood Pressure 116/66 05/07/24 14:45 Pulse Oximetry 100 05/07/24 14:45 Oxygen Delivery Room Air 05/07/24 10:03 Medical Decision Making Vital Signs Vital Signs: Vital Signs Temperature 97.6 F 05/07/24 10:03 Pulse Rate 82 05/07/24 10:03 Respiratory Rate 16 05/07/24 10:03 Blood Pressure 122/56 L 05/07/24 10:03 Pulse Oximetry 100 05/07/24 10:03 Oxygen Delivery Room Air 05/07/24 10:03 Temperature 97.6 F 05/07/24 10:03 Pulse Rate 64 05/07/24 14:45 Respiratory Rate 16 05/07/24 14:45 Blood Pressure 116/66 05/07/24 14:45 Pulse Oximetry 100 05/07/24 14:45 Oxygen Delivery Room Air 05/07/24 10:03 Lab Data 05/07/24 14:06 05/07/24 14:06 Labs: Lab Results 05/07/24 Range/Units 14:06 WBC 7.5 (4.5-10.0) K/mm3 RBC 4.11 L (4.2-5.4) M/mm3 Hgb 13.9 (12.0-15.0) g/dL Hct 43.2 (37.0-47.0) % MCV 105.1 H (80-100) fl MCH 33.8 (26-34) pg MCHC 32.2 (32-36) g/dl RDW 13.9 (11.5-14.5) % Plt Count 214 D (150-375) k/mm3 MPV 9.6 (7.4-10.4) fl Immature Gran % (Auto) 0.3 (0-0.5) % Neut % (Auto) 56.9 (45.5-73.1) % Lymph % (Auto) 33.8 (18.3-44.2) % [place] % (Auto) 6.9 (2.6-8.5) % Eos % (Auto) 1.6 (0-4.4) % Baso % (Auto) 0.5 (0.2-1.2) % Lymph # (Auto) 2.53 (0.9-3.2) K/mm3 [place] # (Auto) 0.5 (0.1-0.6) K/mm3 Eos # (Auto) 0.1 (0-0.3) K/mm3 Baso # (Auto) 0.0 (0.0-0.1) K/mm3 Abs Immat Gran (auto) 0.02 (0.00-0.031) K/mm3 Absolute Neuts (auto) 4.3 (1.3-6.7) K/mm3 Absolute Nucleated RBC 0.000 (0.0-0.012) K/mm3 Nucleated RBC % 0.0 (0.0-0.2) % Sodium 139 (137-145) mmol/L Potassium 4.1 (3.4-5.0) mmol/L Chloride 106 (98-107) mmol/L Carbon Dioxide 27 (22-30) mmol/L Anion Gap 6 (4-12) mmol/L BUN 19 H (7-17) mg/dL Creatinine 0.98 (0.7-1.0) mg/dL Estim Creat Clear Calc Not Reportable Estimated GFR 54 L (59 - ) Glucose 81 (65-110) mg/dL Calcium 9.2 (8.4-10.2) mg/dL Total Bilirubin 0.6 (0.2-1.3) mg/dL AST 23 (14-36) U/L ALT 11 (6-35) U/L Alkaline Phosphatase 80 (38-126) U/L Total Protein 7.0 (6.3-8.2) g/dL Albumin 4.0 (3.5-5.1) g/dL Urine Color Dark yellow (Yellow) Urine Appearance Turbid H (Clear) Urine pH 5.5 (5.0-9.0) Ur Specific [place] 1.015 (1.001-1.035) Urine Protein 3+ H (Negative) mg/dL Urine Glucose (UA) Trace H (Negative) mg/dL Urine Ketones Negative (Negative) mg/dL Ur Blood (Man) 3+ H (Negative) Urine Nitrate Negative (Negative) Urine Bilirubin Negative (Negative) Urine Urobilinogen 0.2 (<2.0) mg/dL Add Ur Microanalysis Reviewed Leukocyte Esterase Rfl 2+ H (Negative) LEATHA/UL Urine RBC >100 H (0-2) /hpf Urine WBC >100 H (0-3) /hpf Ur Squamous Epith Cells Moderate (Few) /hpf Urine Bacteria Rare /hpf Urine Casts 6-10 Discharge Plan Discharge Clinical Impression: Acute UTI Patient Disposition: Home, Self-Care Condition: Stable Instructions: Antibiotic Form, Urinary Tract Infection in Women (ED) Additional Instructions: You should return to the emergency department if you develop severe nausea and vomiting and are unable to keep liquids down, if you develop severe back/flank or stomach pain, or if your symptoms are not clearly improving at home. Patient Language: Mexican Prescriptions: New cefuroxime axetil 500 mg tablet 500 mg PO Q12H Qty: 14 0RF No Action gabapentin 300 mg Capsule 300 mg PO HS Follow-up/Referrals: UNKNOWN,DOCTOR [Primary Care Provider] - 1 Week
[2024-05-07] MEDS: cefuroxime axetiL 250 MG TABLET 500 MG PO (16:05)
--- OUTSIDE RECORDS SUMMARY | 2024-05-13 06:14 | XMS_ITS | Clinical Summary ---
Author Organization [facility] Address [address] [place] [address]. 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 Gender Identity Not on file Sexual Orientation Not on file Plan of Treatment Health Maintenance Due Date Last Done Comments DTaP, Tdap and Td Vaccines ( 1 - Tdap) 09/21/1954 Zoster Vaccines (1 of 2) 1986 Pneumococcal Vaccine: 65+ Ye ars (1 of 1 - PCV) 2001 RSV Immunization or 60+ Years (1 - 1-dose 75+ series) 09/21/2011 COVID-19 Vaccine ( - 2023-2 5 season) 2023 Influenza Adult (#1) 2024 Meningococcal Vaccine Aged Out No tiffany christina eligible based on patient's age to complete this topic RSV Immunizations Under 20 Months Aged Out No longer eligible based on patient's age to complete this topic
== END 2024-05-07 16:09 | disposition home or self-care (01) ==
PROVIDERS: Emergency Provider Emergency Medicine
DX: N39.0 Urinary tract infection, site not specified (principal); I25.10 Atherosclerotic heart disease of native coronary artery without angina pectoris; I10 Essential (primary) hypertension; G47.33 Obstructive sleep apnea (adult) (pediatric); Z95.5 Presence of coronary angioplasty implant and graft; Z95.0 Presence of cardiac pacemaker; Z87.442 Personal history of urinary calculi; Z87.891 Personal history of nicotine dependence; Z90.710 Acquired absence of both cervix and uterus
CPT/HCPCS: 36415; 71046; 80053; 81001; 85014; 85018; 85025; 87086; 87181; 93005; 99283; A9270

== ENCOUNTER 2024-05-13 01:25 | Day surgery (SDC) | payer OTHER, SELFPAY ==
[2024-05-06 10:42] VITALS: BMI 29.5
--- NOTE | 2024-05-06 11:01 | PC.NURSE ---
Report to the Outpatient Waiting Room, entrance under the green pavilion located off [facility], at time __07:15am on date _05/13/24 . Planned Procedure Time: _09:15am .? Time changes happen often and if your time is changed the preop area will call you the afternoon before. - You and your visitor will be asked to self-screen and do not enter if you have any COVID symptoms. Please call surgeon if you need to reschedule. - A mask is optional within the hospital at this time. Patients may have clear liquids (water, carbonated beverages, clear teas, apple juice) until 3 hours prior to surgery with a maximum of 20 ounces. - No food from midnight until time of surgery and no smoking. This includes no chewing gum, candy or mints.( 0615am) Take only the following medications with a SIP of water on the morning of surgery: None DO NOT STOP ANY OF YOUR OTHER PRESCRIPTION MEDICATIONS PRIOR TO SURGERY EXCEPT THE FOLLOWING Medications to discontinue per physician None Date to take last dose___None Please no make-up, nail vietnamese, hairspray, perfume, deodorant, or body powder the day of surgery.? No jewelry (including any body piercings) or valuables the day of surgery, leave them at home.? Please take a shower or bath the night before, or the morning of, surgery with an antibacterial soap.? Wear comfortable, loose fitting clothing.? Children are encouraged to wear pajamas. - Jewelry must be removed prior to entering the operating room.? Rings and piercings that are not removed may be cut off. - The hospital will not accept responsibility for valuables.? - Please leave all valuables, including medications, at home the day of surgery. If you are going home after surgery, a licensed petroleum transport driver must drive you home.? - NO public transportation without another adult if you receive anesthesia. - We recommend that an adult stay with you for 24 hours following discharge. - We also recommend that you do not drive, make important decision, drink alcoholic beverages, or take any drugs that were not prescribed by your health care provider for at least 24 hours after your discharge time. Follow any additional instructions given to you from your surgeon. Telephone instructions given to ___patient and asked if any additional questions and then verbalized understanding. Patient advised to call surgeon office or pre surgery nurse liaison [phone] if any additional questions.
--- NOTE | 2024-05-07 10:06 | SUR.PREOP ---
0920 - Spoke with patient regarding preliminary EKG report. Pt states she has been having some twinges in her chest off and on, while at rest and with activity. States she is currently having some minor twinges of pain in her chest. Pt also states she felt like she was going to pass out at home this morning and feels extremely tired currently. Encouraged pt to be evaluated in ER. Pt agreeable and was taken by wheelchair to ER by KELECHI oswald. Per patient, notified her son, Alonso Byrnes, of her symptoms and transfer to ER.
--- NOTE | 2024-05-12 15:58 | P.PNAN_ITS ---
Anes - Initial Pre Proc Eval Procedure: Operation Date: 05/13/24 09:15 Proposed Procedures p Cystoscopy, Right Ureteroscopy, Possible Right Retrograde Pyelogram, Possible Right Stone Extraction, Possible Right Stent Exchange, Possible Holmium Laser - Ameya Mccracken MD Date/Time: 05/12/24 15:58 Surgeon: Ameya Mccracken MD Pre Op Diagnosis: right ureteral stone Patient Data Age: 88 Gender: F Height: 1.68 m Weight: 83 kg Allergies Allergy/AdvReac Type Severity Reaction Status Date / Time codeine Allergy Unknown Hives Verified 05/07/24 10:07 atorvastatin AdvReac Muscle Pain Verified 05/07/24 10:07 Home Medications ?Medication ?Instructions ?Recorded ?Confirmed ?Type gabapentin 300 mg capsule 300 mg PO HS 03/25/19 05/06/24 History cefuroxime axetil 500 mg tablet 500 mg PO Q12H #14 tabs 05/07/24 Rx Patient hx anesthesia problems: none Family hx anesthesia problems: none Results Review: All pre-operative results and documents have been reviewed as part of the pre- operative evaluation. [facility], [facility] Past Medical History Medical History Bronchitis CAD (coronary artery disease) Cataract, right eye Gastric bezoar (~05/2021) Hiatal hernia (Unknown) Hypertension Nephrolithiasis Neuropathy MOE (obstructive sleep apnea) non compliance with CPAP Pacemaker SBO (small bowel obstruction) (~05/2021) Sleep apnea Urinary tract infection Surgical History Surgical History History of extraction of renal calculus History of hysterectomy History of incisional hernia repair History of repair of hiatal hernia History of tonsillectomy Stented coronary artery x2 Family History Family History Mother Heart disease Hypertension Social History Social History Social History: She lives by herself and is independent. She does not have any pets, and she wants her son Balta to be her surrogate. She wishes to be a full code. 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 Alcohol intake: never Substance use: never Living arrangements: alone Occupation/Education: retired Gender identity (if verbalized by the patient): Female Sexual Orientation (if Verbalized by the Patient): Straight or Heterosexual Spiritual care concerns: No Agree to blood products: Yes Anes - Eval Final PreProcedure Day of Procedure 05/12/24 15:58 Patient weight: overweight Heart: regular rate and rhythm Lungs: clear to auscultation Airway: Mallampati scale class II Neurological: alert and oriented Last oral intake: >/= 8 hours ASA classification: III Emergent: no Anesthetic plan: proceed Anesthesia type and monitoring: general LMA and standard monitoring Results Review: All pre-operative results and documents have been reviewed as part of the pre- operative evaluation. Informed Consent: The patient's anesthetic plan and its attendant risks and benefits were discussed with the patient/family/POA. Questions were solicited and answers provided to the satisfaction of the patient/family/POA.
[2024-05-13] VITALS (7 sets, daily range): BP systolic 111–168; BP diastolic 68–81; PULSE 60–65; RESP 15–20; TEMP 36.2–36.7; O2SAT 98–100
--- NOTE | ~2024-05-13 | XR_ITS ---
EXAMINATION: XR retrograde pyelo w/stent RT DATE: 05/13/2024 09:29 INDICATION: Right-sided urolithiasis TECHNIQUE: 45 fluoroscopic images of the abdomen and pelvis were obtained during procedure performed by Dr. Mccracken. Radiologist was not present for the imaging or procedure. The amount of fluoroscopy ti me used during this procedure was 0.5 minutes. COMPARISON: KUB dated 09/29/[address] dated 06/09/2023 FINDINGS: Wellness Assistant image demonstrates a left intraureteral stent with loops formed in expected location of the marissa dder and left renal pelvis. Cholecystectomy clips in right upper quadrant. A catheter is been advance d into the right ureter. A density seen alongside the catheter near the ureterovesicular junction lik yung representing a distal right ureteral stone. There are multiple stones projecting over the region of the right renal hilum. Retrograde contrast injection demonstrates dilated right renal pelvis and t he ureter but with a stricture at the ureteropelvic junction. Final images demonstrate placement of a new right internal ureteral stent with loops formed in upper pole calyx of the right kidney and dist al loop in the bladder. The stone in the distal right ureter is no longer visualized and has likely b een extracted. The left internal ureteral stent has been removed on the final images. IMPRESSION: 1. Right nephrolithiasis with likely extraction the distal right ureteral stone and placement of a ne w right internal ureteral stent which is in expected position. See procedure note for further detail. 2. Removal of a left internal ureteral stent. Reviewed, dictated and finalized at location A. BURN OUT TENDER IMPRESSION: 1. Right nephrolithiasis with likely extraction the distal right ureteral stone and placement of a new right internal ureteral stent which is in expected posi tion. See procedure note for further detail. 2. Removal of a left internal ureteral stent.
--- NOTE | 2024-05-13 06:23 | WPDHPUPDATE1 ---
History and Physical Update Update Date/Time: 05/13/24 06:23 History and Physical has been reviewed, including an updated exam of the patient. There are NO changes in the patient's condition. Risks, benefits, and alternatives have been discussed and questions answered. Patient agrees to proceed with procedure.
[2024-05-13] MEDS: LACTATED RINGERS 1,000 ML 30 ML IV CONT (08:01)
[2024-05-13] MEDS: ceFAZolin 2 GM/D5W 50 ML 2 GM/50 ML BAG IVPB (08:45)
--- NOTE | 2024-05-13 09:34 | P.OP_ITS ---
Procedure Note - Detailed Date of Procedure 05/13/24 Pre-op Diagnosis Bilateral renal calculi, right ureteral stone Post-op Diagnosis Same Procedure Performed Cystoscopy, bilateral ureteral stent removal, right ureteroscopy with laser lit hotripsy, right ureteral stone extraction with retrograde pyelogram and stent replacement Surgeon Ameya Mccracken MD Anesthesia General Description of Procedure Patient is brought to the operative suite where she is prepped draped in routine sterile fashion while in dorsal lithotomy position after the uneventful induction of a general anesthetic. She is known to have bilateral kidney stones but just an obstructing stone on the right side, in the distal ureter. We have discussed in opted not to treat her larger kidney stones unless they become symptomatic in some fashion. I therefore removed both ureteral stents via a 20 F rigid cystoscope. 0.035 in glidewire was advanced into the right renal pelvis under fluoroscopy. Distal ureter was dilated with an 8 F 10 F dilator. Ureteroscopy was undertaken with a short tapered semi-rigid ureteral scope. Lithotripsy was undertaken with a 242 micron Davon laser fiber. All pieces were extracted with a 1.9 F disposable stone basket. Retrograde pyelography was obtained via a [place] catheter on the right. There are no apparent obstructing ureteral stones. A 4.8 F variable length stent is placed in appropriate position with the proximal coil in the right renal pelvis this will coil in the bladder. Scopes and wires were removed she was taken to the recovery room in good condition Drains Yes Packing No Pathology Yes Complications No immediate complications Condition Stable Disposition PACU
--- NOTE | 2024-05-13 11:00 | SUR.PHASEII ---
1100 PATIENT MEETS ANESTHESIA DISCHARGE CRITERIA. DISCHARGE INSTRUCTIONS GIVEN & QUESTIONS ANSWERED. DENIES PAIN. DRESSED & WAITING FOR RIDE HOME.
== END 2024-05-13 11:25 | disposition home or self-care (01) ==
PROVIDERS: Visit Provider Urology
PROC: (CPT 52352; principal; 2024-05-13 09:15)
DX: N20.1 Calculus of ureter (principal); I10 Essential (primary) hypertension; I25.10 Atherosclerotic heart disease of native coronary artery without angina pectoris; G47.33 Obstructive sleep apnea (adult) (pediatric); Z98.890 Other specified postprocedural states; Z95.0 Presence of cardiac pacemaker; Z95.5 Presence of coronary angioplasty implant and graft; Z87.891 Personal history of nicotine dependence; Z87.19 Personal history of other diseases of the digestive system; Z82.49 Family history of ischemic heart disease and other diseases of the circulatory system
CPT/HCPCS: 52356; 74420; 82365; 88300; C1758; C1769; C2617; J0690; J1100; J2405; J2704; J7120; Q9966

== ENCOUNTER 2024-12-29 10:33 | Outpatient (CLI) | payer OTHER, SELFPAY ==
[2024-12-29 11:14] LABS: INR 1.0; Prothrombin Time 13.6 Seconds (11.1-14.7)
[2024-12-29 11:15] LABS: Partial Thromboplastin Time 30.4 Seconds (22.3-36.8)
--- OUTSIDE RECORDS SUMMARY | 2024-12-29 11:27 | XMS_ITS | Clinical Summary ---
Author Organization [facility] Address [address] [place] [address] Care Team Providers Care Seismograph Shooter Name Role Phone Tru Flood MD Primary Care Provider [phone] Source Comments [facility],non-owned Affiliates and Associated Physician Practices is amultiple site organization consisting of ambulatory clinics and hospital sitesin [place], [place], [place] and [place]. This disclosure is being madepursuant to the Care Everywhere program and may not contain all information available regarding this patient. Last updated 18.[facility] [employer] Allergies Active Allergy Reactions Criticality Noted Date Comments Codeine Urticaria 01/26/2014 Medications * Be aware that medications may not be up to date on this document. Alwaysverify current medications with the patient. atorvastatin (LIPITOR) 80 MG tablet Take 80 mg by mouth at bedtime. Active metoprolol tartrate IR (LOPRESSOR) 25 MG tablet Take 25 mg by mouth 2 times daily. Active oxyCODONE-acetam inophen (PERCOCET) 10-325 MG tablet Take 1 Tab by mouth every 6 hours as needed for Pain. 30 Tab 0 04/27/2014 Active Active Problems Problem Noted Date Diagnosed Date Kidney stone 02/06/2014 Social History Tobacco Use Types Packs/Day Years Used Date Smoking Tobacco: Never Smokeless Tobacco: Never Alcohol Use Standard Drinks/Week Comments No 0 (1 standard drink = 0.6 oz pur e alcohol) Comments No Sex and Gender Information Value Date Recorded Sex Assigned at Not on file Legal Sex Female 11:25 AM CDT Gender Identity Not on file Sexual Orientation Not on file Last Filed Vital Signs Vital Sign Reading Time Taken Comments Blood Pressure 151/77 04/27/2014 5:32 PM [employer] Pulse 73 04/27/2014 5:32 PM [employer] Temperature 36.3 C (97.3 F) 04/27/2014 5:32 PM [employer]OPER Respiratory Rate 16 04/27/2014 5:32 PM [employer]OPER Oxygen Saturation 96% 04/27/2014 5:15 PM [employer]OPER Inhaled Oxygen Concentration - - Weight 106.6 kg (235 lb) 04/25/2014 3:11 PM [employer] Height 167.6 cm (5' 6) 04/25/2014 3:11 PM [employer] Body Mass Index 37.93 04/25/2014 3:11 PM [employer] Plan of Treatment Health Maintenance Due Date Last Done Comments BONE DENSITY TESTING 1935 MEDICARE AWV 12 MONTHS 1935 DTAP/TDAP/TD VACCINES (1 - Tdap) 09/21/1955 PNEUMOCOCCAL VACCINE 50+ (1 of 1 - PCV) 1986 ZOSTER VACCINE (1 of 2) 1986 Respiratory Syncytial Virus (RSV) Vaccine Pt: or over 60 yrs (1 - 1-dose 75+ series) 09/21/2011 DEPRESSION SCREENING 04/21/2024 COVID-19 VACCINE (1 - 2023-2 5 season) 2024 INFLUENZA VACCINE (#1) 2024 HEPATITIS B VACCINE Aged Out No longe r eligible based on patient's age to complete this topic HIB VACCINE Aged Out No longer eligi ble based on patient's age to complete this topic HPV VACCINE Aged Out No longer eligi ble based on patient's age to complete this topic MENINGOCOCCAL (Group B) VACC INE SHARED DECISION-MAKING Aged Out No longer eligibl e based on patient's age to complete this topic MENINGOCOCCAL GROUPS A/C/Y/W VACCINE Aged Out No longer eligible b ased on patient's age to complete this topic Medical Devices Implanted Type Area After School Driver Device Identifier Shelf Expiration Date Model / Serial / Lot Stent Uret Polaris Ultra 6.0fr X 26mm Implanted:Qty: 1 on 02/07/2014 by Alexandre Gallardo MD at [facility] Right: [employer] 12/08/2016 [id number] / / [id number] Stent Urete Percflex Plus 7.0fr X 26cm Implanted:Qty: 1 on 03/16/2014 by Alexandre Gallardo MD at [facility] Right: [employer] 11/19/2015 [id number] / / [id number] Percuflex Ureteral Stent 7fr X 26cm Implanted:Qty: 1 on 04/11/2014 by Alexandre Gallardo MD at [facility] Right: U[employer]ter 01/18/2017 [id number] / / [id number] Percuflex 7fr X 26cm Implanted:Qty: 1 on 04/27/2014 by Alexandre Gallardo MD at [facility] Right: Ureter 12/20/2016 [id number] / / [id number] Insurance [facility] MEDICARE SELF PAY NO INSURANCE Member Subscriber Plan / Payer (Ef fective for All Dates) Name:Rita Flood Member ID:Not on file Relation to Subscriber:Not on file Name:RITA FLOOD Subscriber ID:Not on file (Home) Address: [address] [place] [address] Payer ID:Not on file Group ID:Not on file Type:Self Pay Address: [place], [place] [employer] Care Teams Seismograph Shooter Relationship Specialty Start Date End Date Tru Flood MD [address] [place] [address] PCP - General 12/21/21
--- OUTSIDE RECORDS SUMMARY | 2024-12-29 11:27 | XMS_ITS | Clinical Summary ---
Author Organization [facility] Medical Office Building B Address [address] [place] [address] Care Team Providers Care Stevedore Hold Name Role Phone Tru Flood MD Primary Care Provider Karina Jenkins PTA Unavailable Unavailable Allergies Active Allergy Reactions Criticality Noted Date Comments Atorvastatin Muscle pain Medium 05/18/2024 Codeine Urticaria Medium 01/26/2014 Medications gabapentin (NEURONTIN) 300 mg capsule Take 1 capsule (300 mg total) by mouth nightly 8 Active acetaminophen ER (TYLENOL) 650 mg 8 hr tablet Take 2 tablets (1,300 mg total) by mouth every 8 (eight) hours as needed for pain 5 Active tamsulosin (FLOMAX) 0.4 mg extended release capsule Take 1 capsule (0.4 mg total) by mouth daily with dinner 15 capsule 5 Active oxyCODONE (ROXICODONE) 5 mg immediate release tabletIndicatio ns:Pain Take 1 tablet (5 mg total) by mouth every 4 (four) hours as needed for pain 15 tablet 5 Active acetaminophen ER (TYLENOL) 650 mg 8 hr tablet Take 2 tablets (1,300 mg total) by mouth every 8 (eight) hours as needed for pain 4 12/19/19 25 Discontinu ed(Therapy completed) Active Problems Problem Noted Date Diagnosed Date Nephrolithiasis 12/19/2024 Ureterolithiasis 12/18/2024 Hiatal hernia 05/18/2024 Assessment & Plan (06/15/2024 11:09 AM CNA PER DIEM): The patient's recent EGD did not demonstrate any signs of gastritis, erosions or other potential causes for the bleeding. Hemorrhoids were found and thought to be the cause of this. We have discussed with the family if we are going into fix this to stop bleeding I think this would not offer much relief. Alternatively if we are going into fix this due to symptoms we also do not need to do this as she is not complaining of any dysphagia, reflux issues or pain. Given her age I think this is completely reasonable just to watch this. If anything would change they are more than happy to call us back and we discuss things going forward Assessment & Plan (05/18/2024 9:57 AM CNA PER DIEM): We have discussed that the anemia may be secondary to the large paraesophageal hernia either causing gastritis, rubbing on the diaphragm or even ulcers. She was a colonoscopy upcoming in May I will reach out to GI and see if they will add an EGD also. We have discussed given her age and the fact that this would be a recurrent hernia repair there would be significant morbidity associated with the procedure. As the hernia is not overtly symptomatic perhaps a watchful waiting approach would just checking her blood count and a more regular basis and transfusing as needed would be more optimal. The only 1 draw back would be in the rare situations where it would volvulized which would be a surgical emergency. We will 1st follow up on the scope and then go from there. 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 Status post RA lead repositioning on 19 May 2023. Assessment & Plan (05/26/2023 12:21 PM CNA PER DIEM): Patient is feeling fine. We discussed good numbers noted on today's remote device check --stable sensing and threshold numbers with 24% RA pacing and 27% RV pacing.. Usual pacemaker precautions given. She may drive a car now. Since she is having some hematuria, I asked her to stop the Eliquis and call her urologist for advice. SSS (sick sinus syndrome) 04/30/2023 Coronary artery disease 01/04/2023 Overview (01/04/2023): [...] (09/18/2017): Added automatically from request for surgery [id number] Peripheral neuropathy Encounters Date Type Department Care Team Description 12/18/2024 11:24 AM CDT Anesthesia Event [facility] Operating Room [address] [place] [address] Melonie Mitchell MD Beau Varner, AUTOCAD 12/18/2024 11:00 AM CDT - 12/18/2024 12:20 PM CDT Surgery [facility] Operating Room [address] [place] [address] Melonie Mitchell MD CYSTOSCOPY, PLACEMENT BILATERAL URETERAL STENTS 12/18/2024 7:29 AM CDT - 12/19/2024 1:27 PM CDT Emergency [facility] Surgery Care [address] [place] [address] Saran Bain MD Okonkwo, Kasiemobi Bernice, MD Nikolic, Jelena, MD Willey, Charles J., MD Ureterolithiasis (Primary Dx); Left renal stone Discharge Disposition: Discharge to home or self care 11/10/2024 12:45 PM CDT Ancillary Procedure [facility] [employer] [address] [place] [id number] Cardiac pacemaker in situ; Heart block AV second degree; Sick sinus syndrome (HCC) from Last 3 Months Immunizations Immunization Administration Dates Next Due Influenza, Unspecified 01/19/2023 Surgical History Surgery Date Site/Laterality Comments HERNIA REPAIR HIATAL HERNIA REPAIR EXPLORATORY LAPAROTOMY CHOLECYSTECTOMY APPENDECTOMY HYSTEROTOMY CARDIAC STENT PLACEMENT HYSTERECTOMY 04/21/1979 - 04/20/1980 COLONOSCOPY 11/20/2015 - 12/20/2015 COLONOSCOPY 05/31/2024 Medical History Medical History Date Comments Hiatal [...] pat th vertebral arteries Atherosclerosis of aorta Atrial fibrillation (HCC) SSS (sick sinus syndrome) (HCC) With bradycardia, in the 20s Pacer [...] Not Answered Alcohol Use Standard Drinks/Week Comments Never 0 (1 standard drink = 0.6 oz pur e alcohol) [facility] Utilities Answer Date Recorded In the past 12 months has th e electric, gas, oil, or water company threatened to shut off services in your home? No 05/19/2023 Social Connection and Isolation Panel Answer Date Recorded In a typical week, how many times do you talk on the phone with family, friends, or neighbors? More than three times a week 05/19/2023 How often do you get togethe r with friends or relatives? More than three times a week 05/19/2023 How often do you attend chur ch or anabaptist services? More than 4 times per year 05/19/2023 Do you belong to any clubs o r organizations such as bahai groups, unions, fraternal or athletic groups, or school groups? No 05/19/2023 How often do you attend meet ings of the clubs or organizations you belong to? Never 05/19/2023 Are you , , di vorced, , never , or living with a partner? 05/19/2023 Overall Financial Resource Strain (CARDIA) Answe r [...] place to sleep or slept in a long-term (including now)? No 05/19/2023 AUDIT-C Answer Date Recorded Q1: How often do you have a drink containing alcohol? Never 12/18/2024 Q2: How many drinks containi ng alcohol do you have on a typical day when you are drinking? Patient does not drink Q3: How often do you have si x or more drinks on one occasion? Never 12/18/2024 Personal Safety Answer Date Recorded Have you ever been in or are you currently in a harmful physical or emotional relationship or is someone making you feel afraid or unsafe? Denies 12/18/2024 Education Answer Date Recorded What is the highest level of school you have completed or the highest degree you have received? Associate degree: occupational, technical, or vocational program 05/19/2023 Comments No Sex and Gender Information Value Date Recorded Sex Assigned at Not on file Legal Sex Female 2:50 AM CNA PER DIEM Gender Identity Not on file Sexual Orientation Not on file Obstetrics History Para Term AB IAB SAB Ectopic Multiple Livin g Live Births 8 6 6 Date Outcome GA Total Labor Labor/2nd/3rd Weight Sex Type Anes PTL Zeina A1 A5 Name Clin Term Term Term Term Term Term Last Filed Vital Signs Vital Sign Reading Time Taken Comments Blood Pressure 109/52 12/19/2024 7:39 AM CDT Pulse 69 12/19/2024 7:39 AM CDT Temperature 36.1 C (97 F) 12/19/2024 3:22 AM CDT Respiratory Rate 16 12/19/2024 7:39 AM CDT Oxygen Saturation 97% 12/19/2024 7:39 AM CDT Inhaled Oxygen Concentration - - Weight 83 kg (182 lb 15.7 oz) 12/18/2024 8:00 PM CDT Height 167.6 cm (5' 6) 12/18/2024 8:00 PM CDT Body Mass Index 29.53 12/18/2024 8:00 PM CDT Plan of Treatment Health Maintenance Due Date Last Done Comments Depression Screening 1935 Osteoporosis Screening-Bone Density Scan 1935 DTaP/Tdap/Td Vaccine (1 - Tdap) 09/21/1947 Hepatitis B Screening 1953 Pneumococcal vaccine 65+ (1 of 1 - PCV) 1986 Zoster Vaccine (1 of 2) 1986 Well Visit 65+ 2001 Influenza Vaccine (#1) 2024 01/19/2023, 2010 Fall Risk Assessment 12/19/2025 12/19/2024, 12/18/2024, 04/14/2024 Medical Devices Implanted Type Area Pt Escort Device Identifier Shelf Expiration Date Model / Serial / Lot Biotronik Inc Endocardial Pacing Lead Promri Solia T [id number] - [id number] - [id number] Implanted:Qty: 1 on 05/14/2023 by Fransico Alberto MD at [facility] Lead Biotronik Inc 03/20/2024 [id number] / [id number] / Biotronik Inc Endocardial Pacing Lead Promri Solia Jt [id number] - [id number] - [id number] Implanted:Qty: 1 on 05/14/2023 by Fransico Alberto MD at [facility] Lead Biotronik Inc [id number] / [id number] / Biotronik Inc Solia S 45cm Bipolar Active Fixation Lead Pacing Steroid Eluting [id number] - [id number] - [id number] Implanted:Qty: 1 on 05/19/2023 by Fransico Alberto MD at [facility] Lead Biotronik Inc 05/21/2025 [id number] / [id number] / Medtronic Inc Tyrx Absorbable Antibacterial Envelope-Large 3.3x2.9in [id number] - Sna - [id number] Implanted:Qty: 1 on 05/19/2023 by Fransico Alberto MD at [facility] Mesh Medtronic Inc 02/08/2024 [id number] / NA / [id number] Biotronik Inc Edora Promri 29w90r4.5mm Dual Chamber Rate Adaptive Unipolar Bipolar [id number] - [id number] - [id number] Implanted:Qty: 1 on 05/14/2023 by Fransico Alberto MD at [facility] Pacemaker Biotronik Inc 09/18/2024 [id number] / [id number] / Depuy Orthopaedics Inc [id number] Smartset High Viscosity Cement 40gm Bone Gentamicin - [id number] Implanted:Qty: 1 on 10/06/2017 by Neptali Negrete MD at [facility] Left: Knee Depuy Orthopaedics Inc 01/18/2019 [id number] / / [id number] Depuy Orthopaedics Inc [id number] Smartset High Viscosity Cement 40gm Bone Gentamicin - [id number] Implanted:Qty: 1 on 10/06/2017 by Neptali Negrete MD at [facility] Left: Knee Depuy Orthopaedics Inc 01/18/2019 [id number] / / [id number] Depuy Orthopaedics Inc [id number] Attune 38mm Cemented Medialize Knee Dome Patellar Aox Sterile - [id number] Implanted:Qty: 1 on 10/06/2017 by Neptali Negrete MD at [facility] Left: Knee Depuy Orthopaedics Inc 05/21/2022 [id number] / / [id number] Depuy Orthopaedics Inc [id number] Attune S+ Cement Fix Bearing Knee 5 Baseplate Tibial - [id number] Implanted:Qty: 1 on 10/06/2017 by Neptali Negrete MD at [facility] Left: Knee Depuy Orthopaedics Inc 04/20/2027 [id number] / / [id number] Depuy Orthopaedics Inc [id number] Attune Cemented Posterior Stabilize Knee Left 6 Narrow Component - [id number] Implanted:Qty: 1 on 10/06/2017 by Neptali Negrete MD at [facility] Left: Knee Depuy Orthopaedics Inc 08/19/2027 [id number] / / [id number] Depuy Orthopaedics Inc [id number] Attune 8mm Posterior Stabilize Fix Bearing Knee 6 Insert Tibial - [id number] Implanted:Qty: 1 on 10/06/2017 by Neptali Negrete MD at [facility] Left: Knee Depuy Orthopaedics Inc 06/18/2022 [id number] / / [id number] Medtronic Inc Tyrx Absorbable Antibacterial Envelope-Large 3.3x2.9in [id number] - [id number] Implanted:Qty: 1 on 05/14/2023 by Fransico Alberto MD at [facility] Medtronic Inc 12/25/2023 [id number] / / [id number] [employer] Solitario Contour 6fr 26cm Large Inner Lumen Low Profile Bladder Lauri Taper Latex Free 180-223 - [id number] Implanted:Qty: 1 on 04/15/2024 by Alisson Duran MD at [facility] Right: Ureter [employer] Solitario 12/31/2026 [id number] / / [id number] [employer] Solitario Contour 6fr 26cm Large Inner Lumen Low Profile Bladder Lauri Taper Latex Free 180-223 - [id number] Implanted:Qty: 1 on 04/15/2024 by Alisson Duran MD at [facility] Left: Ureter [employer] Solit[employer] 11/26/2026 [id number] / / [id number] [employer] Solitario Contour Vl 4.8fr 22-30cm Taper Tip Bladder Lauri Low Profile Large Latex Free [id number] - [id number] Implanted:Qty: 1 on 12/18/2024 by Melonie Mitchell MD at [facility] Left: Urethra [employer] Sol[employer] 05/04/2027 [id number] / / [id number] [employer] Solitario Contour Vl 4.8fr 22-30cm Taper Tip Bladder Lauri Low Profile Large Latex Free [id number] - [id number] Implanted:Qty: 1 on 12/18/2024 by Melonie Mitchell MD at [facility] Left: Urethra [employer] Solitario 02/22/2027 [id number] / / [id number] Procedures Procedure Name Priority Date/Time Associated Diagnosis Comments EGFR STAT 12/19/2024 12:16 PM CDT BASIC METABOLIC PANEL STAT 12/19/2024 12:16 PM CDT EGFR Routine 12/19/2024 3:51 AM CDT DIFFERENTIAL AUTO Routine 12/19/2024 3:5 1 AM CDT CBC WITH AUTO DIFFERENTIAL Routine 12/19/2024 3:51 AM CDT BASIC METABOLIC PANEL Routine 12/19/2024 3:51 AM CDT FL RETRO PYELO (IN OR) IP Routine 12/18/2024 12:23 PM CDT SURGICAL PATHOLOGY Routine 12/18/2024 11 :57 AM CDT Left renal stone MS AN ELECTIVE ENDOTRACHEAL AIRWAY Routine 12/18/2024 11:33 AM CDT URETEROSCOPY 12/18/2024 11:22 AM CDT Left renal stone CYSTOSCOPY PLACEMENT URETERAL STENT 12/18/2024 11:22 AM CDT Left renal stone URINALYSIS, MICROSCOPIC ONLY STAT 12/18/2024 9:07 AM CDT URINE CULTURE STAT 12/18/2024 9:07 AM CDT URINALYSIS AND REFLEX TO MICROSCOPIC AND CULTURE STAT 12/18/2024 9:[address] KUB STONE WO CONTRAST ED 12/18/2024 8:25 AM CDT EGFR STAT 12/18/2024 7:43 AM CDT LIPASE STAT 12/18/2024 7:43 AM CDT COMPREHENSIVE METABOLIC PANEL STAT 12/18/2024 7:43 AM CDT DIFFERENTIAL AUTO STAT 12/18/2024 7:4 2 AM CDT CBC WITH AUTO DIFFERENTIAL STAT 12/18/2024 7:42 AM CDT DEVICE CHECK - REMOTE Routine 11/09/2024 11:27 AM CDT Cardiac pacemaker in situ Heart block AV second degree Sick sinus syndrome (HCC) from Last 3 Months Results * (ABNORMAL) eGFR (12/19/2024 12:16 PM CDT) eGFR 38(L) >=60 mL/min/1. 73 m2 Comment: Interpretive Data Reference Interval Normal >/= 90 mL/min/1.73m2 Mildly decreased* 60 - 89 mL/min/1.73m2 Mildly to moderately decreased 45 - 59 mL/min/1.73m2 Moderately to severely decreased 30 - 44 mL/min/1.73m2 Severely decreased 15 - 29 mL/min/1.73m2 Kidney Failure < 15 mL/min/1.73m2 *Relative to young adult level Estimated glomerular [...] interpretive data was last reviewed 2021. Blood 12/19/2024 12:1 6 PM CDT 12/19/2024 12:46 PM CDT Tru Flood MD LAB BLOOD ORDERABLES Final Result [facility] ([place]) [address] [facility] Department [place] [address] * (ABNORMAL) Basic metabolic panel (12/19/2024 12:16 PM CDT) Sodium 137 135 - 145 mmol/L [facility] ([place]) Potassium, pl 4.6 3.3 - 4.9 mmol/L [facility] ([place]) Chloride 107 97 - 110 mmol/L [facility] ([place]) CO2 20(L) 22 - 32 mmol/L [facility] ([place]) Anion gap 10 2 - 15 mmol/L [facility] ([place]) BUN 24 6 - 25 mg/dL [facility] ([place]) Creatinine 1.35(H) 0.60 - 1.10 mg/dL [facility] ([place]) Glucose 123 70 - 199 mg/dL [facility] ([place]) Comment: Interpretive Data Fasting glucose >/= 126 mg/dl is diagnostic for diabetes. Fasting is defined as no caloric intake [...] interpretive data was last revised 2022. Calcium 9.2 8.5 - 10.3 mg/dL [facility] ([place]) Blood 12/19/2024 12:1 6 PM CDT 12/19/2024 12:46 PM CDT Tru Flood MD LAB BLOOD ORDERABLES Final Result [facility] [address] [facility] Department [place] [address] * (ABNORMAL) eGFR (12/19/2024 3:51 AM CDT) eGFR 41(L) >=60 mL/min/1. 73 m2 Comment: Interpretive Data Reference Interval Normal >/= 90 mL/min/1.73m2 Mildly decreased* 60 - 89 mL/min/1.73m2 Mildly to moderately decreased 45 - 59 mL/min/1.73m2 Moderately to severely decreased 30 - 44 mL/min/1.73m2 Severely decreased 15 - 29 mL/min/1.73m2 Kidney Failure < 15 mL/min/1.73m2 *Relative to young adult level Estimated glomerular [...] interpretive data was last reviewed 2021. Blood 12/19/2024 3:51 AM CDT 12/19/2024 4:50 AM CDT us Saran Bain MD LAB BLOOD ORDERABLES Final Res ult [facility] ([place] [address] [facility] Department [place] [address] * (ABNORMAL) Differential, auto (12/19/2024 3:51 AM CDT) Neutrophil abs 8.45(H) 1.50 - 6.50 K/cumm Imm gran abs 0.03 0.00 - 0.10 K/cumm [facility] ([place]) Lymphocyte abs 0.62(L) 0.80 - 3.30 K/cumm [facility] ([place]) Monocyte abs 0.43 0.20 - 0.80 K/cumm [facility] ([place]) Eosinophil abs 0.01 0.00 - 0.50 K/cumm [facility] ([place]) Basophil abs 0.03 0.00 - 0.10 K/cumm [facility] ([place]) Neutrophil pct 88.3 % [facility] ([place]) Comment: Interpretive [...] was last revised on 2017. Lymphocyte pct 6.5 % [facility] ([place]) Comment: Interpretive Data Percent cell count reference ranges are not reported, since discordance with absolute values may lead to misinterpretation of CBC data. Current Interpretive Data was last revised on 2017. Monocyte pct 4.5 % [facility] ([place]) Comment: Interpretive Data [...] Data was last revised on 2017. Blood 12/19/2024 3:51 AM CDT 12/19/2024 4:50 AM CDT us Saran Bain MD LAB BLOOD ORDERABLES Final Res ult [facility] ([place]) [address] [facility] Department [place] [address] * (ABNORMAL) CBC with auto differential (12/19/2024 3:51 AM CDT) WBC 9.57 3.80 - 9.90 K/cumm Hgb 14.3 11.9 - 15.5 g/dL [facility] ([place]) Hct 44.1 35.6 - 45.5 % [facility] ([place]) Plt 151 150 - 400 K/cumm [facility] ([place]) MPV 9.6 9.1 - 12.3 fL [facility] ([place]) RBC 4.31 3.90 - 5.20 M/cumm [facility] ([place]) MCV 102.3(H) 81.3 - 96.4 fL [facility] ([place]) MCH 33.2 27.1 - 33.3 pg [facility] ([place]) MCHC 32.4 32.3 - 35.7 g/dL [facility] ([place]) RDW CV 13.7 11.1 - 14.9 % [facility] ([place]) RDW SD 52.0(H) 35.7 - 48.1 fL [facility] ([place]) NRBC abs 0.00 0.00 - 0.01 K/cumm [facility] ([place]) Blood 12/19/2024 3:51 AM CDT 12/19/2024 4:50 AM CDT us Saran Bain MD LAB BLOOD ORDERABLES Final Res ult [facility] ([place]) [address] [facility] Department [place] [address] * (ABNORMAL) Basic metabolic panel (12/19/2024 3:51 AM CDT) Sodium 141 135 - 145 mmol/L [facility] ([place]) Potassium, pl 4.6 3.3 - 4.9 mmol/L [facility] ([place]) Chloride 109 97 - 110 mmol/L [facility] ([place]) CO2 23 22 - 32 mmol/L [facility] ([place]) Anion gap 9 2 - 15 mmol/L [facility] ([place]) BUN 21 6 - 25 mg/dL [facility] ([place]) Creatinine 1.25(H) 0.60 - 1.10 mg/dL [facility] ([place]) Glucose 88 70 - 199 mg/dL [facility] ([place]) Comment: Interpretive Data Fasting glucose >/= 126 mg/dl is diagnostic for diabetes. Fasting is defined as no caloric intake [...] interpretive data was last revised 2022. Calcium 8.7 8.5 - 10.3 mg/dL [facility] ([place]) Blood 12/19/2024 3:51 AM CDT 12/19/2024 4:50 AM CDT us Saran Bain MD LAB BLOOD ORDERABLES Final Res ult [facility] ([place]) [address] [facility] Department [place] [address] * FL Retro Pyelo (In Or) (12/18/2024 12:23 PM CDT) Anatomical Region Laterality Modality Body N/A Radio Fluoroscop y 12/18/2024 2:30 PM CDT Narrative 12/18/2024 2:31 PM CDT EXAM DESCRIPTION: FL RETRO PYELO (IN OR) HISTORY: surgery Bilateral ureteroscopy with bilateral stents 13 ml omnipaque 240 .3 min ft 4.2 mgy COMPARISON: 04/15/2024 RADIATION DOSE: Dose: 4.2 mGy Reference Air Kerma (Ka,r) FINDINGS: Placement of bilateral double-J ureter stents by urology. IMPRESSION: Placement of bilateral double-J ureteral stents. Please see operative summary for full report. THIS IS AN ELECTRONICALLY VERIFIED FINAL REPORT 12/18/2024 2:31 PM - Electronically signed by Tone Kirk M.D. MM: MM Report ID: [id number] Reading Location: [id number] Procedure Note Tone Kirk MD - 12/18/2024 EXAM DESCRIPTION: FL RETRO PYELO (IN OR) HISTORY: surgery Bilateral ureteroscopy with bilateral stents 13 ml omnipaque 240 .3 minft 4.2 mgy COMPARISON: 04/15/2024 RADIATION DOSE: Dose: 4.2 mGy Reference Air Kerma (Ka,r) FINDINGS: Placement of bilateral double-J ureter stents by urology. IMPRESSION: Placement of bilateral double-J ureteral stents. Please see operativesummary for full report. THIS IS AN ELECTRONICALLY VERIFIED FINAL REPORT 12/18/2024 2:31 PM - Electronically signed by Tone Kirk M.D. MM: MM Report ID: [id number] Reading Location: [id number] us Majdee Mandaen MD IMG FLUOROSCOPY PROCEDURES Final Result * Surgical pathology (12/18/2024 11:57 AM CDT) Tissue (Bladder Stone) 12/18/2024 11:56 AM CDT Comment:DRY Narrative PATHOLOGY [facility] - 12/22/2024 9:28 AM CDT [facility] results best viewed via link to PDF [facility] Department of Pathology [address] [place] [id number] Note to Patients: This report may contain a detailed description of human tissue sent by a health care provider to the laboratory for pathologic evaluation. The content of this report is essential for diagnosis and may provide important critical findings. This information may be unfamiliar to patients to review without a medical professional present. It is advised that the patient review this report in the presence of a health care provider who can answer questions and explain the details. Final Report Patient Name: RITA FLOOD Address: [address] [place] [address] Gender: F : 1935 (Age: 89) Service: Surgery Location: [facility] Hospital #: [id number] Patient Type: [facility] OP in bed Taken: 12/18/2024 Received: 12/21/2024 Accessioned: 12/21/2024 Reported: 12/22/2024 Physician(s):Melonie Mitchell MD Diagnosis: Ureteral stones, left -Gross examination -Pending chemical analysis -See gross description Tristen Leggett MD PhD Report Electronically Reviewed and Signed Out By Tristen Leggett MD PhD 12/22/2024 09:28:20 Specimen(s) Received: A: Left ureteral stones Clinical History: Left ureteral stone. Cystoscopy placement bilateral ureteral stents. Ureteroscopy with laser lithotripsy. Gross Description: The specimen is submitted in a single container labeled RITA FLOOD and left ureteral stones. It is 3 khoury brown granular stones between 2 and 4 mm. The specimen is entirely submitted to [facility] for chemical analysis. When the [facility] report has been finalized, it will be available in the laboratory section of [facility]. If [facility] is not available, please call the Department of Pathology at [facility] ([phone]) to obtain a copy of the report. Sharan To R.N., P.A./Marlene Herrera M.D. REPORT IMAGES AND SCANNED DOCUMENTS, IF INCLUDED, ONLY VIEWABLE IN PDF VERSION OF REPORT The performance characteristics of some immunohistochemical stains, fluorescence in-situ hybridization tests and immunophenotyping by flow cytometry cited in this report (if any) were determined by the Surgical Pathology Department at [facility] as part of an ongoing housing quality standard inspector program and in compliance with federally mandated regulations drawn from the Clinical Laboratory Improvement Act of 1988 (CLIA '88). Some of these tests rely on the use of analyte specific reagents and are subject to specific labeling requirements by the US Food and Drug Administration. Such diagnostic tests may only be performed in a facility that is certified by the Department of Health and Human Services as a high complexity laboratory under CLIA '88. The FDA has determined that such clearance or approval is not necessary. This test is used for clinical purposes. It should not be regarded as investigational or for research. Nevertheless, federal rules concerning the medical use of analyte specific reagents require that the following disclaimer be attached to the report: This test was developed and its performance characteristics determined by the Surgical Pathology Department [facility]. It has not been cleared or approved by the U. S. Food and Drug Administration. Note for decalcified specimens: This assay has not been validated on decalcified tissues. Results should be interpreted with caution given the possibility of false negativity on decalcified specimens Melonie Mitchell MD LAB PATHOLOGY ORDERABLES Final R esult PATHOLOGY [address] [address] * MS AN ELECTIVE ENDOTRACHEAL AIRWAY (12/18/2024 11:33 AM CDT) Narrative Beau Varner CRNA - 12/18/2024 11:33 AM CDT Beau Varner CRNA 12/18/2024 11:33 AM Airway Patient location: OR Urgency: elective Indications for airway management: anesthesia Difficult airway: no Staff: Placed by: AUTOCAD: Beau Varner CRNA Emergent airway documentation: Risks and benefits discussed: yes Consent obtained: yes Consent given by: patient Airway prep: Preoxygenated: yes Patient position: sniffing MILS maintained throughout: yes Mask difficulty assessment: 0 - not attempted Sedation level during airway: GA Final airway details: Final airway type: endotracheal airway Tube type: ETT ETT size: 6.0 mm Cuffed: yes Technique used for successful ETT placement: video laryngoscopy Devices/Methods used in placement: stylet Insertion site: oral Blade type: Dimple Video blade type: Juares Blade size: 3 Cormack-Lehane (video): grade I - full view of glottis Cuff volume: 7 mL Cuff inflated with: air ETT to teeth: 22 cm ETT to gums: 20 cm Placement verified by: auscultation and CO2 detection Airway secured with: silk tape Number of attempts: 1 us Melonie Mitchell MD ANESTHESIA ORDERABLES Final Resu lt * (ABNORMAL) Urinalysis reflex to microscopic and culture Urine (12/18/2024 9:07 AM CDT) Color, ur Yellow Yellow Clarity, ur Turbid(A) Clear [facility] ([place]) Specific gravity, ur 1.006 1.003 - 1.030 [facility] ([place]) pH, urine 7.5 [facility] ([place]) Comment: Interpretive Data U rine pH is affected by diet, medications, systemic acid-base disturbances, and renal tubular function. pH may affect urinary stone formation. For example, urine pH below 6.0 may help reduce the tendency for calcium phosphate stones and pH greater than 6.0 may reduce the tendency for uric acid stone formation. Source: [facility] [employer] Current Interpretive Data was last revised on 2017 Protein, ur ql Negative Negative [facility] ([place]) Glucose, ur ql Negative Negative [facility] ([place]) Ketones, ur Negative Negative [facility] ([place]) Bilirubin, ur Negative Negative [facility] ([place]) Blood, ur Trace(A) Negative [facility] ([place]) Urobilinogen, ur <2.0 <2.0 mg/dL [facility] ([place]) Nitrite, ur Negative Negative [facility] ([place]) Leukocyte esterase, ur 4+(A) Negative [facility] ([place]) UA reflex comment Reflex to microscopic UA will be performed. [facility] ([place]) Urine 12/18/2024 9:07 AM CDT 12/18/2024 9:17 AM CDT Saran Bain MD LAB MICROBIOLOGY - GENERAL ORD ERABLES Final Result Performing Organization Address [facility]/ZIP Co de Phone Number RON MCKE[facility] ([place]) [address] [facility] [place] [employer] [address] * (ABNORMAL) Urinalysis, microscopic only (12/18/2024 9:07 AM CDT) WBC, ur >50(A) 0 - 5 /HPF RBC, ur 6-10(A) 0 - 2 /HPF [facility] ([place]) Epithelial cells, squamous, ur 1-5 0 - 5 /HPF [facility] ([place]) Bacteria, ur 1+(A) [facility] ([place]) Culture Reflex Comment Reflex to urine culture will be performed. [facility] ([place]) Urine 12/18/2024 9:07 AM CDT 12/18/2024 9:17 AM CDT Saran Bain MD LAB URINE ORDERABLES Final Res ult Performing Organization Address [facility] Co de Phone Number WESTONFABRICIO MCKEON ([place]) [address] [facility] [place] [employer] [place] [address] * Urine culture Urine (12/18/2024 9:07 AM CDT) Report Final Report: Less than 100,000 colonies/mL (clinically insignificant growth based on current clinical standards) Comment:Testing performed by : [facility], [address] [facility], [place]., [address] Organism (CLINICALLY INSIGNIFICANT GROWTH [facility]ON MC[facility] ([place]) Urine 12/18/2024 9:07 AM CDT 12/18/2024 2:19 PM CDT Narrative [facility] MC[facility] ([place]) - 12/19/2024 3:39 PM CDT Urine culture reflexed based upon urinalysis results. Testing performed by [facility] ([phone]) us Saran Bain MD LAB MICROBIOLOGY - GENERAL ORD ERABLES Final Result [facility] ([place]) [address] [facility] Department [place] [address] * CT KUB Stone WO Contrast (12/18/2024 8:25 AM CDT) Anatomical Region Laterality Modality Abdomen N/A Computed Tomogra phy 12/18/2024 8:34 AM CDT Narrative 12/18/2024 8:52 AM CDT EXAM DESCRIPTION: CT KUB STONE WO CONTRAST REASON FOR STUDY: Abdominal/flank pain, stone suspected Severe left flank pain started this morning. Hx of cholecystectomy, hysterectomy, appendectomy, and hiatal hernia repair. TECHNIQUE: CT scan of the abdomen and pelvis performed without intravenous and without oral contrast using helical scanning technique. Reconstructed coronal and sagittal MPR images reviewed. All images stored on PACS. Automated exposure control was used as a dose optimization technique for this examination. COMPARISON: CT abdomen pelvis 04/14/2024 FINDINGS: The sensitivity for detection of visceral lesions is diminished without the use of intravenous contrast. LOWER CHEST: There is a moderate-sized hiatal hernia. Cardiac pacing leads are incompletely imaged. LIVER: Normal size. No identified cystic or solid masses. GALLBLADDER: No stones identified. No wall thickening or inflammatory changes. BILE DUCTS: No intrahepatic or extrahepatic ductal dilatation. SPLEEN: Normal size. No focal lesions. PANCREAS: Pancreas is atrophic and is partially included in the hiatal hernia. No obvious pancreatic mass or ductal dilatation. No obvious inflammatory change. ADRENALS: Normal. KIDNEYS/URINARY TRACT: There are bilateral renal cysts. There is new mild left-sided hydronephrosis with an obstructing calculus at the ureteropelvic junction causing obstruction. This calculus measures 8 mm in diameter. There are multiple other large intrarenal calculi bilaterally. This includes a 1.5 cm calculus in the right renal collecting system. Urinary bladder is unremarkable. GI: Moderate-sized hiatal hernia. There are no dilated or thick-walled loops of bowel appreciated. The appendix is not identified. There is colonic diverticulosis without diverticulitis. PERITONEUM: No ascites or free air. RETROPERITONEUM: No mass or adenopathy. REPRODUCTIVE: Hysterectomy VASCULATURE: Large amount of atherosclerotic plaque throughout the aortoiliac system without aneurism. MUSCULOSKELETAL: There is no suspicious osseous lesion. There is a severe levo scoliotic curvature of the lumbar spine. OTHER: There is a large ventral abdominal wall hernia mesh present. 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 IMPRESSION: New mild left-sided hydronephrosis with an obstructing 8 mm calculus at the ureteropelvic junction. Multiple other large intrarenal calculi bilaterally. Moderate-sized hiatal hernia. Colonic diverticulosis without diverticulitis. Additional chronic findings as above. THIS IS AN ELECTRONICALLY VERIFIED FINAL REPORT 12/18/2024 8:52 AM - Electronically signed by Ti Frank M.D. AM: AM Report ID: [id number] Reading Location: [id number] Procedure Note Ti Frank MD - 12/18/2024 EXAM DESCRIPTION: CT KUB STONE WO CONTRAST REASON FOR STUDY: Abdominal/flank pain, stone suspected Severe left flank pain started this morning. Hx of cholecystectomy, hysterectomy, appendectomy, and hiatal hernia repair. TECHNIQUE: CT scan of the abdomen and pelvis performed without intravenousand without oral contrast using helical scanning technique. Reconstructed coronal and sagittal MPR images reviewed. All images stored on PACS.Automated exposure control was used as a dose optimization technique for this examination. COMPARISON: CT abdomen pelvis 04/14/2024 FINDINGS: The sensitivity for detection of visceral lesions is diminished withoutthe use of intravenous contrast. LOWER CHEST: There is a moderate-sized hiatal hernia. Cardiac pacingleads are incompletely imaged. LIVER: Normal size. No identified cystic or solid masses. GALLBLADDER: No stones identified. No wall thickening or inflammatory changes. BILE DUCTS: No intrahepatic or extrahepatic ductal dilatation. SPLEEN: Normal size. No focal lesions. PANCREAS: Pancreas is atrophic and is partially included in the hiatal hernia. No obvious pancreatic mass or ductal dilatation. No obvious inflammatory change. ADRENALS: Normal. KIDNEYS/URINARY TRACT: There are bilateral renal cysts. There is newmild left-sided hydronephrosis with an obstructing calculus at theureteropelvic junction causing obstruction. This calculus measures 8 mm in diameter.There are multiple other large intrarenal calculi bilaterally. This includes a1.5 cm calculus in the right renal collecting system. Urinary bladder is unremarkable. GI: Moderate-sized hiatal hernia. There are no dilated or thick-walled loops of bowel appreciated. The appendix is not identified. There iscolonic diverticulosis without diverticulitis. PERITONEUM: No ascites or free air. RETROPERITONEUM: No mass or adenopathy. REPRODUCTIVE: Hysterectomy VASCULATURE: Large amount of atherosclerotic plaque throughout the aortoiliac system without aneurism. MUSCULOSKELETAL: There is no suspicious osseous lesion. There is asevere levo scoliotic curvature of the lumbar spine. OTHER: There is a large ventral abdominal wall hernia mesh present.There is pelvic floor prolapse. IMPRESSION: New mild left-sided hydronephrosis with an obstructing 8 mm calculus atthe ureteropelvic junction. Multiple other large intrarenal calculi bilaterally. Moderate-sized hiatal hernia. Colonic diverticulosis without diverticulitis. Additional chronic findings as above. THIS IS AN ELECTRONICALLY VERIFIED FINAL REPORT 12/18/2024 8:52 AM - Electronically signed by Ti Frank M.D. AM: AM Report ID: [id number] Reading Location: [place] [address] Saran Bain MD IM CT PROCEDURES Final Result * (ABNORMAL) eGFR (12/18/2024 7:43 AM CDT) eGFR 56(L) >=60 mL/min/1. 73 m2 Comment: Interpretive Data Reference Interval Normal >/= 90 mL/min/1.73m2 Mildly decreased* 60 - 89 mL/min/1.73m2 Mildly to moderately decreased 45 - 59 mL/min/1.73m2 Moderately to severely decreased 30 - 44 mL/min/1.73m2 Severely decreased 15 - 29 mL/min/1.73m2 Kidney Failure < 15 mL/min/1.73m2 *Relative to young adult level Estimated glomerular [...] interpretive data was last reviewed 2021. Blood 12/18/2024 7:43 AM CDT 12/18/2024 7:45 AM CDT Saran Bain MD LAB BLOOD ORDERABLES Final Res ult RON MCKEON ([place]) [address] [facility] [place] [address] * Lipase (12/18/2024 7:43 AM CDT) Lipase 22 10 - 99 Units/L [facility] ([place]) Blood Venous blood specimen / Unknown 12/18/2024 7:43 AM CDT 12/18/2024 7:45 AM CDT Saran Bain MD LAB BLOOD ORDERABLES Final Res ult RON MCKEON ([place]) 1 [facility] [place] [address] * (ABNORMAL) Comprehensive metabolic panel (12/18/2024 7:43 AM CDT) Sodium 140 135 - 145 mmol/L [facility] ([place]) Potassium, pl 4.2 3.3 - 4.9 mmol/L [facility] ([place]) Chloride 106 97 - 110 mmol/L [facility] ([place]) CO2 19(L) 22 - 32 mmol/L [facility] ([place]) Anion gap 15 2 - 15 mmol/L [facility] ([place]) BUN 16 6 - 25 mg/dL [facility] ([place]) Creatinine 0.98 0.60 - 1.10 mg/dL [facility] ([place]) Glucose 95 70 - 199 mg/dL [facility] ([place]) Comment: Interpretive Data Fasting glucose >/= 126 mg/dl is diagnostic for diabetes. Fasting is defined as no caloric intake [...] 10.3 mg/dL [facility] ([place]) Bilirubin, total 0.8 0.1 - 1.2 mg/dL [facility] ([place]) Protein, pl 7.1 6.5 - 8.5 g/dL [facility] ([place]) Albumin 3.8 3.5 - 5.0 g/dL [facility] ([place]) Alk phos 96 40 - 130 Units/L [facility] ([place]) ALT 9 7 - 45 Units/L [facility] ([place]) AST 22 10 - 45 Units/L [facility] ([place]) Blood Venous blood specimen / Unknown 12/18/2024 7:43 AM CDT 12/18/2024 7:45 AM CDT us Saran Bain MD LAB BLOOD ORDERABLES Final Res ult [facility] ([place]) [address] [facility] [place] [address] * Differential, auto (12/18/2024 7:42 AM CDT) Neutrophil abs 5.18 1.50 - 6.50 K/cumm Imm gran abs 0.02 0.00 - 0.10 K/cumm [facility] ([place]) Lymphocyte abs 2.42 0.80 - 3.30 K/cumm [facility] ([place]) Monocyte abs 0.41 0.20 - 0.80 K/cumm [facility] ([place]) Eosinophil abs 0.07 0.00 - 0.50 K/cumm [facility] ([place]) Basophil abs 0.04 0.00 - 0.10 K/cumm [facility] ([place]) Neutrophil pct 63.7 % [facility] ([place]) Comment: Interpretive Data Percent cell count reference ranges are not reported, since discordance with absolute values may lead to misinterpretation of CBC data. Current Interpretive Data was last revised on 2017. Imm gran pct 0.2 % [facility] ([place]) Comment: Interpretive Data Percent cell count reference ranges are not reported, since discordance with absolute values may lead to misinterpretation of CBC data. Current Interpretive Data was last revised on 2017. Lymphocyte pct 29.7 % [facility] ([place]) Comment: Interpretive Data Percent cell count reference ranges are not reported, since discordance with absolute values may lead to misinterpretation of CBC data. Current Interpretive Data was last revised on 2017. Monocyte pct 5.0 % [facility] ([place]) Comment: Interpretive Data Percent cell count reference ranges are not reported, since discordance with absolute values may lead to misinterpretation of CBC data. Current Interpretive Data was last revised on 2017. Eosinophil pct 0.9 % [facility] ([place]) Comment: Interpretive Data Percent cell count reference ranges are not reported, since discordance with absolute values may lead to misinterpretation of CBC data. Current Interpretive Data was last revised on 2017. Basophil pct 0.5 % [facility] ([place]) Comment: Interpretive Data Percent cell count reference ranges are not reported, since discordance with absolute values may lead to misinterpretation of CBC data. Current Interpretive Data was last revised on 2017. Blood 12/18/2024 7:42 AM CDT 12/18/2024 7:45 AM CDT us Saran Bain MD LAB BLOOD ORDERABLES Final Res ult [facility]ON [facility] ([place]) [address] [facility] Department [place] [address] * (ABNORMAL) CBC with auto differential (12/18/2024 7:42 AM CDT) WBC 8.14 3.80 - 9.90 K/cumm Hgb 14.8 11.9 - 15.5 g/dL [facility] ([place]) Hct 43.9 35.6 - 45.5 % [facility] ([place]) Plt 180 150 - 400 K/cumm [facility] ([place]) MPV 9.5 9.1 - 12.3 fL [facility] ([place]) RBC 4.42 3.90 - 5.20 M/cumm [facility] ([place]) MCV 99.3(H) 81.3 - 96.4 fL [facility] ([place]) MCH 33.5(H) 27.1 - 33.3 pg [facility] ([place]) MCHC 33.7 32.3 - 35.7 g/dL [facility] ([place]) RDW CV 13.4 11.1 - 14.9 % [facility] ([place]) RDW SD 49.3(H) 35.7 - 48.1 fL [facility] ([place]) NRBC abs 0.00 0.00 - 0.01 K/cumm [facility] ([place]) Blood Venous blood specimen / Unknown 12/18/2024 7:42 AM CDT 12/18/2024 7:45 AM CDT us Saran Bain MD LAB BLOOD ORDERABLES Final Res ult [facility] ([place]) [address] [facility] [place] [address] * DEVICE CHECK - REMOTE (11/09/2024 11:27 AM CDT) Anatomical Region Laterality Modality Other Narrative 11/12/2024 3:40 PM CDT Images from the original result were not included. 11/10/2024 [employer] quarterly remote device check NOTE The following shows snippets from the complete quarterly report. The complete report in its entirety is attached to this Result Text in Flour Worker Periodic IEGM Detection Nov 10, 2024, 1:07:00 AM Last in-office check: December 2023 Next in-office appointment: January 2025 Dual Chamber PPM implanted 2023 Battery longevity = OK/90% AT/AF burden 0% Ap: 29% RVp: 33% No events this monitoring period Reviewed By Karla Hogan ONLINE MARKETING COORDINATOR at 12:23 PM ATTESTATION I have reviewed the device interrogation report associated with this encounter in detail. I agree with the documentation recorded/scanned into the electronic medical record. Recommendations: Continue current device follow-up. Elver Tolbert MD MD Review and Recommendations below (please forward an in-basket message to your MA if check requires attention) us Elver Tolbert MD CV CARDIAC SERVICES PROCEDURES Final Result from Last [address] [facility] Member Subscriber Plan / Payer (Ef fective 2012-Present) Name:Rita Flood Relation to Subscriber:Self Name:Rita Flood Payer ID:[id number] (NAIC) Type:MEDICARE RISK OTHER Address: [place] [id number] Advance Directives For more information, please contact: [phone] * Full Code (Latest Code Status on File) Date Activated Date Inactivated Comments 05/31/2024 1:27 PM 05/31/2024 8:28 PM * Full Code Date Activated Date Inactivated Comments 05/31/2024 1:27 PM 05/31/2024 1:27 PM * LIMITED - No CPR Date Activated Date Inactivated Comments 04/15/2024 1:38 [...] Comments 05/17/2023 1:17 PM 05/18/2023 3:24 PM Care Teams Stevedore Hold Relationship Specialty Start Date End Date Tru Flood MD PCP - General 12/26/16 Karina Jenkins, REFRACTORY FURNACE DESIGNER Drawing In Machine Tender Physical Therapy 09/26/17
--- OUTSIDE RECORDS SUMMARY | 2024-12-29 11:28 | XMS_ITS | Clinical Summary ---
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 Gender Identity Not on file Sexual Orientation Not on file Plan of Treatment Health Maintenance Due Date Last Done Comments DTaP, Tdap and Td Vaccines ( 1 - Tdap) 09/21/1954 Pneumococcal Vaccine: 50+ Ye ars (1 of 1 - PCV) 1986 Zoster Vaccines (1 of 2) 1986 RSV Immunization or 60+ Years (1 - 1-dose 75+ series) 09/21/2011 COVID-19 Vaccine ( - 2023-2 5 season) 2024 Meningococcal B Vaccine Aged Out No l onger eligible based on patient's age to complete this topic Meningococcal Vaccine Aged Out No tiffany christina eligible based on patient's age to complete this topic RSV Immunizations Under 20 Months Aged Out No longer eligible based on patient's age to complete this topic
== END 2024-12-29 10:34 | disposition home or self-care (01) ==
LOC: ANHSURGERY 10:38
PROVIDERS: Visit Provider Urology
DX: N20.0 Calculus of kidney (principal); Z01.818 Encounter for other preprocedural examination
CPT/HCPCS: 36415; 85610; 85730; 87077; 87086; 87186

== ENCOUNTER 2025-01-07 00:41 | Day surgery (SDC) | payer OTHER, SELFPAY ==
[2024-12-23 14:43] VITALS: BMI 29.2
--- NOTE | 2024-12-23 15:12 | PC.NURSE ---
Report to the Outpatient Waiting Room, entrance under the green pavilion located off [facility], at time __6:00AM___ on date __01/07/25___. Planned Procedure Time: __7:30AM____.? Time changes happen often and if your time is changed the preop area will call you the afternoon before. - You and your visitor will be asked to self-screen and do not enter if you have any COVID symptoms. Please call surgeon if you need to reschedule. - A mask is optional within the hospital at this time. Patients may have clear liquids (water, carbonated beverages, clear teas, apple juice) until 3 hours prior to surgery (4:30AM) with a maximum of 20 ounces. - No food from midnight until time of surgery and no smoking, or chewing tobacco (or any form of nicotine). No chewing gum, candy or mints. Take only the following medications with a SIP of water on the morning of surgery: ___OXYCODONE NEEDED FOR PAIN DO NOT STOP ANY OF YOUR OTHER PRESCRIPTION MEDICATIONS PRIOR TO SURGERY EXCEPT THE FOLLOWING Hold all vitamins and supplements for 3 days per anesthesiologist. Medications to discontinue per physician NONE Date to take last dose Please no make-up, nail swedish, hairspray, perfume, deodorant, or body powder the day of surgery.? No jewelry (including any body piercings) or valuables the day of surgery, leave them at home.? Please take a shower or bath the night before, or the morning of, surgery with an antibacterial soap.? Wear comfortable, loose fitting clothing.? - Jewelry must be removed prior to entering the operating room.? Rings and piercings that are not removed may be cut off. - The hospital will not accept responsibility for valuables.? - Please leave all valuables, including medications, at home the day of surgery. If you are going home after surgery, a licensed truck driver heavy must drive you home.? - NO public transportation without another adult if you receive anesthesia. - We recommend that an adult stay with you for 24 hours following discharge. - We also recommend that you do not drive, make important decision, drink alcoholic beverages, or take any drugs that were not prescribed by your health care provider for at least 24 hours after your discharge time. Follow any additional instructions given to you from your surgeon. Telephone instructions given to PATIENT and asked if any additional questions and then verbalized understanding. Patient advised to call surgeon office or pre surgery nurse liaison [phone] if any additional questions.
[2025-01-07] VITALS (10 sets, daily range): BP systolic 116–158; BP diastolic 54–90; PULSE 60–74; RESP 11–20; TEMP 36.4–36.7; O2SAT 95–100
--- NOTE | ~2025-01-07 | XR_ITS ---
EXAMINATION: XR abdomen/kub 1V DATE: 01/07/2025 06:03 INDICATION: Nephrolithiasis for planned extracorporeal shockwave lithotripsy TECHNIQUE: A supine view of the abdomen on 2 radiographs was obtained. COMPARISON: Study dated 05/13/[address] dated 06/09/2023 FINDINGS: Again seen are bilateral internal ureteral stents with loops formed over the expected positions of the bilateral renal pelvises sees in the bladder. Bilateral nephrolithiasis with at least 12 stones measuring up to 1.8 cm in the right kidney and at least 7 stones in the left kidney measuring up to 6 mm in the right kidney. There are a cluster of several phleboliths in the pelvis, a few projecting over the distal aspect of the bilateral ureteral stents. No dilated loops of gas-filled bowel to suggest obstruction. Cholecystectomy clips in right upper quadrant. Additional metastases distributed clips consistent with prior ventral hernia repair. Lung bases are clear. Heart size normal. Pacemaker lead tips in the right atrium and right ventricle. Lumbar levoscoliosis with severe spondylosis. IMPRESSION: 1. Bilateral nephrolithiasis and bilateral intraureteral stents in expected position. Reviewed, dictated and finalized at location A. IMPRESSION: 1. Bilateral nephrolithiasis and bilateral intraureteral stents in expected pos ition.
--- OUTSIDE RECORDS SUMMARY | 2025-01-07 00:44 | XMS_ITS | Clinical Summary ---
Author Organization [facility] Medical Office Building B Address [address] [place] [address] Care Team Providers Care Registered Associate Name Role Phone Tru Flood MD Primary [...] 05/18/2024 Assessment & Plan (06/15/2024 11:09 AM EDUCATION ADVISER): The patient's recent EGD did not demonstrate [...] forward Assessment & Plan (05/18/2024 9:57 AM EDUCATION ADVISER): We have discussed that the anemia may [...] 05/17/2023 Assessment & Plan (05/18/2023 3:36 PM EDUCATION ADVISER): SOUNDS LIKE VERTIGO. 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 Status post RA lead repositioning on 19 May 2023. Assessment & Plan (05/26/2023 12:21 PM EDUCATION ADVISER): Patient is feeling fine. We discussed good [...] (09/18/2017): Added automatically from request for surgery [id number] Peripheral neuropathy Encounters Date Type Department Care Team Description 12/18/2024 11:24 AM CDT Anesthesia Event [facility] Operating Room [address] [place] [address] Melonie Mitchell MD Beau Varner, PRODUCTION ASSEMBLY SUPERVISOR 12/18/2024 11:00 AM CDT - 12/18/2024 12:20 PM CDT Surgery [facility] Operating Room [address] [place] [address] Melonie Mitchell MD CYSTOSCOPY, PLACEMENT BILATERAL URETERAL STENTS 12/18/2024 7:29 AM CDT - 12/19/2024 1:27 PM CDT Emergency [facility] Surgery Care [address] [place] [address] Saran Bain MD Okonkwo, Kasiemobi Bernice, MD Nikolic, Jelena, MD Willey, Charles J., MD Ureterolithiasis (Primary Dx); Left renal stone Discharge Disposition: Discharge to home or self care 11/10/2024 12:45 PM CDT Ancillary Procedure [place] [facility] Multiple Spindle [address] [place] [phone] Cardiac pacemaker in situ; Heart block [...] drink = 0.6 oz pur e alcohol) [facility] Utilities Answer Date Recorded In the [...] often do you attend chur ch or episcopal services? More than 4 times per year 05/19/2023 Do you belong to any clubs o r organizations such as yazidism groups, unions, fraternal or athletic groups, or [...] place to sleep or slept in a senior care (including now)? No 05/19/2023 AUDIT-C Answer Date [...] on file Legal Sex Female 2:50 AM EDUCATION ADVISER Gender Identity Not on file Sexual Orientation [...] 12/18/2024, 04/14/2024 Medical Devices Implanted Type Area Supply Manager Device Identifier Shelf Expiration Date Model / Serial / Lot Biotronik Inc Endocardial Pacing Lead Promri Solia T [id number] - [id number] - [id number] Implanted:Qty: 1 on 05/14/2023 by Fransico Alberto MD at [facility] Lead Biotronik Inc 03/20/2024 [id number] / [id number] / Biotronik Inc Endocardial Pacing Lead Promri Solia Jt 45 [id number] - [id number] - [id number] Implanted:Qty: 1 on 05/14/2023 by Fransico Alberto MD at [facility] Lead Biotronik Inc [id number] / [id number] / Biotronik Inc Solia S 45cm Bipolar Active Fixation Lead Pacing Steroid Eluting [id number] - [id number] - [id number] Implanted:Qty: 1 on 05/19/2023 by Fransico Alberto MD at [facility] Lead Biotronik Inc 05/21/2025 [id number] / [id number] / Medtronic Inc Tyrx Absorbable Antibacterial Envelope-Large 3.3x2.9in [id number] - Sna - [id number] Implanted:Qty: 1 on 05/19/2023 by Fransico Alberto MD at [facility] Mesh Medtronic Inc 02/08/2024 [id number] / NA / [id number] Biotronik Inc Edora Promri 39r83v0.5mm Dual Chamber Rate Adaptive Unipolar Bipolar 234239 - [id number] - [id number] Implanted:Qty: 1 on 05/14/2023 by Fransico Alberto MD at [facility] Pacemaker Biotronik Inc 09/18/2024 [id number] / [id number] / Depuy Orthopaedics Inc [id number] Smartset High Viscosity Cement 40gm Bone Gentamicin - [id number] Implanted:Qty: 1 on 10/06/2017 by Neptali Negrete MD at [facility] Left: Knee Depuy Orthopaedics Inc 01/18/2019 [id number] / / [id number] Depuy Orthopaedics Inc [id number] Smartset High Viscosity Cement 40gm Bone Gentamicin - [id number] Implanted:Qty: 1 on 10/06/2017 by Neptali Negrete MD at [facility] Left: Knee Depuy Orthopaedics Inc 01/18/2019 [id number] / / [id number] Depuy Orthopaedics Inc [id number] Attune 38mm Cemented Medialize Knee Dome Patellar Aox Sterile - [id number] Implanted:Qty: 1 on 10/06/2017 by Neptali Negrete MD at [facility] Left: Knee Depuy Orthopaedics Inc 05/21/2022 [id number] / / [id number] Depuy Orthopaedics Inc [id number] Attune S+ Cement Fix Bearing Knee 5 Baseplate Tibial - [id number] Implanted:Qty: 1 on 10/06/2017 by Neptali Negrete MD at [facility] Left: Knee Depuy Orthopaedics Inc 04/20/2027 [id number] / / [id number] Depuy Orthopaedics Inc [id number] Attune Cemented Posterior Stabilize Knee Left 6 Narrow Component - [id number] Implanted:Qty: 1 on 10/06/2017 by Neptali Negrete MD at [facility] Left: Knee Depuy Orthopaedics Inc 08/19/2027 [id number] / / [id number] Depuy Orthopaedics Inc [id number] Attune 8mm Posterior Stabilize Fix Bearing Knee 6 Insert Tibial - [id number] Implanted:Qty: 1 on 10/06/2017 by Neptali Negrete MD at [facility] Left: Knee Depuy Orthopaedics Inc 06/18/2022 [id number] / / [id number] Medtronic Inc Tyrx Absorbable Antibacterial Envelope-Large 3.3x2.9in [id number] - [id number] Implanted:Qty: 1 on 05/14/2023 by Frnasico Alberto MD at [facility] Medtronic Inc 12/25/2023 [id number] / / [id number] [employer] Solitario Contour 6fr 26cm Large Inner Lumen Low Profile Bladder Lauri Taper Latex Free 180-223 - [id number] Implanted:Qty: 1 on 04/15/2024 by Alisson Duran MD at [facility] Right: Ureter [employer] Solitario 12/31/2026 [id number] / / [id number] [employer] Solitario Contour 6fr 26cm Large Inner Lumen Low Profile Bladder Lauri Taper Latex Free 180-223 - [id number] Implanted:Qty: 1 on 04/15/2024 by Alisson Duran MD at [facility] Left: Ureter [employer] Solitario 11/26/2026 [id number] / / [id number] [employer] Solitario Contour Vl 4.8fr 22-30cm Taper Tip Bladder Lauri Low Profile Large Latex Free [id number] - [id number] Implanted:Qty: 1 on 12/18/2024 by Melonie Mitchell MD at [facility] Left: Urethra [employer] Solitario 05/04/2027 [id number] / / [id number] [employer] Solitario Contour Vl 4.8fr 22-30cm Taper Tip Bladder Lauri Low Profile Large Latex Free [id number] - [id number] Implanted:Qty: 1 on 12/18/2024 by Melonie Mitchell MD at [facility] Left: Urethra [employer] Solitario 02/22/2027 [id number] / / [id number] Procedures Procedure Name Priority Date/Time Associated Diagnosis [...] 11 :57 AM CDT Left renal stone STONE ANALYSIS Routine 12/18/2024 11:56 AM CDT PA AN ELECTIVE ENDOTRACHEAL AIRWAY Routine 12/18/2024 11:33 [...] Flood MD LAB BLOOD ORDERABLES Final Result [facility] ([place]) [facility] Department [place] [address] * (ABNORMAL) Basic metabolic panel (12/19/2024 12:16 PM CDT) Sodium 137 135 - 145 mmol/L [facility] ([place]) Potassium, pl 4.6 3.3 - 4.9 mmol/L [facility] ([place]) Chloride 107 97 - 110 mmol/L [facility]) CO2 20(L) 22 - 32 mmol/L [facility] ([place]) Anion gap 10 2 - 15 mmol/L [facility] ([place]) BUN 24 6 - 25 mg/dL [facility] ([place]) Creatinine 1.35(H) 0.60 - 1.10 mg/dL [facility] ([place]) Glucose 123 70 - 199 mg/dL [facility] ([place]) Comment: Interpretive Data Fasting glucose >/= [...] ORDERABLES Final Result [facility] ([place]) [facility] Department of Laboratories [place], [place] [id number] * (ABNORMAL) eGFR (12/19/2024 3:51 AM CDT) [...] LAB BLOOD ORDERABLES Final Res ult [facility] ([place]) [facility] Department [place] [address] * (ABNORMAL) Differential, auto (12/19/2024 3:51 AM CDT) Neutrophil abs 8.45(H) 1.50 - 6.50 K/cumm Imm gran abs 0.03 0.00 - 0.10 K/cumm [facility] ([place]) Lymphocyte abs 0.62(L) 0.80 - 3.30 K/cumm [facility] ([place]) Monocyte abs 0.43 0.20 - 0.80 K/cumm [facility] ([place]) Eosinophil abs 0.01 0.00 - 0.50 K/cumm [facility] ([place]) Basophil abs 0.03 0.00 - 0.10 K/cumm [facility] ([place]) Neutrophil pct 88.3 % [facility] ([place]) Comment: Interpretive Data Percent cell count reference ranges are not reported, since discordance with absolute values may lead to misinterpretation of CBC data. Current Interpretive Data was last revised on 2017. Imm gran pct 0.3 % [facility] ([place]) Comment: Interpretive Data Percent cell count reference [...] 2017. Monocyte pct 4.5 % [facility] ([place]) Comment: Interpretive Data Percent cell count reference [...] Final Res ult [facility] ([place]) [facility] Department [place] [address] * (ABNORMAL) CBC with auto differential (12/19/2024 [...] 3:51 AM CDT 12/19/2024 4:50 AM CDT Saran Bain MD LAB BLOOD ORDERABLES Final Res ult [facility] ([place]) [facility] [place] [address] * (ABNORMAL) Basic metabolic panel (12/19/2024 3:51 [...] 3:51 AM CDT 12/19/2024 4:50 AM CDT Saran Bain MD LAB BLOOD ORDERABLES Final Res ult [facility] [place] [facility] [place] [address] * FL Retro Pyelo (In Or) (12/18/2024 [...] Tone Kirk M.D. MM: MM Report ID: [id number] Reading Location: [id number] Procedure Note Tone Kirk MD - 12/18/2024 [...] Tone Kirk M.D. MM: MM Report ID: [id number] Reading Location: [id number] Melonie Mitchell MD IM FLUOROSCOPY PROCEDURES Final Result * Surgical pathology (12/18/2024 11:57 AM CDT) Tissue (Bladder Stone) 12/18/2024 11:56 AM CDT Comment:DRY Narrative PATHOLOGY [facility] ([place]) - 12/22/2024 9:28 AM CDT EPIC results best viewed via link to PDF [facility] Department of Pathology [address] [place] [address] Note to Patients: This report may contain [...] Final Report Patient Name: RITA FLOOD Address: [address] [place] [address] Gender: F : 1935 (Age: 89) Service: Surgery Location: [facility] Hospital #: [id number] Patient Type: [facility] OP in bed Taken: 12/18/2024 Received: [...] specimen is entirely submitted to [facility] for chemical analysis. When the [facility] report has been finalized, it will be available in the laboratory section of [facility]. If [facility] is not available, please call the Department of Pathology at [facility] ([phone]) to obtain a copy of the report. Sharan To R.N., P.Blaire./Marlene Herrera M.D. REPORT IMAGES AND SCANNED DOCUMENTS, IF INCLUDED, ONLY VIEWABLE IN PDF VERSION OF REPORT The performance characteristics of some immunohistochemical stains, fluorescence in-situ hybridization tests and immunophenotyping by flow cytometry cited in this report (if any) were determined by the Surgical Pathology Department at [facility] as part of an ongoing software quality automation engineer program and in compliance with federally mandated [...] characteristics determined by the Surgical Pathology Department [facility]. It has not been cleared or approved by the U. S. Food and Drug Administration. Note for decalcified specimens: This assay has not been validated on decalcified tissues. Results should be interpreted with caution given the possibility of false negativity on decalcified specimens us Melonie Mitchell MD LAB PATHOLOGY ORDERABLES Final R esult PATHOLOGY [facility] ([place]) [address] [place] [address] * Stone analysis (12/18/2024 11:56 AM CDT) Stone analysis Not Reported [facility] Comment:Testing performed by : [facility], [address] [facility], [place]., [address] Source, Kid Stone Left Ureter [facility] ([place]) Comment:Testing performed by : [facility], [address] [place] [address]., [address] Interp, Kid stone analysis See Footnote [facility] ([place]) Comment: 90% Calcium oxalate monohydrate. 10% Calcium oxalate dihydrate. Testing performed by: [facility], [address] [place] [address]., [address] COMMENT See Footnote [facility] ([place]) Comment: For stones containing calcium oxalate, calcium phosphate, and/or uric acid, a 24 hr urinary supersaturation test may help detect underlying risk factors for this type of stone formation and provide guidance for a stone prevention strategy. ADDITIONAL INFORMATION This test was developed and its performance characteristics determined by [facility] in a manner consistent with CLIA requirements. This test has not been cleared or approved by the U.S. Food and Drug Administration. Test Performed by: [facility] [place] [address] History Card Clerk: Cele Tran Ph.D.; CLIA# [id number] Testing performed by: [facility], [address] [place] [address]., [address] Stone 12/18/2024 11:5 6 AM CDT 12/22/2024 2:29 PM CDT Narrative [facility] ([place]) - 01/04/2025 10:47 AM CDT Left Ureteral Stones Tru Flood MD LAB URINE ORDERABLES Final Result [facility] ([place] Department [place] [address] [facility] * PA AN ELECTIVE ENDOTRACHEAL AIRWAY (12/18/2024 11:33 AM CDT) Narrative Beau Varner CRNA - 12/18/2024 11:33 AM CDT Beua Varner CRNA 12/18/2024 11:33 AM Airway Patient location: OR Urgency: elective Indications for airway management: anesthesia Difficult airway: no Staff: Placed by: PRODUCTION ASSEMBLY SUPERVISOR: Varner, Beau, PRODUCTION ASSEMBLY SUPERVISOR Emergent airway documentation: Risks and benefits discussed: [...] tendency for uric acid stone formation. Source: [facility] Current Interpretive Data was last revised on [...] ORD ERABLES Final Result Performing Organization Address [facility] Co de Phone Number [facility] ([place] [address] [facility] [place] [address] * (ABNORMAL) Urinalysis, microscopic only (12/18/2024 9:07 [...] ORDERABLES Final Res ult Performing Organization Address [facility] Co de Phone Number [facility] ([place] [address] [facility] [place] [address] * Urine culture Urine (12/18/2024 9:07 AM CDT) Report Final Report: Less than 100,000 colonies/mL (clinically insignificant growth based on current clinical standards) Comment:Testing performed by : [facility], [address] [facility], [place]., [address] Organism (CLINICALLY INSIGNIFICANT GROWTH [facility] ([place]) Urine 12/18/2024 9:07 AM CDT 12/18/2024 2:19 PM CDT Narrative [facility] ([place]) - 12/19/2024 3:39 PM CDT Urine culture reflexed based upon urinalysis results. Testing performed by [facility] ([phone]) us Saran Bain MD LAB MICROBIOLOGY - GENERAL ORD ERABLES Final Result [facility] ([place]) [facility] Department [place] [address] * CT KUB Stone WO Contrast (12/18/2024 [...] Ti Frank M.D. AM: AM Report ID: [id number] Reading Location: [id number] Procedure Note Ti Frank MD - 12/18/2024 [...] Ti Frank M.D. AM: AM Report ID: [id number] Reading Location: [place] [address] Saran Bain MD IM CT PROCEDURES Final [...] LAB BLOOD ORDERABLES Final Res ult [facility] ([place]) [facility] [employer] [place] [address] * Lipase (12/18/2024 7:43 AM CDT) Lipase 22 10 - 99 Units/L [facility] Blood Venous blood specimen / Unknown 12/18/2024 7:43 AM CDT 12/18/2024 7:45 AM CDT Saran Bain MD LAB BLOOD ORDERABLES Final Res ult [facility] ([place]) 1 [facility] [place] [address] * (ABNORMAL) Comprehensive metabolic panel (12/18/2024 7:43 [...] 3.8 3.5 - 5.0 g/dL [facility] ([place]) Alk phos 96 40 - 130 Units/L [facility] ([place]) ALT 9 7 - 45 Units/L [facility] ([place]) AST 22 10 - 45 Units/L [facility] ([place]) Blood Venous blood specimen / Unknown 12/18/2024 7:43 AM CDT 12/18/2024 7:45 AM CDT us Saran Bain MD LAB BLOOD ORDERABLES Final Res ult [facility] ([place] Department [place] [address] * Differential, auto (12/18/2024 7:42 AM CDT) [...] Imm gran pct 0.2 % [facility] ([place]) Comment: Interpretive Data Percent cell count reference ranges are not reported, since discordance with absolute values may lead to misinterpretation of CBC data. Current Interpretive Data was last revised on 2017. Lymphocyte pct 29.7 % [facility] ([place]) Comment: Interpretive Data Percent cell count reference ranges are not reported, since discordance with absolute values may lead to misinterpretation of CBC data. Current Interpretive Data was last revised on 2017. Monocyte pct 5.0 % [facility] ([place]) Comment: Interpretive Data Percent cell count reference [...] 2017. Basophil pct 0.5 % [facility] ([place]) Comment: Interpretive Data Percent cell count reference ranges are not reported, since discordance with absolute values may lead to misinterpretation of CBC data. Current Interpretive Data was last revised on 2017. Blood 12/18/2024 7:42 AM CDT 12/18/2024 7:45 AM CDT us Saran Bain MD LAB BLOOD ORDERABLES Final Res ult [facility] ([place]) [facility] Department [place] [address] * (ABNORMAL) CBC with auto differential (12/18/2024 [...] Final Res ult [facility] ([place]) [address] [facility] [place] [address] * DEVICE CHECK - REMOTE (11/09/2024 11:27 AM CDT) Anatomical Region Laterality Modality Other Narrative 11/12/2024 3:40 PM CDT Images from the original result were not included. 11/10/2024 appssavvy quarterly remote device check NOTE The following shows snippets from the complete quarterly report. The complete report in its entirety is attached to this Result Text in Form Worker Periodic IEGM Detection Nov 10, 2024, 1:07:00 AM Last in-office check: December 2023 Next in-office appointment: January 2025 Dual Chamber PPM implanted 2023 Battery longevity = OK/90% AT/AF burden 0% Ap: 29% RVp: 33% No events this monitoring period Reviewed By Karla Hogan WEATHER STRIP MECHANIC at 12:23 PM ATTESTATION I have reviewed [...] Final Result from Last 3 Months Insurance Advance Directives For more information, please contact: [phone] * Full Code (Latest Code Status on [...] 1:17 PM 05/18/2023 3:24 PM Care Teams Registered Associate Relationship Specialty Start Date End Date Tru Flood MD PCP - General 12/26/16 Karina Jenkins PTA Program Attendant Physical Therapy 09/26/17
--- OUTSIDE RECORDS SUMMARY | 2025-01-07 00:44 | XMS_ITS | Clinical Summary ---
Author Organization [facility] Address [address] [place] [place] [address] Care Team Providers Care Dashboard Developer Name Role Phone Tru Flood MD Primary Care Provider [phone] Source Comments [facility],non-owned Affiliates and Associated Physician Practices is amultiple site organization consisting of ambulatory clinics and hospital sitesin [place], [place], [place] and [place]. This disclosure is being madepursuant to the Care Everywhere program and may not contain all information available regarding this patient. Last updated 18.[facility] [employer] Allergies Active Allergy Reactions Criticality Noted Date [...] Comments Blood Pressure 151/77 04/27/2014 5:32 PM DROP HAMMER PILE DRIVER OPERATOR Pulse 73 04/27/2014 5:32 PM DROP HAMMER PILE DRIVER OPERATOR Temperature 36.3 C (97.3 F) 04/27/2014 5:32 PM DROP HAMMER PILE DRIVER OPERATOR Respiratory Rate 16 04/27/2014 5:32 PM DROP HAMMER PILE DRIVER OPERATOR Oxygen Saturation 96% 04/27/2014 5:15 PM DROP HAMMER PILE DRIVER OPERATOR Inhaled Oxygen Concentration - - Weight 106.6 kg (235 lb) 04/25/2014 3:11 PM DROP HAMMER PILE DRIVER OPERATOR Height 167.6 cm (5' 6) 04/25/2014 3:11 PM DROP HAMMER PILE DRIVER OPERATOR Body Mass Index 37.93 04/25/2014 3:11 PM DROP HAMMER PILE DRIVER OPERATOR Plan of Treatment Health Maintenance Due [...] this topic Medical Devices Implanted Type Area Substation Design Draftsperson Device Identifier Shelf Expiration Date Model / Serial / Lot Stent Uret Polaris Ultra 6.0fr X 26mm Implanted:Qty: 1 on 02/07/2014 by Alexandre Gallardo MD at [facility] Right: Ureter [employer] 12/08/2016 [id number] / / [id number] Stent Urete Percflex Plus 7.0fr X 26cm Implanted:Qty: 1 on 03/16/2014 by Alexandre Gallardo MD at [facility] Right: Ureter [employer] 11/19/2015 [id number] / / [id number] Percuflex Ureteral Stent 7fr X 26cm Implanted:Qty: 1 on 04/11/2014 by Alexandre Gallardo MD at [facility] Right: Ureter 01/18/2017 [id number] / / [id number] Percuflex 7fr X 26cm Implanted:Qty: 1 on 04/27/2014 by Alexandre Gallardo MD at [facility] Right: Ureter 12/20/2016 [id number] / / [id number] Insurance [facility] MEDICARE SELF PAY NO INSURANCE Member Subscriber Plan / Payer (Ef fective for All Dates) Name:Rita Flood Member ID:Not on file Relation to Subscriber:Not on file Name:RITA FLOOD Subscriber ID:Not on file (Home) Address: [address] [facility] [facility] [place] [address] Payer ID:Not on file Group ID:Not on file Type:Self Pay Address: [place], [place] [employer] Care Teams Dashboard Developer Relationship Specialty Start Date End Date Tru Flood MD [address] [place] [address] PCP - General 12/21/21
--- OUTSIDE RECORDS SUMMARY | 2025-01-07 00:44 | XMS_ITS | Clinical Summary ---
Author Organization [facility] Address [address] [place] [address] Care Team Providers Care Dark Room Attendant Name Role Phone Unavailable Primary Care Provider Unavailabl e Social History Tobacco Use Types Packs/Day Years Used Date Smoking Tobacco: Never Assessed Comments Unknown Sex and Gender Information Value Date Recorded Sex Assigned at Not on file Legal Sex Female 5:59 PM CREDIT CHECKER Gender Identity Not on file Sexual Orientation [...]
--- NOTE | 2025-01-07 06:17 | WPDHPUPDATE1 ---
History and Physical Update Update Date/Time: 01/07/25 06:17 History and Physical has been reviewed, including an updated exam of the patient. There are NO changes in the patient's condition. Risks, benefits, and alternatives have been discussed and questions answered. Patient agrees to proceed with procedure.
[2025-01-07] MEDS: LACTATED RINGERS 1,000 ML 30 ML IV CONT (06:20)
--- NOTE | 2025-01-07 06:56 | WPDANESEPPF ---
Anes - Initial Pre Proc Eval Procedure: Operation Date: 01/07/25 07:30 Proposed Procedures p Left Extracorporeal Shock Wave Lithotripsy - Ameya Mccracken MD Date/Time: 01/07/25 06:56 Surgeon: Ameya Mccracken MD Pre Op Diagnosis: bilateral stones Patient Data Age: 89 Gender: F Height: 1.68 m Weight: 81.6 kg Last Vital Signs Temp 98.0 F 01/07/25 06:10 Pulse 68 01/07/25 06:10 Resp 16 01/07/25 06:10 BP 116/60 01/07/25 06:10 Pulse Ox 97 01/07/25 06:10 O2 Del Method Room Air 01/07/25 06:10 Allergies Allergy/AdvReac Type Severity Reaction Status Date / Time codeine Allergy Unknown Hives Verified 12/23/24 14:40 atorvastatin AdvReac Muscle Pain Verified 12/23/24 14:40 Home Medications ?Medication ?Instructions ?Recorded ?Confirmed ?Type gabapentin 300 mg capsule 300 mg PO HS 03/25/19 01/07/25 History oxycodone 5 mg tablet 5 mg PO Q4-6H PRN pain 12/23/24 12/23/24 History tamsulosin 0.4 mg capsule 0.4 mg PO Q24H 12/23/24 01/07/25 History Patient hx anesthesia problems: none Family hx anesthesia problems: none Results Review: All pre-operative results and documents have been reviewed as part of the pre-operative evaluation. [facility] Past Medical History Medical History Pacemaker Nephrolithiasis Urinary tract infection Hiatal hernia (Unknown) Gastric bezoar (~05/2021) SBO (small bowel obstruction) (~05/2021) MOE (obstructive sleep apnea) non compliance with CPAP Hypertension CAD (coronary artery disease) Neuropathy Cataract, right eye Sleep apnea Bronchitis Surgical History Surgical History History of extraction of renal calculus History of incisional hernia repair History of repair of hiatal hernia History of hysterectomy History of tonsillectomy Stented coronary artery x2 Family History Family History Mother Heart disease Hypertension Social History Social History Social History: She lives by herself and is independent. She does not have any pets, and she wants her son Balta to be her surrogate. She wishes to be a full code. 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 ) Neurological: alert and oriented Last oral intake: >/= 8 hours ASA classification: III Emergent: no Anesthetic plan: proceed Anesthesia type and monitoring: general LMA and standard monitoring Results Review: All pre-operative results and documents have been reviewed as part of the pre-operative evaluation. MOE, no CPAP, hx of PTCA 2008 and sees senior electrical designer yearly, no cp or sob. Pt has pacemaker in place and working well. Informed Consent: The patient's anesthetic plan and its attendant risks and benefits were discussed with the patient/family/POA. Questions were solicited and answers provided to the satisfaction of the patient/family/POA.
[2025-01-07] MEDS: ceFAZolin 2 GM in SODIUM CHLORIDE 0.9% IV 50 ML 100 ML IVPB (07:30)
--- NOTE | 2025-01-07 08:17 | P.OP_ITS ---
Procedure Note - Detailed Date of Procedure 01/07/25 Pre-op Diagnosis Bilateral stones Post-op Diagnosis Same Procedure Performed Cystoscopy, left ureteral stent removal and replacement, left RPG and left ESWL Surgeon Ameya Mccracken MD Anesthesia General Description of Procedure Patient was in his usual on the stone a Lithotripter table after the uneventful induction of general LMA anesthesia who has an indwelling left ureteral stent but were 2 left renal pelvic stones were difficult to identify. I therefore removed the stent, performed a left retrograde pyelogram via a [place] catheter to identify filling defect in the renal pelvis. Deliver 2500 shocks at a power setting of 4. I then replaced a 4.8 F variable length left ureteral stent. Patient tolerated procedure well was taken recovery in good condition Drains Yes Packing No Pathology None sent
[2025-01-07] MEDS: fentaNYL CITRATE INJ (*CRX) 100 MCG/2 ML VIAL 25 MCG IV PUSH ×2 (09:18→09:21)
== END 2025-01-07 11:02 | disposition home or self-care (01) ==
PROVIDERS: Visit Provider Urology
PROC: (CPT 50590; principal; 2025-01-07 07:30)
DX: N20.0 Calculus of kidney (principal)
CPT/HCPCS: 52332; 50590; 74018; J0690; C1758; C1769; C2617; J1100; J2003; J2405; J2704; J3010; J7120; Q9966

== ENCOUNTER 2025-01-17 08:06 | Outpatient (CLI) | payer OTHER, SELFPAY ==
--- NOTE | ~2025-01-17 | XR_ITS ---
EXAMINATION: XR abdomen/kub 1V, 01/17/2025 8:18 CDT HISTORY: N20.0 - Calculus of kidney COMPARISON: No comparisons available. Technique: 3 view. Findings: Bowel gas pattern unremarkable. No obstruction. There are multiple right-sided renal calculi the largest probably the renal pelvis measuring 1.5 x 1 cm. Left renal calculi the largest mid pole 4 x 5 mm. Scoliosis noted of the lumbar spine. Bilateral ureteral stents appear in appropriate location. Impression: 1. Stent placement as above with bilateral renal calculi Reviewed, dictated and finalized at location P. Impression: 1. Stent placement as above with bilateral renal calculi
--- OUTSIDE RECORDS SUMMARY | 2025-01-17 08:16 | XMS_ITS | Clinical Summary ---
Author Organization [facility] Address [address] [place] [address] Care Team Providers Care Purification Operator Helper Name Role Phone Tru Flood MD Primary Care Provider [phone] Karina Jenkins PTA Unavailable Unavailable Allergies Active Allergy Reactions Criticality Noted Date Comments Atorvastatin Muscle pain Medium 05/18/2024 Codeine Urticaria Medium 01/26/2014 Medications gabapentin (NEURONTIN) 300 mg capsule Take 1 capsule (300 mg total) by mouth nightly 07/23/2017 Active acetaminophen ER (TYLENOL) 650 mg 8 hr tablet Take 2 tablets (1,300 mg total) by mouth every 8 (eight) hours as needed for pain 12/19/2024 Active tamsulosin (FLOMAX) 0.4 mg extended release capsule Take 1 capsule (0.4 mg total) by mouth daily with dinner 15 capsule 12/19/2024 Active oxyCODONE (ROXICODONE) 5 mg immediate release tabletIndicatio ns:Pain Take 1 tablet (5 mg total) by mouth every 4 (four) hours as needed for pain 15 tablet 12/19/2024 Active Active Problems Problem Noted Date Diagnosed Date Nephrolithiasis 12/19/2024 Ureterolithiasis 12/18/2024 Hiatal hernia 05/18/2024 Assessment & Plan (06/15/2024 11:09 AM INSURANCE AGENT): The patient's recent EGD did not demonstrate [...] forward Assessment & Plan (05/18/2024 9:57 AM INSURANCE AGENT): We have discussed that the anemia may [...] 05/17/2023 Assessment & Plan (05/18/2023 3:36 PM INSURANCE AGENT): SOUNDS LIKE VERTIGO. 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 Status post RA lead repositioning on 19 May 2023. Assessment & Plan (05/26/2023 12:21 PM INSURANCE AGENT): Patient is feeling fine. We discussed good [...] (09/18/2017): Added automatically from request for surgery [id number] Peripheral neuropathy Encounters Date Type Department Care Team Description 12/18/2024 11:24 AM CDT Anesthesia Event [facility] Operating Room [address] [place] [address] Melonie Mitchell MD Gill, Matthew, ALISA 12/18/2024 11:00 AM CDT - 12/18/2024 12:20 PM CDT Surgery [facility] Operating Room 1 [place] [address] Melonie Mitchell MD CYSTOSCOPY, PLACEMENT BILATERAL URETERAL STENTS 12/18/2024 7:29 AM CDT - 12/19/2024 1:27 PM CDT Emergency [facility] Surgery Care [address] [place] [address] Saran Bain MD Okonkwo, Kasiemobi Bernice, MD Nikolic, Jelena, MD Willey, Tru Benavides MD Ureterolithiasis (Primary Dx); Left renal stone Discharge Disposition: Discharge to home or self care 11/10/2024 12:45 PM CDT Ancillary Procedure [place] [employer] [address] [place] [id number] Cardiac pacemaker in situ; Heart block [...] drink = 0.6 oz pur e alcohol) [facility] Utilities Answer Date Recorded In the [...] often do you attend chur ch or oriental orthodox services? More than 4 times per year 05/19/2023 Do you belong to any clubs o r organizations such as anglican groups, unions, fraternal or athletic groups, or [...] place to sleep or slept in a correction (including now)? No 05/19/2023 AUDIT-C Answer Date [...] on file Legal Sex Female 2:50 AM INSURANCE AGENT Gender Identity Not on file Sexual Orientation [...] 12/18/2024, 04/14/2024 Medical Devices Implanted Type Area Cisco Network Engineer Device Identifier Shelf Expiration Date Model / Serial / Lot Biotronik Inc Endocardial Pacing Lead Promri Solia T [id number] - [id number] - [id number] Implanted:Qty: 1 on 05/14/2023 by Fransico Alberto MD at [facility] Lead Biotronik Inc 03/20/2024 [id number] / [id number] / Biotronik Inc Endocardial Pacing Lead Promri Solia Jt 45 [id number] - [id number] - [id number] Implanted:Qty: 1 on 05/14/2023 by Fransico Alberto MD at [facility] Lead Biotronik Inc [id number] / [id number] / Biotronik Inc Solia S 45cm Bipolar Active Fixation Lead Pacing Steroid Eluting 782158 - [id number] - [id number] Implanted:Qty: 1 on 05/19/2023 by Fransico Alberto MD at [facility] Lead Biotronik Inc 05/21/2025 [id number] / [id number] / Medtronic Inc Tyrx Absorbable Antibacterial Envelope-Large 3.3x2.9in [id number] - Sna - [id number] Implanted:Qty: 1 on 05/19/2023 by Fransico Alberto MD at [facility] Mesh Medtronic Inc 02/08/2024 [id number] / NA / [id number] Biotronik Inc Edora Promri 15p62g6.5mm Dual Chamber Rate Adaptive Unipolar Bipolar 317800 - [id number] - [id number] Implanted:Qty: 1 on 05/14/2023 by Fransico Alberto MD at [facility] Pacemaker Biotronik Inc 09/18/2024 [id number] / [id number] / Depuy Orthopaedics Inc [id number] Smartset High Viscosity Cement 40gm Bone Gentamicin - [id number] Implanted:Qty: 1 on 10/06/2017 by Neptali Negrete MD at [facility] Left: Knee Depuy Orthopaedics Inc 01/18/2019 [id number] / / [id number] Depuy Orthopaedics Inc [id number] Smartset High Viscosity Cement 40gm Bone Gentamicin - [id number] Implanted:Qty: 1 on 10/06/2017 by Neptali Negrete MD at [facility] Left: Knee Depuy Orthopaedics Inc 01/18/2019 [id number] / / [id number] Depuy Orthopaedics Inc [id number] Attune 38mm Cemented Medialize Knee Dome Patellar Aox Sterile - [id number] Implanted:Qty: 1 on 10/06/2017 by Neptali Negrete MD at [facility] Left: Knee Depuy Orthopaedics Inc 05/21/2022 [id number] / / [id number] Depuy Orthopaedics Inc [id number] Attune S+ Cement Fix Bearing Knee 5 Baseplate Tibial - [id number] Implanted:Qty: 1 on 10/06/2017 by Neptali Negrete MD at [facility] Left: Knee Depuy Orthopaedics Inc 04/20/2027 [id number] / / [id number] Depuy Orthopaedics Inc [id number] Attune Cemented Posterior Stabilize Knee Left 6 Narrow Component - [id number] Implanted:Qty: 1 on 10/06/2017 by Neptali Negrete MD at [facility] Left: Knee Depuy Orthopaedics Inc 08/19/2027 [id number] / / [id number] Depuy Orthopaedics Inc [id number] Attune 8mm Posterior Stabilize Fix Bearing Knee 6 Insert Tibial - [id number] Implanted:Qty: 1 on 10/06/2017 by Neptali Negrete MD at [facility] Left: Knee Depuy Orthopaedics Inc 06/18/2022 [id number] / / [id number] Medtronic Inc Tyrx Absorbable Antibacterial Envelope-Large 3.3x2.9in [id number] - [id number] Implanted:Qty: 1 on 05/14/2023 by Fransico Alberto MD at [facility] Medtronic Inc 12/25/2023 [id number] / / [id number] Stow Scientific Solitario Contour 6fr 26cm Large Inner Lumen Low Profile Bladder Lauri Taper Latex Free 180-223 - [id number] Implanted:Qty: 1 on 04/15/2024 by Alisson Duran MD at [facility] Right: Ureter [employer] Solitario 12/31/2026 [id number] / / [id number] Stow Scientific Solitario Contour 6fr 26cm Large Inner Lumen Low Profile Bladder Lauri Taper Latex Free 180-223 - [id number] Implanted:Qty: 1 on 04/15/2024 by Alisson Duran MD at [facility] Left: Ureter [employer] Solitario 11/26/2026 [id number] / / [id number] Stow Scientific Soliatrio Contour Vl 4.8fr 22-30cm Taper Tip Bladder Lauri Low Profile Large Latex Free [id number] - [id number] Implanted:Qty: 1 on 12/18/2024 by Melonie Mitchell MD at [facility] Left: Urethra [employer] Solitario 05/04/2027 [id number] / / [id number] Stow Scientific Solitario Contour Vl 4.8fr 22-30cm Taper Tip Bladder Lauri Low Profile Large Latex Free [id number] - [id number] Implanted:Qty: 1 on 12/18/2024 by Melonie Mitchell MD at [facility] Left: Urethra [employer] Solitario 02/22/2027 [id number] / / [id number] Procedures Procedure Name Priority Date/Time Associated Diagnosis [...] STONE ANALYSIS Routine 12/18/2024 11:56 AM CDT [place] AN ELECTIVE ENDOTRACHEAL AIRWAY Routine 12/18/2024 11:33 [...] 6 PM CDT 12/19/2024 12:46 PM CDT us Tru Flood MD LAB BLOOD ORDERABLES Final Result [facility] ([facility]) 1 [facility] Department [place] [address] * (ABNORMAL) Basic metabolic panel (12/19/2024 12:16 PM CDT) Sodium 137 135 - 145 mmol/L [facility] ([place]) Potassium, pl 4.6 3.3 - 4.9 mmol/L [facility] ([place]) Chloride 107 97 - 110 mmol/L [facility] ([place]) CO2 20(L) 22 - 32 mmol/L [facility] ([place]) Anion gap 10 2 - 15 mmol/L [facility] ([place]) BUN 24 6 - 25 mg/dL [facility] ([place]) Creatinine 1.35(H) 0.60 - 1.10 mg/dL [facility] ([place]) Glucose 123 70 - 199 mg/dL [facility] ([place]) Comment: Interpretive Data Fasting glucose [...] LAB BLOOD ORDERABLES Final Result [facility] ([place]) 1 [facility] Department [place] [address] * (ABNORMAL) eGFR (12/19/2024 3:51 AM CDT) [...] BLOOD ORDERABLES Final Res ult [facility] ([place]) 1 [facility] Department [place] [address] * (ABNORMAL) Differential, auto (12/19/2024 3:51 AM CDT) Neutrophil abs 8.45(H) 1.50 - 6.50 K/cumm Imm gran abs 0.03 0.00 - 0.10 K/cumm [facility] ([place]) Lymphocyte abs 0.62(L) 0.80 - 3.30 K/cumm [facility] ([place]) Monocyte abs 0.43 0.20 - 0.80 K/cumm [facility] ([place]) Eosinophil abs 0.01 0.00 - 0.50 K/cumm [facility] ([place]) Basophil abs 0.03 0.00 - 0.10 K/cumm [facility] ([place]) Neutrophil pct 88.3 % [facility] ([place]) Comment: Interpretive Data Percent cell count reference ranges are not reported, since discordance with absolute values may lead to misinterpretation of CBC data. Current Interpretive Data was last revised on 2017. Imm gran pct 0.3 % [facility] ([place]) Comment: Interpretive Data Percent cell count reference ranges are not reported, since discordance with absolute values may lead to misinterpretation of CBC data. Current Interpretive Data was last revised on 2017. Lymphocyte pct 6.5 % [facility] ([place]) Comment: Interpretive Data Percent cell count reference ranges are not reported, since discordance with absolute values may lead to misinterpretation of CBC data. Current Interpretive Data was last revised on 2017. Monocyte pct 4.5 % [facility] ([place]) Comment: Interpretive Data Percent cell count reference ranges are not reported, since discordance with absolute values may lead to misinterpretation of CBC data. Current Interpretive Data was last revised on 2017. Eosinophil pct 0.1 % [facility] ([place]) Comment: Interpretive Data Percent cell count reference [...] Final Res ult [facility] ([place]) 1 [facility] Department [place] [address] * (ABNORMAL) CBC with auto differential (12/19/2024 [...] Final Res ult [facility] ([place]) 1 [facility] Department [place] [address] * (ABNORMAL) Basic metabolic panel (12/19/2024 3:51 [...] Final Res ult [facility] ([place]) 1 [facility] [place] [address] * FL Retro Pyelo (In Or) (12/18/2024 [...] Tone Kirk M.D. MM: MM Report ID: [id number] Reading Location: [id number] Procedure Note Tone Kirk MD - 12/18/2024 [...] Tone Kirk M.D. MM: MM Report ID: [id number] Reading Location: [id number] Melonie Mitchell MD IMG FLUOROSCOPY PROCEDURES Final Result * Surgical pathology (12/18/2024 11:57 AM CDT) Tissue (Bladder Stone) 12/18/2024 11:56 AM CDT Comment:DRY Narrative PATHOLOGY [facility] ([place]) - 12/22/2024 9:28 AM CDT [facility] results best viewed via link to PDF [facility] Department of Pathology [address] [place] [address] Note to Patients: This report may contain [...] Final Report Patient Name: RITA FLOOD Address: [address] [place] [address] Gender: F : 1935 (Age: 89) Service: Surgery Location: [facility] Hospital #: [id number] Patient Type: [facility] OP in bed Taken: 12/18/2024 Received: [...] mm. The specimen is entirely submitted to [facility] for chemical analysis. When the [facility] report has been finalized, it will be available in the laboratory section of [facility]. If [facility] is not available, please call the Department of Pathology at [facility] ([phone]) to obtain a copy of the report. Sharan To R.N., P.Blaire./Marlene Herrera M.D. REPORT IMAGES AND SCANNED DOCUMENTS, IF INCLUDED, ONLY VIEWABLE IN PDF VERSION OF REPORT The performance characteristics of some immunohistochemical stains, fluorescence in-situ hybridization tests and immunophenotyping by flow cytometry cited in this report (if any) were determined by the Surgical Pathology Department at [facility] as part of an ongoing automotive quality manager program and in compliance with federally mandated [...] characteristics determined by the Surgical Pathology Department [facility]. It has not been cleared or approved by the U. S. Food and Drug Administration. Note for decalcified specimens: This assay has not been validated on decalcified tissues. Results should be interpreted with caution given the possibility of false negativity on decalcified specimens Melonie Mitchell MD LAB PATHOLOGY ORDERABLES Final R esult PATHOLOGY [facility] ([place]) [address] [place] [address] * Stone analysis (12/18/2024 11:56 AM CDT) Stone analysis Not Reported [facility] Comment:Testing performed by : [facility], [address] [place] [address], [place]., [address] Source, Kid Stone Left Ureter [facility] ([place]) Comment:Testing performed by : [facility], [address] [place] [address], [place]., [address] Interp, Kid stone analysis See Footnote [facility] ([place]) Comment: 90% Calcium oxalate monohydrate. 10% Calcium oxalate dihydrate. Testing performed by: [facility], [address] [place] [address]., [id number] COMMENT See Footnote [facility] ([place]) Comment: For stones containing calcium oxalate, calcium phosphate, and/or uric acid, a 24 hr urinary supersaturation test may help detect underlying risk factors for this type of stone formation and provide guidance for a stone prevention strategy. ADDITIONAL INFORMATION This test was developed and its performance characteristics determined by [facility] in a manner consistent with CLIA requirements. This test has not been cleared or approved by the U.S. Food and Drug Administration. Test Performed by: [facility] - [address] [address] Plastic Cutter: Cele Tran Ph.D.; CLIA# [id number] Testing performed by: [facility], [address] [place] [address], [address] Stone 12/18/2024 11:5 6 AM CDT 12/22/2024 2:29 PM CDT Narrative [facility] ([place]) - 01/04/2025 10:47 AM CDT Left Ureteral Stones Tru Flood MD LAB URINE ORDERABLES Final Result [facility] ([place]) 1 [facility] Department [place] [address] [facility] * [place] AN ELECTIVE ENDOTRACHEAL AIRWAY (12/18/2024 11:33 AM CDT) Narrative Beau Varner CRNA - 12/18/2024 11:33 AM CDT Beau Varner CRNA 12/18/2024 11:33 AM Airway Patient location: OR Urgency: elective Indications for airway management: anesthesia Difficult airway: no Staff: Placed by: BEEF TAGGER: Beau Varner CRNA Emergent airway documentation: Risks [...] tendency for uric acid stone formation. Source: [facility] [employer] Current Interpretive Data was last revised on [...] UA will be performed. [facility] ([place]) Urine 12/18/2024 9:07 AM CDT 12/18/2024 9:17 AM CDT Saran Bain MD LAB MICROBIOLOGY - GENERAL ORD ERABLES Final Result Performing Organization Address City/[facility]/ZIP Co de Phone Number [facility]) 1 [facility] [place] [address] * (ABNORMAL) Urinalysis, microscopic only (12/18/2024 9:07 [...] ORDERABLES Final Res ult Performing Organization Address City/[facility]/ZIP Co de Phone Number [facility] ([place]) 1 [facility] [place] [address] * Urine culture Urine (12/18/2024 9:07 AM CDT) Report Final Report: Less than 100,000 colonies/mL (clinically insignificant growth based on current clinical standards) Comment:Testing performed by : [facility], 1 [facility] [place]., [address] Organism (CLINICALLY INSIGNIFICANT GROWTH [facility] ([place]) Urine 12/18/2024 9:07 AM CDT 12/18/2024 2:19 PM CDT Narrative [facility] ([place]) - 12/19/2024 3:39 PM CDT Urine culture reflexed based upon urinalysis results. Testing performed by [facility] ([phone]) us Saran Bain MD LAB MICROBIOLOGY - GENERAL ORD ERABLES Final Result [facility] [place] 1 [facility] Department [place] [address] * CT KUB Stone WO Contrast (12/18/2024 [...] Ti Frank M.D. AM: AM Report ID: [id number] Reading Location: [id number] Procedure Note Ti Frank MD - 12/18/2024 [...] Ti Frank M.D. AM: AM Report ID: [id number] Reading Location: [place] [address] Saran Bain MD IMG CT PROCEDURES Final Result * (ABNORMAL) eGFR [...] Inclusion of Race in Diagnosing Kidney Disease, FRITZ 2020). The CKD-EPI equation should not be used for patients with unstable renal function and has not been validated in children and those over 70. Current interpretive data was last reviewed 2021. Blood 12/18/2024 7:43 AM CDT 12/18/2024 7:45 AM CDT Saran Bain MD LAB BLOOD ORDERABLES Final Res ult [facility] ([place]) 1 [facility] [place] [address] * Lipase (12/18/2024 7:43 AM CDT) Lipase 22 10 - 99 Units/L [facility] ([place]) Blood Venous blood specimen / Unknown 12/18/2024 7:43 AM CDT 12/18/2024 7:45 AM CDT Saran Bain MD LAB BLOOD ORDERABLES Final Res ult [facility] ([place]) 1 [facility] [place] [address] * (ABNORMAL) Comprehensive metabolic panel (12/18/2024 7:43 AM CDT) Sodium 140 135 - 145 mmol/L [facility] ([place]) Potassium, pl 4.2 3.3 - [...] 9.3 8.5 - 10.3 mg/dL [facility] ([place]) Bilirubin, total 0.8 0.1 - 1.2 mg/dL [...] Final Res ult [facility] ([place]) 1 [facility] Department [place] [address] * Differential, auto (12/18/2024 7:42 AM CDT) [...] Lymphocyte pct 29.7 % [facility] ([place]) Comment: Interpretive [...] 2017. Basophil pct 0.5 % [facility] ([place]) Comment: Interpretive Data Percent cell count reference ranges are not reported, since discordance with absolute values may lead to misinterpretation of CBC data. Current Interpretive Data was last revised on 2017. Blood 12/18/2024 7:42 AM CDT 12/18/2024 7:45 AM CDT us Saran Bain MD LAB BLOOD ORDERABLES Final Res ult [facility] ([place]) 1 [facility] Department [place] [address] * (ABNORMAL) CBC with auto differential (12/18/2024 [...] 7:42 AM CDT 12/18/2024 7:45 AM CDT Saran Bain MD LAB BLOOD ORDERABLES Final Res ult [facility] ([place]) 1 [facility] Department [place] [address] * DEVICE CHECK - REMOTE (11/09/2024 11:27 AM CDT) Anatomical Region Laterality Modality Other Narrative 11/12/2024 3:40 PM CDT Images from the original result were not included. 11/10/2024 [facility] quarterly remote device check NOTE The following shows snippets from the complete quarterly report. The complete report in its entirety is attached to this Result Text in Picture Frames Inspector Periodic IEGM Detection Nov 10, 2024, 1:07:00 AM Last in-office check: December 2023 Next in-office appointment: January 2025 Dual Chamber PPM implanted 2023 Battery longevity = OK/90% AT/AF burden 0% Ap: 29% RVp: 33% No events this monitoring period Reviewed By Karla Hogan FLUX CORE WELDER at 12:23 PM ATTESTATION I have reviewed [...] Advance Directives For more information, please contact: [phone] * Full Code (Latest Code Status on [...] 1:17 PM 05/18/2023 3:24 PM Care Teams Purification Operator Helper Relationship Specialty Start Date End Date Tru Flood MD PCP - General 12/26/16 Karina Jenkins, WATCH CRYSTAL GRINDER Insole Buffer Physical Therapy 09/26/17
--- OUTSIDE RECORDS SUMMARY | 2025-01-17 08:16 | XMS_ITS | Clinical Summary ---
Author Organization [facility] Address [address] [place] [address] Care Team Providers Care Re Dye Hand Name Role Phone Tru Flood MD Primary Care Provider [phone] Source Comments [facility],non-owned Affiliates and Associated Physician Practices is amultiple site organization consisting of ambulatory clinics and hospital sitesin [place], [place] and [place]. This disclosure is being madepursuant to the Care Everywhere program and may not contain all information available regarding this patient. Last updated 18.[facility] Allergies Active Allergy Reactions Criticality Noted Date [...] Comments Blood Pressure 151/77 04/27/2014 5:32 PM ASSEMBLER FOR PULLER OVER MACHINE Pulse 73 04/27/2014 5:32 PM ASSEMBLER FOR PULLER OVER MACHINE Temperature 36.3 C (97.3 F) 04/27/2014 5:32 PM ASSEMBLER FOR PULLER OVER MACHINE Respiratory Rate 16 04/27/2014 5:32 PM ASSEMBLER FOR PULLER OVER MACHINE Oxygen Saturation 96% 04/27/2014 5:15 PM ASSEMBLER FOR PULLER OVER MACHINE Inhaled Oxygen Concentration - - Weight 106.6 kg (235 lb) 04/25/2014 3:11 PM ASSEMBLER FOR PULLER OVER MACHINE Height 167.6 cm (5' 6) 04/25/2014 3:11 PM ASSEMBLER FOR PULLER OVER MACHINE Body Mass Index 37.93 04/25/2014 3:11 PM ASSEMBLER FOR PULLER OVER MACHINE Plan of Treatment Health Maintenance Due Date [...] this topic Medical Devices Implanted Type Area Recycling Technician Device Identifier Shelf Expiration Date Model / Serial / Lot Stent Uret Polaris Ultra 6.0fr X 26mm Implanted:Qty: 1 on 02/07/2014 by [place]re Gallardo MD at [facility] Right: Ureter [employer] 12/08/2016 [id number] / / [id number] Stent Urete Percflex Plus 7.0fr X 26cm Implanted:Qty: 1 on 03/16/2014 by Alexandre Gallardo MD at [facility] Right: Ureter [employer] 11/19/2015 [id number] / / [id number] Percuflex Ureteral Stent 7fr X 26cm Implanted:Qty: 1 on 04/11/2014 by Alexandre Gallardo MD at [facility] Right: Ureter 01/18/2017 [id number] / / [id number] Percuflex 7fr X 26cm Implanted:Qty: 1 on 04/27/2014 by Alexandre Gallardo MD at [facility] Right: Ureter 12/20/2016 [id number] / / [id number] Insurance [facility] MEDICARE SELF PAY NO INSURANCE Member Subscriber Plan / Payer (Ef fective for All Dates) Name:Rita Flood Member ID:Not on file Relation to Subscriber:Not on file Name:RITA FLOOD Subscriber ID:Not on file (Home) Address: [address] [facility] [place] [address] Payer ID:Not on file Group ID:Not on file Type:Self Pay Address: [place], [place] [employer] Care Teams Re Dye Hand Relationship Specialty Start Date End Date Tru Flood MD [address] [place] [address] PCP - General 12/21/21
--- OUTSIDE RECORDS SUMMARY | 2025-01-17 08:16 | XMS_ITS | Clinical Summary ---
Author Organization [facility] Address [address] [place] [address] Care Team Providers Care Field Research Associate Name Role Phone Unavailable Primary Care Provider Unavailabl e Social History Tobacco Use Types Packs/Day Years Used Date Smoking Tobacco: Never Assessed Comments Unknown Sex and Gender Information Value Date Recorded Sex Assigned at Not on file Legal Sex Female 5:59 PM SENIOR TAX SPECIALIST Gender Identity Not on file Sexual Orientation [...]
== END 2025-01-17 08:07 | disposition home or self-care (01) ==
PROVIDERS: Visit Provider Urology
DX: N20.0 Calculus of kidney (principal)
CPT/HCPCS: 74018

== ENCOUNTER 2025-02-17 02:14 | Day surgery (SDC) | payer OTHER, SELFPAY ==
[2025-02-10 11:40] VITALS: BMI 29.0
--- NOTE | 2025-02-10 11:41 | PC.NURSE ---
[facility] has started construction of its new state of the art ER which will open Spring 2026. With this, we anticipate parking may be a challenge for some our surgical patients and families. Parking spaces are limited but are available for all Surgical, obstetrics, and ER patients sharing this lot. If you arrive and find you are having a hard time finding a parking space, please note that we understand the challenges, please drive around the hospital and park near Hospital Entrance 1. When you enter this entrance, you can ask a volunteer to direct or take you back to the surgical waiting area to check in. We appreciate everyone?s understanding of these expected challenges while we build for your future. Report to the Outpatient Waiting Room, entrance under the green pavilion located off [address], at time _0630_ on date _[phone]_. Planned Procedure Time: _0830_.? Time changes happen often and if your time is changed the preop area will call you the afternoon before. - You and your visitor will be asked to self-screen and do not enter if you have any COVID symptoms. Please call surgeon if you need to reschedule. - A mask is optional within the hospital at this time. Patients may have clear liquids (water, carbonated beverages, clear teas, apple juice) until 3 hours prior to surgery with a maximum of 20 ounces. - No food from midnight until time of surgery and no smoking, or chewing tobacco (or any form of nicotine). No chewing gum, candy or mints. Take only the following medications with a SIP of water on the morning of surgery: __None DO NOT STOP ANY OF YOUR OTHER PRESCRIPTION MEDICATIONS PRIOR TO SURGERY EXCEPT THE FOLLOWING Hold all vitamins and supplements for 3 days per anesthesiologist. Medications to discontinue per physician Date to take last dose____ Please no make-up, nail urdu, hairspray, perfume, deodorant, or body powder the day of surgery.? No jewelry (including any body piercings) or valuables the day of surgery, leave them at home.? Please take a shower or bath the night before, or the morning of, surgery with an antibacterial soap.? Wear comfortable, loose fitting clothing.? - Jewelry must be removed prior to entering the operating room.? Rings and piercings that are not removed may be cut off. - The hospital will not accept responsibility for valuables.? - Please leave all valuables, including medications, at home the day of surgery. If you are going home after surgery, a licensed driver operator must drive you home.? - NO public transportation without another adult if you receive anesthesia. - We recommend that an adult stay with you for 24 hours following discharge. - We also recommend that you do not drive, make important decision, drink alcoholic beverages, or take any drugs that were not prescribed by your health care provider for at least 24 hours after your discharge time. Follow any additional instructions given to you from your surgeon. Telephone instructions given to __Irene__and asked if any additional questions and then verbalized understanding. Patient advised to call surgeon office or pre surgery nurse liaison [phone] if any additional questions.
--- NOTE | 2025-02-16 06:37 | PM.HPGS ---
History of Present Illness History of Present Illness Consent: Risks, benefits, and alternatives have been discussed and questions answered. Patient agrees to proceed with procedure. Chief complaint: bilat renal stones Narrative: Rita Flood is a 89 year old female with hx. recurrent urolithiasis who recently tolerated left ESWL for an 8 mm stone well. ?KUB shows no identifiable residual fragments of significance on the left. ?On the right she has several large stones. ?We had a long discussion about options including chronic indwelling stent, multiple ESWL, ureteroscopy with laser lithotripsy versus percutaneous nephrolithotomy. ?Ultimately we decided on ureteroscopy with the understanding it may be a staged procedure Review of Systems Review of Systems: All systems reviewed & are unremarkable except as noted in HPI and below PMFSH Past Medical History Medical History Pacemaker Nephrolithiasis Urinary tract infection Hiatal hernia (Unknown) Gastric bezoar (~05/2021) SBO (small bowel obstruction) (~05/2021) MOE (obstructive sleep apnea) non compliance with CPAP Hypertension CAD (coronary artery disease) Neuropathy Cataract, right eye Sleep apnea Bronchitis Surgical History Surgical History History of extraction of renal calculus History of incisional hernia repair History of repair of hiatal hernia History of hysterectomy History of tonsillectomy Stented coronary artery x2 Family History Family History Mother Heart disease Hypertension Social History Social History Social History: She lives by herself and is independent. She does not have any pets, and she wants her son Balta to be her surrogate. She wishes to be a full code. 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 Alcohol intake: never Substance use: never Living arrangements: alone Occupation/Education: retired Gender identity (if verbalized by the patient): Female Sexual Orientation (if Verbalized by the Patient): Straight or Heterosexual Spiritual care concerns: No Agree to blood products: Yes Meds Home Medications and Allergies Home Medications ?Medication ?Instructions ?Recorded ?Confirmed ?Type gabapentin 300 mg capsule 300 mg PO HS 03/25/19 02/10/25 History Allergies Allergy/AdvReac Type Severity Reaction Status Date / Time codeine Allergy Unknown Hives Verified 02/10/25 11:27 atorvastatin AdvReac Muscle Pain Verified 02/10/25 11:27 Exam Const: General: no acute distress Resp: Effort & Inspection: normal respiratory effort GI: Inspection: non-distended GI Palp: No abdominal tenderness and No Guarding due to palpation present (GI) Auscultation: normal bowel sounds Assessment and Plan Assessment and plan (1) Bilateral kidney stones: Code(s): N20.0 - Calculus of kidney Status: Acute Assessment and Plan: Cystoscopy, left ureteral stent removal, right ureteroscopy with laser lithotripsy, stone extraction with retrograde pyelograpy and right stent removal/replacement.
[2025-02-17] VITALS (10 sets, daily range): BP systolic 122–160; BP diastolic 52–87; PULSE 60–72; RESP 15–20; TEMP 36.1–36.5; O2SAT 94–100
--- NOTE | ~2025-02-17 | XR_ITS ---
EXAMINATION: XR retrograde pyelo w/stent RT INDICATION: RIGHT SIDE STONE . COMPARISON: None TECHNIQUE: 85 fluoroscopic images of the abdomen and pelvis were obtained during right retrograde pyelogram with right ureteral stent placement. Fluoroscopy exposure time was 69.3 seconds. DAP 1.5 to [employer]. FINDINGS/IMPRESSION: No radiologist was present or involved at the time of this procedure. Fluoroscopic documentation of right retrograde pyelogram with right ureteral stent placement.. Please refer to the operative note for complete procedural details. Reviewed, dictated and finalized at location A.
--- OUTSIDE RECORDS SUMMARY | 2025-02-17 02:16 | XMS_ITS | Clinical Summary ---
Author Organization [facility] Medical Office Building B Address [address] [place] [address] Care Team Providers Care Open Hearth Door Liner Name Role Phone Tru Flood MD Primary [...] daily with dinner 15 capsule 5 Active Additional Information Patient not taking.Reported on 01/26/2025 oxyCODONE (ROXICODONE) 5 mg immediate release tabletIndicatio ns:Pain Take 1 tablet (5 mg total) by mouth every 4 (four) hours as needed for pain 15 tablet 5 Active Additional Information Patient not taking.Reported on 01/26/2025 Active Problems Problem Noted Date Diagnosed Date Nephrolithiasis 12/19/2024 Ureterolithiasis 12/18/2024 Hiatal hernia 05/18/2024 Assessment & Plan (06/15/2024 11:09 AM EXTENSION EDUCATOR): The patient's recent EGD did not demonstrate [...] forward Assessment & Plan (05/18/2024 9:57 AM EXTENSION EDUCATOR): We have discussed that the anemia may [...] 05/17/2023 Assessment & Plan (05/18/2023 3:36 PM EXTENSION EDUCATOR): SOUNDS LIKE VERTIGO. 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 Status post RA lead repositioning on 19 May 2023. Assessment & Plan (05/26/2023 12:21 PM EXTENSION EDUCATOR): Patient is feeling fine. We discussed good [...] (09/18/2017): Added automatically from request for surgery [id number] Peripheral neuropathy Encounters Date Type Department Care Team Description 02/09/2025 12:45 PM CDT Ancillary Procedure Beech Bottom Manager Desktop [address] [place] [phone] Cardiac pacemaker in situ; Heart block AV second degree; Sick sinus syndrome (HCC) 02/08/2025 Orders Only Beech [facility] Manager Desktop [address] [facility] [address] [place] [address] Jennifer Leyva Sick sinus syndrome (HCC) (Primary Dx); Cardiac pacemaker in situ; Heart block AV second degree 01/27/2025 Telephone Beech Bottom Manager Desktop at [address] [place] [address] Karla Hogan RN 01/26/2025 11:30 AM CDT Ancillary Procedure Beech Bottom Manager Desktop at [address] [place] [phone] Pacemaker reprogramming/check (Primary Dx); Cardiac pacemaker in situ; Heart block AV second degree; Sick sinus syndrome (HCC) 01/26/2025 11:30 AM CDT Office Visit Beech Bottom Manager Desktop at [address] [place] [address] Arabella Do NP Cardiac pacemaker in situ (Primary Dx); 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, MD Ureterolithiasis (Primary Dx); Left renal stone Discharge Disposition: Discharge to home or self care from Last 3 Months Immunizations Immunization Administration [...] drink = 0.6 oz pur e alcohol) [facility] Utilities Answer Date Recorded In the past 12 months has th e electric, gas, oil, or water [employer] threatened to shut off services in your [...] often do you attend chur ch or adventist services? More than 4 times per year 05/19/2023 Do you belong to any clubs o r organizations such as orthodox groups, unions, fraternal or athletic groups, or [...] place to sleep or slept in a snf (including now)? No 05/19/2023 AUDIT-C Answer Date [...] on file Legal Sex Female 2:50 AM EXTENSION EDUCATOR Gender Identity Not on file Sexual Orientation Not on file Obstetrics History Para Term AB IAB SAB Ectopic Multiple Livin g Live Births 8 6 6 Date Outcome GA Total Labor Labor/2nd/3rd Weight Sex Type Anes PTL Zeina A1 A5 Name Clin Term Term Term Term Term Term Last Filed Vital Signs Vital Sign Reading Time Taken Comments Blood Pressure 153/75 01/26/2025 11:19 AM CDT Pulse 63 01/26/2025 11:19 AM CDT Temperature 36.1 C (97 F) 12/19/2024 3:22 AM CDT Respiratory Rate 18 01/26/2025 11:19 AM CDT Oxygen Saturation 97% 12/19/2024 7:39 AM CDT Inhaled Oxygen Concentration - - Weight 81.6 kg (180 lb) 01/26/2025 11:19 AM CDT Height 167.6 cm (5' 6) 01/26/2025 11:19 AM CDT Body Mass Index 29.05 01/26/2025 11:19 AM CDT Plan of Treatment Health Maintenance Due [...] 12/18/2024, 04/14/2024 Medical Devices Implanted Type Area Pantomimist Device Identifier Shelf Expiration Date Model / Serial / Lot Biotronik Inc Endocardial Pacing Lead Promri Solia T [id number] - [id number] - [id number] Implanted:Qty: 1 on 05/14/2023 by Fransico Alberto MD at [facility] Lead Biotronik Inc 03/20/2024 [id number] / [id number] / Biotronik Inc Endocardial Pacing Lead Promri Solia Jt [id number] - [id number] - [id number] Implanted:Qty: 1 on 05/14/2023 by Fransico Alberto MD at [facility] Lead Biotronik Inc [id number] / [id number] / Biotronik Inc Solia S 45cm Bipolar Active Fixation Lead Pacing Steroid Eluting [id number] - [id number] - [id number] Implanted:Qty: 1 on 05/19/2023 by Fransico Alberto MD at [facility] Lead Biotronik Inc 05/21/2025 [id number] / [id number] / Medtronic Inc Tyrx Absorbable Antibacterial Envelope-Large 3.3x2.9in [id number] - Sna - [id number] Implanted:Qty: 1 on 05/19/2023 by Fransico Alberto MD at [facility] Mesh Medtronic Inc 02/08/2024 [id number] / [id number] / [id number] Biotronik Inc Edora Promri 31d42r6.5mm Dual Chamber Rate Adaptive Unipolar Bipolar 325753 - [id number] - [id number] Implanted:Qty: 1 on 05/14/2023 by Fransico Alberto MD at [facility] Pacemaker Biotronik Inc 09/18/2024 [id number] / [id number] / Depuy Orthopaedics Inc [id number] Smartset High Viscosity Cement 40gm Bone Gentamicin - [id number] Implanted:Qty: 1 on 10/06/2017 by Neptali Negrete MD at [facility] Left: Knee Depuy Orthopaedics Inc 01/18/2019 [id number] / / [id number] Depuy Orthopaedics Inc [id number] Smartset High Viscosity Cement 40gm Bone Gentamicin - [id number] Implanted:Qty: 1 on 10/06/2017 by Neptali Negrete MD at [facility] Left: Knee Depuy Orthopaedics Inc 01/18/2019 [id number] / / [id number] Depuy Orthopaedics Inc [id number] Attune 38mm Cemented Medialize Knee Dome Patellar Aox Sterile - [id number] Implanted:Qty: 1 on 10/06/2017 by Neptali Negrete MD at [facility] Left: Knee Depuy Orthopaedics Inc 05/21/2022 [id number] / / [id number] Depuy Orthopaedics Inc [id number] Attune S+ Cement Fix Bearing Knee 5 Baseplate Tibial - [id number] Implanted:Qty: 1 on 10/06/2017 by Neptali Negrete MD at [facility] Left: Knee Depuy Orthopaedics Inc 04/20/2027 [id number] / / [id number] Depuy Orthopaedics Inc [id number] Attune Cemented Posterior Stabilize Knee Left 6 Narrow Component - [id number] Implanted:Qty: 1 on 10/06/2017 by Neptali Negrete MD at [facility] Left: Knee Depuy Orthopaedics Inc 08/19/2027 [id number] / / [id number] Depuy Orthopaedics Inc [id number] Attune 8mm Posterior Stabilize Fix Bearing Knee 6 Insert Tibial - [id number] Implanted:Qty: 1 on 10/06/2017 by Neptali Negrete MD at [facility] Left: Knee Depuy Orthopaedics Inc 06/18/2022 [id number] / / [id number] Medtronic Inc Tyrx Absorbable Antibacterial Envelope-Large 3.3x2.9in [id number] - [id number] Implanted:Qty: 1 on 05/14/2023 by Fransico Alberto MD at [facility] Medtronic Inc 12/25/2023 [id number] / / [id number] [employer] Solitario Contour 6fr 26cm Large Inner Lumen Low Profile Bladder Lauri Taper Latex Free 180-223 - [id number] Implanted:Qty: 1 on 04/15/2024 by Alisson Duran MD at [facility] Right: Ureter [employer] Solitario 12/31/2026 [id number] / / [id number] [employer] Solitario Contour 6fr 26cm Large Inner Lumen Low Profile Bladder Lauri Taper Latex Free 180-223 - [id number] Implanted:Qty: 1 on 04/15/2024 by Alisson Duran MD at [facility] Left: Ureter [employer] Solitario 11/26/2026 [id number] / / [id number] [employer] Solitario Contour Vl 4.8fr 22-30cm Taper Tip Bladder Lauri Low Profile Large Latex Free [id number] - [id number] Implanted:Qty: 1 on 12/18/2024 by Melonie Mitchell MD at [facility] Left: Urethra [employer] Solitario 05/04/2027 [id number] / / [id number] [employer] Solitario Contour Vl 4.8fr 22-30cm Taper Tip Bladder Lauri Low Profile Large Latex Free [id number] - [id number] Implanted:Qty: 1 on 12/18/2024 by Melonie Mitchell MD at [facility] Left: Urethra [employer] Solitario 02/22/2027 [id number] / / [id number] Procedures Procedure Name Priority Date/Time Associated Diagnosis Comments DEVICE CHECK - REMOTE Routine 02/08/2025 11:44 AM CDT Cardiac pacemaker in situ Heart block AV second degree Sick sinus syndrome (HCC) DEVICE CHECK - IN OFFICE Routine 01/26/2025 11:14 AM CDT 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 02/09/2025 R[facility]alo quarterly remote device check NOTE The following shows snippets from the complete quarterly report. The complete report in its entirety is attached to this Result Text in Sewage Plant Attendant Periodic IEGM Detection Feb 09, 2025, 1:07:00 AM Last in-office check: January 2025 Next in-office appointment: January 2026 Battery longevity = OK/85% AT/AF burden 0% Ap: 26% RVp: 33% No events Device Nurse Review and Recommendations below Reviewed By Karla Hogan THERMOSPRAY OPERATOR at 11:47 AM ATTESTATION I have reviewed the device interrogation report associated with this encounter in detail. I agree with the documentation recorded/scanned into the electronic medical record. Recommendations: Continue current device follow-up. Elver Tolbert MD MD Review and Recommendations below (please forward an in-basket message to your MA if check requires attention) Elver Tolbert MD [facility] PROCEDURES Final Result * DEVICE CHECK - IN OFFICE (01/26/2025 11:14 AM CDT) Anatomical Region Laterality Modality Other Narrative 01/26/2025 1:27 PM CDT Images from the original result were not included. 01/26/2025 Biotronik in-office device check The complete report is attached to this Result Text in Sewage Plant Attendant Elver Tolbert MD [facility] PROCEDURES Final Result * (ABNORMAL) eGFR (12/19/2024 12:16 PM CDT) [...] of Race in Diagnosing Kidney Disease, JASN 202). The CKD-EPI equation should not be used for patients with unstable renal function and has not been validated in children and those over 70. Current interpretive data was last reviewed 2021. Blood 12/19/2024 12:1 6 PM CDT 12/19/2024 12:46 PM CDT us Tru Flood MD LAB BLOOD ORDERABLES Final Result [facility] ([place]) 1 [facility] Department [place] [address] * (ABNORMAL) Basic metabolic panel (12/19/2024 12:16 [...] 2022. Calcium 9.2 8.5 - 10.3 mg/dL [facility] ([place]) Blood 12/19/2024 12:1 6 PM CDT 12/19/2024 12:46 PM CDT Tru Flood MD LAB BLOOD ORDERABLES Final Result RON [facility]) 1 [facility] Department [place] [address] * (ABNORMAL) eGFR (12/19/2024 3:51 AM CDT) [...] LAB BLOOD ORDERABLES Final Res ult RON [facility] ([place]) 1 [facility] Department of Laboratories [place], [place] [id number] * (ABNORMAL) Differential, auto (12/19/2024 3:51 AM [...] Neutrophil pct 88.3 % [facility] ([place]) Comment: Interpretive Data Percent cell count reference [...] revised on 2017. Monocyte pct 4.5 % [facility] ([place]) Comment: Interpretive Data Percent cell [...] revised on 2017. Basophil pct 0.3 % [facility] ([place]) Comment: Interpretive Data Percent cell count reference ranges are not reported, since discordance with absolute values may lead to misinterpretation of CBC data. Current Interpretive Data was last revised on 2017. Blood 12/19/2024 3:51 AM CDT 12/19/2024 4:50 AM CDT us Saran Bain MD LAB BLOOD ORDERABLES Final Res ult [facility] ([place]) 1 [facility] Department of Laboratories [place], [place] [id number] * (ABNORMAL) CBC with auto differential (12/19/2024 3:51 AM CDT) WBC 9.57 3.80 - 9.90 K/cumm Hgb 14.3 11.9 - 15.5 g/dL [facility] ([place]) Hct 44.1 35.6 - 45.5 % [...] MD LAB BLOOD ORDERABLES Final Res ult [facility] [address] [facility] Department [place] [address] * (ABNORMAL) Basic metabolic panel (12/19/2024 3:51 AM CDT) Sodium 141 135 - 145 mmol/L [facility] ([place]) Potassium, pl 4.6 3.3 - [...] ([place]) Glucose 88 70 - 199 mg/dL [facility] ([place]) Comment: Interpretive Data Fasting [...] 2022. Calcium 8.7 8.5 - 10.3 mg/dL [facility] ([place]) Blood 12/19/2024 3:51 AM CDT 12/19/2024 4:50 AM CDT us Saran Bain MD LAB BLOOD ORDERABLES Final Res ult [facility] ([place]) 1 [facility] Department [place] [address] * FL Retro Pyelo (In Or) (12/18/2024 [...] Tone Kirk M.D. MM: MM Report ID: [id number] Reading Location: [id number] Procedure Note Tone Kirk MD - 12/18/2024 [...] Tone Kirk M.D. MM: MM Report ID: [id number] Reading Location: [place] [address] Melonie Mitchell MD IMG FLUOROSCOPY PROCEDURES Final Result * Surgical pathology (12/18/2024 11:57 AM CDT) Tissue (Bladder Stone) 12/18/2024 11:56 AM CDT Comment:DRY Narrative PATHOLOGY [facility] ([place]) - 12/22/2024 9:28 AM CDT EPIC results best viewed via link to PDF [facility] Department of Pathology [address] [place] [address] Note to Patients: This report may contain [...] Final Report Patient Name: RITA FLOOD Address: [address] [place] [address] Gender: F : 1935 (Age: 89) Service: Surgery Location: [facility] Hospital #: [id number] Patient Type: [facility] EP OP in bed Taken: 12/18/2024 Received: 12/21/2024 [...] mm. The specimen is entirely submitted to [facility] for chemical analysis. When the [facility] report has been finalized, it will be available in the laboratory section of [facility]. If [facility] is not available, please call the Department of Pathology at [facility] ([phone]) to obtain a copy of the report. Sharan To R.N., P.A./Marlene Herrera M.D. REPORT IMAGES AND SCANNED DOCUMENTS, IF INCLUDED, ONLY VIEWABLE IN PDF VERSION OF REPORT The performance characteristics of some immunohistochemical stains, fluorescence in-situ hybridization tests and immunophenotyping by flow cytometry cited in this report (if any) were determined by the Surgical Pathology Department at [facility] as part of an ongoing it quality assurance analyst program and in compliance with federally mandated [...] characteristics determined by the Surgical Pathology Department [facility]. It has not been cleared or approved by the U. S. Food and Drug Administration. Note for decalcified specimens: This assay has not been validated on decalcified tissues. Results should be interpreted with caution given the possibility of false negativity on decalcified specimens Melonie Mitchell MD LAB PATHOLOGY ORDERABLES Final R esult [facility] ([place]) [address] [place] [address] * Stone analysis (12/18/2024 11:56 AM CDT) Stone analysis Not Reported [facility] Comment:Testing performed by : [facility], [address] [place] [address]., [id number] Source, Kid Stone Left Ureter [facility] ([place]) Comment:Testing performed by : [facility], [address] [place] [address]., [id number] Interp, Kid stone analysis See Footnote [facility] ([place]) Comment: 90% Calcium oxalate monohydrate. 10% Calcium oxalate dihydrate. Testing performed by: [facility], [address] [place] [address]., [id number] COMMENT See Footnote [facility] ([place]) Comment: For stones containing calcium oxalate, calcium phosphate, and/or uric acid, a 24 hr urinary supersaturation test may help detect underlying risk factors for this type of stone formation and provide guidance for a stone prevention strategy. ADDITIONAL INFORMATION This test was developed and its performance characteristics determined by [facility] in a manner consistent with CLIA requirements. This test has not been cleared or approved by the U.S. Food and Drug Administration. Test Performed by: [facility] - [address] [address] Clinical Lab Clerk: Cele Tran Ph.D.; CLIA# [id number] Testing performed by: [address], [address] Stone 12/18/2024 11:5 6 AM CDT 12/22/2024 2:29 PM CDT Narrative [facility] ([place]) - 01/04/2025 10:47 AM CDT Left Ureteral Stones us Tru Flood MD LAB URINE ORDERABLES Final Result [facility] ([place]) 1 [facility] Department [place] [address] [facility] * VT AN ELECTIVE ENDOTRACHEAL AIRWAY (12/18/2024 11:33 AM CDT) Narrative Beau Varner CRNA - 12/18/2024 11:33 AM CDT Beau Varner CRNA 12/18/2024 11:33 AM Airway Patient location: OR Urgency: elective Indications for airway management: anesthesia Difficult airway: no Staff: Placed by: COMMUNITY MUSIC THERAPIST: Beau Varner CRNA Emergent airway documentation: Risks [...] Yellow Clarity, ur Turbid(A) Clear [facility] ([place]) Specific gravity, ur 1.006 1.003 - 1.030 [facility] ([place]) pH, urine 7.5 RON [facility] ([place]) Comment: Interpretive Data U rine pH is affected by diet, medications, systemic acid-base disturbances, and renal tubular function. pH may affect urinary stone formation. For example, urine pH below 6.0 may help reduce the tendency for calcium phosphate stones and pH greater than 6.0 may reduce the tendency for uric acid stone formation. Source: [facility] Current Interpretive Data was last revised on [...] MICROBIOLOGY - GENERAL ORD ERABLES Final Result [facility] ([place]) 1 [facility] Department [place] [address] * (ABNORMAL) Urinalysis, microscopic only (12/18/2024 9:07 [...] 9:07 AM CDT 12/18/2024 9:17 AM CDT us Saran Bain MD LAB URINE ORDERABLES Final Res ult Performing Organization Address [facility]/ZIP Co de Phone Number [facility] ([place]) 1 [facility] Department [place] [address] * Urine culture Urine (12/18/2024 9:07 AM CDT) Report Final Report: Less than 100,000 colonies/mL (clinically insignificant growth based on current clinical standards) Comment:Testing performed by : [facility], [address] [place]., [address] Organism (CLINICALLY INSIGNIFICANT GROWTH [facility] ([place]) Urine 12/18/2024 9:07 AM CDT 12/18/2024 2:19 PM CDT Narrative [facility] ([place]) - 12/19/2024 3:39 PM CDT Urine culture reflexed based upon urinalysis results. Testing performed by [facility] ([phone]) Saran Bain MD LAB MICROBIOLOGY - GENERAL ORD ERABLES Final Result Performing Organization Address City/[facility]/ZIP Co de Phone Number [facility] ([place]) 1 [facility] [place] [address] * CT KUB Stone WO Contrast (12/18/2024 [...] Ti Frank M.D. AM: AM Report ID: [id number] Reading Location: [id number] Procedure Note Ti Frank MD - 12/18/2024 [...] Ti Frank M.D. AM: AM Report ID: [id number] Reading Location: [place] [address] us Saran Bain MD IMG CT PROCEDURES Final [...] MD LAB BLOOD ORDERABLES Final Res ult Performing Organization Address City/State/[facility] Co de Phone Number [facility] ([place]) 1 [facility] Department [place] [address] * Lipase (12/18/2024 7:43 AM CDT) Lipase 22 10 - 99 Units/L [facility] ([place]) Blood Venous blood specimen / Unknown 12/18/2024 7:43 AM CDT 12/18/2024 7:45 AM CDT Saran Bain MD LAB BLOOD ORDERABLES Final Res ult [facility] ([place]) 1 [facility] Department [place] [address] * (ABNORMAL) Comprehensive metabolic panel (12/18/2024 7:43 [...] BLOOD ORDERABLES Final Res ult [facility] ([place]) 1 [facility] Department [place] [address] * Differential, auto (12/18/2024 7:42 AM CDT) Neutrophil abs 5.18 1.50 - 6.50 K/cumm Imm gran abs 0.02 0.00 - 0.10 K/cumm [facility] ([place]) Lymphocyte abs 2.42 0.80 - 3.30 K/cumm [facility] ([place]) Monocyte abs 0.41 0.20 - 0.80 K/cumm [facility] ([place]) Eosinophil abs 0.07 0.00 - 0.50 K/cumm [facility] ([place]) Basophil abs 0.04 0.00 - 0.10 K/cumm [facility] ([place]) Neutrophil pct 63.7 % [facility] ([place]) Comment: Interpretive Data Percent cell count reference ranges are not reported, since discordance with absolute values may lead to misinterpretation of CBC data. Current Interpretive Data was last revised on 2017. Imm gran pct 0.2 % [facility] ([place]) Comment: Interpretive Data Percent cell count reference ranges are not reported, since discordance with absolute values may lead to misinterpretation of CBC data. Current Interpretive Data was last revised on 2017. Lymphocyte pct 29.7 % [facility] ([place]) Comment: Interpretive Data Percent cell count reference ranges are not reported, since discordance with absolute values may lead to misinterpretation of CBC data. Current Interpretive Data was last revised on 2017. Monocyte pct 5.0 % [facility] ([place]) Comment: Interpretive Data Percent cell count reference ranges are not reported, since discordance with absolute values may lead to misinterpretation of CBC data. Current Interpretive Data was last revised on 2017. Eosinophil pct 0.9 % [facility] ([place]) Comment: Interpretive Data Percent cell count reference [...] Final Res ult [facility] ([place]) 1 [facility] Department [place] [address] * (ABNORMAL) CBC with auto differential (12/18/2024 [...] MD LAB BLOOD ORDERABLES Final Res ult [facility] ([place]) 1 [facility] Department of Laboratories [place] [phone] from Last 3 Months Insurance Advance Directives For more information, please contact: [phone] * Full Code (Latest Code Status on [...] 1:17 PM 05/18/2023 3:24 PM Care Teams Open Hearth Door Liner Relationship Specialty Start Date End Date Tru Flood MD PCP - General 12/26/16 Karina Jenkins, COMPLEX CASE MANAGER [place] Team Leader Physical Therapy 09/26/17
--- OUTSIDE RECORDS SUMMARY | 2025-02-17 02:16 | XMS_ITS | Clinical Summary ---
Author Organization [facility] Address [address] [place] [address] Care Team Providers Care Deicer Tester Name Role Phone Tru Flood MD Primary Care Provider [phone] Source Comments [facility],non-owned Affiliates and Associated Physician Practices is amultiple site organization consisting of ambulatory clinics and hospital sitesin [place], [place], [place] and [place]. This disclosure is being madepursuant to the Care Everywhere program and may not contain all information available regarding this patient. Last updated 18.[facility] [employer] Allergies Active Allergy Reactions Criticality Noted Date [...] Comments Blood Pressure 151/77 04/27/2014 5:32 PM RESOURCE DIRECTOR Pulse 73 04/27/2014 5:32 PM RESOURCE DIRECTOR Temperature 36.3 C (97.3 F) 04/27/2014 5:32 PM RESOURCE DIRECTOR Respiratory Rate 16 04/27/2014 5:32 PM RESOURCE DIRECTOR Oxygen Saturation 96% 04/27/2014 5:15 PM RESOURCE DIRECTOR Inhaled Oxygen Concentration - - Weight 106.6 kg (235 lb) 04/25/2014 3:11 PM RESOURCE DIRECTOR Height 167.6 cm (5' 6) 04/25/2014 3:11 PM RESOURCE DIRECTOR Body Mass Index 37.93 04/25/2014 3:11 PM RESOURCE DIRECTOR Plan of Treatment Health Maintenance Due Date [...] this topic Medical Devices Implanted Type Area Master Control Supervisor Device Identifier Shelf Expiration Date Model / Serial / Lot Stent Uret Polaris Ultra 6.0fr X 26mm Implanted:Qty: 1 on 02/07/2014 by Alexandre Gallardo MD at [facility] Right: Ureter [employer] 12/08/2016 [id number] / / [id number] Stent Urete Percflex Plus 7.0fr X 26cm Implanted:Qty: 1 on 03/16/2014 by Alexandre Gallardo MD at [facility] Right: Ureter [employer] 11/19/2015 [id number] 0 / / [id number] Percuflex Ureteral Stent 7fr X 26cm Implanted:Qty: 1 on 04/11/2014 by Alexandre Gallardo MD at [facility] Right: Ureter 01/18/2017 [id number] / / [id number] Percuflex 7fr X 26cm Implanted:Qty: 1 on 04/27/2014 by Alexandre Gallardo MD at [facility] Right: Ureter 12/20/2016 [id number] / / [id number] Insurance [facility] MEDICARE SELF PAY NO INSURANCE Member Subscriber Plan / Payer (Ef fective for All Dates) Name:Rita Flood Member ID:Not on file Relation to Subscriber:Not on file Name:RITA FLOOD Subscriber ID:Not on file (Home) Address: [address] [place] [address] Payer ID:Not on file Group ID:Not on file Type:Self Pay Address: [place], [place] [employer] Care Teams Deicer Tester Relationship Specialty Start Date End Date Tru Flood MD [address] [place] [address] PCP - General 12/21/21
--- OUTSIDE RECORDS SUMMARY | 2025-02-17 02:16 | XMS_ITS | Clinical Summary ---
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 Gender Identity Not on file Sexual Orientation Not on file Plan of Treatment Health Maintenance Due Date Last Done Comments DTaP, Tdap and Td Vaccines ( 1 - Tdap) 09/21/1954 Pneumococcal Vaccine: 50+ Ye ars (1 of 1 - PCV) 1986 Zoster Vaccines (1 of 2) 1986 RSV Immunization or 60+ Years (1 - 1-dose 75+ series) 09/21/2011 COVID-19 Vaccine ( - 2024-2 6 season) 2024 Influenza Adult (#1) 2025 Hepatitis A Vaccines Aged Out No long er eligible based on patient's age to complete this topic Meningococcal B Vaccine Aged Out No l onger eligible based on patient's age to complete this topic Meningococcal Vaccine Aged Out No tiffany christina eligible based on patient's age to complete this topic RSV Immunizations Under 20 Months Aged Out No longer eligible based on patient's age to complete this topic
--- NOTE | 2025-02-17 06:17 | WPDHPUPDATE1 ---
History and Physical Update Update Date/Time: 02/17/25 06:17 History and Physical has been reviewed, including an updated exam of the patient. There are NO changes in the patient's condition. Risks, benefits, and alternatives have been discussed and questions answered. Patient agrees to proceed with procedure.
[2025-02-17] MEDS: LACTATED RINGERS 1,000 ML 30 ML IV CONT (06:55)
--- NOTE | 2025-02-17 08:06 | WPDANESEPPF ---
Anes - Initial Pre Proc Eval Procedure: Operation Date: 02/17/25 08:30 Proposed Procedures p Cystoscopy, Left Ureteral Stent Removal, Right Ureteroscopy, Laser Lithotripsy with Stone Extraction, Right Retrograde Pyelography, Right Ureteral Stent Placement - Ameya Mccracken MD Date/Time: 02/17/25 08:06 Surgeon: Ameya Mccracken MD Pre Op Diagnosis: bilat renal stones Patient Data Age: 89 Gender: F Height: 1.68 m Weight: 80.25 kg Last Vital Signs Temp 97.7 F 02/17/25 06:33 Pulse 60 02/17/25 06:33 Resp 20 02/17/25 06:33 BP 126/69 02/17/25 06:33 Pulse Ox 100 02/17/25 06:33 O2 Del Method Room Air 02/17/25 06:33 Allergies Allergy/AdvReac Type Severity Reaction Status Date / Time codeine Allergy Unknown Hives Verified 02/17/25 06:36 atorvastatin AdvReac Muscle Pain Verified 02/17/25 06:36 Home Medications ?Medication ?Instructions ?Recorded ?Confirmed ?Type gabapentin 300 mg capsule 300 mg PO HS 03/25/19 02/17/25 History Patient hx anesthesia problems: none Family hx anesthesia problems: none Results Review: All pre-operative results and documents have been reviewed as part of the pre-operative evaluation. [facility] Past Medical History Medical History Pacemaker Nephrolithiasis Urinary tract infection Hiatal hernia (Unknown) Gastric bezoar (~05/2021) SBO (small bowel obstruction) (~05/2021) MOE (obstructive sleep apnea) non compliance with CPAP Hypertension CAD (coronary artery disease) Neuropathy Cataract, right eye Sleep apnea Bronchitis Surgical History Surgical History History of extraction of renal calculus History of incisional hernia repair History of repair of hiatal hernia History of hysterectomy History of tonsillectomy Stented coronary artery x2 Family History Family History Mother Heart disease Hypertension Social History Social History Social History: She lives by herself and is independent. She does not have any pets, and she wants her son Balta to be her surrogate. She wishes to be a full code. 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 ) Neurological: alert and oriented Last oral intake: >/= 8 hours ASA classification: III Emergent: no Anesthetic plan: proceed Anesthesia type and monitoring: general LMA and standard monitoring Results Review: All pre-operative results and documents have been reviewed as part of the pre-operative evaluation. Prev GA record and preop reviewed and discussed w pt. No interval change. Informed Consent: The patient's anesthetic plan and its attendant risks and benefits were discussed with the patient/family/POA. Questions were solicited and answers provided to the satisfaction of the patient/family/POA.
[2025-02-17] MEDS: ceFAZolin 2 GM in SODIUM CHLORIDE 0.9% IV 50 ML 100 ML IVPB (08:25)
--- NOTE | 2025-02-17 09:12 | S_PTH ---
PATIENT: Rita Flood LOC: [facility] U#:[id number] AGE/SX: 89/F ROOM: RE02/17/[address]: Ameya Mccracken MD : [id number] BED: DIS: 02/17/2025 SPEC #: [id number] RECD: 02/17/25 10:16 STATUS: BUDDY REQ #: [id number] MONICA: 02/17/25 09:[address]: Ameya Mccracken DEPT: [facility] Surgical RECD BY: Roma Vela Tissues: A - Stone Procedures: Gross Exam Level 1 Crystalline Analysis
--- NOTE | 2025-02-17 09:27 | W.PM.PROC2 ---
Procedure Note - Detailed Date of Procedure 02/17/25 Pre-op Diagnosis Bilat. renal stones Post-op Diagnosis Same Procedure Performed Cystoscopy, bilateral ureteral stent removal, right ureteroscopy with laser lithotripsy, stone extraction, right retrograde pyelography and right ureteral stent replacement Surgeon Ameya Mccracken MD Anesthesia General Description of Procedure Patient is brought to the operative suite where she has prepped draped in routine sterile fashion while in dorsal lithotomy position after the uneventful induction of a general anesthetic. Cystoscopy was undertaken with a 19 F rigid cystoscope. Her left ureteral stent is grasped and removed with ease. Right ureteral stent is grasped and a 0.035 inch glidewire was advanced into the right renal pelvis. Distal ureter was dilated with an 8 F 10 F dilator and then an 11 13 F ureteral access sheath was placed. Ureteroscopy was undertaken with a 7.5 F digital flexible ureteral scope. She has 3 sizable stones in renal pelvis that washed into an upper pole calyx with ureteroscopy irrigation. Using a 200 micron Davon laser fiber the stones are dusted and all sizable pieces greater than 2 mm were extracted with a 1.9 F disposable stone basket. Residual pieces are deemed to be less than 3 mm and should pass spontaneously. A 4.8 F double-J ureteral stent was placed after performing a retrograde pyelogram to ensure appropriate stent placement. Scopes and wires were removed and she was taken to the recovery room in good condition. Drains Yes Packing No Pathology Yes Complications No immediate complications Condition Stable
[2025-02-17] MEDS: fentaNYL CITRATE INJ (*CRX) 100 MCG/2 ML VIAL 25 MCG IV PUSH ×4 (09:48→09:58)
[2025-02-17] MEDS: KETOROLAC 15 MG/ML VIAL (*BKC) IV PUSH (09:54)
== END 2025-02-17 11:30 | disposition home or self-care (01) ==
PROVIDERS: Visit Provider Urology
PROC: (CPT 52352; principal; 2025-02-17 08:30)
DX: N20.0 Calculus of kidney (principal)
CPT/HCPCS: 52356; 74420; 82365; 88300; J0690; C1769; C1894; C2617; J1885; J2003; J2405; J2704; J3010; J7120; Q9966

== ENCOUNTER 2025-02-18 10:01 | Inpatient (IN) | payer OTHER, SELFPAY ==
[2025-02-18] VITALS (10 sets, daily range): BP systolic 102–140; BP diastolic 35–75; PULSE 64–76; RESP 12–24; TEMP 36.5–38.3; O2SAT 95–100; BMI 26.6
--- NOTE | ~2025-02-18 | CT_ITS ---
CT ABDOMEN AND PELVIS WITHOUT CONTRAST Clinical History: Post renal stent placement Comparison: X-ray 01/17/2025 CT abdomen pelvis 06/09/2023 Technique: Unenhanced axial images lung bases to symphysis pubis Coronal, sagittal reformats CT images acquired with automatic exposure control for dose reduction DLP: 865 mGy-cm Findings: Without intravenous contrast, sensitivity for detecting visceral parenchymal abnormalities decreased. Lung bases: Scarring. Central diaphragmatic hernia containing stomach Visualized heart and pericardium: Cardiomegaly. Liver: Unremarkable. Gallbladder: Removed. Spleen: Unremarkable. Pancreas: Unremarkable. Adrenal glands: Unremarkable. Kidneys: Right kidney- No hydronephrosis. Stones. Double-J ureteral stent. Small gas and contrast within collecting system. Left kidney- mild hydronephrosis. Stones. 2 mm stone distal ureter Distal esophagus/stomach: Unremarkable. Small bowel loops: Normal caliber and wall thickness. Colon: Diverticula. Normal caliber and wall thickness. Normal RLQ appendix. Nodes: No enlarged nodes. Peritoneum: No ascites. No free intraperitoneal air. Urinary bladder: Unremarkable. Uterus: Removed. Adnexa: No masses. Bones: No acute bony abnormality. L5 spondylolysis with spondylolisthesis. Soft tissues: Abdominal wall hernia mesh repair. Unopacified abdominal aorta: No aneurysmal dilatation. Atherosclerotic disease. IMPRESSION: 1. Bilateral nephrolithiasis. 2. 2 mm stone distal left ureter, with mild associated hydronephrosis. 3. Right double-J ureteral stent in place. Small collecting system gas and contrast from recent pyelogram. 4. Otherwise no acute abnormality. 5. Additional findings as above. Reviewed, dictated and finalized at location R. IMPRESSION: 1. Bilateral nephrolithiasis. 2. 2 mm stone distal left ureter, with mild associated hydronephrosis. 3. Right double-J ureteral stent in place. Small collecting system gas and con trast from recent pyelogram. 4. Otherwise no acute abnormality. 5. Additional findings as above.
--- NOTE | ~2025-02-18 | XR_ITS ---
XR abdomen/kub 1V 02/21/2025 15:02 Indication: Constipation Procedure: KUB Comparison: Comparison to multiple prior studies sequentially, with oldest reviewed study dated 09/11/2023. Findings: There is a right internal ureteral stent. There are multiple right renal stones. There is a surgical staple line overlying the abdomen, possibly from prior hernia repair. Severe lumbar spondylosis with levoscoliosis. There are probable left renal stones as well. Left internal ureteral stent has been removed since 01/17/2025 Impression: 1: Bilateral nephrolithiasis with persistent right internal ureteral stent in expected position. Reviewed, dictated and finalized at location O. [employer] Impression: 1: Bilateral nephrolithiasis with persistent right internal ureteral stent in e xpected position.
--- OUTSIDE RECORDS SUMMARY | 2025-02-18 10:34 | XMS_ITS | Clinical Summary ---
Author Organization [facility] Medical Office Building B Address [address] [place] [address] Care Team Providers Care Slot Operations Director Name Role Phone Tru Flood MD Primary [...] 05/18/2024 Assessment & Plan (06/15/2024 11:09 AM CERTIFIED HEALTH EDUCATION SPECIALIST): The patient's recent EGD did not demonstrate [...] forward Assessment & Plan (05/18/2024 9:57 AM CERTIFIED HEALTH EDUCATION SPECIALIST): We have discussed that the anemia may [...] 05/17/2023 Assessment & Plan (05/18/2023 3:36 PM CERTIFIED HEALTH EDUCATION SPECIALIST): SOUNDS LIKE VERTIGO. 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 Status post RA lead repositioning on 19 May 2023. Assessment & Plan (05/26/2023 12:21 PM CERTIFIED HEALTH EDUCATION SPECIALIST): Patient is feeling fine. We discussed good [...] (09/18/2017): Added automatically from request for surgery [id number] Peripheral neuropathy Encounters Date Type Department Care Team Description 02/09/2025 12:45 PM CDT Ancillary Procedure [place] Nuclear Engineering Technician [address] [place] [phone] Cardiac pacemaker in situ; Heart block AV second degree; Sick sinus syndrome (HCC) 02/08/[address] [place] [facility] Technician [address] [facility] [address] [place] [address] Jennifer Leyva Sick sinus syndrome (HCC) (Primary Dx); Cardiac pacemaker in situ; Heart block AV second degree 01/27/[address] [place] [facility] Technician at [address] [place] [address] Karla Hogan RN 01/26/2025 11:30 AM CDT Ancillary Procedure [place] [facility] Technician at [address] [place] [address] Pacemaker reprogramming/check (Primary Dx); Cardiac pacemaker in situ; Heart block AV second degree; Sick sinus syndrome (HCC) 01/26/2025 11:30 AM CDT Office Visit 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) 12/18/2024 11:24 AM CDT Anesthesia Event [facility] Operating Room [address] [place] [address] Melonie Mitchell MD Gill, Matthew, CRNA 12/18/2024 11:00 AM CDT - 12/18/2024 12:20 PM CDT Surgery [facility] Operating Room [address] [place] [address] Melonie Mitchell MD CYSTOSCOPY, PLACEMENT BILATERAL URETERAL STENTS 12/18/2024 7:29 AM CDT - 12/19/2024 1:27 PM CDT Emergency [facility] Surgery Care [address] [place] [address] Saran Bain MD [place], Kasiemobi Bernice, MD [...] drink = 0.6 oz pur e alcohol) [facility] Utilities Answer Date Recorded In the past 12 months has th e electric, gas, oil, or water Medicalis threatened to shut off services in your [...] often do you attend chur ch or worship services? More than 4 times per year 05/19/2023 Do you belong to any clubs o r organizations such as anabaptism groups, unions, fraternal or athletic groups, or [...] place to sleep or slept in a fci (including now)? No 05/19/2023 AUDIT-C Answer Date [...] on file Legal Sex Female 2:50 AM CERTIFIED HEALTH EDUCATION SPECIALIST Gender Identity Not on file Sexual [...] 12/18/2024, 04/14/2024 Medical Devices Implanted Type Area Director Of Strategic Alliances Device Identifier Shelf Expiration Date Model / Serial / Lot Biotronik Inc Endocardial Pacing Lead Promri Solia T [id number] - [id number] - [id number] Implanted:Qty: 1 on 05/14/2023 by Fransico Alberto MD at [facility] Lead Biotronik Inc 03/20/2024 [id number] / [id number] / Biotronik Inc Endocardial Pacing Lead Promri Solia Jt 45 [id number] - [id number] - [id number] Implanted:Qty: 1 on 05/14/2023 by Fransico Alberto MD at [facility] Lead Biotronik Inc [id number] / [id number] / Biotronik Inc Solia S 45cm Bipolar Active Fixation Lead Pacing Steroid Eluting 775027 - [id number] - [id number] Implanted:Qty: 1 on 05/19/2023 by Fransico Alberto MD at [facility] Lead Biotronik Inc 05/21/2025 [id number] / [id number] / Medtronic Inc Tyrx Absorbable Antibacterial Envelope-Large 3.3x2.9in [id number] - Sna - [id number] Implanted:Qty: 1 on 05/19/2023 by Fransico Alberto MD at [facility] Mesh Medtronic Inc 02/08/2024 [id number] / [id number] / [id number] Biotronik Inc Edora Promri 52v14w3.5mm Dual Chamber Rate Adaptive Unipolar Bipolar 671864 - [id number] - [id number] Implanted:Qty: 1 on 05/14/2023 by Fransico Alberto MD at [facility] Pacemaker Biotronik Inc 09/18/2024 [id number] / [id number] / Depuy Orthopaedics Inc [id number] Smartset High Viscosity Cement 40gm Bone Gentamicin - [id number] Implanted:Qty: 1 on 10/06/2017 by Neptali Negrete MD at [facility] Left: Knee Depuy Orthopaedics Inc 01/18/2019 [id number] / / [id number] Depuy Orthopaedics Inc [id number] Smartset High Viscosity Cement 40gm Bone Gentamicin - [id number] Implanted:Qty: 1 on 10/06/2017 by Neptali Negrete MD at [facility] Left: Knee Depuy Orthopaedics Inc 01/18/2019 [id number] / / [id number] Depuy Orthopaedics Inc [id number] Attune 38mm Cemented Medialize Knee Dome Patellar Aox Sterile - [id number] Implanted:Qty: 1 on 10/06/2017 by Neptali Negrete MD at [facility] Left: Knee Depuy Orthopaedics Inc 05/21/2022 [id number] / / [id number] Depuy Orthopaedics Inc [id number] Attune S+ Cement Fix Bearing Knee 5 Baseplate Tibial - [id number] Implanted:Qty: 1 on 10/06/2017 by Neptali Negrete MD at [facility] Left: Knee Depuy Orthopaedics Inc 04/20/2027 [id number] / / [id number] Depuy Orthopaedics Inc [id number] Attune Cemented Posterior Stabilize Knee Left 6 Narrow Component - [id number] Implanted:Qty: 1 on 10/06/2017 by Neptali Negrete MD at [facility] Left: Knee Depuy Orthopaedics Inc 08/19/2027 [id number] / / [id number] Depuy Orthopaedics Inc [id number] Attune 8mm Posterior Stabilize Fix Bearing Knee 6 Insert Tibial - [id number] Implanted:Qty: 1 on 10/06/2017 by Neptali Negrete MD at [facility] Left: Knee Depuy Orthopaedics Inc 06/18/2022 [id number] / / [id number] Medtronic Inc Tyrx Absorbable Antibacterial Envelope-Large 3.3x2.9in [id number] - [id number] Implanted:Qty: 1 on 05/14/2023 by Fransico Alberto MD at [facility] Medtronic Inc 12/25/2023 [id number] / / [id number] [employer] Solitario Contour 6fr 26cm Large Inner Lumen Low Profile Bladder Lauri Taper Latex Free 180-223 - [id number] Implanted:Qty: 1 on 04/15/2024 by Alisson Duran MD at [facility] Right: Ureter [employer] Solitario 12/31/2026 [id number] / / [id number] [employer] Solitario Contour 6fr 26cm Large Inner Lumen Low Profile Bladder Lauri Taper Latex Free 180-223 - [id number] Implanted:Qty: 1 on 04/15/2024 by Alisson Duran MD at [facility] Left: Ureter [employer] Solitario 11/26/2026 [id number] / / [id number] [employer] Solitario Contour Vl 4.8fr 22-30cm Taper Tip Bladder Lauri Low Profile Large Latex Free [id number] - [id number] Implanted:Qty: 1 on 12/18/2024 by Melonie Mitchell MD at [facility] Left: Urethra [employer] Solitario 05/04/2027 [id number] / / [id number] [employer] Solitario Contour Vl 4.8fr 22-30cm Taper Tip Bladder Lauri Low Profile Large Latex Free [id number] - [id number] Implanted:Qty: 1 on 12/18/2024 by Melonie Mitchell MD at [facility] Left: Urethra [employer] Solitario 02/22/2027 [id number] / / [id number] Procedures Procedure Name Priority Date/Time Associated Diagnosis [...] STONE ANALYSIS Routine 12/18/2024 11:56 AM CDT NJ AN ELECTIVE ENDOTRACHEAL AIRWAY Routine 12/18/2024 11:33 [...] the original result were not included. 02/09/2025 Captual quarterly remote device check NOTE The following shows snippets from the complete quarterly report. The complete report in its entirety is attached to this Result Text in Pcat Instructor Periodic IEGM Detection Feb 09, 2025, 1:07:00 AM Last in-office check: January 2025 Next in-office appointment: January 2026 Battery longevity = OK/85% AT/AF burden 0% Ap: 26% RVp: 33% No events Device Nurse Review and Recommendations below Reviewed By Karla Hogan DECORATOR HAND at 11:47 AM ATTESTATION I have reviewed [...] is attached to this Result Text in Pcat Instructor Elver Tolbert MD CV CARDIAC SERVICES PROCEDURES [...] ORDERABLES Final Result [facility] ([place]) 1 [facility] [place] [address] * (ABNORMAL) Basic metabolic panel (12/19/2024 12:16 [...] 2022. Calcium 9.2 8.5 - 10.3 mg/dL [facility] ([place]) Blood 12/19/2024 12:1 6 PM CDT 12/19/2024 12:46 PM CDT Tru Flood MD LAB BLOOD ORDERABLES Final Result RON LINDO) 1 [facility] [place] [address] * (ABNORMAL) eGFR (12/19/2024 3:51 AM CDT) [...] LAB BLOOD ORDERABLES Final Res ult RON [facility] ([place]) 1 [facility] Department of Laboratories [place], [place] [address] * (ABNORMAL) Differential, auto (12/19/2024 3:51 AM [...] Neutrophil pct 88.3 % [facility] ([place]) Comment: Interpretive Data Percent cell count reference [...] BLOOD ORDERABLES Final Res ult [facility] ([place]) 1 [facility] Department of Laboratories [place], [place] [address] * (ABNORMAL) CBC with auto differential (12/19/2024 [...] MD LAB BLOOD ORDERABLES Final Res ult [facility] 1 [facility] [place] [address] * (ABNORMAL) Basic metabolic panel (12/19/2024 3:51 AM CDT) Sodium 141 135 - 145 mmol/L [facility] ([place]) Potassium, pl 4.6 3.3 - [...] ([place]) Glucose 88 70 - 199 mg/dL [facility] ([place]) Comment: Interpretive Data Fasting glucose [...] BLOOD ORDERABLES Final Res ult [facility] ([place]) 1 [facility] [place] [address] * FL Retro Pyelo (In Or) (12/18/2024 [...] Tone Kirk M.D. MM: MM Report ID: [id number] Reading Location: [id number] Procedure Note Tone Kirk MD - 12/18/2024 [...] Tone Kirk M.D. MM: MM Report ID: [id number] Reading Location: [place] [address] Melonie Mitchell MD IMG FLUOROSCOPY PROCEDURES Final Result * Surgical pathology (12/18/2024 11:57 AM CDT) Tissue (Bladder Stone) 12/18/2024 11:56 AM CDT Comment:DRY Narrative PATHOLOGY [facility] ([place]) - 12/22/2024 9:28 AM CDT EPIC results best viewed via link to PDF [facility] Department of Pathology [address] [place] [address] Note to Patients: This report may contain [...] Final Report Patient Name: RITA FLOOD Address: [address] [place] [address] Gender: F : 1935 (Age: 89) Service: Surgery Location: [facility] Hospital #: [id number] Patient Type: [facility] EP OP in bed Taken: 12/18/2024 Received: [...] mm. The specimen is entirely submitted to [facility] for chemical analysis. When the [facility] report has been finalized, it will be available in the laboratory section of [facility]. If [facility] is not available, please call the Department of Pathology at [facility] ([phone]) to obtain a copy of the report. Sharan To R.N., P.A./Marlene Herrera M.D. REPORT IMAGES AND SCANNED DOCUMENTS, IF INCLUDED, ONLY VIEWABLE IN PDF VERSION OF REPORT The performance characteristics of some immunohistochemical stains, fluorescence in-situ hybridization tests and immunophenotyping by flow cytometry cited in this report (if any) were determined by the Surgical Pathology Department at [facility] as part of an ongoing chief quality officer program and in compliance with federally mandated [...] characteristics determined by the Surgical Pathology Department [facility]. It has not been cleared or approved by the U. S. Food and Drug Administration. Note for decalcified specimens: This assay has not been validated on decalcified tissues. Results should be interpreted with caution given the possibility of false negativity on decalcified specimens Melonie Mitchell MD LAB PATHOLOGY ORDERABLES Final R esult [facility] ([place]) [address] [place] [address] * Stone analysis (12/18/2024 11:56 AM CDT) Stone analysis Not Reported [facility] Comment:Testing performed by : [facility], [address] [place] [address]., [id number] Source, Kid Stone Left Ureter [facility] ([place]) Comment:Testing performed by : [facility], [address] [place] [address]., [id number] Interp, Kid stone analysis See Footnote [facility] ([place]) Comment: 90% Calcium oxalate monohydrate. 10% Calcium oxalate dihydrate. Testing performed by: [facility], [address] [place] [address]., [address] COMMENT See Footnote [facility] ([place]) Comment: For stones containing calcium oxalate, calcium phosphate, and/or uric acid, a 24 hr urinary supersaturation test may help detect underlying risk factors for this type of stone formation and provide guidance for a stone prevention strategy. ADDITIONAL INFORMATION This test was developed and its performance characteristics determined by [facility] in a manner consistent with CLIA requirements. This test has not been cleared or approved by the U.S. Food and Drug Administration. Test Performed by: [facility] - [address] [address] Sizing Machine Tender: Cele Tran Ph.D.; CLIA# [id number] Testing performed by: [address], [address] Stone 12/18/2024 11:5 6 AM CDT 12/22/2024 2:29 PM CDT Narrative [facility] ([place]) - 01/04/2025 10:47 AM CDT Left Ureteral Stones us Tru Flood MD LAB URINE ORDERABLES Final Result [facility] ([place]) 1 [facility] Department [place] [address] [facility] * NJ AN ELECTIVE ENDOTRACHEAL AIRWAY (12/18/2024 11:33 AM CDT) Narrative Beau Varner CRNA - 12/18/2024 11:33 AM CDT Beau Varner CRNA 12/18/2024 11:33 AM Airway Patient location: OR Urgency: elective Indications for airway management: anesthesia Difficult airway: no Staff: Placed by: SKIDDER DRIVER: Beau Varner CRNA Emergent airway documentation: Risks [...] [facility] ([place]) pH, urine 7.5 RON [facility] ([place]) Comment: Interpretive Data U rine pH is affected by diet, medications, systemic acid-base disturbances, and renal tubular function. pH may affect urinary stone formation. For example, urine pH below 6.0 may help reduce the tendency for calcium phosphate stones and pH greater than 6.0 may reduce the tendency for uric acid stone formation. Source: [facility] Current Interpretive Data was last revised on [...] ERABLES Final Result [facility] ([place]) 1 [facility] [place] [address] * (ABNORMAL) Urinalysis, microscopic only (12/18/2024 9:07 [...] ORDERABLES Final Res ult Performing Organization Address [facility]/ZIP Co de Phone Number [facility] ([place]) 1 [facility] [place] [address] * Urine culture Urine (12/18/2024 9:07 AM CDT) Report Final Report: Less than 100,000 colonies/mL (clinically insignificant growth based on current clinical standards) Comment:Testing performed by : [facility], [address] [place]., [address] Organism (CLINICALLY INSIGNIFICANT GROWTH [facility] ([place]) Urine 12/18/2024 9:07 AM CDT 12/18/2024 2:19 PM CDT Narrative [facility] ([place]) - 12/19/2024 3:39 PM CDT Urine culture reflexed based upon urinalysis results. Testing performed by [facility] ([phone]) Saran Bain MD LAB MICROBIOLOGY - GENERAL ORD ERABLES Final Result Performing Organization Address City/[facility]/ZIP Co de Phone Number [facility] ([place]) 1 [facility] [place] [employer] [place] [address] * CT KUB Stone WO Contrast (12/18/2024 [...] Ti Frank M.D. AM: AM Report ID: [id number] Reading Location: [id number] Procedure Note Ti Frank MD - 12/18/2024 [...] Ti Frank M.D. AM: AM Report ID: [id number] Reading Location: [place] [address] [place] Saran Bain MD IMG CT PROCEDURES [...] ORDERABLES Final Res ult Performing Organization Address City/State/[facility] Co de Phone Number [facility] ([place]) 1 [facility] Department [place] [address] * Lipase (12/18/2024 7:43 AM CDT) Lipase 22 10 - 99 Units/L [facility] ([place]) Blood Venous blood specimen / Unknown 12/18/2024 7:43 AM CDT 12/18/2024 7:45 AM CDT Saran Bain MD LAB BLOOD ORDERABLES Final Res ult [facility] ([place]) 1 [facility] Department [place] [address] * (ABNORMAL) Comprehensive metabolic panel (12/18/2024 7:43 [...] BLOOD ORDERABLES Final Res ult [facility] ([place]) 1 [facility] Department [place] [address] * Differential, auto (12/18/2024 7:42 AM CDT) Neutrophil abs 5.18 1.50 - 6.50 K/cumm Imm gran abs 0.02 0.00 - 0.10 K/cumm [facility] ([facility]) Lymphocyte abs 2.42 0.80 - 3.30 K/cumm [facility] ([facility]) Monocyte abs 0.41 0.20 - 0.80 K/cumm [facility] ([facility]) Eosinophil abs 0.07 0.00 - 0.50 K/cumm [facility] ([facility]) Basophil abs 0.04 0.00 - 0.10 K/cumm [facility] ([facility]) Neutrophil pct 63.7 % [facility] ([facility]) Comment: Interpretive Data Percent cell count reference ranges are not reported, since discordance with absolute values may lead to misinterpretation of CBC data. Current Interpretive Data was last revised on 2017. Imm gran pct 0.2 % [facility] ([facility]) Comment: Interpretive Data Percent cell count reference ranges are not reported, since discordance with absolute values may lead to misinterpretation of CBC data. Current Interpretive Data was last revised on 2017. Lymphocyte pct 29.7 % [facility] ([facility]) Comment: Interpretive Data Percent cell count reference ranges are not reported, since discordance with absolute values may lead to misinterpretation of CBC data. Current Interpretive Data was last revised on 2017. Monocyte pct 5.0 % [facility] ([facility]) Comment: Interpretive Data Percent cell count reference ranges are not reported, since discordance with absolute values may lead to misinterpretation of CBC data. Current Interpretive Data was last revised on 2017. Eosinophil pct 0.9 % [facility] ([facility]) Comment: Interpretive Data Percent cell count reference [...] Final Res ult [facility] ([place]) 1 [facility] [place] [address] * (ABNORMAL) CBC with auto differential (12/18/2024 [...] BLOOD ORDERABLES Final Res ult [facility] ([facility]) 1 [facility] Department of Laboratories [place] [id number] from Last 3 Months Insurance Advance Directives For more information, please contact: [phone] * Full Code (Latest Code Status on [...] 1:17 PM 05/18/2023 3:24 PM Care Teams Slot Operations Director Relationship Specialty Start Date End Date Tru Flood MD PCP - General 12/26/16 Karina Jenkins, FUND ACCOUNTING MANAGER Night Time Babysitter Physical Therapy 09/26/17
--- OUTSIDE RECORDS SUMMARY | 2025-02-18 10:34 | XMS_ITS | Clinical Summary ---
Author Organization [facility] Address [address] [place] [address] Care Team Providers Care Aircraft Time Clerk Name Role Phone Unavailable Primary Care Provider Unavailabl e Social History Tobacco Use Types Packs/Day Years Used Date Smoking Tobacco: Never Assessed Comments Unknown Sex and Gender Information Value Date Recorded Sex Assigned at Not on file Legal Sex Female 5:59 PM LIFE SKILLS CONSULTANT Gender Identity Not on file Sexual Orientation [...]
--- OUTSIDE RECORDS SUMMARY | 2025-02-18 10:34 | XMS_ITS | Clinical Summary ---
Author Organization [facility] Address [address] [place] [address] Care Team Providers Care Sap Business Intelligence Consultant Name Role Phone Tru Flood MD Primary Care Provider [phone] Source Comments [facility],non-owned Affiliates and Associated Physician Practices is amultiple site organization consisting of ambulatory clinics and hospital sitesin [place], [place], [place] and [place]. This disclosure is being madepursuant to the Care Everywhere program and may not contain all information available regarding this patient. Last updated 18.[facility] [employer] Allergies Active Allergy Reactions Criticality Noted Date [...] Comments Blood Pressure 151/77 04/27/2014 5:32 PM FUELS SALES REPRESENTATIVE Pulse 73 04/27/2014 5:32 PM FUELS SALES REPRESENTATIVE Temperature 36.3 C (97.3 F) 04/27/2014 5:32 PM FUELS SALES REPRESENTATIVE Respiratory Rate 16 04/27/2014 5:32 PM FUELS SALES REPRESENTATIVE Oxygen Saturation 96% 04/27/2014 5:15 PM FUELS SALES REPRESENTATIVE Inhaled Oxygen Concentration - - Weight 106.6 kg (235 lb) 04/25/2014 3:11 PM FUELS SALES REPRESENTATIVE Height 167.6 cm (5' 6) 04/25/2014 3:11 PM FUELS SALES REPRESENTATIVE Body Mass Index 37.93 04/25/2014 3:11 PM FUELS SALES REPRESENTATIVE Plan of Treatment Health Maintenance Due Date [...] this topic Medical Devices Implanted Type Area Sock Ironer Device Identifier Shelf Expiration Date Model / Serial / Lot Stent Uret Polaris Ultra 6.0fr X 26mm Implanted:Qty: 1 on 02/07/2014 by Alexandre Gallardo MD at [facility] Right: Ureter [employer] 12/08/2016 [id number] / / [id number] Stent Urete Percflex Plus 7.0fr X 26cm Implanted:Qty: 1 on 03/16/2014 by Alexandre Gallardo MD at [facility] Right: Ureter [employer] 11/19/2015 [id number] / / [id number] Percuflex Ureteral Stent 7fr X 26cm Implanted:Qty: 1 on 04/11/2014 by Alexandre Gallardo MD at [facility] Right: Ureter 01/18/2017 [id number] / / [id number] Percuflex 7fr X 26cm Implanted:Qty: 1 on 04/27/2014 by Alexandre Gallardo MD at [facility] Right: Ureter 12/20/2016 [id number] / / [id number] Insurance [facility] MEDICARE SELF PAY NO INSURANCE Member Subscriber Plan / Payer (Ef fective for All Dates) Name:Rita Flood Member ID:Not on file Relation to Subscriber:Not on file Name:RITA FLOOD Subscriber ID:Not on file (Home) Address: [address] [facility] [place] [address] Payer ID:Not on file Group ID:Not on file Type:Self Pay Address: [place], [place] [employer] Care Teams Sap Business Intelligence Consultant Relationship Specialty Start Date End Date Tru Flood MD [address] [place] [address] PCP - General 12/21/21
--- NOTE | 2025-02-18 12:14 | ED.GENADULT ---
HPI - General Adult General Chief complaint: Weakness Stated complaint: post op day 1 kidney stone surgery Time Seen by Provider: 02/18/25 12:12 Source: patient Mode of arrival: ambulatory Limitations: no limitations History of Present Illness HPI narrative: 89 years old white female came to the ED by private car complaining of bilateral upper abdominal pain, aching started this morning, intermittent last for few minutes each time, associated with nausea. Patient denies any fever or chills or vomiting or diarrhea or constipation or radiation of pain. Patient is status post right kidney stent placement yesterday and left kidney stent removal yesterday. History of peripheral neuropathy on gabapentin and hiatal hernia surgery years ago Related Data Home Medications ?Medication ?Instructions ?Recorded ?Confirmed ?Last Taken ?Type gabapentin 300 mg capsule 300 mg PO HS 03/25/19 02/17/25 02/16/25 History Allergies Allergy/AdvReac Type Severity Reaction Status Date / Time codeine Allergy Unknown Hives Verified 02/17/25 06:36 atorvastatin AdvReac Muscle Pain Verified 02/17/25 06:36 Review of Systems Review of Systems: All systems reviewed & are unremarkable except as noted in HPI and below PMFSH Past Medical History Medical History Pacemaker Nephrolithiasis Urinary tract infection Hiatal hernia (Unknown) Gastric bezoar (~05/2021) SBO (small bowel obstruction) (~05/2021) MOE (obstructive sleep apnea) non compliance with CPAP Hypertension CAD (coronary artery disease) Neuropathy Cataract, right eye Sleep apnea Bronchitis Surgical History Surgical History History of extraction of renal calculus History of incisional hernia repair History of repair of hiatal hernia History of hysterectomy History of tonsillectomy Stented coronary artery x2 Family History Family History Mother Heart disease Hypertension Social History Social History Social History: She lives by herself and is independent. She does not have any pets, and she wants her son Balta to be her surrogate. She wishes to be a full code. 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 Alcohol intake: never Substance use: never Living arrangements: alone Occupation/Education: retired Gender identity (if verbalized by the patient): Female Sexual Orientation (if Verbalized by the Patient): Straight or Heterosexual Spiritual care concerns: No Agree to blood products: Yes Exam Narrative: General appearance: Well-developed, well-nourished Skin: Normal color Head: Normocephalic, nontraumatic Eyes: Clear conjunctiva ENT: Oropharynx normal, ears normal, nose normal Neck: Supple, nontender Chest and respiratory: Airway patent, no respiratory distress, no accessory muscle use Heart: Regular rate/rhythm Abdomen: Soft, right lower quadrant tenderness no organomegaly, quiet bowel sounds Vascular: Normal peripheral pulses, normal capillary refill. 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, no gross motor deficit Course Vital Signs Vital signs: Vital Signs Temperature 36.6 C 02/18/25 10:04 Pulse Rate 76 02/18/25 10:04 Respiratory Rate 16 02/18/25 10:04 Blood Pressure 125/71 02/18/25 10:04 Pulse Oximetry 100 02/18/25 10:04 Temperature 36.6 C 02/18/25 10:04 Pulse Rate 76 02/18/25 10:04 Respiratory Rate 16 02/18/25 10:04 Blood Pressure 125/71 02/18/25 10:04 Pulse Oximetry 100 02/18/25 10:04 Medical Decision Making [facility] Narrative Medical decision making narrative: Patient presents with upper abdominal pain Vital signs are stable Physical examination consistent with right lower quadrant pain Differential diagnosis include gastritis, esophagitis, pancreatitis, colitis, diverticulitis, urinary tract infection Blood workup today includes CBC, CMP, lipase showed WBC 12.3, SODIUM 131, CREATININE 1.3, CT abdomen and pelvis without contrast showed 2 MM STONE DISTAL LEFT URETER WITH MILD ASSOCIATED HYDRONEPHROSIS, RIGHT DOUBLE-J URETERAL STENT IN PLACE OTHERWISE NO ACUTE ABNORMALITY Urinalysis showed EVIDENCE OF INFECTION PATIENT STARTED ON ROCEPHIN ADMIT TO HOSPITALIST Differential Diagnosis Differential Diagnosis: ABOVE Vital Signs Vital Signs: Vital Signs Temperature 36.6 C 02/18/25 10:04 Pulse Rate 76 02/18/25 10:04 Respiratory Rate 16 02/18/25 10:04 Blood Pressure 125/71 02/18/25 10:04 Pulse Oximetry 100 02/18/25 10:04 Temperature 36.6 C 02/18/25 10:04 Pulse Rate 76 02/18/25 10:04 Respiratory Rate 16 02/18/25 10:04 Blood Pressure 125/71 02/18/25 10:04 Pulse Oximetry 100 02/18/25 10:04 Lab Data 02/18/25 13:02 02/18/25 13:02 Labs: Lab Results 02/18/25 02/18/25 Range/Units 11:46 13:02 WBC 12.3 H (4.5-10.0) K/mm3 RBC 4.05 L (4.2-5.4) M/mm3 Hgb 13.5 (12.0-15.0) g/dL Hct 40.5 (37.0-47.0) % MCV 100.0 (80-100) fl MCH 33.3 (26-34) pg MCHC 33.3 (32-36) g/dl RDW 14.2 (11.5-14.5) % Plt Count 170 (150-375) k/mm3 MPV 9.1 (7.4-10.4) fl Immature Gran % (Auto) 0.3 (0-0.5) % Neut % (Auto) 82.0 H (45.5-73.1) % Lymph % (Auto) 10.1 L (18.3-44.2) % [place] % (Auto) 7.3 (2.6-8.5) % Eos % (Auto) 0.1 (0-4.4) % Baso % (Auto) 0.2 (0.2-1.2) % Lymph # (Auto) 1.25 (0.9-3.2) K/mm3 [place] # (Auto) 0.9 H (0.1-0.6) K/mm3 Eos # (Auto) 0.0 (0-0.3) K/mm3 Baso # (Auto) 0.0 (0.0-0.1) K/mm3 Abs Immat Gran (auto) 0.04 H (0.00-0.031) K/mm3 Absolute Neuts (auto) 10.1 H (1.3-6.7) K/mm3 Absolute Nucleated RBC 0.000 (0.0-0.012) K/mm3 Nucleated RBC % 0.0 (0.0-0.2) % Sodium 131 L (137-145) mmol/L Potassium 4.5 (3.4-5.0) mmol/L Chloride 105 (98-107) mmol/L Carbon Dioxide 22 (22-30) mmol/L Anion Gap 4 (4-12) mmol/L BUN 21 H (7-17) mg/dL Creatinine 1.32 H (0.7-1.0) mg/dL Estim Creat Clear Calc Not Reportable Estimated GFR 38 L (59 - ) Glucose 113 H (65-110) mg/dL Calcium 8.4 (8.4-10.2) mg/dL Total Bilirubin 0.9 (0.2-1.3) mg/dL AST 26 (14-36) U/L ALT 14 (6-35) U/L Alkaline Phosphatase 83 (38-126) U/L Total Protein 6.8 (6.3-8.2) g/dL Albumin 3.5 (3.5-5.1) g/dL Lipase 20 L (23-300) U/L Urine Color Brown H (Yellow) Urine Appearance Turbid H (Clear) Urine pH 5.5 (5.0-9.0) Ur Specific [place] 1.015 (1.001-1.035) Urine Protein 3+ H (Negative) mg/dL Urine Glucose (UA) Negative (Negative) mg/dL Urine Ketones Negative (Negative) mg/dL Ur Blood (Man) 3+ H (Negative) Urine Nitrate Negative (Negative) Urine Bilirubin Negative (Negative) Urine Urobilinogen 1.0 (<2.0) mg/dL Add Ur Microanalysis Reviewed Leukocyte Esterase Rfl 3+ H (Negative) LEATHA/UL Urine RBC >100 H (0-2) /hpf Urine WBC >100 H (0-3) /hpf Ur Squamous Epith Cells Moderate (Few) /hpf Urine Bacteria Rare /hpf Urine Casts 3-5 Imaging Data Radiologist's impression: Impressions Abdomen/Pelvis CT 02/18/25 12:48 IMPRESSION: 1. Bilateral nephrolithiasis. 2. 2 mm stone distal left ureter, with mild associated hydronephrosis. 3. Right double-J ureteral stent in place. Small collecting system gas and contrast from recent pyelogram. 4. Otherwise no acute abnormality. 5. Additional findings as above. Critical Care Time Critical Care Time Critical Care Time: No Discharge Plan Discharge Clinical Impression: Urinary tract infection Patient Disposition: Still a Patient Condition: Stable Patient Language: Italian Prescriptions: No Action gabapentin 300 mg Capsule 300 mg PO HS hydrocodone-acetaminophen 5-325 mg tablet 1 - 2 tablet PO Q6H PRN (Reason: pain) Qty: 20 0RF Follow-up/Referrals: PHYSICIAN NOT ON STAFF,NONSTAFF [Primary Care Provider]
[2025-02-18 12:37] LABS: Need Manual Microscopic Reviewed
[2025-02-18 12:39] LABS: Add Urine Microscopic? YES; Appearance Urine Turbid (Clear); Glucose Urine UA Negative (Negative); Leukocyte Esterase Ur 3+ LEU/UL (Negative); Nitrate Urine Negative (Negative); Specific Grav Ur 1.015 (1.001-1.035)
--- OUTSIDE RECORDS SUMMARY | 2025-02-18 12:41 | XMS_ITS | Clinical Summary ---
Author Organization [facility] Address [address] [place] [address] Care Team Providers Care Venereal Disease Control Head Name Role Phone Tru Flood MD Primary [...] 05/18/2024 Assessment & Plan (06/15/2024 11:09 AM PICKER MACHINE OPERATOR): The patient's recent EGD did not demonstrate [...] forward Assessment & Plan (05/18/2024 9:57 AM PICKER MACHINE OPERATOR): We have discussed that the anemia may [...] 05/17/2023 Assessment & Plan (05/18/2023 3:36 PM PICKER MACHINE OPERATOR): SOUNDS LIKE VERTIGO. SPAKRLE COOK Heart block AV second degree 05/14/2023 Overview (05/26/2023): S/P Biotronik Edora 8 dual-chamber pacemaker implantation on 14 May 2023 (RL). Status post RA lead repositioning on 19 May 2023. Assessment & Plan (05/26/2023 12:21 PM PICKER MACHINE OPERATOR): Patient is feeling fine. We discussed good [...] (09/18/2017): Added automatically from request for surgery [id number] Peripheral neuropathy Encounters Date Type Department Care Team Description 02/09/2025 12:45 PM CDT Ancillary Procedure [employer] [address] [place] [address] Cardiac pacemaker in situ; Heart block AV second degree; Sick sinus syndrome (HCC) 02/08/2025 Orders Only [employer] [facility] [address] [facility] [address] [place] [address] Jennifer Leyva Sick sinus syndrome (HCC) (Primary Dx); Cardiac pacemaker in situ; Heart block AV second degree 01/27/2025 Telephone [employer] at [address] [place] [address] Karla Hogan RN 01/26/2025 11:30 AM CDT Ancillary Procedure [employer] [employer] [facility] at [address] [place] [address] Pacemaker reprogramming/check (Primary Dx); Cardiac pacemaker in situ; Heart block AV second degree; Sick sinus syndrome (HCC) 01/26/2025 11:30 AM CDT Office Visit [employer] [employer] [facility] at [address] [place] [address] Arabella Do NP Cardiac pacemaker in situ (Primary Dx); 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) 12/18/2024 11:24 AM CDT Anesthesia Event [facility] [address] [place] [address] Melonie Mitchell MD Gill, Matthew, CRNA 12/18/2024 11:00 AM CDT - 12/18/2024 12:20 PM CDT Surgery [facility] [address] [place] [address] Melonie Mitchell MD CYSTOSCOPY, PLACEMENT BILATERAL URETERAL STENTS 12/18/2024 7:29 AM CDT - 12/19/2024 1:27 PM CDT Emergency [facility] [address] [place] [address] Saran Bain MD [place], Kasiemobi Bernice, MD [...] drink = 0.6 oz pur e alcohol) [facility] Utilities Answer Date Recorded In the past 12 months has th e electric, gas, oil, or water [employer] threatened to shut off services in your [...] often do you attend chur ch or orthodox services? More than 4 times per year 05/19/2023 Do you belong to any clubs o r organizations such as mormonism groups, unions, fraternal or athletic groups, or [...] place to sleep or slept in a intermediate (including now)? No 05/19/2023 AUDIT-C Answer Date [...] on file Legal Sex Female 2:50 AM PICKER MACHINE OPERATOR Gender Identity Not on file Sexual [...] 12/18/2024, 04/14/2024 Medical Devices Implanted Type Area Technical Support Analyst Device Identifier Shelf Expiration Date Model / Serial / Lot Biotronik Inc Endocardial Pacing Lead Promri Solia T [id number] - [id number] - [id number] Implanted:Qty: 1 on 05/14/2023 by Fransico Alberto MD at [facility] Lead Biotronik Inc 03/20/2024 [id number] / [id number] / Biotronik Inc Endocardial Pacing Lead Promri Solia Jt [id number] - [id number] - [id number] Implanted:Qty: 1 on 05/14/2023 by Fransico Alberto MD at [facility] Lead Biotronik Inc [id number] / [id number] / Biotronik Inc Solia S 45cm Bipolar Active Fixation Lead Pacing Steroid Eluting 155256 - [id number] - [id number] Implanted:Qty: 1 on 05/19/2023 by Fransico Alberto MD at [facility] Lead Biotronik Inc 05/21/2025 [id number] / [id number] / Medtronic Inc Tyrx Absorbable Antibacterial Envelope-Large 3.3x2.9in [id number] - Sna - [id number] Implanted:Qty: 1 on 05/19/2023 by Fransico Alberto MD at [facility] Mesh Medtronic Inc 02/08/2024 [id number] / NA / [id number] Biotronik Inc Edora Promri 85e77u7.5mm Dual Chamber Rate Adaptive Unipolar Bipolar [id number] - [id number] - [id number] Implanted:Qty: 1 on 05/14/2023 by Fransico Alberto MD at [facility] Pacemaker Biotronik Inc 09/18/2024 [id number] / [id number] / Depuy Orthopaedics Inc [id number] Smartset High Viscosity Cement 40gm Bone Gentamicin - [id number] Implanted:Qty: 1 on 10/06/2017 by Neptali Negrete MD at [facility] Left: Knee Depuy Orthopaedics Inc 01/18/2019 [id number] / / [id number] Depuy Orthopaedics Inc [id number] Smartset High Viscosity Cement 40gm Bone Gentamicin - [id number] Implanted:Qty: 1 on 10/06/2017 by Neptali Negrete MD at [facility] Left: Knee Depuy Orthopaedics Inc 01/18/2019 [id number] / / [id number] Depuy Orthopaedics Inc [id number] Attune 38mm Cemented Medialize Knee Dome Patellar Aox Sterile - [id number] Implanted:Qty: 1 on 10/06/2017 by Neptali Negrete MD at [facility] Left: Knee Depuy Orthopaedics Inc 05/21/2022 [id number] / / [id number] Depuy Orthopaedics Inc [id number] Attune S+ Cement Fix Bearing Knee 5 Baseplate Tibial - [id number] Implanted:Qty: 1 on 10/06/2017 by Neptali Negrete MD at [facility] Left: Knee Depuy Orthopaedics Inc 04/20/2027 [id number] / / [id number] Depuy Orthopaedics Inc [id number] Attune Cemented Posterior Stabilize Knee Left 6 Narrow Component - [id number] Implanted:Qty: 1 on 10/06/2017 by Neptali Negrete MD at [facility] Left: Knee Depuy Orthopaedics Inc 08/19/2027 [id number] / / [id number] Depuy Orthopaedics Inc [id number] Attune 8mm Posterior Stabilize Fix Bearing Knee 6 Insert Tibial - [id number] Implanted:Qty: 1 on 10/06/2017 by Neptali Negrete MD at [facility] Left: Knee Depuy Orthopaedics Inc 06/18/2022 [id number] / / [id number] Medtronic Inc Tyrx Absorbable Antibacterial Envelope-Large 3.3x2.9in [id number] - [id number] Implanted:Qty: 1 on 05/14/2023 by Fransico Alberto MD at [facility] Medtronic Inc 12/25/2023 [id number] / / [id number] [employer] Solitario Contour 6fr 26cm Large Inner Lumen Low Profile Bladder Lauri Taper Latex Free 180-223 - [id number] Implanted:Qty: 1 on 04/15/2024 by Alisson Duran MD at [facility] Right: Ureter [employer] Solitario 12/31/2026 [id number] / / [id number] [employer] Solitario Contour 6fr 26cm Large Inner Lumen Low Profile Bladder Lauri Taper Latex Free 180-223 - [id number] Implanted:Qty: 1 on 04/15/2024 by Alisson Duran MD at [facility] Left: Ureter [employer] Solitario 11/26/2026 [id number] / / [id number] [employer] Solitario Contour Vl 4.8fr 22-30cm Taper Tip Bladder Lauri Low Profile Large Latex Free [id number] - [id number] Implanted:Qty: 1 on 12/18/2024 by Melonie Mitchell MD at [facility] Left: Urethra [employer] Solitario 05/04/2027 [id number] / / [id number] [employer] Solitario Contour Vl 4.8fr 22-30cm Taper Tip Bladder Lauri Low Profile Large Latex Free [id number] - [id number] Implanted:Qty: 1 on 12/18/2024 by Melonie Mitchell MD at [facility] Left: Urethra [employer] Solitario 02/22/2027 [id number] / / [id number] Procedures Procedure Name Priority Date/Time Associated Diagnosis [...] STONE ANALYSIS Routine 12/18/2024 11:56 AM CDT ME AN ELECTIVE ENDOTRACHEAL AIRWAY Routine 12/18/2024 11:33 [...] the original result were not included. 02/09/2025 [email or web address] quarterly remote device check NOTE The following shows snippets from the complete quarterly report. The complete report in its entirety is attached to this Result Text in Environmental Health Technologist Periodic IEGM Detection Feb 09, 2025, 1:07:00 AM Last in-office check: January 2025 Next in-office appointment: January 2026 Battery longevity = OK/85% AT/AF burden 0% Ap: 26% RVp: 33% No events Device Nurse Review and Recommendations below Reviewed By Karla Hogan SUPERVISOR OF INSTRUCTION at 11:47 AM ATTESTATION I have reviewed [...] is attached to this Result Text in Environmental Health Technologist Elver Tolbert MD CV CARDIAC SERVICES PROCEDURES [...] ORDERABLES Final Result [facility] ([place]) 1 [facility] [place] [address] * (ABNORMAL) Basic metabolic panel (12/19/2024 12:16 [...] 2022. Calcium 9.2 8.5 - 10.3 mg/dL [facility] ([place]) Blood 12/19/2024 12:1 6 PM CDT 12/19/2024 12:46 PM CDT Tru Flood MD LAB BLOOD ORDERABLES Final Result [facility]) 1 [facility] [place] [address] * (ABNORMAL) eGFR (12/19/2024 3:51 AM CDT) [...] LAB BLOOD ORDERABLES Final Res ult [facility] ([place]) 1 [facility] Department of Laboratories [place], [place] [id number] * (ABNORMAL) Differential, auto (12/19/2024 3:51 AM [...] Neutrophil pct 88.3 % [facility] ([place]) Comment: Interpretive Data Percent cell count reference [...] BLOOD ORDERABLES Final Res ult [facility] ([place]) 1 [facility] Department of Laboratories [place], [place] [id number] * (ABNORMAL) CBC with auto differential (12/19/2024 [...] MD LAB BLOOD ORDERABLES Final Res ult [facility] 1 [facility] [place] [address] * (ABNORMAL) Basic metabolic panel (12/19/2024 3:51 AM CDT) Sodium 141 135 - 145 mmol/L [facility] ([place]) Potassium, pl 4.6 3.3 - [...] ([place]) Glucose 88 70 - 199 mg/dL [facility] ([place] Comment: Interpretive Data Fasting glucose [...] BLOOD ORDERABLES Final Res ult [facility] ([place]) 1 [facility] [place] [address] * FL Retro Pyelo (In Or) (12/18/2024 [...] Tone Kirk M.D. MM: MM Report ID: [id number] Reading Location: [id number] Procedure Note Tone Kirk MD - 12/18/2024 [...] Tone Kirk M.D. MM: MM Report ID: [id number] Reading Location: [place] [address] Melonie Mitchell MD IMG FLUOROSCOPY PROCEDURES Final Result * Surgical pathology (12/18/2024 11:57 AM CDT) Tissue (Bladder Stone) 12/18/2024 11:56 AM CDT Comment:DRY Narrative PATHOLOGY [facility] ([place]) - 12/22/2024 9:28 AM CDT EPIC results best viewed via link to PDF [facility] Department of Pathology [address] [place] [address] Note to Patients: This report may contain [...] Final Report Patient Name: RITA FLOOD Address: [address] [place] [address] Gender: F : 1935 (Age: 89) Service: Surgery Location: [facility] Hospital #: [id number] Patient Type: [facility] EP OP in bed Taken: 12/18/2024 Received: [...] and left ureteral stones. It is 3 kohury brown granular stones between 2 and 4 mm. The specimen is entirely submitted to [facility] for chemical analysis. When the [facility] report has been finalized, it will be available in the laboratory section of [facility]. If [facility] is not available, please call the Department of Pathology at [facility] ([phone]) to obtain a copy of the report. Sharan To R.N., P.A./Marlene Herrera M.D. REPORT IMAGES AND SCANNED DOCUMENTS, IF INCLUDED, ONLY VIEWABLE IN PDF VERSION OF REPORT The performance characteristics of some immunohistochemical stains, fluorescence in-situ hybridization tests and immunophenotyping by flow cytometry cited in this report (if any) were determined by the Surgical Pathology Department at [facility] as part of an ongoing quality assurance practice manager program and in compliance with federally [...] MD LAB PATHOLOGY ORDERABLES Final R esult [facility] ([place]) [address] [place] [address] * Stone analysis (12/18/2024 11:56 AM CDT) Stone analysis Not Reported [facility] Comment:Testing performed by : [facility], [address] [place] [address]., [id number] Source, Kid Stone Left Ureter [facility] ([place]) Comment:Testing performed by : [facility], [address] [place] [address]., [id number] Interp, Kid stone analysis See Footnote [facility] ([place]) Comment: 90% Calcium oxalate monohydrate. 10% Calcium oxalate dihydrate. Testing performed by: [facility], [address] [place] [address]., [address] COMMENT See Footnote [facility] ([place]) Comment: For stones containing calcium oxalate, calcium phosphate, and/or uric acid, a 24 hr urinary supersaturation test may help detect underlying risk factors for this type of stone formation and provide guidance for a stone prevention strategy. ADDITIONAL INFORMATION This test was developed and its performance characteristics determined by [facility] in a manner consistent with CLIA requirements. This test has not been cleared or approved by the U.S. Food and Drug Administration. Test Performed by: [facility] - [address] [address] Carnival Worker: Cele Tran Ph.D.; CLIA# [id number] Testing performed by: [address], [address] Stone 12/18/2024 11:5 6 AM CDT 12/22/2024 2:29 PM CDT Narrative [facility] ([place]) - 01/04/2025 10:47 AM CDT Left Ureteral Stones us Tru Flood MD LAB URINE ORDERABLES Final Result [facility] ([place]) 1 [facility] Department [place] [address] [facility] * ME AN ELECTIVE ENDOTRACHEAL AIRWAY (12/18/2024 11:33 AM CDT) Narrative Beau Varner CRNA - 12/18/2024 11:33 AM CDT Beau Varner CRNA 12/18/2024 11:33 AM Airway Patient location: OR Urgency: elective Indications for airway management: anesthesia Difficult airway: no Staff: Placed by: SALES STRATEGY MANAGER: Beau Varner CRNA Emergent airway documentation: Risks [...] [facility] ([place]) pH, urine 7.5 [facility] ([place]) Comment: Interpretive Data U rine pH is affected by diet, medications, systemic acid-base disturbances, and renal tubular function. pH may affect urinary stone formation. For example, urine pH below 6.0 may help reduce the tendency for calcium phosphate stones and pH greater than 6.0 may reduce the tendency for uric acid stone formation. Source: [facility] Current Interpretive Data was last revised [...] ERABLES Final Result [facility] ([place] 1 [facility] Department [place] [address] * (ABNORMAL) Urinalysis, microscopic only (12/18/2024 9:07 [...] ORDERABLES Final Res ult Performing Organization Address [facility]/ZIP Co de Phone Number [facility] ([place]) 1 [facility] Department [place] [address] * Urine culture Urine (12/18/2024 9:07 AM CDT) Report Final Report: Less than 100,000 colonies/mL (clinically insignificant growth based on current clinical standards) Comment:Testing performed by : [facility], [address] [place]., [address] Organism (CLINICALLY INSIGNIFICANT GROWTH [facility] ([place]) Urine 12/18/2024 9:07 AM CDT 12/18/2024 2:19 PM CDT Narrative [facility] ([place]) - 12/19/2024 3:39 PM CDT Urine culture reflexed based upon urinalysis results. Testing performed by [facility] ([phone]) Saran Bain MD LAB MICROBIOLOGY - GENERAL ORD ERABLES Final Result Performing Organization Address City/[facility]/ZIP Co de Phone Number [facility] ([place]) 1 [facility] [place] [address] * CT KUB Stone WO Contrast (12/18/2024 [...] Ti Frank M.D. AM: AM Report ID: [id number] Reading Location: [id number] Procedure Note Ti Frank MD - 12/18/2024 [...] Ti Frank M.D. AM: AM Report ID: [id number] Reading Location: [place] [address] us Saran Bain MD IMG CT PROCEDURES [...] ORDERABLES Final Res ult Performing Organization Address City/State/[facility] Co de Phone Number [facility] ([place]) 1 [facility] [place] [address] * Lipase (12/18/2024 7:43 AM CDT) Lipase 22 10 - 99 Units/L [facility] ([place]) Blood Venous blood specimen / Unknown 12/18/2024 7:43 AM CDT 12/18/2024 7:45 AM CDT Saran Bain MD LAB BLOOD ORDERABLES Final Res ult [facility] ([place]) 1 [facility] [place] [address] * (ABNORMAL) Comprehensive metabolic panel (12/18/2024 7:43 [...] BLOOD ORDERABLES Final Res ult [facility] ([place]) 1 [facility] [place] [address] * Differential, auto (12/18/2024 7:42 AM CDT) Neutrophil abs 5.18 1.50 - 6.50 K/cumm Imm gran abs 0.02 0.00 - 0.10 K/cumm [facility] ([place]) Lymphocyte abs 2.42 0.80 - 3.30 K/cumm [facility] ([place]) Monocyte abs 0.41 0.20 - 0.80 K/cumm [facility] ([place]) Eosinophil abs 0.07 0.00 - 0.50 K/cumm [facility] ([place]) Basophil abs 0.04 0.00 - 0.10 K/cumm [facility] ([place]) Neutrophil pct 63.7 % [facility] ([place]) Comment: Interpretive Data Percent cell count reference ranges are not reported, since discordance with absolute values may lead to misinterpretation of CBC data. Current Interpretive Data was last revised on 2017. Imm gran pct 0.2 % [facility] ([place]) Comment: Interpretive Data Percent cell count reference ranges are not reported, since discordance with absolute values may lead to misinterpretation of CBC data. Current Interpretive Data was last revised on 2017. Lymphocyte pct 29.7 % [facility] ([place]) Comment: Interpretive Data Percent cell count reference ranges are not reported, since discordance with absolute values may lead to misinterpretation of CBC data. Current Interpretive Data was last revised on 2017. Monocyte pct 5.0 % [facility] ([place]) Comment: Interpretive Data Percent cell count reference ranges are not reported, since discordance with absolute values may lead to misinterpretation of CBC data. Current Interpretive Data was last revised on 2017. Eosinophil pct 0.9 % [facility] ([place]) Comment: Interpretive Data Percent cell count reference [...] Final Res ult [facility] ([place]) 1 [facility] [place] [address] * (ABNORMAL) CBC with auto differential (12/18/2024 7:42 AM CDT) WBC 8.14 3.80 - 9.90 K/cumm Hgb 14.8 11.9 - 15.5 g/dL [facility] ([place]) Hct 43.9 35.6 - 45.5 % [facility] ([place]) Plt 180 150 - 400 K/cumm [facility] [...] BLOOD ORDERABLES Final Res ult [facility] ([place] 1 [facility] Department of Laboratories [place] [id number] from Last 3 Months Insurance Advance Directives For more information, please contact: [phone] * Full Code (Latest Code Status on [...] 1:17 PM 05/18/2023 3:24 PM Care Teams Venereal Disease Control Head Relationship Specialty Start Date End Date Tru Flood MD PCP - General 12/26/16 Karina Jenkins, FIRE PROTECTION ENGINEER Field Health Officer Physical Therapy 09/26/17
--- OUTSIDE RECORDS SUMMARY | 2025-02-18 12:41 | XMS_ITS | Clinical Summary ---
Author Organization [facility] Address [address] [facility] [place] [address] Care Team Providers Care Research Lab Assistant Name Role Phone Tru Flood MD Primary Care Provider [phone] Source Comments [facility],non-owned Affiliates and Associated Physician Practices is amultiple site organization consisting of ambulatory clinics and hospital sitesin [place], [place], [place] and [place]. This disclosure is being madepursuant to the Care Everywhere program and may not contain all information available regarding this patient. Last updated 18.[facility] [employer] Allergies Active Allergy Reactions Criticality Noted Date [...] Comments Blood Pressure 151/77 04/27/2014 5:32 PM SILK EXAMINER Pulse 73 04/27/2014 5:32 PM SILK EXAMINER Temperature 36.3 C (97.3 F) 04/27/2014 5:32 PM SILK EXAMINER Respiratory Rate 16 04/27/2014 5:32 PM SILK EXAMINER Oxygen Saturation 96% 04/27/2014 5:15 PM SILK EXAMINER Inhaled Oxygen Concentration - - Weight 106.6 kg (235 lb) 04/25/2014 3:11 PM SILK EXAMINER Height 167.6 cm (5' 6) 04/25/2014 3:11 PM SILK EXAMINER Body Mass Index 37.93 04/25/2014 3:11 PM SILK EXAMINER Plan of Treatment Health Maintenance Due Date [...] this topic Medical Devices Implanted Type Area Vice President Diversity Device Identifier Shelf Expiration Date Model / Serial / Lot Stent Uret Polaris Ultra 6.0fr X 26mm Implanted:Qty: 1 on 02/07/2014 by Alexandre Gallardo MD at [facility] Right: Ureter [employer] 12/08/2016 [id number] / / [id number] Stent Urete Percflex Plus 7.0fr X 26cm Implanted:Qty: 1 on 03/16/2014 by Alexandre Gallardo MD at [facility] Right: Ureter [employer] 11/19/2015 [id number] / / [id number] Percuflex Ureteral Stent 7fr X 26cm Implanted:Qty: 1 on 04/11/2014 by Alexandre Gallardo MD at [facility] Right: Ureter 01/18/2017 [id number] / / [id number] Percuflex 7fr X 26cm Implanted:Qty: 1 on 04/27/2014 by Alexandre Gallardo MD at [facility] Right: Ureter 12/20/2016 [id number] / / [id number] Insurance [facility] MEDIC[facility] SELF PAY NO INSURANCE Member Subscriber Plan / Payer (Ef fective for All Dates) Name:Rita Flood Member ID:Not on file Relation to Subscriber:Not on file Name:RITA FLOOD Subscriber ID:Not on file (Home) Address: [address] [address] Payer ID:Not on file Group ID:Not on file Type:Self Pay Address: [place], [place] [employer] Care Teams Research Lab Assistant Relationship Specialty Start Date End Date Tru Flood MD [address] [place] [address] PCP - General 12/21/21
--- OUTSIDE RECORDS SUMMARY | 2025-02-18 12:41 | XMS_ITS | Clinical Summary ---
Author Organization [facility] Address [address] [place] [address] Care Team Providers Care Negative Notcher Name Role Phone Unavailable Primary Care Provider Unavailabl e Social History Tobacco Use Types Packs/Day Years Used Date Smoking Tobacco: Never Assessed Comments Unknown Sex and Gender Information Value Date Recorded Sex Assigned at Not on file Legal Sex Female 5:59 PM WOOD FINISHER APPRENTICE Gender Identity Not on file Sexual Orientation [...]
[2025-02-18] MEDS: ONDANSETRON INJ 4 MG/2 ML VIAL IV PUSH (13:02)
[2025-02-18] MEDS: MORPHINE SULFATE (*CRX) 4 MG/ML INJ 2 MG IV PUSH ×3 (13:04→23:58)
[2025-02-18 13:09] LABS: Hematocrit 40.5 % (37.0-47.0); Hemoglobin 13.5 g/dL (12.0-15.0); Immature Granulocyte Percent A 0.3 % (0-0.5); Lymphocytes Absolute Auto 1.25 K/mm3 (0.9-3.2); Mean Corpuscular HGB Conc 33.3 g/dl (32-36); Mean Corpuscular Hemoglobin 33.3 pg (26-34); Mean Corpuscular Volume 100.0 fl (80-100); Nucleated Red Blood Cells Absolute Auto 0.000 K/mm3 (0.0-0.012); Nucleated Red Blood Cells Perc 0.0 % (0.0-0.2); Platelet Count Result 170 k/mm3 (150-375); Red Blood Count 4.05 M/mm3 (4.2-5.4); White Blood Count 12.3 K/mm3 (4.5-10.0)
[2025-02-18 13:19] LABS: Lipase 20 U/L (23-300)
[2025-02-18 13:20] LABS: Alanine Aminotransferase 14 U/L (6-35); Albumin Level 3.5 g/dL (3.5-5.1); Alkaline Phosphatase 83 U/L (38-126); Anion Gap 4 mmol/L (4-12); Aspartate Amino Transferase 26 U/L (14-36); Bilirubin,Total 0.9 mg/dL (0.2-1.3); Blood Urea Nitrogen 21 mg/dL (7-17); Calcium 8.4 mg/dL (8.4-10.2); Carbon Dioxide 22 mmol/L (22-30); Chloride 105 mmol/L (98-107); Estimated Glomerular Filt Rate 38; Glucose 113 mg/dL (65-110); Potassium 4.5 mmol/L (3.4-5.0); Sodium 131 mmol/L (137-145); Total Protein 6.8 g/dL (6.3-8.2)
[2025-02-18] MEDS: cefTRIAXone 1 GM in SODIUM CHLORIDE 0.9% IV 50 ML 100 ML IVPB (14:24)
--- NOTE | 2025-02-18 15:41 | P.CONUR_ITS ---
Assessment and Plan Assessment and plan (1) Bilateral kidney stones: Code(s): N20.0 - Calculus of kidney Status: Acute Assessment and Plan: * 2 mm left distal ureteral stone is clinically not significant and highly unlikely to require any intervention * Multiple fragments in the right kidney are to be expected following the lithotripsy of large right renal calculi * Generalized weakness may be related to urinary tract infection agree with admission for broad-spectrum antibiotics pending cultures. * Currently, I do not foresee any need for urological procedures Urology Consult Note HPI Date Seen: 02/18/25 Requesting Physician: Adan Bryant MD Primary Care Provider: PHYSICIAN NOT ON STAFF Consult Narrative Narrative: Rita Flood is a 89 year old female who is very well known to me with a long history of urolithiasis, most recently undergoing a fairly extensive procedure yesterday. Specifically, yesterday she underwent cystoscopy with left ureteral stent removal and extensive laser lithotripsy of large stones in her right kidney. She was doing well at the time of discharge couple hours later but presents now with just generalized weakness in mild right upper quadrant discomfort. She has had no fevers chills or significant flank pain. CT imaging shows a 2 mm left distal ureteral stone with minimal hydronephrosis. Multiple stone fragments in the stent and right kidney. These findings are to be expected following her procedure yesterday Review of Systems 2 Review of Systems: All systems reviewed & are unremarkable except as noted in HPI and below PMFSH Past Medical History Medical History Pacemaker Nephrolithiasis Urinary tract infection Hiatal hernia (Unknown) Gastric bezoar (~05/2021) SBO (small bowel obstruction) (~05/2021) MOE (obstructive sleep apnea) non compliance with CPAP Hypertension CAD (coronary artery disease) Neuropathy Cataract, right eye Sleep apnea Bronchitis Surgical History Surgical History History of extraction of renal calculus History of incisional hernia repair History of repair of hiatal hernia History of hysterectomy History of tonsillectomy Stented coronary artery x2 Family History Family History Mother Heart disease Hypertension Social History Social History Social History: She lives by herself and is independent. She does not have any pets, and she wants her son Balta to be her surrogate. She wishes to be a full code. 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 Alcohol intake: never Substance use: never Living arrangements: alone Occupation/Education: retired Gender identity (if verbalized by the patient): Female Sexual Orientation (if Verbalized by the Patient): Straight or Heterosexual Spiritual care concerns: No Agree to blood products: Yes Meds Home Medications and Allergies Home Medications ?Medication ?Instructions ?Recorded ?Confirmed ?Type gabapentin 300 mg capsule 300 mg PO HS 03/25/19 History hydrocodone 5 mg-acetaminophen 325 1 - 2 tablet PO Q6H PRN pain #20 02/17/25 Rx mg tablet tabs Allergies Allergy/AdvReac Type Severity Reaction Status Date / Time codeine Allergy Unknown Hives Verified 02/17/25 06:36 atorvastatin AdvReac Muscle Pain Verified 02/17/25 06:36 Vital Signs Vital Signs - 24 hr 02/18/25 10:04 02/18/25 13:11 02/18/25 13:30 Temperature 97.9 F Pulse Rate 76 70 Respiratory Rate 16 20 19 Blood Pressure 125/71 120/35 L 128/55 L Pulse Oximetry 100 96 96 02/18/25 14:00 02/18/25 14:40 02/18/25 15:00 Temperature Pulse Rate 67 74 Respiratory Rate 20 12 20 Blood Pressure 113/56 L 140/75 118/54 L Pulse Oximetry 98 95 100 Exam 2 Const: General: no acute distress Resp: Effort & Inspection: normal respiratory effort GI: Inspection: non-distended GI Palp: No abdominal tenderness and No Guarding due to palpation present (GI) Auscultation: normal bowel sounds Results Labs 02/18/25 13:02 02/18/25 13:02 Labs: Short CBC 02/18/25 Range/Units 13:02 WBC 12.3 H (4.5-10.0) K/mm3 Hgb 13.5 (12.0-15.0) g/dL Hct 40.5 (37.0-47.0) % Plt Count 170 (150-375) k/mm3 BMP 02/18/25 13:02 Sodium 131 L Potassium 4.5 Chloride 105 Carbon Dioxide 22 BUN 21 H Creatinine 1.32 H Glucose 113 H Calcium 8.4 Liver Function 02/18/25 Range/Units 13:02 Total Bilirubin 0.9 (0.2-1.3) mg/dL AST 26 (14-36) U/L ALT 14 (6-35) U/L Alkaline Phosphatase 83 (38-126) U/L Albumin 3.5 (3.5-5.1) g/dL Urine 02/18/25 Range/Units 11:46 Urine Color Brown H (Yellow) Urine Appearance Turbid H (Clear) Urine pH 5.5 (5.0-9.0) Ur Specific [place] 1.015 (1.001-1.035) Urine Protein 3+ H (Negative) mg/dL Urine Glucose (UA) Negative (Negative) mg/dL
--- NOTE | 2025-02-18 15:42 | PM.IMHP ---
H&P: HPI History of Present Illness Date/Time: 02/18/25 15:42 Chief Complaint: Abdominal pain Narrative: 89-year-old female with a past medical history of MOE, HTN, CAD, nephrolithiasis, pacemaker, presents to the ED on 02/18/2025 with complaints of lower abdominal pain that started overnight. Patient denies fevers, chills. On 02/17, patient underwent right kidney stent placement and left kidney stent removal. Describes the pain as aching constant feeling in her lower abdomen. Initial vital signs 125/71, HR 76, respirations 16, afebrile and 100% on room air WBC 12.3 with left shift, sodium 131, BUN 21, creatinine 1.32, lipase 20 UA with 3+ protein, 3+ blood, leukocyte Estrace 3+, RBC greater than 100, WBC greater than 100 CT abdomen pelvis with bilateral nephrolithiasis, 2 mm stone distal left ureter with mild associated hydronephrosis, right double-J ureteral stent in place Review of Systems Review of Systems: All systems reviewed & are unremarkable except as noted in HPI and below PMFSH Past Medical History Medical History (Updated 02/19/25 @ 01:05 by Bertha Kimbrough APRN) Nephrolithiasis Pacemaker Urinary tract infection Hiatal hernia (Unknown) Gastric bezoar (~05/2021) SBO (small bowel obstruction) (~05/2021) MOE (obstructive sleep apnea) non compliance with CPAP Hypertension CAD (coronary artery disease) Neuropathy Cataract, right eye Sleep apnea Bronchitis Surgical History Surgical History History of extraction of renal calculus History of incisional hernia repair History of repair of hiatal hernia History of hysterectomy History of tonsillectomy Stented coronary artery x2 Family History Family History Mother Heart disease Hypertension Social History Social History Social History: She lives by herself and is independent. She does not have any pets, and she wants her son Balta to be her surrogate. She wishes to be a full code. 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 Alcohol intake: never Substance use: never Lack of Transportation: No Lack of Food: Never True Current Housing: I Have Housing Concerned About Future Housing: No Difficulty Paying Gas/Electric Bills: No Difficulty Paying for Meds: No Currently Unemployed: YES Education: High School Diploma/GED Difficulty w/ Childcare or Family Care: No Living arrangements: alone Occupation/Education: retired Gender identity (if verbalized by the patient): Female Sexual Orientation (if Verbalized by the Patient): Straight or Heterosexual Spiritual care concerns: Yes Agree to blood products: Yes Meds Home Medications and Allergies Home Medications ?Medication ?Instructions ?Recorded ?Confirmed ?Type gabapentin 300 mg capsule 300 mg PO HS 03/25/19 02/18/25 History hydrocodone 5 mg-acetaminophen 325 1 - 2 tablet PO Q6H PRN pain #20 02/17/25 02/18/25 Rx mg tablet tabs Allergies Allergy/AdvReac Type Severity Reaction Status Date / Time codeine Allergy Unknown Hives Verified 02/18/25 16:42 atorvastatin AdvReac Muscle Pain Verified 02/18/25 16:42 Vital Signs Vital Signs - 24 hr 02/18/25 10:04 02/18/25 13:11 02/18/25 13:30 Temperature 97.9 F Pulse Rate 76 70 Respiratory Rate 16 20 19 Blood Pressure 125/71 120/35 L 128/55 L Pulse Oximetry 100 96 96 02/18/25 14:00 02/18/25 14:40 02/18/25 15:00 Temperature Pulse Rate 67 74 Respiratory Rate 20 12 20 Blood Pressure 113/56 L 140/75 118/54 L Pulse Oximetry 98 95 100 Exam Narrative: GENERAL: non-toxic appearing, in no acute distress. HEAD: Normocephalic, atraumatic. EYES: PERRLA. Conjunctivae clear. NOSE: Normal no drainage. THROAT: Pharynx clear, no exudate. NECK: Trachea midline. No adenopathy, no masses. RESPIRATORY: Airway patent, respirations nonlabored. CTA. CARDIOVASCULAR: Regular rate and rhythm BREASTS: Defer GASTROINTESTINAL: Abdomen is soft and mildly tender in the lower suprapubic area. No organomegaly. Bowel sounds normal in all quadrants. GENITOURINARY: Defer MUSCULOSKELETAL: Moves all extremities. No gross deformities. No calf tenderness. SKIN: Warm, dry, normal color. NEURO: A&O X4. Speech clear PSYCHIATRIC: Normal interaction H&P: Results Labs Labs: Short CBC 02/18/25 Range/Units 13:02 WBC 12.3 H (4.5-10.0) K/mm3 Hgb 13.5 (12.0-15.0) g/dL Hct 40.5 (37.0-47.0) % Plt Count 170 (150-375) k/mm3 BMP 02/18/25 13:02 Sodium 131 L Potassium 4.5 Chloride 105 Carbon Dioxide 22 BUN 21 H Creatinine 1.32 H Glucose 113 H Calcium 8.4 Liver Function 02/18/25 Range/Units 13:02 Total Bilirubin 0.9 (0.2-1.3) mg/dL AST 26 (14-36) U/L ALT 14 (6-35) U/L Alkaline Phosphatase 83 (38-126) U/L Albumin 3.5 (3.5-5.1) g/dL Urine 02/18/25 Range/Units 11:46 Urine Color Brown H (Yellow) Urine Appearance Turbid H (Clear) Urine pH 5.5 (5.0-9.0) Ur Specific [place] 1.015 (1.001-1.035) Urine Protein 3+ H (Negative) mg/dL Urine Glucose (UA) Negative (Negative) mg/dL Assessment and Plan Assessment and plan (1) Urinary tract infection: Code(s): N39.0 - Urinary tract infection, site not specified Status: Acute Assessment and Plan: On 02/17, patient underwent right kidney stent placement and left kidney stent removal. UA on 02/18 with 3+ protein, 3+ blood, leukocyte Estrace 3+, RBC greater than 100, WBC greater than 100 - UC pending - previous micro reviewed -1 dose ceftriaxone given in ED - started on ampicillin/sulbactam on 02/19 -urology consult (2) OREN (acute kidney injury): Code(s): N17.9 - Acute kidney failure, unspecified Status: Resolved Assessment and Plan: Creatinine 1.32. -gentle hydration with NS at 100 for 1 L -trend renal function (3) Nephrolithiasis: Code(s): N20.0 - Calculus of kidney Status: Acute Assessment and Plan: CT abdomen pelvis with bilateral nephrolithiasis, 2 mm stone distal left ureter with mild associated hydronephrosis, right double-J ureteral stent in place. On 02/17, patient underwent right kidney stent placement and left kidney stent removal. -nephrology consultation Plan Diet: Regular diet GI prophylaxis: NA DVT prophylaxis: SCDs lines/drains: PIV Fluids: NS @ 100 started 02/18 Code status: Full Quality VTE Prophylaxis VTE prophylaxis: mechanical ordered Hospitalist [facility] Advance Care Plan I have confirmed that the patient's Advanced Care Plan is present, code status is documented, or surrogate decision maker is listed in patient medical record.: Yes Medication Reconciliation I have utilized all available resources to obtain, update and review the patients current medications (includes all prescriptions, OTC, herbals, cannabis, and nutritional supplements).: Yes
--- NOTE | 2025-02-18 16:00 | ADMGEN ---
This patient, Rita Flood, was admitted to 3 [facility] Surg Room 325-01. Patient/family oriented to hospital policies and general routines including ID bracelet, bed and alarms, visiting hours, pain management, procedures, bathroom and other care routines, personal items, smoking policy, room service/diet, and visiting hours. Information on how to activate the Rapid Response Team has been discussed. Patient/Family are encouraged to report perceived risks to care and to ask questions if they do not understand what they are told or what they should do.
[2025-02-18] MEDS: ACETAMINOPHEN 325 MG TABLET 650 MG PO (17:27)
[2025-02-18] MEDS: GABAPENTIN 300 MG CAPSULE PO (20:28)
[2025-02-19] MEDS: SODIUM CHLORIDE 0.9% IV 1,000 ML 100 ML IV CONT (02:43)
[2025-02-19] MEDS: AMPICILLIN SODIUM/SULBACTAM 3 GM in SODIUM CHLORIDE 0.9% IV 100 ML 200 ML IVPB ×2 (02:43→13:22)
[2025-02-19 05:39] VITALS: BP 133/56; PULSE 70; RESP 14; TEMP 37.6; O2SAT 92
[2025-02-19] MEDS: HYDROcodone/acetaminophen (*CRX) 5-325 MG TABLET 1 TAB PO (05:52)
[2025-02-19 06:25] LABS: Hematocrit 42.0 % (37.0-47.0); Hemoglobin 13.9 g/dL (12.0-15.0); Immature Granulocyte Percent A 0.6 % (0-0.5); Lymphocytes Absolute Auto 1.07 K/mm3 (0.9-3.2); Mean Corpuscular HGB Conc 33.1 g/dl (32-36); Mean Corpuscular Hemoglobin 33.3 pg (26-34); Mean Corpuscular Volume 100.5 fl (80-100); Nucleated Red Blood Cells Absolute Auto 0.000 K/mm3 (0.0-0.012); Nucleated Red Blood Cells Perc 0.0 % (0.0-0.2); Platelet Count Result 152 k/mm3 (150-375); Red Blood Count 4.18 M/mm3 (4.2-5.4); White Blood Count 11.9 K/mm3 (4.5-10.0)
[2025-02-19 06:39] LABS: Anion Gap 5 mmol/L (4-12); Blood Urea Nitrogen 22 mg/dL (7-17); Calcium 8.5 mg/dL (8.4-10.2); Carbon Dioxide 23 mmol/L (22-30); Chloride 103 mmol/L (98-107); Estimated CRCL calculation 24 ml/min; Estimated Glomerular Filt Rate 37; Glucose 107 mg/dL (65-110); Lipase 89 U/L (23-300); Potassium 4.6 mmol/L (3.4-5.0); Sodium 131 mmol/L (137-145)
--- NOTE | 2025-02-19 07:23 | P.PNIM_ITS ---
Progress Note: A&P Assessment and Plan (1) Urinary tract infection: Code(s): N39.0 - Urinary tract infection, site not specified Status: Acute Assessment and Plan: On 02/17, patient underwent right kidney stent placement and left kidney stent removal. UA on 02/18 with 3+ protein, 3+ blood, leukocyte Estrace 3+, RBC greater than 100, WBC greater than 100 - UC pending - previous micro reviewed -1 dose ceftriaxone given in ED - started on ampicillin/sulbactam on 02/19 -urology consult (2) OREN (acute kidney injury): Code(s): N17.9 - Acute kidney failure, unspecified Status: Resolved Assessment and Plan: Creatinine 1.32. -gentle hydration with NS at 100 for 1 L -trend renal function -AM labs (3) Nephrolithiasis: Code(s): N20.0 - Calculus of kidney Status: Acute Assessment and Plan: CT abdomen pelvis with bilateral nephrolithiasis, 2 mm stone distal left ureter with mild associated hydronephrosis, right double-J ureteral stent in place. On 02/17, patient underwent right kidney stent placement and left kidney stent removal. -urology consultation Plan Diet: Regular diet GI prophylaxis: NA DVT prophylaxis: SCDs lines/drains: PIV Fluids: NS @ 100 started 02/18 Code status: Full Subjective Date/time seen: 02/19/25 07:23 Interval history: Patient seen for a follow up visit. Patient lying in bed, in no acute distress. Patient reports she feels tired. Patient denies acute pain. Patient continues on IV Unasyn. Urology consult pending. Continue IV fluids. AM labs ordered. Review of Systems Review of Systems: All systems reviewed & are unremarkable except as noted in HPI and below Exam 2 Narrative: GENERAL: non-toxic appearing, in no acute distress. HEAD: Normocephalic, atraumatic. EYES: PERRLA. Conjunctivae clear. NOSE: Normal no drainage. THROAT: Pharynx clear, no exudate. NECK: Trachea midline. No adenopathy, no masses. RESPIRATORY: Airway patent, respirations nonlabored. CTA. CARDIOVASCULAR: Regular rate and rhythm BREASTS: Defer GASTROINTESTINAL: Abdomen is soft and mildly tender in the lower suprapubic area. No organomegaly. Bowel sounds normal in all quadrants. GENITOURINARY: Defer MUSCULOSKELETAL: Moves all extremities. No gross deformities. No calf tenderness. SKIN: Warm, dry, normal color. NEURO: A&O X4. Speech clear PSYCHIATRIC: Normal interaction Objective Data Vital Signs Vital Signs: Vital Signs - 24 hr 02/18/25 10:04 02/18/25 13:11 02/18/25 13:30 Temperature 97.9 F Pulse Rate 76 70 Respiratory Rate 16 20 19 Blood Pressure 125/71 120/35 L 128/55 L Pulse Oximetry 100 96 96 Oxygen Delivery 02/18/25 14:00 02/18/25 14:40 02/18/25 15:00 Temperature Pulse Rate 67 74 Respiratory Rate 20 12 20 Blood Pressure 113/56 L 140/75 118/54 L Pulse Oximetry 98 95 100 Oxygen Delivery 02/18/25 16:00 02/18/25 16:07 02/18/25 17:27 Temperature 100.5 F H 100.9 F H Pulse Rate 69 Respiratory Rate 24 H Blood Pressure 125/60 Pulse Oximetry 100 Oxygen Delivery Room Air 02/18/25 18:27 02/18/25 20:00 02/18/25 21:20 Temperature 99.2 F 97.7 F Pulse Rate 64 Respiratory Rate 17 Blood Pressure 102/46 L Pulse Oximetry 95 Oxygen Delivery Room Air 02/19/25 05:39 Temperature 99.6 F Pulse Rate 70 Respiratory Rate 14 Blood Pressure 133/56 L Pulse Oximetry 92 Oxygen Delivery Intake/Output Intake/Output: Intake & Output 02/16/25 02/17/25 02/18/25 02/19/25 23:59 23:59 23:59 23:59 Intake Total 200 200 Balance 200 200 Meds/Results Medications: Active Medications Generic Name Dose Route Start Last Admin Trade Name Freq PRN Reason Stop Dose Admin Acetaminophen 650 mg 02/18/25 14:15 02/18/25 17:27 Acetaminophen 325 Mg Tablet PO 650 mg Q4H PRN Administration Mild Pain (1-3) or Fever Hydrocodone Bitart/Acetaminophen 1 tab 02/18/25 18:13 02/19/25 05:52 Hydrocodone/Acetaminophen (*Crx) 5-325 Mg Tablet PO 1 tab Q4H PRN Administration Pain Rated 4-6 Gabapentin 300 mg 02/18/25 21:00 02/18/25 20:28 Gabapentin 300 Mg Capsule PO 300 mg HS LORETO Administration Ampicillin Sodium/Sulbactam 100 mls @ 200 mls/hr 02/19/25 02:00 02/19/25 03:13 Sodium 3 gm/ Sodium Chloride IVPB Infused Q12H LORETO Infusion Sodium Chloride 1,000 mls @ 100 mls/hr 02/19/25 01:00 02/19/25 02:43 Normal Saline Iv IV CONT 02/19/25 10:59 100 mls/hr .Q10H LORETO Administration Morphine Sulfate 2 mg 02/18/25 14:15 02/18/25 23:58 Morphine Sulfate (*Crx) 4 Mg/Ml Inj IV PUSH 2 mg Q2H PRN Administration Pain Rated 7-10 Ondansetron HCl 4 mg 02/18/25 14:15 Ondansetron Inj 4 Mg/2 Ml Vial IV PUSH Q4H PRN Nausea Radiology Results: ITS Impressions Abdomen/Pelvis CT 02/18/25 12:48 IMPRESSION: 1. Bilateral nephrolithiasis. 2. 2 mm stone distal left ureter, with mild associated hydronephrosis. 3. Right double-J ureteral stent in place. Small collecting system gas and contrast from recent pyelogram. 4. Otherwise no acute abnormality. 5. Additional findings as above. Labs Labs: Laboratory Results - last 24 hr 02/18/25 02/18/25 02/19/25 11:46 13:02 06:09 WBC 12.3 H 11.9 H RBC 4.05 L 4.18 L Hgb 13.5 13.9 Hct 40.5 42.0 MCV 100.0 100.5 H MCH 33.3 33.3 MCHC 33.3 33.1 RDW 14.2 14.2 Plt Count 170 152 MPV 9.1 9.2 Immature Gran % (Auto) 0.3 0.6 H Neut % (Auto) 82.0 H 83.1 H Lymph % (Auto) 10.1 L 9.0 L [place] % (Auto) 7.3 6.7 Eos % (Auto) 0.1 0.4 Baso % (Auto) 0.2 0.2 Lymph # (Auto) 1.25 1.07 [place] # (Auto) 0.9 H 0.8 H Eos # (Auto) 0.0 0.1 Baso # (Auto) 0.0 0.0 Abs Immat Gran (auto) 0.04 H 0.07 H Absolute Neuts (auto) 10.1 H 9.9 H Absolute Nucleated RBC 0.000 0.000 Nucleated RBC % 0.0 0.0 Sodium 131 L 131 L Potassium 4.5 4.6 Chloride 105 103 Carbon Dioxide 22 23 Anion Gap 4 5 BUN 21 H 22 H Creatinine 1.32 H 1.34 H Estim Creat Clear Calc Not Reportable 24 Estimated GFR 38 L 37 L Glucose 113 H 107 Calcium 8.4 8.5 Total Bilirubin 0.9 AST 26 ALT 14 Alkaline Phosphatase 83 Total Protein 6.8 Albumin 3.5 Lipase 20 L 89 Urine Color Brown H Urine Appearance Turbid H Urine pH 5.5 Ur Specific [place] 1.015 Urine Protein 3+ H Urine Glucose (UA) Negative Urine Ketones Negative Ur Blood (Man) 3+ H Urine Nitrate Negative Urine Bilirubin Negative Urine Urobilinogen 1.0 Add Ur Microanalysis Reviewed Leukocyte Esterase Rfl 3+ H Urine RBC >100 H Urine WBC >100 H Ur Squamous Epith Cells Moderate Urine Bacteria Rare Urine Casts 3-5 Quality VTE Prophylaxis VTE prophylaxis: mechanical ordered
--- NOTE | 2025-02-19 10:46 | PCOTNOTE ---
The patient initial occupational therapy evaluation was not able to be completed on 02/19 due to patient having increased pain and nausea. Will plan to evaluate patient when medically stable.
[2025-02-19] MEDS: MORPHINE SULFATE (*CRX) 4 MG/ML INJ 2 MG IV PUSH (10:48)
[2025-02-19] MEDS: ONDANSETRON INJ 4 MG/2 ML VIAL IV PUSH (10:48)
--- NOTE | 2025-02-19 10:57 | P.PNUR_ITS ---
Progress Note: A&P Assessment and Plan (1) OREN (acute kidney injury): Code(s): N17.9 - Acute kidney failure, unspecified Status: Resolved (2) Calculus of distal left ureter: Code(s): N20.1 - Calculus of ureter Status: Acute (3) Nephrolithiasis: Code(s): N20.0 - Calculus of kidney Status: Acute Assessment and Plan: * Feeling better with gentle hydration and IV antibiotics * Tiny stone in her distal left ureter should not be problematic. No plans for intervention. * Await final urine culture results prior to, hopefully, discharged on oral antibiotics Subjective Subjective Date/Time Seen: 02/19/25 10:57 Interval history: Patient feeling better, no specific complaints. Review of Systems Review of Systems: All systems reviewed & are unremarkable except as noted in HPI and below Exam Const: General: no acute distress Resp: Effort & Inspection: normal respiratory effort GI: Inspection: non-distended GI Palp: No abdominal tenderness and No Guarding due to palpation present (GI) Auscultation: normal bowel sounds Objective Data Vital Signs Vital Signs: Vital Signs - 24 hr 02/18/25 13:11 02/18/25 13:30 02/18/25 14:00 Temperature Pulse Rate 70 67 Respiratory Rate 20 19 20 Blood Pressure 120/35 L 128/55 L 113/56 L Pulse Oximetry 96 96 98 Oxygen Delivery 02/18/25 14:40 02/18/25 15:00 02/18/25 16:00 Temperature 100.5 F H Pulse Rate 74 69 Respiratory Rate 12 20 24 H Blood Pressure 140/75 118/54 L 125/60 Pulse Oximetry 95 100 100 Oxygen Delivery 02/18/25 16:07 02/18/25 17:27 02/18/25 18:27 Temperature 100.9 F H 99.2 F Pulse Rate Respiratory Rate Blood Pressure Pulse Oximetry Oxygen Delivery Room Air 02/18/25 20:00 02/18/25 21:20 02/19/25 05:39 Temperature 97.7 F 99.6 F Pulse Rate 64 70 Respiratory Rate 17 14 Blood Pressure 102/46 L 133/56 L Pulse Oximetry 95 92 Oxygen Delivery Room Air Intake/Output Intake/Output: Intake & Output 02/16/25 02/17/25 02/18/25 02/19/25 23:59 23:59 23:59 23:59 Intake Total 200 440 Balance 200 440 Meds/Results Medications: Active Medications Generic Name Dose Route Start Last Admin Trade Name Freq PRN Reason Stop Dose Admin Acetaminophen 650 mg 02/18/25 14:15 02/18/25 17:27 Acetaminophen 325 Mg Tablet PO 650 mg Q4H PRN Administration Mild Pain (1-3) or Fever Hydrocodone Bitart/Acetaminophen 1 tab 02/18/25 18:13 02/19/25 05:52 Hydrocodone/Acetaminophen (*Crx) 5-325 Mg Tablet PO 1 tab Q4H PRN Administration Pain Rated 4-6 Gabapentin 300 mg 02/18/25 21:00 02/18/25 20:28 Gabapentin 300 Mg Capsule PO 300 mg HS LORETO Administration Ampicillin Sodium/Sulbactam 100 mls @ 200 mls/hr 02/19/25 02:00 02/19/25 03:13 Sodium 3 gm/ Sodium Chloride IVPB Infused Q12H LORETO Infusion Sodium Chloride 1,000 mls @ 100 mls/hr 02/19/25 01:00 02/19/25 02:43 Normal Saline Iv IV CONT 02/19/25 10:59 100 mls/hr .Q10H LORETO Administration Morphine Sulfate 2 mg 02/18/25 14:15 02/19/25 10:48 Morphine Sulfate (*Crx) 4 Mg/Ml Inj IV PUSH 2 mg Q2H PRN Administration Pain Rated 7-10 Ondansetron HCl 4 mg 02/18/25 14:15 02/19/25 10:48 Ondansetron Inj 4 Mg/2 Ml Vial IV PUSH 4 mg Q4H PRN Administration Nausea Radiology Results: ITS Impressions Abdomen/Pelvis CT 02/18/25 12:48 IMPRESSION: 1. Bilateral nephrolithiasis. 2. 2 mm stone distal left ureter, with mild associated hydronephrosis. 3. Right double-J ureteral stent in place. Small collecting system gas and contrast from recent pyelogram. 4. Otherwise no acute abnormality. 5. Additional findings as above. Labs Labs: Laboratory Results - last 24 hr 02/18/25 02/18/25 02/19/25 11:46 13:02 06:09 WBC 12.3 H 11.9 H RBC 4.05 L 4.18 L Hgb 13.5 13.9 Hct 40.5 42.0 MCV 100.0 100.5 H MCH 33.3 33.3 MCHC 33.3 33.1 RDW 14.2 14.2 Plt Count 170 152 MPV 9.1 9.2 Immature Gran % (Auto) 0.3 0.6 H Neut % (Auto) 82.0 H 83.1 H Lymph % (Auto) 10.1 L 9.0 L [place] % (Auto) 7.3 6.7 Eos % (Auto) 0.1 0.4 Baso % (Auto) 0.2 0.2 Lymph # (Auto) 1.25 1.07 [place] # (Auto) 0.9 H 0.8 H Eos # (Auto) 0.0 0.1 Baso # (Auto) 0.0 0.0 Abs Immat Gran (auto) 0.04 H 0.07 H Absolute Neuts (auto) 10.1 H 9.9 H Absolute Nucleated RBC 0.000 0.000 Nucleated RBC % 0.0 0.0 Sodium 131 L 131 L Potassium 4.5 4.6 Chloride 105 103 Carbon Dioxide 22 23 Anion Gap 4 5 BUN 21 H 22 H Creatinine 1.32 H 1.34 H Estim Creat Clear Calc Not Reportable 24 Estimated GFR 38 L 37 L Glucose 113 H 107 Calcium 8.4 8.5 Total Bilirubin 0.9 AST 26 ALT 14 Alkaline Phosphatase 83 Total Protein 6.8 Albumin 3.5 Lipase 20 L 89 Urine Color Brown H Urine Appearance Turbid H Urine pH 5.5 Ur Specific [place] 1.015 Urine Protein 3+ H Urine Glucose (UA) Negative Urine Ketones Negative Ur Blood (Man) 3+ H Urine Nitrate Negative Urine Bilirubin Negative Urine Urobilinogen 1.0 Add Ur Microanalysis Reviewed Leukocyte Esterase Rfl 3+ H Urine RBC >100 H Urine WBC >100 H Ur Squamous Epith Cells Moderate Urine Bacteria Rare Urine Casts 3-5
[2025-02-19 14:00] VITALS: BP 107/51; PULSE 72; RESP 18; TEMP 37.2; O2SAT 94
[2025-02-19 19:40] VITALS: BP 112/59; PULSE 66; RESP 16; TEMP 37.2; O2SAT 95
[2025-02-19 19:56] VITALS: PULSE 72; RESP 18; O2SAT 94
[2025-02-19] MEDS: GABAPENTIN 300 MG CAPSULE PO (20:29)
[2025-02-20] MEDS: AMPICILLIN SODIUM/SULBACTAM 3 GM in SODIUM CHLORIDE 0.9% IV 100 ML 200 ML IVPB ×2 (02:19→13:12)
--- NOTE | 2025-02-20 02:51 | PC.NURSE ---
Daylight Savings Time For Daylight Savings Time Ending in the Fall - Clocks are moved back. For Daylight Savings Time Beginning in the Spring - Clocks are moved ahead. For [facility], the time of change occurs at 0200 hrs. Time is taken from the hot mill observer. This entry on the patient's chart recognizes the change in time reflected during documentation. Example: 2 entries for vital signs may be charted for 0200 hrs.
[2025-02-20 04:42] VITALS: BP 121/55; PULSE 66; RESP 16; TEMP 35.9; O2SAT 95
[2025-02-20 06:21] LABS: Hematocrit 39.9 % (37.0-47.0); Hemoglobin 13.1 g/dL (12.0-15.0); Immature Granulocyte Percent A 0.5 % (0-0.5); Lymphocytes Absolute Auto 1.30 K/mm3 (0.9-3.2); Mean Corpuscular HGB Conc 32.8 g/dl (32-36); Mean Corpuscular Hemoglobin 33.2 pg (26-34); Mean Corpuscular Volume 101.0 fl (80-100); Nucleated Red Blood Cells Absolute Auto 0.000 K/mm3 (0.0-0.012); Nucleated Red Blood Cells Perc 0.0 % (0.0-0.2); Platelet Count Result 146 k/mm3 (150-375); Red Blood Count 3.95 M/mm3 (4.2-5.4); White Blood Count 8.6 K/mm3 (4.5-10.0)
[2025-02-20 06:38] LABS: Alanine Aminotransferase 15 U/L (6-35); Albumin Level 3.1 g/dL (3.5-5.1); Alkaline Phosphatase 86 U/L (38-126); Anion Gap 6 mmol/L (4-12); Aspartate Amino Transferase 26 U/L (14-36); Bilirubin,Total 0.7 mg/dL (0.2-1.3); Blood Urea Nitrogen 19 mg/dL (7-17); Calcium 8.3 mg/dL (8.4-10.2); Carbon Dioxide 26 mmol/L (22-30); Chloride 102 mmol/L (98-107); Estimated CRCL calculation 26 ml/min; Estimated Glomerular Filt Rate 41; Glucose 94 mg/dL (65-110); Potassium 4.1 mmol/L (3.4-5.0); Sodium 134 mmol/L (137-145); Total Protein 6.4 g/dL (6.3-8.2)
--- NOTE | 2025-02-20 07:11 | PM.IMPN ---
Progress Note: A&P Assessment and Plan (1) Urinary tract infection: Code(s): N39.0 - Urinary tract infection, site not specified Status: Acute Assessment and Plan: On 02/17, patient underwent right kidney stent placement and left kidney stent removal. UA on 02/18 with 3+ protein, 3+ blood, leukocyte Estrace 3+, RBC greater than 100, WBC greater than 100 - UC pending - previous micro reviewed -1 dose ceftriaxone given in ED - started on ampicillin/sulbactam on 02/19 -urology following -wbc improved today to 8.6 -plan for discharge tomorrow if stable (2) OREN (acute kidney injury): Code(s): N17.9 - Acute kidney failure, unspecified Status: Resolved Assessment and Plan: Creatinine 1.32. -gentle hydration with NS at 100 for 1 L -trend renal function -some improvement noted 1.23 -AM labs (3) Nephrolithiasis: Code(s): N20.0 - Calculus of kidney Status: Acute Assessment and Plan: CT abdomen pelvis with bilateral nephrolithiasis, 2 mm stone distal left ureter with mild associated hydronephrosis, right double-J ureteral stent in place. On 02/17, patient underwent right kidney stent placement and left kidney stent removal. -urology following Plan Diet: Regular diet GI prophylaxis: NA DVT prophylaxis: SCDs lines/drains: PIV Fluids: NS @ 100 started 02/18 Code status: Full Subjective Date/time seen: 02/20/25 07:11 Interval history: Patient seen for a follow up visit. Patient lying in bed, in no acute distress. Patient denies acute pain. Patient's wbc improved on today's labs. Patient's BUN and creatinine slowly improving. Continue IV antibiotics. Urine culture stil pending. Urology following. Plan for discharge tomorrow on PO antibiotics if stable. Review of Systems Review of Systems: All systems reviewed & are unremarkable except as noted in HPI and below Exam Narrative: GENERAL: non-toxic appearing, in no acute distress. HEAD: Normocephalic, atraumatic. EYES: PERRLA. Conjunctivae clear. NOSE: Normal no drainage. THROAT: Pharynx clear, no exudate. NECK: Trachea midline. No adenopathy, no masses. RESPIRATORY: Airway patent, respirations nonlabored. CTA. CARDIOVASCULAR: Regular rate and rhythm BREASTS: Defer GASTROINTESTINAL: Abdomen is soft and mildly tender in the lower suprapubic area. No organomegaly. Bowel sounds normal in all quadrants. GENITOURINARY: Defer MUSCULOSKELETAL: Moves all extremities. No gross deformities. No calf tenderness. SKIN: Warm, dry, normal color. NEURO: A&O X4. Speech clear PSYCHIATRIC: Normal interaction Objective Data Vital Signs Vital Signs: Vital Signs - 24 hr 02/19/25 14:00 02/19/25 15:55 02/19/25 19:40 Temperature 99.0 F 99.0 F Pulse Rate 72 66 Respiratory Rate 18 16 Blood Pressure 107/51 L 112/59 L Pulse Oximetry 94 95 Oxygen Delivery Room Air 02/19/25 19:56 02/20/25 04:42 Temperature 96.6 F L Pulse Rate 72 66 Respiratory Rate 18 16 Blood Pressure 121/55 L Pulse Oximetry 94 95 Oxygen Delivery Room Air Intake/Output Intake/Output: Intake & Output 02/17/25 02/18/25 02/19/25 02/20/25 23:59 23:59 23:59 22:59 Intake Total 200 1020 Output Total 500 Balance 200 1020 -500 Meds/Results Medications: Active Medications Generic Name Dose Route Start Last Admin Trade Name Freq PRN Reason Stop Dose Admin Acetaminophen 650 mg 02/18/25 14:15 02/18/25 17:27 Acetaminophen 325 Mg Tablet PO 650 mg Q4H PRN Administration Mild Pain (1-3) or Fever Hydrocodone Bitart/Acetaminophen 1 tab 02/18/25 18:13 02/19/25 05:52 Hydrocodone/Acetaminophen (*Crx) 5-325 Mg Tablet PO 1 tab Q4H PRN Administration Pain Rated 4-6 Gabapentin 300 mg 02/18/25 21:00 02/19/25 20:29 Gabapentin 300 Mg Capsule PO 300 mg HS LORETO Administration Ampicillin Sodium/Sulbactam 100 mls @ 200 mls/hr 02/19/25 02:00 02/20/25 02:19 Sodium 3 gm/ Sodium Chloride IVPB 200 mls/hr Q12H LORETO Administration Morphine Sulfate 2 mg 02/18/25 14:15 02/19/25 10:48 Morphine Sulfate (*Crx) 4 Mg/Ml Inj IV PUSH 2 mg Q2H PRN Administration Pain Rated 7-10 Ondansetron HCl 4 mg 02/18/25 14:15 02/19/25 10:48 Ondansetron Inj 4 Mg/2 Ml Vial IV PUSH 4 mg Q4H PRN Administration Nausea Radiology Results: ITS Impressions Abdomen/Pelvis CT 02/18/25 12:48 IMPRESSION: 1. Bilateral nephrolithiasis. 2. 2 mm stone distal left ureter, with mild associated hydronephrosis. 3. Right double-J ureteral stent in place. Small collecting system gas and contrast from recent pyelogram. 4. Otherwise no acute abnormality. 5. Additional findings as above. Labs Labs: Laboratory Results - last 24 hr 02/20/25 05:51 WBC 8.6 RBC 3.95 L Hgb 13.1 Hct 39.9 MCV 101.0 H MCH 33.2 MCHC 32.8 RDW 14.1 Plt Count 146 L MPV 9.8 Immature Gran % (Auto) 0.5 Neut % (Auto) 74.2 H Lymph % (Auto) 15.2 L [place] % (Auto) 8.2 Eos % (Auto) 1.5 Baso % (Auto) 0.4 Lymph # (Auto) 1.30 [place] # (Auto) 0.7 H Eos # (Auto) 0.1 Baso # (Auto) 0.0 Abs Immat Gran (auto) 0.04 H Absolute Neuts (auto) 6.4 Absolute Nucleated RBC 0.000 Nucleated RBC % 0.0 Sodium 134 L Potassium 4.1 Chloride 102 Carbon Dioxide 26 Anion Gap 6 BUN 19 H Creatinine 1.23 H Estim Creat Clear Calc 26 Estimated GFR 41 L Glucose 94 Calcium 8.3 L Total Bilirubin 0.7 AST 26 ALT 15 Alkaline Phosphatase 86 Total Protein 6.4 Albumin 3.1 L Quality VTE Prophylaxis VTE prophylaxis: mechanical ordered
--- NOTE | 2025-02-20 08:39 | P.PNUR_ITS ---
Progress Note: A&P Assessment and Plan (1) Nephrolithiasis: Code(s): N20.0 - Calculus of kidney Status: Acute Assessment and Plan: * Home any time from my standpoint although she is comfortable waiting for final culture results * She has a follow-up time in approximately 2 weeks previously arranged. I will call tomorrow to clarify that with her Subjective Subjective Date/Time Seen: 02/20/25 08:39 Interval history: Fatigued but overall feeling better Exam Const: General: no acute distress Resp: Effort & Inspection: normal respiratory effort GI: Inspection: non-distended GI Palp: No abdominal tenderness and No Guar ding due to palpation present (GI) Auscultation: normal bowel sounds Objective Data Vital Signs Vital Signs: Vital Signs - 24 hr 02/19/25 14:00 02/19/25 15:55 02/19/25 19:40 Temperature 99.0 F 99.0 F Pulse Rate 72 66 Respiratory Rate 18 16 Blood Pressure 107/51 L 112/59 L Pulse Oximetry 94 95 Oxygen Delivery Room Air 02/19/25 19:56 02/20/25 04:42 Temperature 96.6 F L Pulse Rate 72 66 Respiratory Rate 18 16 Blood Pressure 121/55 L Pulse Oximetry 94 95 Oxygen Delivery Room Air Intake/Output Intake/Output: Intake & Output 02/17/25 02/18/25 02/19/25 02/20/25 23:59 23:59 23:59 22:59 Intake Total 200 1020 Output Total 500 Balance 200 1020 -500 Meds/Results Medications: Active Medications Generic Name Dose Route Start Last Admin Trade Name Freq PRN Reason Stop Dose Admin Acetaminophen 650 mg 02/18/25 14:15 02/18/25 17:27 Acetaminophen 325 Mg Tablet PO 650 mg Q4H PRN Administration Mild Pain (1-3) or Fever Hydrocodone Bitart/Acetaminophen 1 tab 02/18/25 18:13 02/19/25 05:52 Hydrocodone/Acetaminophen (*Crx) 5-325 Mg Tablet PO 1 tab Q4H PRN Administration Pain Rated 4-6 Gabapentin 300 mg 02/18/25 21:00 02/19/25 20:29 Gabapentin 300 Mg Capsule PO 300 mg HS LORETO Administration Ampicillin Sodium/Sulbactam 100 mls @ 200 mls/hr 02/19/25 02:00 02/20/25 02:19 Sodium 3 gm/ Sodium Chloride IVPB 200 mls/hr Q12H LORETO Administration Morphine Sulfate 2 mg 02/18/25 14:15 02/19/25 10:48 Morphine Sulfate (*Crx) 4 Mg/Ml Inj IV PUSH 2 mg Q2H PRN Administration Pain Rated 7-10 Ondansetron HCl 4 mg 02/18/25 14:15 02/19/25 10:48 Ondansetron Inj 4 Mg/2 Ml Vial IV PUSH 4 mg Q4H PRN Administration Nausea Radiology Results: ITS Impressions Abdomen/Pelvis CT 02/18/25 12:48 IMPRESSION: 1. Bilateral nephrolithiasis. 2. 2 mm stone distal left ureter, with mild associated hydronephrosis. 3. Right double-J ureteral stent in place. Small collecting system gas and contrast from recent pyelogram. 4. Otherwise no acute abnormality. 5. Additional findings as above. Labs Labs: Laboratory Results - last 24 hr 02/20/25 05:51 WBC 8.6 RBC 3.95 L Hgb 13.1 Hct 39.9 MCV 101.0 H MCH 33.2 MCHC 32.8 RDW 14.1 Plt Count 146 L MPV 9.8 Immature Gran % (Auto) 0.5 Neut % (Auto) 74.2 H Lymph % (Auto) 15.2 L [place] % (Auto) 8.2 Eos % (Auto) 1.5 Baso % (Auto) 0.4 Lymph # (Auto) 1.30 [place] # (Auto) 0.7 H Eos # (Auto) 0.1 Baso # (Auto) 0.0 Abs Immat Gran (auto) 0.04 H Absolute Neuts (auto) 6.4 Absolute Nucleated RBC 0.000 Nucleated RBC % 0.0 Sodium 134 L Potassium 4.1 Chloride 102 Carbon Dioxide 26 Anion Gap 6 BUN 19 H Creatinine 1.23 H Estim Creat Clear Calc 26 Estimated GFR 41 L Glucose 94 Calcium 8.3 L Total Bilirubin 0.7 AST 26 ALT 15 Alkaline Phosphatase 86 Total Protein 6.4 Albumin 3.1 L
[2025-02-20 14:00] VITALS: BP 102/46; PULSE 62; RESP 18; TEMP 36.9; O2SAT 94
[2025-02-20] MEDS: GABAPENTIN 300 MG CAPSULE PO (20:41)
[2025-02-20 21:07] VITALS: BP 124/54; PULSE 64; RESP 18; TEMP 36.8; O2SAT 96
[2025-02-21] MEDS: AMPICILLIN SODIUM/SULBACTAM 3 GM in SODIUM CHLORIDE 0.9% IV 100 ML 200 ML IVPB ×2 (02:11→13:07)
[2025-02-21 05:07] VITALS: BP 124/55; PULSE 60; RESP 18; TEMP 36.1; O2SAT 98
[2025-02-21 05:56] LABS: Hematocrit 41.4 % (37.0-47.0); Hemoglobin 13.3 g/dL (12.0-15.0); Immature Granulocyte Percent A 0.6 % (0-0.5); Lymphocytes Absolute Auto 1.36 K/mm3 (0.9-3.2); Mean Corpuscular HGB Conc 32.1 g/dl (32-36); Mean Corpuscular Hemoglobin 32.5 pg (26-34); Mean Corpuscular Volume 101.2 fl (80-100); Nucleated Red Blood Cells Absolute Auto 0.000 K/mm3 (0.0-0.012); Nucleated Red Blood Cells Perc 0.0 % (0.0-0.2); Platelet Count Result 162 k/mm3 (150-375); Red Blood Count 4.09 M/mm3 (4.2-5.4); White Blood Count 7.2 K/mm3 (4.5-10.0)
[2025-02-21 06:19] LABS: Alanine Aminotransferase 13 U/L (6-35); Albumin Level 3.1 g/dL (3.5-5.1); Alkaline Phosphatase 78 U/L (38-126); Anion Gap 5 mmol/L (4-12); Aspartate Amino Transferase 24 U/L (14-36); Bilirubin,Total 0.7 mg/dL (0.2-1.3); Blood Urea Nitrogen 19 mg/dL (7-17); Calcium 8.5 mg/dL (8.4-10.2); Carbon Dioxide 24 mmol/L (22-30); Chloride 107 mmol/L (98-107); Estimated CRCL calculation 29 ml/min; Estimated Glomerular Filt Rate 47; Glucose 103 mg/dL (65-110); Potassium 4.1 mmol/L (3.4-5.0); Sodium 136 mmol/L (137-145); Total Protein 6.4 g/dL (6.3-8.2)
[2025-02-21 08:03] VITALS: RESP 18; O2SAT 98
--- NOTE | 2025-02-21 08:05 | PM.IMPN ---
Progress Note: A&P Assessment and Plan (1) Urinary tract infection: Code(s): N39.0 - Urinary tract infection, site not specified Status: Acute Assessment and Plan: On 02/17, patient underwent right kidney stent placement and left kidney stent removal. - UA on 02/18 with turbid appearance, 3+ protein, 3+ blood, leukocyte Estrace 3+, RBC greater than 100, WBC greater than 100 moderate squamous cells and rare bacteria, possible contaminant - UC pending - previous micro reviewed 12/29/24: pansensitive enterococcus -Received one dose of rocephin in the ED and was transitioned to unasyn on 02/19, will transition to oral augmentin on 02/21 and continue to monitor urine cultures (2) OREN (acute kidney injury): Code(s): N17.9 - Acute kidney failure, unspecified Status: Resolved Assessment and Plan: Slight OREN on admission with Cr 1.32, likely related to hydronephrosis 2/2 stone -Received IV fluid and renal function improving, fluids dicontinued -trend renal function -avoid nephrotoxic medications -monitor I/O (3) Nephrolithiasis: Code(s): N20.0 - Calculus of kidney Status: Acute Assessment and Plan: CT abdomen pelvis with bilateral nephrolithiasis, 2 mm stone distal left ureter with mild associated hydronephrosis, right double-J ureteral stent in place. Underwent a cystoscopy, bilateral ureteral stent removal, right ureteroscopy with laser lithotripsy, stone extraction, right retrograde pyelography and right ureteral stent replacement on 02/[address] Mccracken -urology following no plan for intervention on 2mm stone okay to discharge from standpoint with follow-up time in approximately 2 weeks (4) Constipation: Code(s): K59.00 - Constipation, unspecified Status: Acute Assessment and Plan: Patient stats she has not had a BM since 02/16. She denies any nausea/vomiting but does endorse intermittent abdominal pain. Continues to tolerate a diet well. Passing flatus. - Started on miralax and senna - KUB ordered Time Spent With Patient Time with patient: 25 - 35 minutes Subjective Date/time seen: 02/21/25 08:05 Interval history: 89-year-old female with a past medical history of MOE, HTN, CAD, nephrolithiasis, pacemaker presents to the hospital on 02/18/2025 with complaints of lower abdominal pain. patient is pleasant lying comfortably in bed. She denies any UTI symptoms at this point. She does note that she is having intermittent abdominal pain states she has not had a bowel movement since last Friday. She denies any associated nausea / vomiting is still tolerating a diet well. She does note that she is passing flatus. she has no other complaints denying chest pain, palpitations, and shortness of breath. Review of Systems Review of Systems: All systems reviewed & are unremarkable except as noted in HPI and below Exam Narrative: AF HR 60 RR 18 SpO2 98 BP 124/55 General: female in no acute respiratory distress who is nontoxic appearing, lying semi recumbent in bed. HEENT: Normocephalic. Atraumatic.Extraocular movement intact. Sclera clear and anicteric. No facial asymmetry. Chest: Lungs are clear to auscultation bilaterally. No wheezes or crackles. CV: Heart was regular rate and rhythm. S1-S2. No murmurs, gallops, or rubs. Abd: Abdomen was soft. Nontender. Nondistended. Positive bowel sounds. Ext: No clubbing, cyanosis, or edema. DP pulses bilaterally. Neuro: Patient is alert. Speech is clear. Objective Data Vital Signs Vital Signs: Vital Signs - 24 hr 02/20/25 14:00 02/20/25 21:07 02/21/25 05:07 Temperature 98.4 F 98.3 F 97.0 F L Pulse Rate 62 64 60 Respiratory Rate 18 18 18 Blood Pressure 102/46 L 124/54 L 124/55 L Pulse Oximetry 94 96 98 Intake/Output Intake/Output: Intake & Output 02/18/25 02/19/25 02/20/25 02/21/25 23:59 23:59 22:59 23:59 Intake Total 200 1020 920 350 Output Total 500 Balance 200 1020 420 350 Meds/Results Medications: Active Medications Generic Name Dose Route Start Last Admin Trade Name Freq PRN Reason Stop Dose Admin Acetaminophen 650 mg 02/18/25 14:15 02/18/25 17:27 Acetaminophen 325 Mg Tablet PO 650 mg Q4H PRN Administration Mild Pain (1-3) or Fever Hydrocodone Bitart/Acetaminophen 1 tab 02/18/25 18:13 02/19/25 05:52 Hydrocodone/Acetaminophen (*Crx) 5-325 Mg Tablet PO 1 tab Q4H PRN Administration Pain Rated 4-6 Gabapentin 300 mg 02/18/25 21:00 02/20/25 20:41 Gabapentin 300 Mg Capsule PO 300 mg HS LORETO Administration Ampicillin Sodium/Sulbactam 100 mls @ 200 mls/hr 02/19/25 02:00 02/21/25 02:45 Sodium 3 gm/ Sodium Chloride IVPB Infused Q12H LORETO Infusion Morphine Sulfate 2 mg 02/18/25 14:15 02/19/25 10:48 Morphine Sulfate (*Crx) 4 Mg/Ml Inj IV PUSH 2 mg Q2H PRN Administration Pain Rated 7-10 Ondansetron HCl 4 mg 02/18/25 14:15 02/19/25 10:48 Ondansetron Inj 4 Mg/2 Ml Vial IV PUSH 4 mg Q4H PRN Administration Nausea Radiology Results: ITS Impressions Abdomen/Pelvis CT 02/18/25 12:48 IMPRESSION: 1. Bilateral nephrolithiasis. 2. 2 mm stone distal left ureter, with mild associated hydronephrosis. 3. Right double-J ureteral stent in place. Small collecting system gas and contrast from recent pyelogram. 4. Otherwise no acute abnormality. 5. Additional findings as above. Labs Labs: Laboratory Results - last 24 hr 02/21/25 05:13 WBC 7.2 RBC 4.09 L Hgb 13.3 Hct 41.4 MCV 101.2 H MCH 32.5 MCHC 32.1 RDW 14.0 Plt Count 162 MPV 9.8 Immature Gran % (Auto) 0.6 H Neut % (Auto) 69.1 Lymph % (Auto) 19.0 [place] % (Auto) 8.4 Eos % (Auto) 2.5 Baso % (Auto) 0.4 Lymph # (Auto) 1.36 [place] # (Auto) 0.6 Eos # (Auto) 0.2 Baso # (Auto) 0.0 Abs Immat Gran (auto) 0.04 H Absolute Neuts (auto) 5.0 Absolute Nucleated RBC 0.000 Nucleated RBC % 0.0 Sodium 136 L Potassium 4.1 Chloride 107 Carbon Dioxide 24 Anion Gap 5 BUN 19 H Creatinine 1.10 H Estim Creat Clear Calc 29 Estimated GFR 47 L Glucose 103 Calcium 8.5 Total Bilirubin 0.7 AST 24 ALT 13 Alkaline Phosphatase 78 Total Protein 6.4 Albumin 3.1 L Quality VTE Prophylaxis VTE prophylaxis: mechanical ordered
[2025-02-21 14:00] VITALS: BP 112/50; PULSE 60; RESP 18; TEMP 36.3; O2SAT 99
[2025-02-21] MEDS: HYDROcodone/acetaminophen (*CRX) 5-325 MG TABLET 1 TAB PO (14:30)
[2025-02-21 19:57] VITALS: BP 131/64; PULSE 66; RESP 16; TEMP 36.9; O2SAT 99
[2025-02-21] MEDS: GABAPENTIN 300 MG CAPSULE PO (19:58)
[2025-02-21] MEDS: SENNA/DOCUSATE SODIUM TABLET 1 TAB PO (19:58)
[2025-02-22 04:53] VITALS: BP 103/52; PULSE 69; RESP 20; TEMP 36.4; O2SAT 96
[2025-02-22 06:05] LABS: Hematocrit 39.2 % (37.0-47.0); Hemoglobin 12.7 g/dL (12.0-15.0); Mean Corpuscular HGB Conc 32.4 g/dl (32-36); Mean Corpuscular Hemoglobin 32.9 pg (26-34); Mean Corpuscular Volume 101.6 fl (80-100); Platelet Count Result 166 k/mm3 (150-375); Red Blood Count 3.86 M/mm3 (4.2-5.4); White Blood Count 7.8 K/mm3 (4.5-10.0)
[2025-02-22 06:34] LABS: Alanine Aminotransferase 14 U/L (6-35); Albumin Level 2.9 g/dL (3.5-5.1); Alkaline Phosphatase 70 U/L (38-126); Anion Gap 2 mmol/L (4-12); Aspartate Amino Transferase 25 U/L (14-36); Bilirubin,Total 0.7 mg/dL (0.2-1.3); Blood Urea Nitrogen 22 mg/dL (7-17); Calcium 7.9 mg/dL (8.4-10.2); Carbon Dioxide 27 mmol/L (22-30); Chloride 105 mmol/L (98-107); Estimated CRCL calculation 30 ml/min; Estimated Glomerular Filt Rate 48; Glucose 109 mg/dL (65-110); Potassium 4.2 mmol/L (3.4-5.0); Sodium 134 mmol/L (137-145); Total Protein 6.0 g/dL (6.3-8.2)
--- NOTE | 2025-02-22 12:46 | P.DS_ITS ---
DS: Admitting Diagnosis Discharge Date 02/22/2025 Admitting Diagnosis UTI OREN Nephrollithiasis Constipation DS: Discharge Diagnosis Discharge Diagnosis (1) Urinary tract infection: Code(s): N39.0 - Urinary tract infection, site not specified Status: Acute (2) OREN (acute kidney injury): Code(s): N17.9 - Acute kidney failure, unspecified Status: Resolved (3) Nephrolithiasis: Code(s): N20.0 - Calculus of kidney Status: Acute (4) Constipation: Code(s): K59.00 - Constipation, unspecified Status: Acute DS: Summary Hospital Course Reason for hospitalization: UTI OREN Nephrollithiasis Constipation Hospital Course: 89-year-old female with a past medical history of MOE, HTN, CAD, nephrolithiasis, pacemaker presents to the hospital on 02/18/2025 with complaints of lower abdominal pain. UA concerning for acute infection, started on IV antibiotics. Urine culture was negative however given that she was symptomatic on admission and has a recent procedure will continue to treat. Transitioned to oral Augmentin to complete the course. Discussed sided effects of this medication and information given with discharge instructions. Patient also had a slight OREN on admission that resolved with IV fluids. A CT abdomen/pelvis showed bilateral nephrolithiasis, 2 mm stone distal left ureter with mild associated hydronephrosis, right double-J ureteral stent in place. Urology was consulted as patient had recently underwent a cystoscopy, bilateral ureteral stent removal, right ureteroscopy with laser lithotripsy, stone extraction, right retrograde pyelography and right ureteral stent replacement on 02/[address] Mccracken. Urology consulted and no acute intervention required. Patient is to follow up with urology as scheduled. During admission patient was endorsing increased constipation. She denied any associated nausea/vomiting or abdominal pain continued to pass flatus and tolerating a diet. KUB shows no signs of impaction or obstruction. Patient started having bowel movements prior to discharge. Discussed with patient that if she has recurrence of constipation especially on the narcotics for the recent stent placement she can take over the counter miralax. She states understanding. Patient has no complaints at time of discharge denying chest pain, palpitations, shortness of breath, nausea/vomiting, abdominal pain and dizziness/lighthea dedness. Patient discharged home with home health in a stable condition. She is to follow up with her PCP in 1 week and urology as scheduled. Status at Discharge Functional status at discharge: uses cane/walker Time Spent with Patient Time attestation: Total time spent providing and/or coordinating discharge services: Time spent: Greater than 30 minutes Exam Narrative: AF HR 69 RR 20 Spo2 96 BP 103/52 General: female in no acute respiratory distress who is nontoxic appearing, sitting up in bed. HEENT: Normocephalic. Atraumatic.Extraocular movement intact. Sclera clear and anicteric. No facial asymmetry. Chest: Lungs are clear to auscultation bilaterally. No wheezes or crackles. CV: Heart was regular rate and rhythm. Abd: Abdomen was soft. Nontender. Nondistended. Positive bowel sounds. Ext: No clubbing, cyanosis, or edema. DP pulses bilaterally. Neuro: Patient is alert. Speech is clear. DS: Data Data Completed and Pending Completed studies during hospitalization: abdomen xr abdomen/pelvis ct Labs on day of discharge: Labs from last 24 hours 02/22/25 05:36 WBC 7.8 RBC 3.86 L Hgb 12.7 Hct 39.2 MCV 101.6 H MCH 32.9 MCHC 32.4 RDW 14.1 Plt Count 166 MPV 9.6 Sodium 134 L Potassium 4.2 Chloride 105 Carbon Dioxide 27 Anion Gap 2 L BUN 22 H Creatinine 1.07 H Estim Creat Clear Calc 30 Estimated GFR 48 L Glucose 109 Calcium 7.9 L Total Bilirubin 0.7 AST 25 ALT 14 Alkaline Phosphatase 70 Total Protein 6.0 L Albumin 2.9 L Discharge Plan Discharge Attending physician on discharge: Sean Hanson Oca Consulting providers: Ameya Mccracken; Parul Colby Discharging Clinician: Parul Colby Anticipated Discharge Date/Time: 02/22/25 11:10 Patient Disposition: Home with Home Health Service Activity: as tolerated Diet: as tolerated Discharge Instructions: Discharge disposition: Patient diagnosed with a UTI Take all medications as prescribed even if feeling better Augmentin twice a day, course to be completed on 02/25 attached is information on this medication Eat well balanced meals and stay hydrated Keep active to remain strong Avoid use of diapers or pads Good marcela Care every 2 hours Trend urine output Patient underwent a cystoscopy, bilateral ureteral stent removal, right ureteroscopy with laser lithotripsy, stone extraction, right retrograde pyelography and right ureteral stent replacement on 02/[address] Nawaf Mustafa was previously prescribed for break through pain, attached is information on this medication Do not drive or operate heavy machinery on this medication Follow up in the urology office as previously scheduled Monitor blood pressures Take caution while standing, rising, or moving Change positions slowly taking a break between each position change If you standing feel dizzy sit back down and take a break Encouraged to continue with yearly vaccinations Return to the emergency department if he developed sudden shortness of breath, chest pain, nausea, vomiting, upset stomach or intractable diarrhea Return to the emergency department if you develop fever greater than 100.5 Follow-up with the primary care physician within 1-2 weeks Thank you for choosing [facility] for your healthcare needs Patient Instructions: Antibiotic Form, Hydrocodone/Acetaminophen (By mouth), Amoxicillin/Clavulanate Potassium (By mouth) Patient Language: Bruneian Stand Alone Forms: General Discharge Information Follow-up/Referrals: Tru Flood [Other] - 1 Week Ameya Mccracken MD [Physician, Urology] - 2 Weeks Discharge Medications: New amoxicillin-pot clavulanate [Augmentin] 500-125 mg Tablet 1 tablet PO Q12HR Qty: 7 0RF Continued gabapentin 300 mg Capsule 300 mg PO HS hydrocodone-acetaminophen 5-325 mg tablet 1 - 2 tablet PO Q6H PRN (Reason: pain) Qty: 20 0RF Date of admission: 02/19/25 13:49 Primary Care Provider: Tru Flood Admitting Provider: Adan Bryant Attending physician on admission: Adan Bryant Condition: Stable Hospitalist MIPS Heart Failure (Exclusion) Patient has history of Heart Transplant or Left Ventricular Assistive Device?: No IF YES, STOP HERE Heart Failure (Qualifier) Patient has current or prior documentation of LVEF less than or equal to 40%, or mod/servere depressed LVSF?: No IF NO, STOP HERE
== END 2025-02-22 12:54 | disposition home or self-care (01) | DRG 699 ==
LOC: ANHED 14:07 → ANH3MEDSUR 15:22
PROVIDERS: Nurse Practitioner Adult Health; Student in an Organized Health Care Education/Training Program; Admitting Provider Internal Medicine; Emergency Provider Emergency Medicine; Visit Provider Student in an Organized Health Care Education/Training Program
DX: N99.89 Other postprocedural complications and disorders of genitourinary system (principal); N13.6 Pyonephrosis; N17.9 Acute kidney failure, unspecified; K59.00 Constipation, unspecified; I10 Essential (primary) hypertension; I25.10 Atherosclerotic heart disease of native coronary artery without angina pectoris; H26.9 Unspecified cataract; G62.9 Polyneuropathy, unspecified; Z96.0 Presence of urogenital implants; G47.33 Obstructive sleep apnea (adult) (pediatric); Z95.0 Presence of cardiac pacemaker; Z95.5 Presence of coronary angioplasty implant and graft; Z79.891 Long term (current) use of opiate analgesic; Z87.440 Personal history of urinary (tract) infections; Z87.19 Personal history of other diseases of the digestive system; Z87.891 Personal history of nicotine dependence
CPT/HCPCS: 36415; 74018; 74176; 74420; 80048; 80053; 81001; 82365; 83690; 85025; 85027; 87086; 88300; 96365; 96367; 96375; 96376; 97110; 97161; 97165; 97530; 97535; 99285; J0690; A9270; C1769; C1894; C2617; G0378; J0295; J0696; J1885; J2003; J2270; J2405; J2704; J3010; J7030; J7120; Q9966

== ENCOUNTER 2025-03-08 14:53 | Outpatient (CLI) | payer OTHER, SELFPAY ==
--- NOTE | ~2025-03-08 | XR_ITS ---
EXAMINATION: KUB: DATE: 03/08/2025 INDICATION: History of kidney stone. Stent placement in the right ureter. TECHNIQUE: Supine AP views of the abdomen. were obtained. COMPARISON: KUB dated 02/21/2025 FINDINGS: Multiple renal calculi in the projection of the right kidney are noted again. Stent is noted in place in the right ureter. No definite calcific density seen in the projection of the left kidney. Severe calcific changes of abdominal aorta. Scoliosis and degenerative disease of the spine. IMPRESSION: 1. Multiple right renal calculi. Stable position of the right ureter stent. No significant change from 02/21/2025. Reviewed, dictated and finalized at location T. USEMENT MACHINE MECHANIC
== END 2025-03-08 14:54 | disposition home or self-care (01) ==
PROVIDERS: Visit Provider Urology
DX: N20.0 Calculus of kidney (principal)
CPT/HCPCS: 74018

== ENCOUNTER 2025-03-31 03:42 | Day surgery (SDC) | payer OTHER, SELFPAY ==
[2025-03-22 13:01] VITALS: BMI 28.4
--- NOTE | 2025-03-22 13:11 | PC.NURSE ---
[facility] has started construction of its new state of the art ER which will open Spring 2026. With this, we anticipate parking may be a challenge for some our surgical patients and families. Parking spaces are limited but are available for all Surgical, obstetrics, and ER patients sharing this lot. If you arrive and find you are having a hard time finding a parking space, please note that we understand the challenges, please drive around the hospital and park near Hospital Entrance 1. When you enter this entrance, you can ask a volunteer to direct or take you back to the surgical waiting area to check in. We appreciate everyone?s understanding of these expected challenges while we build for your future. Report to the Outpatient Waiting Room, entrance under the green pavilion located off [address], at time ___0915am____ on date _03/31/25 . Planned Procedure Time: __11:15am .? Time changes happen often and if your time is changed the preop area will call you the afternoon before. - You and your visitor will be asked to self-screen and do not enter if you have any COVID symptoms. Please call surgeon if you need to reschedule. - A mask is optional within the hospital at this time. Patients may have clear liquids (water, carbonated beverages, clear teas, apple juice) until 3 hours prior to surgery with a maximum of 20 ounces. - No food from midnight until time of surgery and no smoking, or chewing tobacco (or any form of nicotine). No chewing gum, candy or mints. (0815am) Take only the following medications with a SIP of water on the morning of surgery: Tylenol if needed DO NOT STOP ANY OF YOUR OTHER PRESCRIPTION MEDICATIONS PRIOR TO SURGERY EXCEPT THE FOLLOWING Hold all vitamins, NSAIDS, Aspirin and supplements for [address] Mccracken. Medications to discontinue per physician NONE Date to take last dose____NONE Please no make-up, nail cymraes, hairspray, perfume, deodorant, or body powder the day of surgery.? No jewelry (including any body piercings) or valuables the day of surgery, leave them at home.? Please take a shower or bath the night before, or the morning of, surgery with an antibacterial soap.? Wear comfortable, loose fitting clothing.? - Jewelry must be removed prior to entering the operating room.? Rings and piercings that are not removed may be cut off. - The hospital will not accept responsibility for valuables.? - Please leave all valuables, including medications, at home the day of surgery. If you are going home after surgery, a licensed delivery driver/customer service must drive you home.? - NO public transportation without another adult if you receive anesthesia. - We recommend that an adult stay with you for 24 hours following discharge. - We also recommend that you do not drive, make important decision, drink alcoholic beverages, or take any drugs that were not prescribed by your health care provider for at least 24 hours after your discharge time. Follow any additional instructions given to you from your surgeon. Telephone instructions given to _Patient and asked if any additional questions and then verbalized understanding. Patient advised to call surgeon office or pre surgery nurse liaison [phone] if any additional questions.
[2025-03-31] VITALS (8 sets, daily range): BP systolic 116–164; BP diastolic 49–87; PULSE 67–99; RESP 17–19; TEMP 36.2–36.9; O2SAT 95–100
--- NOTE | ~2025-03-31 | XR_ITS ---
EXAM/PROCEDURE: XR retrograde pyelo w/stent RT HISTORY: RIGHT RETRO/STENT COMPARISON: None available. TECHNIQUE: Fluoroscopic images for right retrograde pyelogram. Fluoroscopy time: 82.0 1 seconds Dose: 37.33 mGy IMPRESSION: A right ureteral stent/catheter is present. Distended appearance of the right renal collecting system. No radiologist present. See also operative/surgical notes for complete evaluation. Reviewed, dictated and finalized at location A. TER PUMP OILER IMPRESSION: A right ureteral stent/catheter is present. Distended appearance of the right renal collecting system. No radiologist present. See also operative/ surgical notes for complete evaluation.
--- OUTSIDE RECORDS SUMMARY | 2025-03-31 03:44 | XMS_ITS | Clinical Summary ---
Author Organization [facility] Address [address] [place] [address] Care Team Providers Care Bilingual Executive Assistant Name Role Phone Tru Flood MD Primary Care Provider Source Comments [facility],non-owned Affiliates and Associated Physician Practices is amultiple site organization consisting of ambulatory clinics and hospital sitesin [place]. This disclosure is being madepursuant to the Care Everywhere program and may not contain all information available regarding this patient. Last updated 18.[facility] [employer] Allergies Active Allergy Reactions Criticality Noted Date [...] Comments Blood Pressure 151/77 04/27/2014 5:32 PM RAIL CAR DRIVER Pulse 73 04/27/2014 5:32 PM RAIL CAR DRIVER Temperature 36.3 C (97.3 F) 04/27/2014 5:32 PM RAIL CAR DRIVER Respiratory Rate 16 04/27/2014 5:32 PM RAIL CAR DRIVER Oxygen Saturation 96% 04/27/2014 5:15 PM RAIL CAR DRIVER Inhaled Oxygen Concentration - - Weight 106.6 kg (235 lb) 04/25/2014 3:11 PM RAIL CAR DRIVER Height 167.6 cm (5' 6) 04/25/2014 3:11 PM RAIL CAR DRIVER Body Mass Index 37.93 04/25/2014 3:11 PM RAIL CAR DRIVER Plan of Treatment Health Maintenance Due Date Last Done Comments BONE DENSITY TESTING 1935 MEDICARE AWV 12 MONTHS 1935 DTAP/TDAP/TD VACCINES (1 - Tdap) 09/21/1955 PNEUMOCOCCAL VACCINE 50+ (1 of 1 - PCV) 1986 ZOSTER VACCINE (1 of 2) 1986 Respiratory Syncytial Virus (RSV) Vaccine Pt: or over 60 yrs (1 - 1-dose 75+ series) 09/21/2011 DEPRESSION SCREENING 04/21/2024 COVID-19 VACCINE (1 - 2024-2 6 season) 2024 INFLUENZA VACCINE (#1) 2024 HEPATITIS [...] this topic Medical Devices Implanted Type Area Engraver Jewelry Device Identifier Shelf Expiration Date Model / Serial / Lot Stent Uret Polaris Ultra 6.0fr X 26mm Implanted:Qty: 1 on 02/07/2014 by Alexandre Gallardo MD at [facility] Right: Ureter [employer] 12/08/2016 [id number] / / [id number] Stent Urete Percflex Plus 7.0fr X 26cm Implanted:Qty: 1 on 03/16/2014 by Alexandre Gallardo MD at [facility] Right: Ureter [employer] 11/19/2015 [id number] / / [id number] Percuflex Ureteral Stent 7fr X 26cm Implanted:Qty: 1 on 04/11/2014 by Alexandre Gallardo MD at [facility] Right: Ureter 01/18/2017 [id number] / / [id number] Percuflex 7fr X 26cm Implanted:Qty: 1 on 04/27/2014 by Alexandre Gallardo MD at [facility] Right: Ureter 12/20/2016 [id number] / / [id number] Insurance [facility] MEDICARE SELF PAY NO INSURANCE Member Subscriber Plan / Payer (Ef fective for All Dates) Name:Rita Flood Member ID:Not on file Relation to Subscriber:Not on file Name:RITA FLOOD Subscriber ID:Not on file (Home) Address: [address] [place] [address] Payer ID:Not on file Group ID:Not on file Type:Self Pay Address: [place], [place] [employer] MEDICARE Care Teams Bilingual Executive Assistant Relationship Specialty Start Date End Date Tru Flood MD [address] [address] PCP - General 12/21/21
--- OUTSIDE RECORDS SUMMARY | 2025-03-31 03:44 | XMS_ITS | Clinical Summary ---
Author Organization [facility] Address [address] [place] [address] Care Team Providers Care Cell Phone Repair Technician Name Role Phone Tru Flood MD Primary [...] 05/18/2024 Assessment & Plan (06/15/2024 11:09 AM PROGRAM AIDE GROUP WORK): The patient's recent EGD did not demonstrate [...] forward Assessment & Plan (05/18/2024 9:57 AM PROGRAM AIDE GROUP WORK): We have discussed that the anemia may [...] 05/17/2023 Assessment & Plan (05/18/2023 3:36 PM PROGRAM AIDE GROUP WORK): SOUNDS LIKE VERTIGO. 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 Status post RA lead repositioning on 19 May 2023. Assessment & Plan (05/26/2023 12:21 PM PROGRAM AIDE GROUP WORK): Patient is feeling fine. We discussed good [...] (09/18/2017): Added automatically from request for surgery [id number] Peripheral neuropathy Encounters Date Type Department Care Team Description 02/09/2025 12:45 PM CDT Ancillary Procedure [facility] [employer] Consultant [address] [place] [phone] Cardiac pacemaker in situ; Heart block AV second degree; Sick sinus syndrome (HCC) 02/08/2025 Orders Only [facility] [employer] Consult[facility] [address] [place] [address] Jennifer Leyva Sick sinus syndrome (HCC) (Primary Dx); Cardiac pacemaker in situ; Heart block AV second degree 01/27/2025 Telephone [facility] at [address] [place] [phone] Karla Hogan RN 01/26/2025 11:30 AM CDT Ancillary Procedure [facility] Consult[facility] at [address] [place] [phone] Pacemaker reprogramming/check (Primary Dx); Cardiac pacemaker in situ; Heart block AV second degree; Sick sinus syndrome (HCC) 01/26/2025 11:30 AM CDT Office Visit [facility] at [address] [place] [phone] Arabella Do NP Cardiac pacemaker in situ (Primary Dx); 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 More than 4 times per year 05/19/2023 Do you belong to any clubs o r organizations such as hindu groups, unions, fraternal or athletic groups, or [...] on file Legal Sex Female 2:50 AM PROGRAM AIDE GROUP WORK Gender Identity Not on file Sexual Orientation [...] 12/18/2024, 04/14/2024 Medical Devices Implanted Type Area Senior Java Ui Developer Device Identifier Shelf Expiration Date Model / Serial / Lot Biotronik Inc Endocardial Pacing Lead Promri Solia T [id number] - [id number] - [id number] Implanted:Qty: 1 on 05/14/2023 by Fransico Alberto MD at [facility] Lead Biotronik Inc 03/20/2024 [id number] / [id number] / Biotronik Inc Endocardial Pacing Lead Promri Solia Jt 45 287385 - [id number] - [id number] Implanted:Qty: 1 on 05/14/2023 by Fransico Alberto MD at [facility] Lead Biotronik Inc [id number] / [id number] / Biotronik Inc Solia S 45cm Bipolar Active Fixation Lead Pacing Steroid Eluting 161917 - [id number] - [id number] Implanted:Qty: 1 on 05/19/2023 by Fransico Alberto MD at [facility] Lead Biotronik Inc 05/21/2025 [id number] / [id number] / Medtronic Inc Tyrx Absorbable Antibacterial Envelope-Large 3.3x2.9in [id number] - Sna - [id number] Implanted:Qty: 1 on 05/19/2023 by Fransico Alberto MD at [facility] Mesh Medtronic Inc 02/08/2024 [id number] / [id number] / [id number] Biotronik Inc Edora Promri 68b18b8.5mm Dual Chamber Rate Adaptive Unipolar Bipolar 684336 - [id number] - [id number] Implanted:Qty: 1 on 05/14/2023 by Fransico Alberto MD at [facility] Pacemaker Biotronik Inc 09/18/2024 [id number] / [id number] / Depuy Orthopaedics Inc [id number] Smartset High Viscosity Cement 40gm Bone Gentamicin - [id number] Implanted:Qty: 1 on 10/06/2017 by Neptali Negrete MD at [facility] Left: Knee Depuy Orthopaedics Inc 01/18/2019 [id number] / / [id number] Depuy Orthopaedics Inc [id number] Smartset High Viscosity Cement 40gm Bone Gentamicin - [id number] Implanted:Qty: 1 on 10/06/2017 by Neptali Negrete MD at [facility] Left: Knee Depuy Orthopaedics Inc 01/18/2019 [id number] / / [id number] Depuy Orthopaedics Inc [id number] Attune 38mm Cemented Medialize Knee Dome Patellar Aox Sterile - [id number] Implanted:Qty: 1 on 10/06/2017 by Neptali Negrete MD at [facility] Left: Knee Depuy Orthopaedics Inc 05/21/2022 [id number] / / [id number] Depuy Orthopaedics Inc [id number] Attune S+ Cement Fix Bearing Knee 5 Baseplate Tibial - [id number] Implanted:Qty: 1 on 10/06/2017 by Neptali Negrete MD at [facility] Left: Knee Depuy Orthopaedics Inc 04/20/2027 [id number] / / [id number] Depuy Orthopaedics Inc [id number] Attune Cemented Posterior Stabilize Knee Left 6 Narrow Component - [id number] Implanted:Qty: 1 on 10/06/2017 by Neptali Negrete MD at [facility] Left: Knee Depuy Orthopaedics Inc 08/19/2027 [id number] / / [id number] Depuy Orthopaedics Inc [id number] Attune 8mm Posterior Stabilize Fix Bearing Knee 6 Insert Tibial - [id number] Implanted:Qty: 1 on 10/06/2017 by Neptali Negrete MD at [facility] Left: Knee Depuy Orthopaedics Inc 06/18/2022 [id number] / / [id number] Medtronic Inc Tyrx Absorbable Antibacterial Envelope-Large 3.3x2.9in [id number] - [id number] Implanted:Qty: 1 on 05/14/2023 by Fransico Alberto MD at [facility] Medtronic Inc 12/25/2023 [id number] / / [id number] [employer] Solitario Contour 6fr 26cm Large Inner Lumen Low Profile Bladder Lauri Taper Latex Free 180-223 - [id number] Implanted:Qty: 1 on 04/15/2024 by Alisson Duran MD at [facility] Right: Ureter [employer] 12/31/2026 [id number] / / [id number] [employer] Solitario Contour 6fr 26cm Large Inner Lumen Low Profile Bladder Lauri Taper Latex Free 180-223 - [id number] Implanted:Qty: 1 on 04/15/2024 by Alisson Duran MD at [facility] Left: Ureter [employer] 11/26/2026 [id number] / / [id number] [employer] Solitario Contour Vl 4.8fr 22-30cm Taper Tip Bladder Lauri Low Profile Large Latex Free [id number] - [id number] Implanted:Qty: 1 on 12/18/2024 by Melonie Mitchell MD at [facility] Left: Urethra [employer] 05/04/2027 [id number] / / [id number] [employer] Solitario Contour Vl 4.8fr 22-30cm Taper Tip Bladder Lauri Low Profile Large Latex Free [id number] - [id number] Implanted:Qty: 1 on 12/18/2024 by Melonie iMtchell MD at [facility] Left: Urethra [employer] 02/22/2027 [id number] / / [id number] Procedures Procedure Name Priority Date/Time Associated Diagnosis Comments DEVICE CHECK - REMOTE Routine 02/08/2025 11:44 AM CDT Cardiac pacemaker in situ Heart block AV second degree Sick sinus syndrome (HCC) DEVICE CHECK - IN OFFICE Routine 01/26/2025 11:14 AM CDT Cardiac pacemaker in situ Heart block AV second degree Sick sinus syndrome (HCC) from Last 3 Months Results * DEVICE CHECK - REMOTE (02/08/2025 11:44 AM CDT) Anatomical Region Laterality Modality Other Narrative 02/10/2025 12:24 PM CDT Images from the original result were not included. 02/09/2025 Biotronik quarterly remote device check NOTE The following shows snippets from the complete quarterly report. The complete report in its entirety is attached to this Result Text in Websphere Portal Architect Periodic IEGM Detection Feb 09, 2025, 1:07:00 AM Last in-office check: January 2025 Next in-office appointment: January 2026 Battery longevity = OK/85% AT/AF burden 0% Ap: 26% RVp: 33% No events Device Nurse Review and Recommendations below Reviewed By Karla Hogan RN BSN at 11:47 AM ATTESTATION I have reviewed [...] is attached to this Result Text in Websphere Portal Architect us Elver Tolbert MD CV CARDIAC SERVICES PROCEDURES Final Result from Last 3 Months Insurance [facility] Advance Directives For more information, please contact: [phone] * Full Code (Latest Code Status on [...] 1:17 PM 05/18/2023 3:24 PM Care Teams Cell Phone Repair Technician Relationship Specialty Start Date End Date Tru Flood MD PCP - General 12/26/16 Karina Jenkins [facility] Media Developer Physical Therapy 09/26/17
--- OUTSIDE RECORDS SUMMARY | 2025-03-31 03:44 | XMS_ITS | Clinical Summary ---
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
--- NOTE | 2025-03-31 07:08 | WPDHPUPDATE1 ---
History and Physical Update Update Date/Time: 03/31/25 07:08 History and Physical has been reviewed, including an updated exam of the patient. There are NO changes in the patient's condition. Risks, benefits, and alternatives have been discussed and questions answered. Patient agrees to proceed with procedure.
[2025-03-31] MEDS: LACTATED RINGERS 1,000 ML 30 ML IV CONT ×2 (09:25→11:32)
--- NOTE | 2025-03-31 09:39 | WPDANESEPPF ---
Anes - Initial Pre Proc Eval Procedure: Operation Date: 03/31/25 11:15 Proposed Procedures p Cystoscopy, Right Ureteroscopy, Possible Right Retrograde Pyelogram, Possible Right Stone Extraction, Possible Right Stent Removal/Replacement, Possible Holmium Laser - Ameya Mccracken MD Date/Time: 03/31/25 09:39 Surgeon: Ameya Mccracken MD Pre Op Diagnosis: kidney stone Patient Data Age: 89 Gender: F Height: 1.68 m Weight: 79.2 kg Last Vital Signs Temp 36.9 C 03/31/25 09:00 Pulse 71 03/31/25 09:00 Resp 18 03/31/25 09:00 BP 135/74 03/31/25 09:00 Pulse Ox 99 03/31/25 09:00 O2 Del Method Room Air 03/31/25 09:00 Allergies Allergy/AdvReac Type Severity Reaction Status Date / Time codeine Allergy Unknown Hives Verified 03/31/25 09:33 atorvastatin AdvReac Muscle Pain Verified 03/31/25 09:33 Home Medications ?Medication ?Instructions ?Recorded ?Confirmed ?Type gabapentin 300 mg capsule 300 mg PO HS 03/25/19 03/31/25 History Patient hx anesthesia problems: none Family hx anesthesia problems: none Results Review: All pre-operative results and documents have been reviewed as part of the pre-operative evaluation. [facility] Past Medical History Medical History (Updated 02/21/25 @ 13:30 by Parul Colby PA-C) Nephrolithiasis Pacemaker Urinary tract infection Hiatal hernia (Unknown) Gastric bezoar (~05/2021) SBO (small bowel obstruction) (~05/2021) MOE (obstructive sleep apnea) non compliance with CPAP Hypertension CAD (coronary artery disease) Neuropathy Cataract, right eye Sleep apnea Bronchitis Surgical History Surgical History History of extraction of renal calculus History of incisional hernia repair History of repair of hiatal hernia History of hysterectomy History of tonsillectomy Stented coronary artery x2 Family History Family History Mother Heart disease Hypertension Social History Social History Social History: She lives by herself and is independent. She does not have any pets, and she wants her son Balta to be her surrogate. She wishes to be a full code. 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 Alcohol intake: never Substance use: never Lack of Transportation: No Lack of Food: Never True Current Housing: I Have Housing Concerned About Future Housing: No Difficulty Paying Gas/Electric Bills: No Difficulty Paying for Meds: No Currently Unemployed: YES Education: High School Diploma/GED Difficulty w/ Childcare or Family Care: No Living arrangements: alone Occupation/Education: retired Gender identity (if verbalized by the patient): Female Sexual Orientation (if Verbalized by the Patient): Straight or Heterosexual Spiritual care concerns: No Agree to blood products: Yes Anes - Eval Final PreProcedure Day of Procedure 03/31/25 09:39 Patient weight: overweight Heart: regular rate and rhythm Lungs: clear to auscultation Airway: Mallampati scale class II Neurological: alert and oriented Last oral intake: >/= 8 hours ASA classification: III Emergent: no Anesthetic plan: proceed Anesthesia type and monitoring: general LMA and standard monitoring Results Review: All pre-operative results and documents have been reviewed as part of the pre-operative evaluation. Informed Consent: The patient's anesthetic plan and its attendant risks and benefits were discussed with the patient/family/POA. Questions were solicited and answers provided to the satisfaction of the patient/family/POA.
[2025-03-31 10:10] LABS: INR 1.1; Prothrombin Time 14.3 Seconds (11.1-14.7)
[2025-03-31 10:11] LABS: Partial Thromboplastin Time 30.3 Seconds (22.3-36.8)
[2025-03-31] MEDS: ceFAZolin 2 GM in SODIUM CHLORIDE 0.9% IV 50 ML 100 ML IVPB (10:38)
[2025-03-31] MEDS: LIDOCAINE 2% GEL UROJET 10 ML PKG MUCOUS MEM (11:01)
--- NOTE | 2025-03-31 11:13 | S_PTH ---
PATIENT: Rita Flood LOC: [facility] U#:[id number] AGE/SX: 89/F ROOM: RE03/31/[address]: Ameya Mccracken MD : [id number] BED: DIS: 03/31/2025 SPEC #: [id number] RECD: 03/31/25 12:02 STATUS: BUDDY REQ #: [id number] MONICA: 03/31/25 11:[address]: Ameya Mccracken DEPT: [facility] Surgical RECD BY: Roma Vela Tissues: A - Stone Procedures: Gross Exam Level 1 Crystalline Analysis
--- NOTE | 2025-03-31 11:43 | W.PM.PROC2 ---
Procedure Note - Detailed Date of Procedure 03/31/25 Pre-op Diagnosis Bilateral kidney stones Post-op Diagnosis Same Procedure Performed Cystoscopy, right ureteral stent removal, right ureteroscopy with laser lithotripsy, stone extraction, retrograde pyelogram and right ureteral stent replacement Surgeon Ameya Mccracken MD Anesthesia General Description of Procedure Patient is brought the operative suite where she has prepped draped in routine sterile fashion while in dorsal lithotomy position after the uneventful induction of a general LMA anesthetic. Cystoscopy was undertaken with a 19 F rigid cystoscope. The tip of the indwelling stent is grasped and is brought to the external urethral meatus. A 0.035 in glidewire was advanced into renal pelvis. An 8 F 10 F dilators used to dilate the distal ureter and 8 11 F 13 F access sheath was placed along with a safety wire. Ureteroscopy was undertaken with a flexible digital ureteral scope. She has stones found in both her upper and mid pole calices. Using a 200 micron Davon laser fiber the stones are dusted. All residual fragments appeared to be 2 mm or less. A couple fragments were removed for analysis. Retrograde pyelogram was obtained to ensure all calices had been inspected greater was no evidence of extravasation. A 64.8 F variable length stent was replaced with the proximal coil in the renal pelvis and distal coil in the bladder. Scopes and wires removed she was taken recovery room good condition Drains No Packing No Pathology Yes
[2025-03-31] MEDS: KETOROLAC 15 MG/ML VIAL (*BKC) IV PUSH (13:02)
--- NOTE | 2025-03-31 13:58 | SUR.PHASEII ---
RN forgot to send patient home with strainer kit.
== END 2025-03-31 13:55 | disposition home or self-care (01) ==
PROVIDERS: Anesthesiology; Visit Provider Urology
PROC: (CPT 52352; principal; 2025-03-31 11:15)
DX: N20.0 Calculus of kidney (principal); I10 Essential (primary) hypertension; N39.41 Urge incontinence; R35.0 Frequency of micturition; I48.91 Unspecified atrial fibrillation; I25.10 Atherosclerotic heart disease of native coronary artery without angina pectoris; G62.9 Polyneuropathy, unspecified; G47.30 Sleep apnea, unspecified; M19.90 Unspecified osteoarthritis, unspecified site; Z79.01 Long term (current) use of anticoagulants; Z98.890 Other specified postprocedural states; Z95.0 Presence of cardiac pacemaker; Z87.891 Personal history of nicotine dependence; Z82.49 Family history of ischemic heart disease and other diseases of the circulatory system
CPT/HCPCS: 52356; 36415; 74420; 82365; 85610; 85730; 88300; J0690; C1758; C1769; C1894; C2617; J1100; J1885; J2003; J2405; J2704; J7120; Q9966